=== PATIENT | female | born 1985 | race Caucasian/White ===

== ENCOUNTER 2023-06-18 20:00 | Outpatient (OUT) | payer OTHER, SELFPAY ==
--- NOTE | 2023-06-18 20:08 | US_ITS ---
The [address] [address] Patient Name: SOLEDAD KING MRN: [id number] date: 1985 Sex: F Assigned Patient Location: US Current Patient Location: Accession/Order Number: [id number] Exam Date: 06/18/2023 20:15 Report Date: 06/19/2023 07:26 At the request of: KELSEA YOUNG Procedure: US pelvis w/ transvaginal EXAMINATION: US pelvis w/ transvaginal HISTORY: CYST OF OVARY, UNSPECIFIED LATERALITY N83.209 COMPARISON: Ultrasound pelvis 01/19/2021 TECHNIQUE: Transabdominal and/or transvaginal sonographic examination was performed as indicated by examination type. FINDINGS: UTERUS: Hysterectomy. Nonspecific 1.2 cm hypoechoic structure midline anterior pelvis; not overtly suspicious. RIGHT OVARY: Contains a heterogeneous 5.0 x 4.1 x 4.8 cm complex cyst versus hypovascular mass. Small amount of free fluid adjacent the ovary. Duplex Doppler demonstrates normal waveform and flow; resistive index 0.5. Ovary size: 6.2 x 4.6 x 5.9 cm LEFT OVARY: Not seen. No suspicious adnexal findings. CUL-DE-SAC: Unremarkable. No significant free fluid. BLADDER: Unremarkable. OTHER: None. US/US pelvis w/ transvaginal IMPRESSION: 1. Stable to slight increase in size of a right ovarian lesion of uncertain etiology; suspect complex hemorrhagic cyst or possible endometrioma. Given its persistence since 2020 this most likely represents an endometrioma. Electronically authenticated by: IRMA ALLISON Date: 06/19/2023 07:26
== END 2023-06-18 20:01 | disposition home or self-care (01) ==
PROVIDERS: PCP Internal Medicine; Visit Provider Obstetrics & Gynecology
DX: N83.209 Unspecified ovarian cyst, unspecified side (principal)
CPT/HCPCS: 76830; 76856

== ENCOUNTER 2023-06-19 13:13 | Outpatient (OUT) | payer OTHER, SELFPAY ==
[2023-06-19 14:18] LABS: Lactate Dehydrogenase 160 U/L (81-234)
[2023-06-20 04:08] LABS: AFP, Serum, Tumor Marker 5.2 ng/mL (0.0-6.4); CEA <0.6 ng/mL (0.0-4.7); Cancer Antigen (CA) 125 10.5 U/mL (0.0-38.1)
[2023-06-20 06:09] LABS: HCG Tumor Marker <1 mIU/mL (.)
== END 2023-06-19 13:14 | disposition home or self-care (01) ==
LOC: LAB 13:17
PROVIDERS: PCP Internal Medicine; Visit Provider Obstetrics & Gynecology
DX: N83.299 Other ovarian cyst, unspecified side (principal)
CPT/HCPCS: 36415; 82105; 82378; 83615; 84702; 86304

== ENCOUNTER 2023-06-27 12:34 | Outpatient (OUT) | payer OTHER, SELFPAY ==
[2023-06-27 13:38] LABS: Anion Gap 12.8; BUN Creatinine Ratio 9.5; Calcium 9.8 mg/dL (8.5-10.1); Carbon Dioxide 28.6 mmol/L (21.0-32.0); Chloride 103 mmol/L (98-107); Estimated GFR (African America >60 (>=60); Estimated GFR (Non-African Ame >60 (>=60); Glucose 77 mg/dL (74-106); Potassium 3.4 mmol/L (3.5-5.1); Sodium 141 mmol/L (136-145)
== END 2023-06-27 12:35 | disposition home or self-care (01) ==
LOC: PST 12:35
PROVIDERS: PCP Internal Medicine; Visit Provider Obstetrics & Gynecology
DX: Z01.812 Encounter for preprocedural laboratory examination (principal); N83.201 Unspecified ovarian cyst, right side
CPT/HCPCS: 80048; 85610; 85730

== ENCOUNTER 2023-07-01 10:43 | Day surgery (SDC) | payer OTHER, SELFPAY ==
[2023-06-27 13:16] VITALS: BP 162/104; PULSE 64; TEMP 36.2; O2SAT 100; BMI 42.5
[2023-07-01] VITALS (19 sets, daily range): BP systolic 118–181; BP diastolic 64–110; PULSE 48–84; TEMP 36.1; O2SAT 98–100; BMI 42.1
[2023-07-01 11:07] LABS: Basophils Percent Auto 0.7 % (0.2-2.0); Eosinophils Absolute Auto 0.2 10^3/uL (0.0-0.7); Eosinophils Percent Auto 2.8 % (0.9-7.0); Hematocrit 43.5 % (36.0-48.0); Hemoglobin 14.6 g/dL (12.0-16.0); Immature Granulocytes Abs Auto 0.01 10^3/uL (0.00-0.03); Immature Granulocytes Pct Auto 0.2 % (0.0-0.5); Lymphocytes Absolute Auto 2.1 10^3/uL (1.2-3.8); Lymphocytes Percent Auto 35.7 % (20.5-60.0); Mean Corpuscular HGB Conc 33.6 g/dL (29.9-35.2); Mean Corpuscular Hemoglobin 30.9 pg (26.7-34.0); Mean Platelet Volume 9.7 fL (9.5-13.5); Monocytes Absolute Auto 0.4 10^3/uL (0.3-0.8); Monocytes Percent Auto 7.5 % (1.7-12.0); Neutrophils Absolute Auto 3.1 10^3/uL (1.4-6.5); Neutrophils Percent Auto 53.1 % (43.0-75.0); Platelet Count 203 10^3/uL (150-450); Red Blood Count 4.73 10^6/uL (4.20-5.40); Red Cell Distribution Width 12.2 % (11.0-15.0); White Blood Count 5.8 10^3/uL (4.0-11.0)
[2023-07-01 11:19] LABS: Glucometer 85 mg/dL (74-106)
[2023-07-01 11:21] LABS: INR 1.02; Partial Thromboplastin Time 32.8 sec (22.3-36.2); Prothrombin Time 10.8 sec (9.0-11.6)
[2023-07-01] MEDS: LACTATED RINGER'S SOLUTION 1,000 ML 50 ML IV (11:28)
--- NOTE | 2023-07-01 14:13 | PM.ONB ---
Brief Operative Note Date of procedure: 07/01/23 Pre-op diagnosis general: ovarian cyst, pelvic pain Post-op diagnosis: same as pre-op Procedure: NAME OF PROCEDURE: [diagnostic laparoscopy ] PROCEDURE: The patient was taken back to the Operating Room where she was placed in dorsal lithotomy position after given general anesthesia. The patient was prepped and draped in normal sterile fashion. A sponge stick was placed into the patient's vagina. Attention was turned to the patient's abdomen, where a small umbilical incision was made. The fascia was tented using Franklin clamps and the fascia was entered sharply. Confirmation of intraabdominal placement of the 10 mm port was confirmed under direct visualization using a laparoscope. The patient's abdomen was then insufflated using CO2 gas with approximately 4 liters. A second port was placed left laterally, this was done under direct visualization with a 5 mm port. Survey of the patient's abdomen significant bowel adhesions, uanble to visualize ovaries. All instruments were removed from the patient's abdomen. The patient's abdomen was deinsufflated of CO2 gas. The patient tolerated the procedure well. Sponge stick was removed from the patient's vagina. The patient's infraumbilical fascia was closed using #0 Vicryl on a GI needle. The patient's skin was closed laterally and infraumbilically using 4-0 Vicryl. The patient tolerated the procedure well. Sponge, lap and needle counts were correct x 2. The patient was taken to Recovery Room in stable condition. Anesthesia: JADA Surgeon: Manuelito Adam Ada Accommodation Consultant: Cierra Bell Estimated blood loss (mL): 5 Pathology: none sent Condition: stable Disposition: PACU Urinary Catheter Management Urinary Catheter Management Urethral: Cath placed during this visit: no
[2023-07-01] MEDS: HYDROMORPHONE HCL 0.5 MG/0.5 ML SYRINGE IV ×2 (14:52→15:09)
[2023-07-01] MEDS: OXYCODONE HCL/ACETAMINOPHEN 5MG/325MG 2 TAB PO (15:25)
== END 2023-07-01 16:50 | disposition home or self-care (01) ==
PROVIDERS: PCP Internal Medicine; Visit Provider Obstetrics & Gynecology
PROC: (CPT 840; principal; 2023-07-01 12:00)
DX: N83.201 Unspecified ovarian cyst, right side (principal); R10.2 Pelvic and perineal pain; E11.9 Type 2 diabetes mellitus without complications; I48.91 Unspecified atrial fibrillation; M19.90 Unspecified osteoarthritis, unspecified site; J45.909 Unspecified asthma, uncomplicated; I10 Essential (primary) hypertension; K21.9 Gastro-esophageal reflux disease without esophagitis; G47.33 Obstructive sleep apnea (adult) (pediatric); Z90.710 Acquired absence of both cervix and uterus; Z98.84 Bariatric surgery status; Z90.49 Acquired absence of other specified parts of digestive tract; E66.01 Morbid (severe) obesity due to excess calories; Z68.41 Body mass index [BMI] 40.0-44.9, adult; Z86.16 Personal history of COVID-19; E03.9 Hypothyroidism, unspecified
CPT/HCPCS: 49320; 36415; 82948; 85025; 85610; 85730; J1094; J1170; J2704

== ENCOUNTER 2023-08-26 18:49 | Outpatient (REF) | payer OTHER, SELFPAY ==
[2023-08-29 15:09] LABS: Age Gdln ACOG Testing Note (.); HPV Aptima Negative (Negative); IGP, Aptima HPV, rfx 16/18,45 Note (.)
== END 2023-08-26 18:50 | disposition home or self-care (01) ==
LOC: LAB 18:49
PROVIDERS: PCP Internal Medicine; Visit Provider Obstetrics & Gynecology
DX: Z01.419 Encounter for gynecological examination (general) (routine) without abnormal findings (principal)
CPT/HCPCS: 87624; 88175

== ENCOUNTER 2024-06-23 09:01 | Outpatient (OUT) | payer OTHER, SELFPAY ==
--- NOTE | 2024-06-23 09:46 | P.CN_ITS ---
Consult Note: HPI Data of Consult Patient: new to practice Requesting Physician: Snow Osorio MD Primary Care Provider: Charity Venegas NP Consult Narrative Reason for consult: establish low back pain Narrative: Aneta Kramer a 38 year old female presents for evaluation of low back pain. pt reports around 18 years ago she had a work related injury resulting in a compression fx at unknown level, combined with chronic back pain post scoliosis. She notes a family hx of severe DDD and personal hx of DDD based on prior imaging. no recent imaging available, no recent PT. hx of gastric bypass cannot take NSAIDs. finds benefit to opioid pain medications, previously percocet, hydrocodone, and most recently tramadol. Her PCP took over tramadol 50mg QID PRN moderate to severe pain and started her on gabapentin 100mg TID within the last month, however she was dismissed due to over taking her medications. Pt reports low back pain 8/10 today with sharp shooting pain into RLE. no hx of back surgery or interventional therapy per pt. cc:: CC: Snow Osorio MD Review of Systems ROS Status of ROS 10 or more systems reviewed and unremark able except as noted in h istory and below Musculoskeletal Reports: back pain, extremity pain and joint pain [facility] Medical History (Updated 06/23/24 @ 09:50 by Yady Palomares NP) DDD (degenerative disc disease) Back pain ?M54.9 - Dorsalgia, unspecified (ICD-10) Arthritis ?M19.90 - Unspecified osteoarthritis, unspecified site (ICD-10) Anemia ?D64.9 - Anemia, unspecified (ICD-10) Hypertensive urgency ?I16.0 - Hypertensive urgency (ICD-10) Depression ?F32.A - Depression, unspecified (ICD-10) Anxiety ?F41.9 - Anxiety disorder, unspecified (ICD-10) PTSD (post-traumatic stress disorder) ?F43.10 - Post-traumatic stress disorder, unspecified (ICD-10) Chronic pain ?G89.29 - Other chronic pain (ICD-10) Vitamin D deficiency ?E55.9 - Vitamin D deficiency, unspecified (ICD-10) Folic acid deficiency ?E53.8 - Deficiency of other specified B group vitamins (ICD-10) B12 deficiency ?E53.8 - Deficiency of other specified B group vitamins (ICD-10) Sleep apnea ?G47.30 - Sleep apnea, unspecified (ICD-10) Asthma ?J45.909 - Unspecified asthma, uncomplicated (ICD-10) Vertigo ?R42 - Dizziness and giddiness (ICD-10) Migraine ?G43.909 - Migraine, unspecified, not intractable, without status migrainosus (ICD-10) GERD (gastroesophageal reflux disease) ?K21.9 - Gastro-esophageal reflux disease without esophagitis (ICD-10) Bruises easily ?R23.3 - Spontaneous ecchymoses (ICD-10) Pilonidal cyst ?L05.91 - Pilonidal cyst without abscess (ICD-10) Ankle pain ?M25.579 - Pain in unspecified ankle and joints of unspecified foot (ICD-10) Uterine fibroid ?D25.9 - Leiomyoma of uterus, unspecified (ICD-10) Fatty liver ?K76.0 - Fatty (change of) liver, not elsewhere classified (ICD-10) Endometriosis ?N80.9 - Endometriosis, unspecified (ICD-10) Seasonal allergies ?J30.2 - Other seasonal allergic rhinitis (ICD-10) Hypertension ?I10 - Essential (primary) hypertension (ICD-10) COVID-19 ?U07.1 - COVID-19 (ICD-10) Atrial fibrillation ?I48.91 - Unspecified atrial fibrillation (ICD-10) Tachycardia ?R00.0 - Tachycardia, unspecified (ICD-10) Ovarian cyst ?N83.209 - Unspecified ovarian cyst, unspecified side (ICD-10) Diabetes ?E11.9 - Type 2 diabetes mellitus without complications (ICD-10) Hypothyroidism ?E03.9 - Hypothyroidism, unspecified (ICD-10) Postoperative nausea and vomiting ?R11.2 - Nausea with vomiting, unspecified (ICD-10) ?Z98.890 - Other specified postprocedural states (ICD-10) Delayed recovery from anesthesia MRSA (methicillin resistant Staphylococcus aureus) ?A49.02 - Methicillin resistant Staphylococcus aureus infection, unspecified site (ICD-10) Implantable loop recorder present ?Z95.818 - Presence of other cardiac implants and grafts (ICD-10) Surgical History H/O gastric sleeve ?Z90.3 - Acquired absence of stomach [part of] (ICD-10) History of hernia repair ?Z98.890 - Other specified postprocedural states (ICD-10) ?Z87.19 - Personal history of other diseases of the digestive system (ICD-10) History of dilation and curettage ?Z98.890 - Other specified postprocedural states (ICD-10) History of cholecystectomy ?Z90.49 - Acquired absence of other specified parts of digestive tract (ICD- 10) History of appendectomy ?Z90.49 - Acquired absence of other specified parts of digestive tract (ICD- 10) History of ankle surgery ?Z98.890 - Other specified postprocedural states (ICD-10) History of hysterectomy ?Z90.710 - Acquired absence of both cervix and uterus (ICD-10) Family History Other Family history of DVT Family history of breast cancer Family history of colon cancer Family history of diabetes mellitus Family history of gastric cancer Family history of heart disease Family history of hypertension Family history of lung cancer Family history of myocardial infarction Family history of seizures Family history of stroke Social History Within the past year, how often did you have a drink containing alcohol: never Score interpretation: A score less than 3 is consistent with normal alcohol consumption. Smoking status: Never smoker Non-prescribed substance use: denies use Highest level of school completed/degree received: Associate degree: occupational, technical, vocational program Meds Home Medications and Allergies Home Medications ?Medication ?Instructions ?Recorded ?Confirmed ?Type cyanocobalamin (vitamin B-12) 500 500 mcg PO DAILY 06/27/23 07/01/23 History mcg tablet dicyclomine 20 mg tablet 20 mg PO QID 06/27/23 07/01/23 History ergocalciferol (vitamin D2) 1,250 1,250 mcg PO QWEEK 06/27/23 07/01/23 History mcg (50,000 unit) capsule folic acid 1 mg tablet 1 mg PO DAILY 06/27/23 07/01/23 History losartan 50 mg tablet 50 mg PO DAILY 06/27/23 07/01/23 History oxycodone-acetaminophen 5 mg-325 1 tab PO Q6H PRN pain 06/27/23 07/01/23 History mg tablet pantoprazole 40 mg tablet,delayed 40 mg PO DAILY 06/27/23 07/01/23 History release pediatric multivitamin no.76 1 tab PO DAILY 06/27/23 07/01/23 History (Flintstones Complete chewable tablet) tramadol 50 mg tablet 50 mg PO Q6H PRN pain 06/27/23 07/01/23 History ibuprofen 800 mg tablet 800 mg PO Q8H PRN pain 14 days #40 07/01/23 Rx tabs oxycodone-acetaminophen 5 mg-325 1 tab PO Q6H PRN pain 7 days #28 07/01/23 Rx mg tablet (Percocet) tabs Allergies Allergy/AdvReac Type Severity Reaction Status Date / Time adhesive Allergy skin damage Verified 06/27/23 12:49 ciprofloxacin (From Cipro) Allergy Anaphylaxis Verified 06/27/23 12:49 latex Allergy Rash Verified 06/27/23 12:49 levofloxacin Allergy Anaphylaxis Verified 06/27/23 12:49 lisinopril Allergy Hypertensio Verified 06/27/23 12:49 n spironolactone Allergy Hypertensio Verified 06/27/23 12:49 n Exam Constitutional Documenting provider has reviewed patient's vital signs: yes Common normals: no apparent distress, oriented x3, healthy appearing, alert and well nourished General appearance: cooperative HENMT Common normals: normocephalic, hearing grossly normal bilaterally and moist oral mucous membranes Head and scalp: normocephalic Eye Common normals: PERRL Pupil: PERRL Neck & C-Spine Common normals: full ROM General: normal visual inspection Chest Common normals: inspection of chest normal Respiratory Common normals: normal respiratory effort, no retractions and no use of accessory muscles Back & Pelvis Thoracic spine/upper back: ROM limited, pain with ROM and kyphosis present Lumbar spine/lower back: ROM limited, pain with ROM, lumbar scoliosis present and straight leg raise positive right Other: decreased sensation right L4,5,S1 strength 4/5 in RLE and 5/5 in LLE Neuro Common normals: oriented x3 Sensorium/orientation: alert Psych Common normals: mental status grossly normal, thought process normal, cooperative, affect normal, speech normal and activity/motor behavior normal Speech: normal speech Thought process: normal thought process Results Additional Findings Additional findings: If on a controlled substance or opioids, I have checked an [place] report on this patient and there are no aberrancies noted in the prescribing history.??If on a controlled substance or opioid a drug screen was completed and reviewed within the last year, and if there has not been a drug screen completed we ordered one today to monitor higher risk, state monitored pain medication use. As part of providing excellent, safe, comprehensive care, the following was completed at our patient's visit: 1. A medication reconciliation and review to ensure accurate knowledge of current/active medications, including asking our patients to inform us about any tode-aib-fzlbjtt medications or herbal remedies/nutritional supplements/alternative remedies. 2. A review to specifically ensure our patients have had annual screening for screening for depression, screening for tobacco use, and screening for unhealthy alcohol use. For concerning screenings had a discussion with the patient, provided patient education, and recommended follow-up with primary care provider when appropriate. If patient noted with a risk of falling, they received education on strength, gait, and balance training to prevent future risk of falling. Portions of this note may have been carried over from the previous visit and updated as appropriate. Please note this office utilizes paper charting in addition to the electronic medical record. A list of current medications, vitals, and PMH is available there as the clinical staff outside of myself do not have access to Actual Experience charting during the clinic day operations. As part of providing quality comprehensive care the current medications, vitals, and PMH were reviewed in the paper chart. Assessment and Plan Assessment and Plan (1) Degenerative disc disease, lumbar: (2) Lumbar radiculopathy: (3) Scoliosis: (4) Lumbar spondylosis: (5) Chronic prescription opiate use: (6) Encounter for medication monitoring: Plan update lumbar xray with flexion to assess chronic pain, update thoracic/lumbar scoliosis series to assess severity PT for low back pain, lumbar radiculopathy, lumbar DDD continue tylenol PRN update UDS for medication monitoring, [employer] reviewed and signed. will consider taking over tramadol 50mg QID PRN moderate to severe pain and gabapentin 100mg TID based on results of UDS. consider increasing gabapentin. will monitor closely for misuse/abuse f/u 1 month to evaluate plan of care and review imaging
== END 2024-06-23 09:02 | disposition home or self-care (01) ==
PROVIDERS: PCP Nurse Practitioner; Visit Provider Anesthesiology
DX: M51.369 Other intervertebral disc degeneration, lumbar region without mention of lumbar back pain or lower extremity pain (principal); M54.16 Radiculopathy, lumbar region; M41.9 Scoliosis, unspecified; M47.816 Spondylosis without myelopathy or radiculopathy, lumbar region; Z79.891 Long term (current) use of opiate analgesic; Z51.81 Encounter for therapeutic drug level monitoring
CPT/HCPCS: G0463

== ENCOUNTER 2024-09-02 13:56 | Outpatient (OUT) | payer OTHER, SELFPAY | END 2024-09-02 13:57 | disposition home or self-care (01) | PROVIDERS: PCP Nurse Practitioner; Visit Provider Nurse Practitioner | DX: Z51.81 Encounter for therapeutic drug level monitoring (principal) | CPT/HCPCS: G0463 ==

== ENCOUNTER 2025-02-21 16:26 | Outpatient (OUT) | payer OTHER, SELFPAY ==
--- OUTSIDE RECORDS SUMMARY | 2025-02-21 16:36 | XMS_ITS | CCD ---
Author Organization [facility] Care Team Providers Care Bag Hanger Name Role Phone TATY NOONAN Unavailable Unavailable TATY NOONAN Unavailable Unavailable Unavailable Primary Care Provider Unavaillisa e Elmer Castellano Primary Care Provider [phone] Elmer Castellano Primary Care Provider Elmer Castellano Primary Care Provider Shaik Nievesh Primary Care Provider Shaik Nieves MDh Primary Care Provider Elmer Riley APRN, CNP Primary Care Provider JAIR ., DR ENAMORADO Admitting Unavailable JAIR ., DR ENAMORADO [facility]ending [facility] Primary Care Unavailable MERRY . KAVITHA Admitting Unavailable MERRY ., KAVITHA Attending [facility] Primary Care Unavailable MERRY . KAVITHA Consulting Unavailable JAIR ., DR ENAMORADO Admitting Unavailable JAIR ., DR ENAMORADO Attending [facility] Primary Care Unavailable JAIR ., DR ENAMORADO Consulting Unavailable Jonathan Nieves MDikh Primary Care Provider Shaik Nieves MDh Primary Care Provider Jonathan Nieves MDikh Primary Care Provider TATY CONTRERAS Attending Unavailable Manuelito ADAM R Referring Unavailable Tyree Lamar MD Primary Care Provider Jefferson COOPERER, Alyson Unavailable Jefferson RN PARALEGAL - COOPERER, Alyson Primary Care Pro vider SHAIKH NIEVES Primary Care Physician Lizbeth REYEZ, [facility] Primary Care Provider [phone] Jefferson [facility] - [facility] Primary Care Pro vider BENTLEY CARROLL Attending Unavailable JEFFERSON [facility] Primary Care Unavailabl e Jefferson COOPERER, Alyson Unavailable Rubi RICHMOND - COOPERER, Aneudy Coles Primary Care Provide r Arthur Liang Attending Unavaila ble Arthur Liang Unavailable [phone] [facility], Other Primary Ca re Provider ODETTE THEODORE Attending Unavailable ODETTE THEODORE Referring Unavailable [facility], OTHER Primary Ca re Unavailable [facility], OTHER Primary Ca re Unavailable TANIKA, CHRISTOPHER N Attending Unavailable TANIKA, CHRISTOPHER N Referring Unavailable TANIKA, CHRISTOPHER N Admitting Unavailable TANIKA, CHRISTOPHER N Attending Unavailable TANIKA, CHRISTOPHER N Referring Unavailable Tehrese RICHMOND - BILL, Arthur Martinez Primary Care Pro vider Arthur Liang Unavailable [phone] VAL SHAVER Referring Unavailable JONATHAN NIEVESIKH Primary Care Unavailable ANEUDY VENEGAS Primary Care Unavailable ALEAH SALMON Attending Unavailable [facility] Primary Care Unavailabl e ORLANDO ZACARIAS Attending Unavailable [facility] Primary Care Unavailabl e RELL ORLANDO G Attending Unavailable ARTHUR SALEH Primary Care Unavailabl e CHAPINCITOARETHA BUITRAGO Referring Unavailable ARTHUR SALEH Referring Unavailabl e THERESEARTHUR BUENO Primary Care Unavailabl e CHAPINCITO, ARETHA Referring Unavailable ARTHUR SALEH Primary Care Unavailabl e THERESEARTHUR Referring Unavailabl e THERESE, ARTHUR C Primary Care Unavailabl e THERESE, ARTHUR C Primary Care Unavailabl e ARTHUR SALEH Referring Unavailabl e EL-ATASSI, TRE Attending Unavailable EL-ATASSI, TRE Referring Unavailable ANEUDY VENEGAS. Primary Care Unavailable EL-ATASSI, TRE Attending Unavailable EL-ATASSI, TER Referring Unavailable ANEUDY VENEGAS. Primary Care Unavailable PAULINO, ALYSON Primary Care Unavailabl e LIVIER BRANDON Attending Unavailable PAULINO, ALYSON Primary Care Unavailabl e ALEAH SALMON Attending Unavailable BRANDONLIVIER MARTINEZ Attending Unavailable PAULINO, ALYSON Primary Care Unavailabl e PAULINO, ALYSON Primary Care Unavailabl e ANEUDY VENEGAS. Primary Care Unavailable BRANDONLIVIER MARTINEZ J Attending Unavailable Lizbeth REYEZ, Schwartz Primary Care Provider Tyree Lamar MD Primary Care Provider [phone] Jefferson KHAN, Alyson Unavailable [phone] Arthur Florian Referring U navailable Arthur Florian Primary Care U navailable Guilherme REYEZ, Myah Gilliland Attending Unavail able PAULINO, ALYSON Attending Unavailabl e AICHHOLZANEUDY Attending Unavailable AICHHOLANEUDY Heredia Attending Unavailable MANUELITO ADAM Attending Unavailable PAULINOALYSON SMITH Attending Unavailabl e Allergies Allergy ClassificationReported Allergen(s)Allergy TypeDate of OnsetReaction(s) FacilityAdhesive Tape (1 source)Adhesive TapeSubstance Iliszja32-36-8702Tvsfp HealthAngiotensin Converting Enzyme (ELSA) Inhibitors (1 source)LisinoprilDrug Anvboka39-84-9709Oncgt (See Comments)[facility] Health[facility] (1 source)LatexSubstance Qujehah00-64-0821Fknfq HealthQuinolones (antibiotic) (2 sources)CiprofloxacinDrug Wvmpooh02-22-5721[facility] (1 source)Adhesive Tape; Translations: [ADHESIVE TAPE (ROSINS)]Propensity to adverse reactions (disorder)72-45-1134AJYRlvsuinsrClinton [facility] Rep[facility] (20 sources)ciprofloxacin; Translations: [CIPROFLOXACIN]Drug Btfhjxa64-91-4492 Anaphylaxis, Anaphylaxis (disorder), [facility] Repository (20 sources)Latex; Translations: [LATEX]Propensity to adverse reactions to drug (disorder)94-28-5285Sers, Other, Unknown, Eruption (morphologic abnormality), Skin Rashes / [facility] (20 sources)levoFLOXacin; Translations: [LEVOFLOXACIN]Drug Pfpesxd81-91-8393 Anaphylaxis, Anaphylaxis (disorder), [facility] Rep[facility] (20 sources)lisinopril; Translations: [LISINOPRIL]Drug Vxujuzb89-85-1457Gxixk (See Comments), GI intolerance, NauseaKettering Health [facility] Campus Repository (18 sources)OtherPropensity to adverse huawtbdpm03-85-4233Zbzpn Health- [place], [place] (20 sources)Adhesive Tape; Translations: [Adhesive tape]Propensity to adverse reactions to lbhq07-79-7513[facility] Work Phone: (3 sources)Ciprofloxacin; Translations: [Cipro]Drug Vbnoodn85-91-6631[facility]Park[facility] Repository (3 sources)levoFLOXacin; Translations: [Levaquin]Drug Zoetuut53-22-6843Xmm [facility] Repository (20 sources)SpironolactoneDrug Tztqzfl96-47-5329Drlfb (See Comments), [facility] (20 sources)SpironolactoneDrug Azphawa22-74-3240XM intoleranceNODC Healthcare Work Phone: (20 sources)Wound Dressing AdhesiveDrug Snaiftd21-36-7309Zysz, [facility]NO[facility] (12 sources)PollenDrug zuenked14-42-7275Vxrvgk [facility] (12 sources)Adhesive Tape 1/2 x5yd; Translations: [Adhesive Tape 1/2 x5yd]Drug jwagmld26-25-1456Jpgn Rashes / Eruption of skinHealth [facility] (1 source)Non-steroidal anti-inflammatory agentPropensity to adverse reactions to srhn46-49-0221Vijsc Health SystemNEGATED: Highlighted row has been ruled out! (20 sources)OtherPropensity to adverse udmowmwfx52-63-9023AjthghzjlyaEqojg Health Medications Current Medications MedicationDrug Class(es)DatesSig (Normalized)Sig (Original)acetaminophen 325 mg / HYDROcodone bitartrate 5 mg oral tablet (8 sources)Opioid AgonistStart: 09-20-2024 End: 08-58-2012gbdt 1 tablet by mouth every four hours as needed for pain hydroCODone-acetaminophen 5-325 MG tablet Indications: Dental caries Take 1 tablet by mouth every 4hours as needed for Moderate Pain, Severe Pain or Pain (breakthrough) for up to 18 doses. 18 jndngr7609/20/2024 09/25/2024 ActiveStart: 11-09-2019 End: 21-08-6266ECUFEuqcviu-acetaminophen (NORCO) 5-325 MG per tablet 2 tablet Start: 79-93-1803ndkusbpoblx-acetaminophen (NORCO) tablet 5-325 mg (STARTER PACK)Start: 05-21-2019 End: 96-35-6552DFIUZeuqkyt-acetaminophen (NORCO) 5-325 MG per tablet 2 tablet Start: 03-24-2019 End: 28-65-7731PQISCoejdkj-acetaminophen (NORCO) 5-325 MG per tablet Indications: Rib pain Take 1 tablet by mouth every 6 hours as needed for Pain for up to 3 days. Intended supply: 3 days. Take lowest dose possible to manage pain 12 tablet 0 03/24/2019 03/27/2019 ActiveStart: 97-84-5069hrpacqralgd- acetaminophen (NORCO) tablet 5-325 mg (STARTER PACK) End: 49-32-3131witv 1 tablet by mouth every six hours as needed for pain HYDROcodone-acetaminophen (NORCO) 5-325 MG per tablet Take 1 tablet by mouth every 6 hours as needed for Pain.. 0 11/05/2018 Discontinued (LIST CLEANUP) acetaminophen 325 mg / oxyCODONE hydrochloride 5 mg oral tablet (20 sources)Opioid AgonistStart: 05-26-2024 End: 99-45-5902fhhp 1 tablet by mouth every twenty-four hours2 tablet, Oral, ONCE, 1 dose, On Fri05/26/24 at 2000, Maximum dose of acetaminophen is 4000 mg fromall sources in 24 hours.Start: 05-26-2024 End: 78-86-0035exuLKCJLX-acetaminophen (PERCOCET) 5-325 MG per tablet Indications: Arthritis Take 1 tablet by mouth every 6 hours as needed for Pain for up to 5 days. Max Daily Amount: 4 tablets 20 tablet 05/26/2024 05/31/2024 ActiveStart: 01-14-0675ffup 1 tablet by mouth every eight hours as needed oxyCODONE-acetaminophen (PERCOCET) 5-325 MG per tablet Take 1 tablet by mouth every 8 hours as needed. 0 12/18/2022 ActiveStart: 12-04-2022 End: 80-80-5007usuYQDSCU-acetaminophen (PERCOCET) 5-325 MG per tablet Indications: S/P laparoscopic sleeve gastrectomy Take 1 tablet by mouth every 6 hours as needed for Pain for up to 7 days. Intended supply: 7 days. Take lowest dose possible to manage pain Max Daily Amount: 4 tablets 28 tablet 0 12/04/2022 12/11/2022 ActiveStart: 87-81-5386hedz 1 tablet by mouth every four hours as neededoxyCODONE-acetaminophen (PERCOCET) 5-325 MG per tablet Take 1 tablet by mouth every 4 hours as needed. 0 12/11/2020 ActiveStart: 40-47-3139qodPYUEGI- acetaminophen (PERCOCET) 5-325 MG per tabletStart: 04-20-2019 End: 00-60-4952lbwx 1 tablet by mouth every six hours as needed for pain oxyCODONE-acetaminophen (PERCOCET) 5-325 MG per tablet Indications: Sciatica of right side , Sacroiliac joint pain Take 1 tablet by mouth every 6 hours as needed for Pain for up to 3 days. 10 tablet 0 04/20/2019 04/23/2019 ActiveStart: 03-24-2019 End: 47-40-8787wdtSGJKDU-acetaminophen (PERCOCET) 5-325 MG per tablet 2 tablet amLODIPine 10 mg oral tablet (5 sources)Dihydropyridine Calcium Channel BlockerStart: 98-41-9726zhpa 1 tablet by mouth once dailyamLODIPine (NORVASC) 10 MG tablet Indications: Essential hypertension Take 1 tablet by mouth daily 90 tablet 1 05/27/2019 ActiveStart: 98-98-6850chuw 1 tablet by mouth once dailyamLODIPine (NORVASC) 2.5 MG tablet Indications: Essential hypertension Take 1 tablet by mouth daily90 tablet 1 05/13/2019 ActiveBlood Glucose Monitoring Suppl (ONE TOUCH ULTRA 2) w/Device KIT (5 sources)Start: 50-58-4601Hoezc Glucose Monitoring Suppl (ONE TOUCH ULTRA 2) w/Device KITBlood Pressure KIT (15 sources)Start: 27-51-6902Hkrbl Pressure KIT 1 kit by Does not apply route 2 times daily 1 kit 0 12/02/2018 Activecalcium carbonate 500 mg chewable tablet (14 sources)take 2 capsules by mouth once dailyCalcium Carbonate 500 MG CHEW Take 2 capsules by mouth daily Activecalcium chloride 0.0014 meq/ml / potassium chloride 0.004 meq/ml / sodium chloride 0.103 meq/ml / sodium lactate 0.028 meq/ml injectable solution (1 source)Start: 52-98-2014movzdhel ringers IV soln infusioncarvedilol 25 mg oral tablet (7 sources)alpha-Adrenergic Sai, beta-Adrenergic BlockerStart: 08-23-2022 take 1 tablet by mouth twice daily at mealtimecarvedilol (COREG) 25 MG tablet Take 1 tablet by mouth 2 times daily (with meals) 0 08/23/2022 Active End: 91-15-5585eokx 1 tablet by mouth twice daily at mealtimecarvedilol (COREG) 6.25 MG tablet Take 6.25 mg by mouth 2 times daily (with meals) 0 11/30/2018 Discontinued (LIST CLEANUP)cyclobenzaprine hydrochloride 5 mg oral tablet (4 sources)Muscle RelaxantStart: 03-26-2024 End: 04-79-9631ydfm 1 tablet by mouth twice daily as needed for muscle spasms cyclobenzaprine (FLEXERIL) 5 MG tablet Take 1 tablet by mouth 2 times daily as needed for Muscle spasms 10 tablet 03/26/2024 04/05/2024 ActiveStart: 05-20-2019 End: 90-18-9128megb 1 tablet by mouth three times daily as needed for muscle spasmscyclobenzaprine (FLEXERIL) 10 MG tablet Take 1 tablet by mouth 3 times daily as needed for Muscle spasms 12 tablet 0 05/20/2019 05/30/2019 dexamethasone 1 mg/ml / neomycin 3.5 mg/ml / polymyxin b 69123 unt/ml ophthalmic suspension (1 source)Aminoglycoside Antibacterial, Polymyxin-class Antibacterial, CorticosteroidStart: 04-01-2019 End: 36-13-1740rgzy 1 drop(s) into the eye(s) four times daily pmrrfguf-dxbpycetf-jniahsoginefa (MAXITROL) 0.1 % ophthalmic suspension Place 1 drop into the righteye 4 times daily for 10 days 1 Bottle 0 04/01/2019 04/11/2019 Kbssak37 hr dilTIAZem hydrochloride 120 mg extended release oral capsule (16 sources)Calcium Channel BlockerStart: 03-24-2024 End: 14-52-6087ghhs 1 capsule by mouth once dailydilTIAZem (CARDIZEM CD) 120 MG extended release capsule Take 1 capsule by mouth daily 30 capsule 11003/24/2024 ActiveStart: 34-90-0742xvsDUSEor (CARDIZEM CD) 240 MG extended release capsule Start: 71-00-5227coxw 1 capsule by mouth once dailydilTIAZem (CARDIZEM CD) 180 MG extended release capsule TAKE 1 CAPSULE BY MOUTH ONCE DAILY 0 05/02/2021 Activedoxycycline hyclate 100 mg oral capsule (8 sources)Tetracycline-class DrugStart: 05-26-2024 End: 94-17-1462thun 1 dose by mouth fohf639 mg, Oral, ONCE, 1 dose, On 05/26/24 at 2000, Antimicrobial Indications: Surgical Prophylaxis, This medication can interact with tube feedings (TF)- obtain MD order to manage. Recommend holdingTF for 1 h before and 2 h after dose. Take 1 h before or 2 h after dairy, calcium, iron, magnesium,aluminum or zinc.Start: 05-15-2024 End: 40-12-4753rclc 1 tablet by mouth twice dailydoxycycline hyclate (VIBRA- TABS) 100 MG tablet Take 1 tablet by mouth 2 times daily for 10 days 20 tablet 05/26/2024 06/05/2024 ActiveStart: 05-15-2024 End: 68-45-2589zyeq 1 dose by mouth mbxk176 mg, Oral, ONCE, 1 dose, On Fri05/15/24 at 0045, Antimicrobial Indications: Skin and Soft Tissue Infection, This medication can interact with tube feedings (TF)- obtain MD order to manage. Recommend holding TF for 1 h before and 2 h after dose. Take 1 h before or 2 h after dairy, calcium, iron, magnesium, aluminum or zinc.Start: 05-11-2019 End: 05-75-5108qmzfljomzym hyclate (VIBRAMYCIN) capsule 100 mgtake 1 tablet by mouth in the morningdoxycycline (Adoxa) 100 MG tablet Take 100 mg by mouth in the morning and 100 mg before bedtime. Take with a full glass of water and do not lie down for at least 30 minutes after. Active0.5 ml dulaglutide 1.5 mg/ml auto-injector (4 sources)GLP-1 Receptor AgonistStart: 40-10-5270NGSNHUIIH 0.75 MG/0.5ML SOPN 1.5 mg EVERY FRIDAY 0 05/21/2022 Active0.6 ml enoxaparin sodium 100 mg/ml prefilled syringe (1 source)Low Molecular Weight HeparinStart: 12-02-2022 End: 32-83-2824hrkejlipbj (LOVENOX) 60 MG/0.6ML Inject 0.6 mLs into the skin 2 times daily for 14 days 16.8 mL 0 12/02/2022 12/16/2022 Activefluticasone propionate 0.05 mg/actuat metered dose nasal spray (3 sources)CorticosteroidStart: 05-06-2024 End: 86-99-3665rglt 1-2 spray(s) nasal route once dailyfluticasone (Flonase) 50 MCG/ACT nasal spray Indications: Sinus congestion Administer 1-2 sprays into each nostril Daily Shake gently. Before first use, prime pump. After use, clean tip and replace cap. 16 g 2 05/06/2024 05/06/2025 Activefolic acid 1 mg oral tablet (20 sources)Start: 05-28-2023 End: 27-86-7100ydgr 1 tablet by mouth once dailyfolic acid (FOLVITE) 1 MG tablet Indications: Essential hypertension , Gastroesophageal reflux disease without esophagitis , CATIE (obstructive sleep apnea) , Morbid obesity (HCC) , Fatty liver , Arthritis , Hypothyroidism, unspecified type , Paroxysmal atrial fibrillation (HCC) , S/P laparoscopic sleeve gastrectomy , Vitamin D deficiency , Low folate , Vitamin B12 deficiency Take 1 tablet by mouthdaily 30 tablet 05/28/2023 Active gabapentin 100 mg oral capsule (20 sources)Anti-epileptic AgentStart: 05-20-2024 End: 41-82-9903iefrmpwjvb (Neurontin) 100 MG capsule Indications: Chronic pain syndrome Start with 1 pill at bedtime for 5 days, then increase to 2 pills at bedtime for 5 days, then increase 3pills 90 capsule 1 05/20/2024 Activetake 1 capsule by mouth three times dailyGabapentin 100 MG capsule Take 1 capsule by mouth 3 times daily. ActiveHERBAL PRODUCT (1 source)HERBAL PRODUCT Sugar sai ActivehydroCHLOROthiazide 25 mg oral tablet (20 sources)Thiazide DiureticStart: 07-22-2023 End: 96-65-8637nrlg 1 tablet by mouth once dailyhydroCHLOROthiazide (HYDRODiuril) 25 MG tablet Indications: Essential hypertension Take 1 tablet (25 mg) by mouth Daily 90 tablet 02/26/2024 ActivehydroCHLOROthiazide 25 mg / losartan potassium 100 mg oral tablet (3 sources)Thiazide Diuretic, Angiotensin 2 Receptor BlockerStart: 08-23-2022 take 1 tablet by mouth once dailylosartan-hydroCHLOROthiazide (HYZAAR) 100-25 MG per tablet Take 1 tablet by mouth daily 0 08/23/2022 ActivehydroCHLOROthiazide 25 mg / spironolactone 25 mg oral tablet (20 sources)Thiazide Diuretic, Aldosterone AntagonistStart: 36-87-3475ewbi 1 tablet by mouth once dailyspironolactone-hydroCHLOROthiazide (ALDACTAZIDE) 25-25 MG per tablet Indications: Essential hypertension Take 1 tablet by mouth daily 90 tablet 1 12/09/2019 ActiveStart: 91-10-3190jrbi 1 tablet by mouth once daily hydrochlorothiazide-spironolactone 25 mg-25 mg oral tablet 1 tab(s), Oral, Daily, Refill(s) 0 StartDate: 06/02/19 Status: OrderedStart: 86-67-1752hziz 1 tablet by mouth once dailyspironolactone-hydrochlorothiazide (ALDACTAZIDE) 25-25 MG per tablet Indications: Essential hypertension Take 1 tablet by mouth daily 90 tablet 1 05/13/2019 ActiveStart: 59-22-5790osmq 1 tablet by mouth once daily spironolactone-hydrochlorothiazide (ALDACTAZIDE) 25-25 MG per tablet Take 1 tablet by mouth daily 90 tablet 0 12/02/2018 ActiveStart: 79-82-8460ymhg 1 tablet by mouth once dailyspironolactone-hydrochlorothiazide (ALDACTAZIDE) 25-25 MG per tablet Take 1 tablet by mouth daily 90 tablet 3 03/13/2017 Active1 ml HYDROmorphone hydrochloride 1 mg/ml cartridge (3 sources)Opioid AgonistStart: 88-01-9013KIBYWfcyoygnz (DILAUDID) injection 0.5 mgStart: 20-54-3072SLIZXwvebtfah (DILAUDID) injection 0.25 mgStart: 01-19-2021 End: 94-31-9357VFLTBlbmlpjkz (DILAUDID) injection 1 mgibuprofen 800 mg oral tablet (20 sources)Nonsteroidal Anti-inflammatory DrugStart: 22-14-5714fhob 1 tablet by mouth every eight hours as needed for painibuprofen (ADVIL;MOTRIN) 800 MG tablet Take 1 tablet by mouth every 8 hours as needed for Pain 30 tablet 0 01/27/2020 ActiveStart: 39-81-5116jfnj 1 tablet by mouth four times daily as needed for painibuprofen (ADVIL;MOTRIN) 600 MG tablet Take 1 tablet by mouth 4 times daily as needed for Pain 40 tablet 0 09/15/2019 ActiveStart: 36-72-2039levj 1 tablet by mouth every eight hours as needed for painibuprofen (ADVIL;MOTRIN) 800 MG tablet Take 1 tablet by mouth every 8 hours as needed for Pain 30 tablet 0 05/21/2019 ActiveStart: 56-99-3069uegsmwolj (ADVIL;MOTRIN) tablet 800 mgStart: 06-18-2018 End: 04-23-1053xduj 1 tablet by mouth every eight hours as needed for pain ibuprofen (ADVIL;MOTRIN) 800 MG tablet Take 1 tablet by mouth every 8 hours as needed for Pain or Fever 20 tablet 0 06/18/2018 11/05/2018 Discontinued (LIST CLEANUP) End: 36-28-1500Llpihqgdy (MOTRIN PO) Take by mouth 0 11/05/2018 Discontinued (LIST CLEANUP)Ibuprofen (MOTRIN PO) Take by mouth 0 Snzzio34 ml lidocaine hydrochloride 10 mg/ml injection (1 source)Antiarrhythmic, Amide Local AnestheticStart: 08-16-2022 End: 47-23-8853mtjzkggvv 1 % injection 1 mLloratadine 10 mg oral tablet (13 sources)Start: 08-16-2024 End: 94-59-1438bmerqfgyux (CLARITIN) 10 MG tablet 12/20/2024 Activelosartan potassium 100 mg oral tablet (20 sources)Angiotensin 2 Receptor BlockerStart: 11-26-2017 End: 83-44-2115ktfj 1 tablet by mouth once dailylosartan (Cozaar) 100 MG tablet Indications: Essential hypertension Take 1 tablet (100 mg) by mouthDaily 30 tablet 3 02/26/2024 Activemeperidine hydrochloride 50 mg/ml injectable solution (1 source)Opioid AgonistStart: 23-89-2398qrjhvlvdsi (DEMEROL) injection 12.5 mg 24 hr metFORMIN hydrochloride 500 mg extended release oral tablet (5 sources)BiguanideStart: 01-24-2025 End: 65-20-0232nvls 1 tablet by mouth every twenty-four hours at mealtime metFORMIN XR (Glucophage-XR) 500 MG 24 hr tablet Indications: PCOS (polycystic ovarian syndrome) Take 1 tablet (500 mg) by mouth in the evening. Take with meals Do not crush, chew, or split. 30 tablet 11 01/24/2025 02/23/2025 Active Start: 05-21-2022 End: 38-99-9227qrzZRJCHX (GLUCOPHAGE) 500 MG tabletmethylPREDNISolone 4 mg oral tablet (2 sources)CorticosteroidStart: 01-27-2020 End: 78-21-2313rzlxfkJTRCEABtwogr (MEDROL, DEJON,) 4 MG tablet Take by mouth. 1 kit 0 01/27/2020 02/02/2020 Omqpiflwbuxfxfgejm-ltjr-fvjnarsy-folic acid (Centrum) chewable tablet (14 sources)Start: 02-11-2023 End: 51-19-1146adoatttwmfpa-hqdg-jaiyrmnz-onjiv acid (Centrum) chewable tablet Indications: S/P bariatric surgery Chew 1 tablet in the morning. 90 tablet 3 02/11/2023 02/11/2024 Activemupirocin 0.02 mg/mg topical ointment (6 sources)RNA Synthetase Inhibitor AntibacterialStart: 12-28-2020 End: 86-49-5306rjdpwqlbb (BACTROBAN) 2 % ointment Apply topically 3 times daily. 22 g 0 12/28/2020 01/04/2021 ActiveStart: 05-13-2019 End: 83-68-1666xscoslmgv (BACTROBAN) 2 % ointment Indications: Cellulitis of left lower extremity Apply 3 times daily. 1 Tube 0 05/13/2019 05/20/2019 Active Start: 10-31-2018 End: 08-16-6733uceqoegry (BACTROBAN) 2 % ointmentStart: 10-31-2018 End: 01-21-6745akvlipswp (BACTROBAN) 2 % cream Apply topically 3 times daily. 15 g 0 10/31/2018 11/30/2018 Activenaproxen 500 mg oral tablet (3 sources)Nonsteroidal Anti-inflammatory DrugStart: 61-66-2529adrj 1 tablet by mouth twice dailynaproxen (NAPROSYN) 500 MG tablet Take 1 tablet by mouth 2 times daily 14 tablet 0 10/31/2018 Activepantoprazole 40 mg delayed release oral tablet (20 sources)Proton Pump InhibitorStart: 10-06-2023 End: 53-65-6937gokw 1 tablet by mouth before mealtimepantoprazole (ProtoNix) 40 MG EC tablet Indications: Gastroesophageal reflux disease without esophagitis Take 1 tablet (40 mg) by mouth in the morning. Take before meals. 90 tablet 1 02/26/2024 ActiveStart: 97-41-0549zxma 1 tablet by mouth once daily before breakfastpantoprazole (PROTONIX) 40 MG tablet Take 1 tablet by mouth every morning (before breakfast) 30 tablet 5 03/21/2023 ActiveStart: 24-43-3187igiv 1 tablet by mouth once daily before breakfastpantoprazole (PROTONIX) 40 MG tablet Take 1 tablet by mouth every morning (before breakfast) 90 tablet 0 12/02/2022 ActiveStart: 09-05-2022 End: 00-44-3521eict 1 tablet by mouth once dailypantoprazole (PROTONIX) 20 MG tablet Indications: Gastroesophageal reflux disease without esophagitis Take 1 tablet by mouth daily 30 tablet 3 09/05/2022 11/20/2022 Discontinued (Therapy completed)Pediatric Multivit-Minerals (FLINTSTONES COMPLETE PO) (14 sources)take 2 tablets by mouth once dailyPediatric Multivit-Minerals (FLINTSTONES COMPLETE PO) Take 2 tablets by mouth daily Gummies Activetake 2 tablets by mouth once dailyPediatric Multivit-Minerals (FLINTSTONES COMPLETE PO) Take 2 tablets by mouth daily Gummies 0 TcigbcYxgqwfqyc-Bbrnfdfykf-AF-APAP (NYQUIL PO) (2 sources)Uctmxuidp-Ztllhtdyvh-JK-APAP (NYQUIL PO) Take by mouth 0 Active tiZANidine 4 mg oral tablet (4 sources)Central alpha-2 Adrenergic AgonistStart: 92-89-7119htzq 1 tablet by mouth every eight hours as needed for paintiZANidine (ZANAFLEX) 4 MG tablet Take 1 tablet by mouth every 8 hours as needed (Back pain) 10 tablet 0 05/21/2019 ActiveVitamin B-12 500 mcg oral tablet (3 sources)Start: 26-65-1269Zdekyjr B-12 500 mcg oral tablet 500 mcg = 1 tab(s) Start Date: 12/02/23 Status: OrderedVitamin B-12 500 MCG Oral Tablet (12 sources)Start: 93-09-5588Etrrujp B-12 500 MCG Oral Tablet 12/04/2023 Provider:vitamin b12 0.5 mg oral tablet (20 sources)Vitamin P05Teokd: 05-28-2023 End: 12-04-0541xmny 1 tablet by mouth once dailyvitamin B-12 (CYANOCOBALAMIN) 500 MCG tablet Indications: Essential hypertension , Gastroesophagealreflux disease without esophagitis , CATIE (obstructive sleep apnea) , Morbid obesity (HCC) , Fatty liver , Arthritis , Hypothyroidism, unspecified type , Paroxysmal atrial fibrillation (HCC) , S/P laparoscopic sleeve gastrectomy , Vitamin D deficiency , Low folate , Vitamin B12 deficiency Take 1 tablet by mouth daily 30 tablet 3 05/28/2023 Active Completed/Discontinued Medications MedicationDrug Class(es)DatesSig (Normalized)Sig (Original)acetaminophen 325 mg oral tablet (16 sources)Start: 09-20-2024 End: ,000 mg, Intravenous, at 400 mL/hr, Administer over 15 Minutes, ONCE, 1 dose, On Fri09/20/24 at 1515, RecoveryStart: 05-24-2024 End: 69-37-5423ebca 4000 mg by mouth every twenty-four swewk356 mg, Oral, ONCE, 1 dose, On Fri05/24/24 at 1900, Maximum dose of acetaminophen is 4000 mg from al l sources in 24 hours.Start: 03-02-2024 End: 42-90-2163pzmx 4000 mg by mouth every twenty-four mg, Oral, ONCE, 1 dose, On Fri03/02/24 at 0200, Maximum dose of acetaminophen is 4000 mg from a ll sources in 24 hours.take 1 tablet by mouth every four hoursAcetaminophen 325 MG tablet Take 1 tablet by mouth every 4 hours. Activetake 2 tablets by mouth every six hours as needed for painacetaminophen (TYLENOL) 325 MG tablet Take 650 mg by mouth every 6 hours as needed for Pain 0 Activeacetaminophen 325 mg / butalbital 50 mg / caffeine 40 mg oral tablet (1 source)Barbiturate, Central Nervous System Stimulant, MethylxanthineStart: 11-30-2018 End: 07-65-9515fyfkveboga-acetaminophen-caffeine (FIORICET, ESGIC) per tablet 1 [id number] 200 actuat albuterol 0.09 mg/actuat metered dose inhaler (1 source)beta2-Adrenergic AgonistStart: 05-14-2022 End: 81-42-0642rpkqvmuoi sulfate HFA (PROVENTIL;VENTOLIN;PROAIR) 108 (90 Base) MCG/ACT inhaler 4 puffamoxicillin 875 mg / clavulanate 125 mg oral tablet (20 sources)Penicillin-class AntibacterialStart: 07-22-2024 End: 05-76-3578Fnkbvjzkldj-Pot Clavulanate 875-125 MG Oral Tablet 07/22/2024 - 08/03/2024 Provider: Arthur Saleh FNPStart: 05-24-2024 End: tablet, Oral, ONCE, 1 dose, On Fri05/24/24 at 1945, Antimicrobial Indications: Skin and Soft Tissue InfectionStart: 05-20-2024 End: 71-83-5443zdlq 1 tablet by mouth in the morningamoxicillin-clavulanate (Augmentin) 875-125 MG tablet Indications: Cat bite, initial encounter Take1 tablet (875 mg) by mouth in the morning and 1 tablet (875 mg) before bedtime. Do all this for 10 days. Take with food. 20 tablet 05/20/2024 05/30/2024 Active Start: 05-06-2024 End: 58-90-4882unrg 1 tablet by mouth in the morningamoxicillin-clavulanate (Augmentin) 875-125 MG tablet Indications: Non-recurrent acute suppurative o titis media of right ear without spontaneous rupture of tympanic membrane Take 1 tablet (875 mg) bymouth in the morning and 1 tablet (875 mg) before bedtime. Do all this for 10 days. 20 tablet 05/06/2024 05/16/2024 ActiveStart: 12-03-2023 End: 22-81-9577cqno 1 tablet by mouth in the morningamoxicillin-clavulanate (Augmentin) 875-125 MG tablet Indications: Cracked tooth Take 1 tablet (875mg) by mouth in the morning and 1 tablet (875 mg) before bedtime. Do all this for 10 days. 20 tablet 12/03/2023 12/13/2023 ActiveStart: 08-26-2022 End: 86-89-0581ekbl 1 tablet by mouth once in the morningamoxicillin-clavulanate (AUGMENTIN) 875-125 MG per tablet Take 1 tablet by mouth in the morning and1 tablet in the evening. 0 08/26/2022 11/20/2022 Discontinued (Therapy completed) Start: 11-24-2021 End: 25-84-6614jfedxnbkfqu-clavulanate (AUGMENTIN) 875-125 MG per tablet 1 tabletStart: 11-24-2021 End: 13-27-7041dpvy 1 tablet by mouth twice dailyamoxicillin-clavulanate (AUGMENTIN) 875-125 MG per tablet Take 1 tablet by mouth 2 times daily for 10 days 20 tablet 0 11/24/2021 12/04/2021 ActiveStart: 05-19-2021 End: 26-88-8745wlfp 1 tablet by mouth every twelve hoursamoxicillin-clavulanate (AUGMENTIN) 875-125 MG per tablet TAKE 1 TABLET BY MOUTH EVERY 12 HOURS FOR10 DAYS 0 05/19/2021 11/24/2021 DiscontinuedStart: 04-01-2019 End: 18-73-0231gjjl 1 tablet by mouth twice dailyamoxicillin-clavulanate (AUGMENTIN) 875-125 MG per tablet Take 1 tablet by mouth 2 times daily for 10 days 20 tablet 0 04/01/2019 04/11/2019 Activebenzocaine 15 mg / menthol 2.6 mg oral lozenge (6 sources)Standardized Chemical AllergenStart: 01-27-2020 End: 83-84-6271Trnsumjmop-Menthol (CEPACOL SORE THROAT) 15-2.6 MG LOZG lozenge Take 1 lozenge by mouth every 2 hours as needed for Sore Throat 36 lozenge 0 01/27/2020 12/28/2020 Discontinued (LIST CLEANUP)Start: 01-26-2020 End: 41-68-6627dfisrfwxua-menthol (CEPACOL SORE THROAT) lozenge 1 lozenge cephalexin 500 mg oral capsule (13 sources)Cephalosporin AntibacterialStart: 08-05-2024 End: 95-29-0056Ftppyuftsq 500 MG Oral Capsule 08/05/2024 - 08/16/2024 Provider: Start: 12-11-2023 End: 19-89-2528rfsi 1 capsule by mouth once dailyKeflex 500 mg Cap 500 mg = 1 cap(s), Oral, BID, Take 1 cap day prior to procedure and 1 cap day of procedure - afterwards, # 2 cap(s), Refills(s) 0, Pharmacy: [id number], 176, cm, 12/01/2410:06:00 EDT, Height/Length Dosing, 113, kg, 12/02/23 11:06:00 EDT, Weight Dosing Start Date: 12/11/23 Status: Ordereddexamethasone phosphate 10 mg/ml injectable solution (2 sources)CorticosteroidStart: 08-06-2023 End: 65-79-8468wfsPCALOeynxg (DECADRON) injection 6 mgStart: 11-30-2018 End: 79-20-0068neosyfiewumyy (DECADRON) injection 4 mgdicyclomine hydrochloride 20 mg oral tablet (20 sources)AnticholinergicStart: 06-15-2023 End: 70-64-2614yrkqgqkmipj (Bentyl) 20 MG tablet Take 20 mg by mouth 06/15/2023 05/06/2024 Discontinued (Discontinued by another clinician)Start: 09-03-6272xnuo 1 capsule by mouth four times daily before mealtimedicyclomine (BENTYL) 10 MG capsule Take 1 capsule by mouth 4 times daily (before meals and nightly)20 capsule 3 12/28/2020 Active1 ml diphenhydrAMINE hydrochloride 50 mg/ml cartridge (3 sources)Histamine-1 Receptor AntagonistStart: 08-06-2023 End: 80-19-7175foyzgfaouwUNIRD (BENADRYL) injection 25 mgStart: 08-16-2022 End: 85-85-6108egovmmwxnoTZWED (BENADRYL) injection 12.5 mgStart: 11-30-2018 End: 92-82-2486avubuvnmybUSPIP (BENADRYL) injection 50 mg2 ml droperidol 2.5 mg/ml injection (2 sources)Dopamine-2 Receptor AntagonistStart: 08-16-2022 End: 23-36-9756bcuusqooxu (INAPSINE) 2.5 MG/ML injectionStart: 08-16-2022 End: 90-43-0621iwarsznrko (INAPSINE) injection 0.625 mgergocalciferol 1.25 mg oral capsule (17 sources)Provitamin D2 CompoundStart: 24-92-3167zljsmjabxhmiod 50,000 intl units Cap 50,000 International_Unit = 1 cap(s) Start Date: 12/02/23 Status: OrderedStart: 11-26-2023 End: 11-66-8170ixyb 1 capsule by mouth every weekergocalciferol (Vitamin D2) 1.25 MG (75370 UT) capsule Take 1 capsule by mouth 1 (one) time per week 11/26/2023 01/15/2024 ActiveStart: 72-87-5087gust 1 capsule by mouth every week vitamin D (ERGOCALCIFEROL) 1.25 MG (75247 UT) CAPS capsule Indications: Essential hypertension , Gastroesophageal reflux disease without esophagitis , CATIE (obstructive sleep apnea) , Morbid obesity (HCC) , Fatty liver , Arthritis , Hypothyroidism, unspecified type , Paroxysmal atrial fibrillation (HCC) , S/P laparoscopic sleeve gastrectomy , Vitamin D deficiency , Low folate , Vitamin B12 deficiency Take 1 capsule by mouth once a week for 8 doses 8 capsule 0 05/28/2023 ActiveStart: 09-09-2022 End: 28-69-4293ihmn 1 capsule by mouth every weekvitamin D (ERGOCALCIFEROL) 1.25 MG (71180 UT) CAPS capsule Indications: Vitamin D deficiency Take 1capsule by mouth once a week for 8 doses 8 capsule 0 09/09/2022 ActiveStart: 05-07-2021 End: 21-80-1004msms 1 capsule by mouth every weekvitamin D (ERGOCALCIFEROL) 1.25 MG (02365 UT) CAPS capsule Indications: Vitamin D deficiency Take 1capsule by mouth once a week for 8 doses 8 capsule 0 05/07/2021 Activeetodolac 400 mg oral tablet (2 sources)Nonsteroidal Anti-inflammatory DrugStart: 07-01-2018 End: 00-69-1855gbdn 1 tablet by mouth twice daily as needed for painetodolac (LODINE) 400 MG tablet Take 1 tablet by mouth 2 times daily As needed for pain; take with food 20 tablet 0 07/01/2018 11/05/2018 Discontinued (LIST CLEANUP) fluconazole 150 mg oral tablet (20 sources)Azole AntifungalStart: 06-05-2024 End: 93-90-1223Cujiffft 150 MG Oral Tablet 08/03/2024 - 08/16/2024 Provider: Arthur GOELP1 ml hydrALAZINE hydrochloride 20 mg/ml injection (2 sources)Arteriolar VasodilatorStart: 08-16-2022 End: 28-81-2476femnBVDTTKD (APRESOLINE) 20 MG/ML injectionStart: 08-16-2022 End: 46-26-2663ubnmGMLZKPY (APRESOLINE) injection 10 mgHYDROmorphone (DILAUDID) injection 0.2 mg (1 source)Start: 09-20-2024 End: 95-42-3349UUTWZglfbcriy (DILAUDID) injection 0.2 mghydrOXYzine hydrochloride 25 mg oral tablet (14 sources)AntihistamineStart: 10-28-2024 End: 27-83-3431zpwlHGOgjes HCl 25 MG Oral Tablet 11/25/2024 - 11/25/2024 Provider: Arthur GOELPiopamidol (ISOVUE-370) 76 % injection 75 mL (2 sources)Start: 01-18-2021 End: 76-77-4474kgqtjqgoq (ISOVUE-370) 76 % injection 75 mLStart: 02-01-2020 End: 46-50-8516cgcarkrmq (ISOVUE-370) 76 % injection 75 mL1 ml ketorolac tromethamine 30 mg/ml cartridge (7 sources)Nonsteroidal Anti-inflammatory Drug, Cyclooxygenase InhibitorStart: 08-06-2023 End: 15-11-8802nqdrjlmza (TORADOL) injection 30 mgStart: 11-24-2021 End: 02-39-4171xpdbvfhts (TORADOL) injection 30 mgStart: 12-28-2020 End: 83-68-7397jeugkjhod (TORADOL) injection 30 mgStart: 01-26-2020 End: 03-30-5143jadqrvhkx (TORADOL) injection 15 mgStart: 04-20-2019 End: 35-46-9062trjrnrnpj (TORADOL) injection 15 mgStart: 11-30-2018 End: 12-16-4795yzqazcpgk (TORADOL) injection 15 mgStart: 11-05-2018 End: 19-18-5530gieoaoywv (TORADOL) injection 15 mglevothyroxine sodium 0.1 mg oral tablet (12 sources)l-ThyroxineStart: 05-21-2022 End: 14-84-0404gehqvrjhoqscn (SYNTHROID) 100 MCG tabletStart: 58-54-0471dboh 1 tablet by mouth once dailylevothyroxine (SYNTHROID) 137 MCG tablet TAKE 1 TABLET BY MOUTH ONCE DAILY 0 10/19/2020 Activemeloxicam 15 mg oral tablet (2 sources)Nonsteroidal Anti-inflammatory DrugStart: 06-01-2018 End: 51-59-7816pqxr 1 tablet by mouth once dailymeloxicam (MOBIC) 15 MG tablet Indications: Post-traumatic osteoarthritis of left ankle , Chronic pain of left ankle Take 1 tablet by mouth daily 30 tablet 0 06/01/2018 11/05/2018 Discontinued (LIST CLEANUP)2 ml metoclopramide 5 mg/ml prefilled syringe (3 sources)Dopamine-2 Receptor AntagonistStart: 08-06-2023 End: 16-33-9719rghqklorqvioat (REGLAN) injection 10 mgStart: 08-16-2022 End: 02-94-4729nswmikofuisjej (REGLAN) injection 10 mgStart: 01-26-2020 End: 94-54-0622jashzqlenxrjyc (REGLAN) injection 10 mg24 hr metoprolol succinate 25 mg extended release oral tablet (6 sources)beta-Adrenergic BlockerStart: 01-22-2022 End: 79-34-0872jgqypkbhuu succinate (TOPROL XL) 25 MG extended release tablet Take 1 tablet by mouth 0 01/22/2022 11/20/2022 Discontinued (Therapy completed)1 ml morphine sulfate 10 mg/ml injection (4 sources)Opioid AgonistStart: 01-18-2021 End: 48-41-9459ijbtjmzb injection 8 mgStart: 01-18-2021 End: 64-67-7936lhtqmweh injection 4 mgStart: 04-20-2019 End: 89-08-7487jdfooaeb (PF) injection 2 mgStart: 04-20-2019 End: 93-14-7202wzeqjsmb injection 4 mgnitrofurantoin, macrocrystals 25 mg / nitrofurantoin, monohydrate 75 mg oral capsule (7 sources)Nitrofuran AntibacterialStart: 08-16-2024 End: 94-73-9747Tkqnajvv 100 MG Oral Capsule 08/16/2024 - 10/28/2024 Provider: Arthur Saleh FNP2 ml ondansetron 2 mg/ml injection (20 sources)Serotonin-3 Receptor AntagonistStart: 09-20-2024 End: mg, Intravenous, ONCE NEEDED, 1 dose, Starting on Fri09/20/24 at 1506, Until Fri09/20/24 at 1515, Nausea / Vomiting, RecoveryStart: 03-02-2024 End: mg, IntraVENous, ONCE, 1 dose, On 03/02/24 at 0100Start: 02-28-2024 End: mg, IntraVENous, ONCE, 1 dose, On 02/28/24 at 2200Start: 40-90-9784osja 1 tablet by mouth three times daily as needed for nausea ondansetron (ZOFRAN-ODT) 4 MG disintegrating tablet Take 1 tablet by mouth 3 times daily as needed for Nausea or Vomiting 21 tablet 02/28/2024 ActiveStart: 64-62-8500jupe 1 tablet by mouth every eight hours as needed for nausea ondansetron (ZOFRAN ODT) 4 MG disintegrating tablet Take 1 tablet by mouth every 8 hours as needed for Nausea or Vomiting 12 tablet 0 03/18/2021 ActiveStart: 01-18-2021 End: 29-39-9265fssxxffyvqi (ZOFRAN) injection 4 mgStart: 12-28-2020 End: 86-58-1491gxghualinyv (ZOFRAN) injection 4 mgStart: 38-35-5441karc 1 tablet by mouth every eight hours as needed for nauseaondansetron (ZOFRAN ODT) 4 MG disintegrating tablet Take 1 tablet by mouth every 8 hours as needed for Nausea or Vomiting 20 tablet 0 12/28/2020 ActiveStart: 55-29-2558ystl 1 tablet by mouth three times daily as needed for nauseaondansetron (ZOFRAN-ODT) 4 MG disintegrating tablet Take 1 tablet by mouth 3 times daily as needed for Nausea or Vomiting 21 tablet 0 02/01/2020 ActiveStart: 04-20-2019 End: 08-61-2785xeuh 1 tablet by mouth every four hours as needed for nausea ondansetron (ZOFRAN) 4 MG tablet Take 1 tablet by mouth every 4 hours as needed for Nausea or Vomiting 15 tablet 0 04/20/2019 05/11/2019 Discontinued (LIST CLEANUP)Start: 04-20-2019 End: 51-69-8714pkswixrbvwk (ZOFRAN) injection 8 mg2 ml orphenadrine citrate 30 mg/ml injection (2 sources)Muscle RelaxantStart: 05-21-2019 End: 14-43-6318muurlycnsqsb (NORFLEX) injection 60 mgStart: 11-05-2018 End: 21-54-1367hlpyxlnffhai (NORFLEX) injection 60 mgmicroencapsulated potassium chloride 10 meq extended release oral tablet (20 sources)Start: mEq, Oral, ONCE, 1 dose, On Fri03/02/24 at 0145, Do not crush or break. Do not crush, chew, or suck on tablet. Tablet may also be broken in half and each half swallowed separately.Start: 12-02-2023 Potassium Chloride (Baz-Rmaj-Ckc M10) 10 mEq oral tablet, extended release 10 mEq = 1 tab(s) Start Date: 12/02/23 Status: OrderedStart: 11-25-2023 End: 98-17-5528iadc 1 tablet by mouth once dailypotassium chloride CR (Klor-Con M10) 10 MEQ ER tablet Indications: Hypokalemia Take 1 tablet (10 mEq) by mouth Daily 30 tablet 2 02/26/2024 ActivepredniSONE 20 mg oral tablet (2 sources)Start: 01-26-2020 End: 64-44-3926zskjimSSXI (DELTASONE) tablet 40 mgStart: 04-20-2019 End: 26-88-5837fjkj 1 tablet by mouth twice dailypredniSONE (DELTASONE) 20 MG tablet Take 1 tablet by mouth 2 times daily for 7 days 14 tablet 0 04/20/2019 04/27/2019 Activepromethazine hydrochloride 25 mg oral tablet (1 source)PhenothiazineStart: 12-02-2022 End: 28-92-9993smlf 1 tablet by mouth every six hours as needed for nausea promethazine (PHENERGAN) 25 MG tablet Take 1 tablet by mouth every 6 hours as needed for Nausea 28 tablet 0 12/02/2022 12/09/2022 ExpiredPromethazine (PHENERGAN) 6.25 mg in Sodium chloride 0.9%, with overfill 60.25 mL (total volume) IVPB (1 source)Start: 09-20-2024 End: 65-84-2707igml 6.25 mg intravenously every hour as needed6.25 mg, Intravenous, at 180.8 mL/hr, Administer over 20 Minutes, EVERY 1 HOUR NEEDED, 2 doses, Starting on Fri09/20/24 at 1506, Until Fri09/20/24 at 1843, Other, Nausea and vomiting, Extravasation Risk, RecoveryraNITIdine 150 mg oral tablet (4 sources)Histamine-2 Receptor AntagonistStart: 12-02-2018 End: 88-53-6577qrgd 1 tablet by mouth twice daily as needed for gastroesophageal reflux diseaseranitidine (ZANTAC) 150 MG tablet Take 1 tablet by mouth 2 times daily as needed for Heartburn 60 tablet 0 12/02/2018 05/11/2019 Discontinued (LIST CLEANUP)250 ml sodium chloride 9 mg/ml injection (14 sources)Start: 09-20-2024 End: 69-15-6950Wwevfvdfwbi, at 110 mL/hr, CONTINUOUS, Starting on Fri09/20/24 at 1145, Until Fri09/20/24 at 1843, Pre-op/Pre-ProcStart: 03-02-2024 End: 30-48-1190904 mL (4.9 mL/kg), IntraVENous, at 967.7 mL/hr, Administer over 31 Minutes, ONCE, On Fri03/02/24 at 0100, For 1 dose, For adult patients weighing > 55 kg (120 lbs.) and less thanStart: 02-28-2024 End: ,000 mL (9.79 mL/kg), IntraVENous, at 495.9 mL/hr, Administer over 121 Minutes, ONCE, On Fri02/28/24 at 2200, For 1 doseStart: 08-06-2023 End: 26-21-8132fpiqkk chloride 0.9 % bolus 1,000 mLStart: 28-56-9808nftuii chloride flush 0.9 % injection 40 mLStart: 07-93-9674bdflyr chloride flush 0.9 % injection -40 mLStart: .9 % sodium chloride infusionStart: 21-11-5401emuoda chloride flush 0.9 % injection 5-40 mLStart: 01-18-2021 End: .9 % sodium chloride bolusStart: 12-28-2020 End: .9 % sodium chloride bolusStart: 02-01-2020 End: .9 % sodium chloride bolusStart: 04-20-2019 End: .9 % NaCl bolussulfamethoxazole 800 mg / trimethoprim 160 mg oral tablet (5 sources)Dihydrofolate Reductase Inhibitor Antibacterial, Sulfonamide AntimicrobialStart: 12-29-2020 End: 03-59-0285zhuobxxsxpskqwtn-trimethoprim (BACTRIM DS;SEPTRA DS) 800-160 MG per tablet 1 tabletStart: 12-28-2020 End: 44-84-0656mkia 1 tablet by mouth twice dailysulfamethoxazole-trimethoprim (BACTRIM DS) 800-160 MG per tablet Take 1 tablet by mouth 2 times daily for 10 days 20 tablet 0 12/28/2020 01/07/2021 ActiveStart: 10-31-2018 End: 66-03-3786zqbphseomdjmihbr-trimethoprim (BACTRIM DS;SEPTRA DS) 800-160 MG per tablet 1 tabletStart: 10-31-2018 End: 90-98-0045kzyf 1 tablet by mouth twice dailysulfamethoxazole-trimethoprim (BACTRIM DS) 800-160 MG per tablet Take 1 tablet by mouth 2 times daily for 10 days 20 tablet 0 10/31/2018 11/10/2018 ActivetraMADol hydrochloride 50 mg oral tablet (20 sources)Opioid AgonistStart: 06-02-2024 End: 96-34-1982eygOQHtn HCl 50 MG Oral Tablet 11/30/2024 - 12/17/2024 Provider: Arthur Saleh FNPStart: 03-05-2024 End: 71-39-2180caol 2 tablets by mouth every twelve hours as neededtraMADol (ULTRAM) 50 MG tablet Take 2 tablets by mouth every 12 hours as needed. 03/05/2024 04/04/2024 ActiveStart: 02-05-2024 End: 97-41-3573vicORSmx (Ultram) 50 MG tablet Indications: Chronic pain syndrome , Chronic low back pain, unspecified back pain laterality, unspecified whether sciatica present Take 2 tablets (100 mg) by mouth every 12 (twelve) hours if needed for severe pain 120 tablet 05/24/2024 06/23/2024 ActiveStart: 01-06-2024 End: 92-41-6403cloBHNjo (Ultram) 50 MG tablet Indications: Chronic low back pain, unspecified back pain laterality, unspecified whether sciatica present Take 2 tablets (100 mg) by mouth every 12 (twelve) hours if needed for severe pain 120 tablet 01/06/2024 02/02/2024 DiscontinuedStart: 12-30-2023 End: 73-55-5420ocna 1 tablet by mouth every eight hours for paintraMADol (Ultram) 100 MG tablet Indications: Chronic low back pain, unspecified back pain laterality, unspecified whether sciatica present Take 1 tablet (100 mg) by mouth every 8 (eight) hours if needed for severe pain 90 tablet 12/30/2023 01/29/2024 ActiveStart: 12-03-2023 End: 33-46-2912xssd 2 tablets by mouth three times daily as needed for pain traMADol (Ultram) 50 MG tablet Indications: Chronic bilateral low back pain without sciatica Take 2tablets (100 mg) by mouth 3 (three) times a day as needed for severe pain 90 tablet 3 12/03/2023 12/30/2023 Discontinued (Dose adjustment) Start: 09-24-2023 End: 68-65-1466vaec 1 tablet by mouth three times daily as needed for pain traMADol (Ultram) 50 MG tablet Indications: Chronic bilateral low back pain without sciatica Take 1tablet (50 mg) by mouth 3 (three) times a day as needed for severe pain 90 tablet 3 09/24/2023 12/03/2023 Discontinued (Reorder)Start: 06-27-2023 End: 82-72-8500rbcd 1 tablet by mouth every eight hours as needed for pain traMADol (ULTRAM) 50 MG tablet Take 1 tablet by mouth every 8 hours as needed for Pain. 06/27/2023 01/22/2024 ActiveStart: 33-43-7593zhrHSGoo (ULTRAM) 50 MG tablettraMADol (ULTRAM) 50 MG tablet TAKE 1 TABLET BY MOUTH EVERY 6 HOURS NEEDED [place] TO pain management appointment 12/23 Active Problems Active Problems Problem ClassificationProblemDateDocumented DateEpisodic/ChronicAbdominal pain (3 sources)Generalized abdominal pain; Translations: [Generalized abdominal pain]EpisodicAdjustment disorders (20 sources)Adjustment disorder with depressed mood; Translations: [Adjustment disorder with depressed mood]Onset: 262800-45-8321Eeqaere Administrative/social admission (2 sources)Patient encounter status; Translations: [Counseling, unspecified] 09-01-1361DvbcgdiqVxfxoae disorders (20 sources)Social phobia; Translations: [Social phobia, unspecified]Onset: 452233-99-4938VsupfixUewnap (20 sources)Uncomplicated asthma; Translations: [Unspecified asthma, uncomplicated]Onset: 463280-31-5194YhsqqbtDjozoubfh and vision defects (3 sources)Visual kfslhuzjux43-25-3341EmiarzzTxasvbb dysrhythmias (20 sources)Atrial fibrillation; Translations: [Unspecified atrial fibrillation] Onset: 540602-37-4720WzqtvbuWathxhtq mellitus without complication (1 source)Hyperglycemia; Translations: [Elevated fasting blood sugar]Episodic Disorders of teeth and jaw (5 sources)Cracked tooth; Translations: [Cracked tooth]Onset: 09-20-2024 85-55-8784VsciehvaX Codes: Fall (2 sources)Accidental fall ; Translations: [Accidental fall, initial encounter] Endometriosis (20 sources)Endometriosis (clinical); Translations: [Endometriosis, unspecified] Onset: 317619-56-1626KgqexvaLhswlyilxp disorders (20 sources)Gastroesophageal reflux disease without esophagitis; Translations: [Gastro-esophageal reflux disease without esophagitis]Onset: 03-06-2017 74-10-9396IspkewkGhinlzlnk hypertension (20 sources)Essential hypertension; Translations: [Hypertensive disorder]Onset: 254937-95-2108QhpoyzjCxtwtdab; including migraine (1 source)Migraine; Translations: [Migraine, unspecified, not intractable, without status migrainosus]46-61-1913AndvtsrMdpyqyifq (17 sources)Steatohepatitis; Translations: [Nonalcoholic steatohepatitis ([facility])] Onset: 705615-08-8858EpeldbxRaqpwkmhymen with complications and secondary hypertension (3 sources)Hypertensive xiujqpr21-88-4663PfiddulYuepdoxfuvnzx (1 source)Occipital lymphadenopathy; Translations: [Localized enlarged lymph nodes]EpisodicMalaise and fatigue (3 sources)Lack of yazvmz49-69-5346SrsmqeyaWtjkzbvopenuk mental health disorders (12 sources)Primary insomnia; Translations: [Primary insomnia]Onset: 10-28-2024 19-61-1176FfgrfpjQnhgzgolbvhu breast conditions (1 source)Cellulitis of breast; Translations: [Mastitis without abscess]Episodic Nutritional deficiencies (20 sources)Vitamin D deficiency; Translations: [Vitamin D deficiency, unspecified]Onset: 722663-97-3482PcfgsqmNudulvjqpjruhz (20 sources)Arthritis; Translations: [Unspecified osteoarthritis, unspecified site]Onset: 03-06-2017 Resolved: 775354-59-7280OkghusuPlykx connective tissue disease (3 sources)Foot msqz49-15-9509GphzbokmOlcvx diseases of kidney and ureters (1 source)Cyst of kidney; Translations: [Renal cyst]Other disorders of stomach and duodenum (3 sources)Pqegroksrcq04-42-8767JzxgaetrYoyej endocrine disorders (20 sources)Hypoglycemia; Translations: [Hypoglycemia, unspecified]Onset: 782559-12-4308AndzfqcYhrxm endocrine disorders (20 sources)Polycystic ovary syndrome; Translations: [Polycystic ovarian syndrome]Onset: 016877-94-0121VaebcxxBrbrp female genital disorders (3 sources)Rectovaginal -38-6939OtaltstOqzzl female genital disorders (4 sources)Other specified noninflammatory disorders of vagina; Translations: [OTH SPEC NONINFLAMMATORY D/O VAGINA]Onset: 65-56-3773NfeavmpeNfxyg female genital disorders (2 sources)Pain in female pelvis; Translations: [Pelvic pain in female] 95-12-9474CevfjphtRdzjn gastrointestinal disorders (3 sources)H/O: abdominal illdvm26-65-3851NvobafmdPrkfp liver diseases (20 sources)Steatosis of liver; Translations: [Fatty (change of) liver, not elsewhere classified]Onset: 398332-61-0186XolkagfUpcjb nervous system disorders (20 sources)Chronic pain syndrome; Translations: [Chronic pain syndrome]Onset: 750173-01-2712BrjgcfhCaggu nervous system disorders (3 sources)Chronic pain; Translations: [Other chronic pain]Onset: 11-30-2024 ChronicOther non-traumatic joint disorders (1 source)Effusion of right knee joint; Translations: [Effusion of right knee] Other nutritional; endocrine; and metabolic disorders (20 sources)Metabolic syndrome X; Translations: [Metabolic syndrome]Onset: 970569-75-6390GcunacwPrfkz nutritional; endocrine; and metabolic disorders (20 sources)Obesity caused by energy imbalance; Translations: [Morbid (severe) obesity due to excess calories]Onset: 936805-80-4793MjctqfxGcujo nutritional; endocrine; and metabolic disorders (20 sources)Body mass index 30+ - obesity; Translations: [Obesity, unspecified] Onset: 406588-18-0411FecgkaiUuvac nutritional; endocrine; and metabolic disorders (15 sources)Excess panniculus of abdomen; Translations: [Localized adiposity] Onset: 437093-40-2390IdxpwdhMtrez nutritional; endocrine; and metabolic disorders (20 sources)Finding of body mass index; Translations: [Body mass index (observable entity)]Onset: 97-53-1211BuhcdfcHwwgr upper respiratory disease (7 sources)Allergic rhinitis; Translations: [Allergic rhinitis, cause unspecified]Onset: 33-84-2884VgrxoofOpagv upper respiratory disease (4 sources)Rhinitis; Translations: [Chronic rhinitis]Onset: 39-36-7553Hhuiedr Ovarian cyst (4 sources)Cyst of right ovary; Translations: [Unspecified ovarian cyst, right side]EpisodicResidual codes; unclassified (20 sources)Obstructive sleep apnea syndrome; Translations: [Obstructive sleep apnea (adult) (pediatric)]Onset: 74-72-9542PwnbkayVngjnxgc codes; unclassified (3 sources)Sleep wqrmu85-93-0515QmbwmalHvajpiet codes; unclassified (3 sources)Jbdncivo19-64-5961FzjcifbiWyjj and subcutaneous tissue infections (1 source)Cellulitis of left lower limb; Translations: [Cellulitis of left lower extremity]Spondylosis; intervertebral disc disorders; other back problems (20 sources)Degeneration of lumbar intervertebral disc; Translations: [Other intervertebral disc degeneration, lumbar region]Onset: ChronicThyroid disorders (20 sources)Hypothyroidism; Translations: [Hypothyroidism, unspecified]Onset: 943986-66-1473FswzdhbVbelyjijekrs (1 source)Unknown / UNK(Unknown)Onset: 63-66-6374Ozjilvxhypuc (2 sources)Finding of sensation of -20-3636Kwrlqsmvhgru (3 sources)History of sleeve wetxhxfrvgr31-32-4375Bqhvknittcwk (3 sources)Patient encounter -92-6183Etosuombwkdc (2 sources)Chronic atrial fibrillation, unspecified; Translations: [Chronic atrial fibrillation, unspecified (HCC)]Onset: 49-16-6253Olarafiaxnhe (2 sources)Illness; Translations: [Illness]Onset: 03-16-2024 Past or Other Problems Problem ClassificationProblemDateDocumented DateEpisodic/ChronicAbdominal hernia (17 sources)Gastroesophageal reflux disease with hiatal hernia; Translations: [Diaphragmatic hernia without obstruction or gangrene]Onset: 12-08-2022 Resolved: 442766-82-5585GrkhqehzKseudfuq reactions (20 sources)Allergic reaction; Translations: [Allergic condition]Onset: 793031-85-2290PcpxtpryHgludy neoplasm of uterus (20 sources)Uterine leiomyoma; Translations: [Leiomyoma of uterus, unspecified] Onset: 702715-03-4178OebrfyduAhitllu dysrhythmias (17 sources)Bradycardia; Translations: [Bradycardia, unspecified]Onset: 782340-03-5599NrmlvenoDdefolyompo and hemorrhagic disorders (20 sources)Easy bruising; Translations: [Spontaneous ecchymoses]Onset: 954326-79-1065EhgafsieOqfinkarqs associated with dizziness or vertigo (2 sources)Dizziness; Translations: [Dizziness and giddiness]Onset: 03-02-2024 73-49-5515JmkyofmoEztcwrbg mellitus without complication (20 sources)Type 2 diabetes mellitus; Translations: [Type 2 diabetes mellitus without complications]Onset: 05-07-2021 Resolved: 615526-23-9995NqduiowK Codes: Natural/environment (10 sources)Cat bite - wound; Translations: [Bitten by cat, initial encounter] Onset: 105179-11-3228GwbbaeufAlzrs and electrolyte disorders (20 sources)Dehydration; Translations: [Dehydration]Onset: 636778-51-0447 EpisodicGenitourinary symptoms and ill-defined conditions (20 sources)Dysuria; Translations: [Dysuria]Onset: 231561-50-4496Sjeicjwg Headache; including migraine (1 source)Headache; Translations: [Nonintractable headache, unspecified chronicity pattern, unspecified headache type]EpisodicImmunizations and screening for infectious disease (20 sources)Encounter for screening for infections with a predominantly sexual mode of transmission; Translations: [Encounter for screening for human papillomavirus (HPV)]Onset: 53-19-9116FbdynznuTtwemczhmwlq; infection of eye (except that caused by tuberculosis or sexually transmitteddisease) (20 sources)Bacterial conjunctivitis; Translations: [Cellulitis of left orbit] Onset: 04-01-2019 Resolved: 258113-73-1909WpiulwgcTsanelardqio; infection of eye (except that caused by tuberculosis or sexually transmitteddisease) (15 sources)Cellulitis of left orbit; Translations: [Acute infectious conjunctivitis]Onset: 04-01-2019 Resolved: 152350-91-1223Dgmisks (11 sources)Candidiasis of vagina; Translations: [Candidiasis of vulva and vagina]Onset: 281863-88-9252IioblluvSksoad and vomiting (20 sources)Nausea and vomiting; Translations: [Nausea with vomiting, unspecified]Onset: 05-19-2017 Resolved: 047475-01-6524YplogaofPqflxvagkke deficiencies (20 sources)Cobalamin deficiency; Translations: [Deficiency of other specified B group vitamins]Onset: 813236-80-0131PxgcgpusAdzh wounds of extremities (20 sources)Laceration of lower limb; Translations: [Laceration without foreign body, left lower leg, initial encounter]Onset: 361540-83-1324PcuxsyttIygpt aftercare (16 sources)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; 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]Onset: 610848-94-5988LisyghinRriky connective tissue disease (20 sources)Diastasis recti; Translations: [Separation of muscle (nontraumatic), other site]Onset: 552332-50-9297NjwzabdsNhfks connective tissue disease (18 sources)Pain of bilateral hands; Translations: [Pain in right hand]Onset: 789776-10-2462ArgeivvdJvxgi connective tissue disease (9 sources)Pain in finger of left hand; Translations: [Pain in left finger(s)] Onset: 772363-54-3344UjdseewfFersv gastrointestinal disorders (20 sources)History of sleeve gastrectomy; Translations: [Bariatric surgery status]Onset: 762179-48-4500IhwqrbkzVpode gastrointestinal disorders (20 sources)History of bariatric surgical procedure; Translations: [Bariatric surgery status]Onset: 304102-11-4636DyimayjyNzbie gastrointestinal disorders (14 sources)Splenomegaly; Translations: [Splenomegaly, not elsewhere classified] Onset: 733282-97-5637SdgtslimEzxpl infections; including parasitic (1 source)Post-traumatic wound infection; Translations: [Infected pierced face] EpisodicOther liver diseases (20 sources)Elevated liver enzymes level; Translations: [Abnormal levels of other serum enzymes]Onset: 757988-06-4740DjpvgzeoVbquq lower respiratory disease (20 sources)Snoring; Translations: [Snoring]Onset: 642237-80-4453Lvlltjfv Other lower respiratory disease (1 source)Rib painEpisodicOther nervous system disorders (20 sources)Postoperative pain ; Translations: [Other acute postprocedural pain] Onset: 618801-76-8599ZrhvjbezApfpt non-traumatic joint disorders (20 sources)Chronic ankle pain; Translations: [Pain in unspecified ankle and joints of unspecified foot]Onset: 163366-03-2394GdtwsiclAykxz non- traumatic joint disorders (16 sources)Pain in right knee; Translations: [Pain in joint, lower leg]Onset: 358360-45-1595ZnafnvuiCkbca nutritional; endocrine; and metabolic disorders (20 sources)Morbid obesity; Translations: [Morbid (severe) obesity due to excess calories]Onset: 08-11-2015 Resolved: 592058-85-2329QhifnlrRnban nutritional; endocrine; and metabolic disorders (20 sources)Body mass index 40+ - severely obese; Translations: [Morbid (severe) obesity due to excess calories]Onset: 08-11-2015 Resolved: 600240-67-7251UtrvrzkTwuji screening for suspected conditions (not mental disorders or infectious disease) (20 sources)Electrocardiogram abnormal; Translations: [Abnormal electrocardiogram [ECG] [EKG]]Onset: 920586-47-4366NhdhpxzwBelzk skin disorders (15 sources)Excess skin of abdominal wall; Translations: [Excessive and redundant skin and subcutaneous tissue]Onset: 718196-19-5472BvysqquzUlgdy skin disorders (15 sources)Excess skin of arm; Translations: [Excessive and redundant skin and subcutaneous tissue]Onset: 762138-92-2276WbpjqflcPsmwb skin disorders (18 sources)Finding of color of hand; Translations: [Disorder of pigmentation, unspecified]Onset: 332749-08-5076MwviecfaIjjwb upper respiratory disease (13 sources)Congestion of nasal sinus; Translations: [Nasal congestion]Onset: 566129-31-4708JsbzcwkhWnwpf upper respiratory infections (20 sources)Acute pharyngitis; Translations: [Acute pharyngitis, unspecified] Onset: 05-19-2017 Resolved: 892655-13-2366CtqfbgtnFuooae media and related conditions (16 sources)Acute bilateral otitis media ; Translations: [Acute suppurative otitis media without spontaneous rupture of ear drum]Onset: 05-06-2024 Resolved: 704036-10-3338YnavwbooMepsqwgl codes; unclassified (20 sources)Chronic back pain ; Translations: [Dorsalgia, unspecified]Onset: 760578-60-7236TbknacmmLinmztmp codes; unclassified (15 sources)H/O: hysterectomy; Translations: [H/O: hysterectomy]Onset: 111340-31-7271TfwwjlyfAmqbjwek codes; unclassified (20 sources)Intolerant of cold; Translations: [Other general symptoms and signs] Onset: 902204-11-7184VuktmjknIbmqodkq codes; unclassified (18 sources)Family history of Raynaud phenomenon; Translations: [Family history of ischemic heart disease and other diseases of the circulatory system]Onset: 782112-68-1683VyxafdfeHqrnrrbc codes; unclassified (14 sources)Acquired absence of cervix and uterus; Translations: [Acquired absence of both cervix and uterus]Onset: 903508-87-8833MglebbmxMazu and subcutaneous tissue infections (20 sources)Cellulitis; Translations: [Cellulitis, unspecified]Onset: 05-13-2023 EpisodicSpondylosis; intervertebral disc disorders; other back problems (20 sources)Sacroiliac joint pain; Translations: [Sciatica]Onset: 07-15-2014 Resolved: 887898-61-5329NlamvjroDpgzyks and strains (6 sources)Low back strain; Translations: [Forearm sprain]Onset: 01-20-2024 20-07-9516BrplqtaoGlxdhswtviz injury; contusion (13 sources)Contusion of face; Translations: [Contusion, shoulder and upper arm, multiple sites]Onset: 03-26-2024 Resolved: 594738-18-8566LtcbamxlSgiexzj (16 sources)Vasovagal syncope; Translations: [Syncope and collapse]Onset: 694189-98-9415McvmnnshFdmuzat disorders (12 sources)Disorder of thyroid gland; Translations: [Unspecified disorder of thyroid]Onset: 66-67-1812DzucpenhSyezjzf tract infections (8 sources)Acute cystitis; Translations: [Acute cystitis]Onset: 08-05-2024 EpisodicViral infection (20 sources)Viral disease; Translations: [Disease caused by 2019-nCoV]Onset: 05-40-2054Fheieqrj Results Test NameValueInterpretationReference RangeFacilityXR LUMBAR SPINE (MIN 6 VIEWS) on 78-97-4427WW LUMBAR SPINE (MIN 6 VIEWS)EXAM: 6 VIEW(S) XRAY OF THE LUMBAR SPINE 09/27/2024 03:06:04 PM COMPARISON: None available. CLINICAL HISTORY: Lumbar spondylosis; Scoliosis concern. FINDINGS: LUMBAR SPINE: No translational instability with flexion or extension. BONES: There is a limbus vertebrae at the superior endplate of L4, which is congenital in nature. No acutefracture. No aggressive appearing osseous lesion. Alignment is normal. DISCS AND DEGENERATIVE CHANGES: No severe degenerative changes. SOFT TISSUES: No acute abnormality. IMPRESSION: 1. No acute abnormality of the lumbar spine. 2. 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 Interpreted by: Adin Mcdonald MD Signed by: Adin Mcdonald MD 10/03/24 Final resultNoMercy Health Kings Mills HospitalXR SPINE ENTIRE 1 VWon [id number] SPINE ENTIRE 1 VWEXAM: SCOLIOSIS SERIES, 1 VIEW XRAY 09/27/2024 03:05:10 PM COMPARISON: None available. CLINICAL HISTORY: Lumbar spondylosis. ORDERING SYSTEM PROVIDED HISTORY: Lumbar spondylosis; TECHNOLOGIST PROVIDED HISTORY: [place] [employer]. FINDINGS: BONES: No acute fracture or focal osseous lesion. Normal alignment. DISCS AND DEGENERATIVE CHANGES: No significant degenerative changes. SOFT TISSUES: The visualized lungs and abdomen demonstrate no acute abnormality. IMPRESSION: 1. No significant scoliosis. Interpreted by: Adin Mcdonald MD Signed by: Adin Mcdonald MD 10/03/24 Final resultNoMercy Health Kings Mills HospitalGENERAL PROCEDUREon [id number] Rogers RN - 09/20/2024 12:23 PM EDT Ultrasound IV insertion Procedure note: PICC team contacted for IV access with ultrasound guidance. Procedure explained to patient. Known limb restrictions: no known restriction Patient is alert, cooperative, no distress, appears stated age. Indication for device placement: Difficult IV access PROCEDURE DETAILS: IV Insertion Procedure Veins evaluated with ultrasound and appropriate vein selected. Using standard Aseptic Non Touch Technique (ANTT) IV access was obtained with a 20 gauge, 1.88 in IV catheter placed in the left forearm. Blood return noted, catheter flushed easily with 10mls 0.9 NS. Flushes easily and freely. Site free from swelling, redness, or signs of infiltration. Statlock securement applied with tegaderm dressing. Patient tolerated procedure well without any complications All sharps placed in the sharps container. [facility] SystemRadiology Study observation (narrative) [facility] FoundationLaboratory - Microbiology and Antimicrobial susceptibilityon [id number] Ab LA Ql (S)Negative(Negative )Health Atrium HealthComment on above:Note: The sensitivity of Heterophile antibody testing is 80-90%.Abdulkadir Cabral IgM testing offers higher sensitivity.No Panel Informationon [id number] PhysiciansSee NoteHealth Atrium HealthComment on above:Note: Reported Physicians:Ordering: Stephen SALEHUrineon [id number],UrineSpecimen Description .CLEAN CATCH URINE Special Requests Site: Urine Culture ESCHERICHIA COLI >100,000 CFU/ML Report Status FINAL 08/07/2024 SUSCEPTIBILITY Organism ESCHERICHIA COLI Method MARIAELENA Ampicillin >=32 RESISTANT Cefazolin <=4 SUSCEPTIBLE Cefazolin sensitivity results can be used to predict the effectiveness of oral cephalosporins (eg. Cephalexin) in uncomplicated Urinary Tract Infections due to E. coli, K. pneumoniae, and P. mirabilis Ceftriaxone <=0.25 SUSCEPTIBLE ESBL NEGATIVE Gentamicin >=16 RESISTANT Levofloxacin <=0.12 SUSCEPTIBLE Nitrofurantoin <=16 SUSCEPTIBLE Piperacillin/Tazobactam <=4 SUSCEPTIBLE Tobramycin 8 INTERMEDIATE Trimethoprim/Sulfa >=320 RESISTANTResistanSycamore Medical CenterComment on above:Performed By: #### URC ####[address] [place], [place] [id number] Lab Director: Victor Hugo Merino [address] [place] [id number] Lab Director: Ashley Baum Metabolic Profon 69-67-6516Basfl gap [Moles/Vol]11 mmol/LNormal9-16[facility] CenterComment on above:Performed By: #### BMP ####[address] [place] [address] Lab Director: Cullen Loo MDBUN/CRE Jpotw39Dxdwhu2-56Msfxo [facility] HospitalComment on above: Performed By: #### BMP ####[address] [place] [address] Lab Director: CARROLL Baumalcium [Mass/Vol] 8.9 mg/dLNormal8.6-10.4[facility] CenterComment on above:Performed By: #### BMP ####[address] , [place] [address] Lab Director: CARROLL Baumhloride [Moles/Vol]105 mmol/L Kfjidt34-977BryvwSouthwest General Health CenterComment on above:Performed By: #### BMP ####[address] [place] [phone] Director: Cullen Loo MDCO2 [Moles/Vol]25 mmol/LHieakm28-56VzdfdSouthwest General Health CenterComment on above:Performed By: #### BMP ####[address] , [place] [address] Lab Director: CARROLL Baumreatinine [Mass/Vol]0.6 mg/dLNormal0.50-0.90[facility] Comment on above:Performed By: #### BMP ####[address] , [place] [address] Lab Director: Cullen Loo MD GFR/1.73 sq M.predicted among non-blacks MDRD (S/P/Bld) [Vol rate/Area] mL/min/{1.73_m2}Normal>60[facility] CenterComment on above:Result Comment: These results are not intended for use in patients <18 years of age. eGFR results are calculated without a race factor using the 2020 CKD-EPI equation. Careful clinical correlation is recommended, particularly when comparing to results calculated using previous equations. The CKD-EPI equation is less accurate in patients with extremes of muscle mass, extra-renal metabolism of creatine, excessive creatine ingestion, or following therapy that affects renal tubular secretion.Performed By: #### BMP ####[address] , [place] [id number] Lab Director: Cullen Loo MDGlucose [Mass/Vol]68 mg/wXXuy36-69WnpbnMcCullough-Hyde Memorial HospitalComment on above:Performed By: #### BMP ####[address] [place] [address] Lab Director: NITA Baumotassium [Moles/Vol]3.3 mmol/LLow3.7-5.3MLake County Memorial Hospital - West HospitalComment on above:Performed By: #### BMP ####[address] , [place] [phone] Director: HENRY Baumodium [Moles/Vol]141 mmol/DEfogdd555-467Xlcxc [facility] HospitalComment on above: Performed By: #### BMP ####[address] [place], [place] [phone] Director: Cullen Loo MDUrea nitrogen [Mass/Vol]7 mg/dLNormal6-20[facility] CenterComment on above:Performed By: #### BMP ####[address] [place] [id number])[phone] Director: CARROLL Baum with Diffon [id number]. Basophil0.03 k/uLNormal0.00-0.20[facility] CenterComment on above:Performed By: #### CDP, REJEC ####[address] [place] [phone] Director: Cullen Loo MD Abs.Imm.Granulocyte<0.14Sgxziv4.00-0.30MerNatchaug HospitalComment on above: Performed By: #### CDP, REJEC ####[address] [place] [phone] Director: Cullen Loo MD Abs.Neutrophil (Seg)5.70 k/uLNormal1.50-8.10[facility] CenterComment on above:Performed By: #### CDP, REJEC ####[address] [place] [address] Lab Director: Cullen Loo MD Basophils/100 WBC (Bld)0 %Normal0-2[facility] HospitalComment on above: Performed By: #### CDP, REJEC ####[address] [place] [address] Lab Director: Cullen Loo MD Eosinophils (Bld) [#/Vol]0.07 10*3/uLNormal0.00-0.44[facility] HospitalComment on above:Performed By: #### CDP, REJEC ####[address] [place] [address] Lab Director: Cullen Loo MD Eosinophils/100 WBC (Bld)1 %Normal1-4[facility] CenterComment on above: Performed By: #### CDP, REJEC ####[address] [place] [address] Lab Director: Cullen Loo MD Erythrocyte distribution width (RBC) [Ratio]12.6 %Erqfvv41.8-14.4[facility] CenterComment on above:Performed By: #### CDP, REJEC ####[address] [place] [address] Lab Director: Cullen Loo MDHematocrit (Bld) [Volume fraction]39.7 %Veplbb97.3-47.1Mwvumedicine barnesville hospitaly [facility] HospitalComment on above:Performed By: #### CDP, REJEC ####[address] [place] [address] Lab Director: Cullen Loo MDHemoglobin (Bld) [Mass/Vol]13.7 g/wPCtfnyl61.9-15.1Mwvumedicine barnesville hospitaly [facility] HospitalComment on above:Performed By: #### CDP, REJEC ####[address] [place] [address] Lab Director: Cullen Loo MDImmature granulocytes/100 WBC (Bld)0 %Sveapc8LuxrmSouthwest General Health Center Comment on above:Performed By: #### CDP, REJEC ####[address] [place] [address] Lab Director: Mariano Baummphocytes (Bld) [#/Vol]1.48 10*3/uLNormal1.10-3.70[facility] Comment on above:Performed By: #### CDP, REJEC ####[address] , [place] [address])[phone] Director: Hallie Baumhocytes/100 WBC (Bld)19 %Btv60-28ThqkiSouthwest General Health CenterComment on above: Performed By: #### DENNY, REJEC ####[address] , [facility]83[facility])[phone] Director: BRIAN BaumCH (RBC) [Entitic mass]32.6 ueMwrsxv35.2-33.5[facility] CenterComment on above: Performed By: #### DENNY, REJEC ####[address] , [place] [address])[phone] Director: BRIAN BaumCHC (RBC) [Mass/Vol]34.5 g/nUEwufoe59.4-34.8[facility] CenterComment on above: Performed By: #### DENNY, REJEC ####[address] , [place] [phone])[phone] Director: BRIAN BaumCV (RBC) [Entitic vol]94.5 wPQzixlc71.6-102.9[facility] CenterComment on above: Performed By: #### DENNY, REJEC ####[address] [place] [address] Lab Director: BRIAN Baumonocytes (Bld) [#/Vol]0.33 10*3/uLNormal0.10-1.20[facility] HospitalComment on above: Performed By: #### CDP, REJEC ####[address] [place] [address] Lab Director: Cullen Loo MD Monocytes/100 WBC (Bld)4 %Normal3-12[facility] CenterComment on above: Performed By: #### CDP, REJEC ####[address] , [place] [phone] Director: Cullen Loo MD Neutrophil (Seg)76 %Pyss32-41TicueSouthwest General Health CenterComment on above:Performed By: #### DENNY, REJEC ####[address] [place] [address] Lab Director: Cullen Loo MDNRBC Automated0.0 per 100 WBC Normal0.0[facility] HospitalComment on above:Performed By: #### DENNY, REJEC ####[address] [place] [phone] Director: Rosemary Baum mean volume (Bld) [Entitic vol]9.8 fL Normal8.1-13.5[facility] CenterComment on above:Performed By: #### DENNY, REJEC ####[address] , [place] [address] Lab Director: Tony Baumteclaude (Bld) [#/Vol]169 10*3/uL Hppidh616-239Fzauc [facility] HospitalComment on above:Performed By: #### DENNY, REJEC ####[address] , [place] [address] Lab Director: Cullen Loo MDRBC (Bld) [#/Vol]4.20 10*6/uLNormal 3.95-5.11[facility] HospitalComment on above:Performed By: #### DENNY, REJEC ####[facility] [place] [phone] Director: PATRICIA Baum (hair) [#/Vol]7.6 10*3/uLNormal3.5-11.3 [facility] CenterComment on above:Performed By: #### DENNY, REJEC ####[facility] [place] [address] lab Director: Cullen Loo, MDCT ABDOMEN PELVIS W IV CONTRASTon [id number] ABDOMEN PELVIS W IV CONTRASTEXAM: CT ABDOMEN AND PELVIS WITH CONTRAST 08/05/2024 11:10:11 AM TECHNIQUE: CT of the abdomen and pelvis was performed with the administration of intravenous contrast. Multiplanar reformatted images are provided for review. Automated exposure control, iterative reconstruction, and/or weight based adjustment of the mA/kV was utilized to reduce the radiation dose to as low as reasonably achievable. COMPARISON: 06/15/2023 CLINICAL HISTORY: Hematuria. FINDINGS: LOWER CHEST: No acute abnormality. LIVER: The liver is unremarkable. GALLBLADDER AND BILE DUCTS: Status post cholecystectomy. SPLEEN: Splenomegaly measuring 13.7 cm in sagittal dimension, new since prior examination where it measuredapproximately 12.2 cm in sagittal dimension. PANCREAS: No acute abnormality. ADRENAL GLANDS: No acute abnormality. KIDNEYS, URETERS AND BLADDER: No stones in the kidneys or ureters. No evidence of hydronephrosis. No evidence of perinephric or periureteral stranding. The bladder is distended with mild wall thickening and surrounding inflammatory changes suggesting cystitis. GI AND BOWEL: Stomach demonstrates no acute abnormality. There is no evidence of bowel obstruction. No evidence of appendicitis. PERITONEUM AND RETROPERITONEUM: No evidence of ascites. No free air. VASCULATURE: Aorta is normal in caliber. LYMPH NODES: No evidence of lymphadenopathy. REPRODUCTIVE ORGANS: No acute abnormality. BONES AND SOFT TISSUES: No acute osseous abnormality. Post-surgical changes noted in the anterior midline abdominal wall with areas of subcutaneous fat infarction. No significant change since prior examination. IMPRESSION: 1. Distended bladder with mild wall thickening and surrounding inflammatory changes, suggestive of cystitis. 2. Splenomegaly measuring 13.7 cm in sagittal dimension, new since prior examination where it measured approximately 12.2 cm in sagittal dimension. This is of indeterminate etiology and follow up is recommended. Interpreted by: Samuel Georges MD Signed by: Samuel Georges MD 08/05/24 Final resultNormalJ.W. Ruby Memorial Hospitalpecimen Rejectionon [id number] for rejectionUnable to perform testing: Specimen hemolyzed.NormalSouthwest General Health CenterComment on above:Performed By: #### CDP, REJEC ####[address] [place] [address] Lab Director: Marcus Baum of sample.BLOODNormTriHealth Bethesda Butler HospitalComment on above: Performed By: #### CDP, REJEC ####[address] [place] [address] Lab Director: Shanel Baum orderedBMPNormalSouthwest General Health CenterComment on above:Performed By: #### CDP, REJEC ####[address] , [place] [address] Lab Director: JESUS Baum w/Reflex Cultureon 08-05-2024 Bilirubin, SemiQt,UrNegativeNormalNEGSouthwest General Health CenterComment on above: Performed By: #### UAX, UMICAO #### [address] [place] [address] Tortilla Maker: Sunitha Baumood, Urine3+AbnormalNEGSouthwest General Health Center Comment on above:Performed By: #### UAX, UMICAO #### [facility] [address] [place] [address] [place] [place], [place] [id number] Tortilla Maker: CARROLL Baumlarity (U)TurbidAbnormalCLEARMercBristol HospitalComment on above:Performed By: #### UAX, UMICAO #### [address] [place], [place] [id number] Tortilla Maker: CARROLL Baumolor (U)RedAbnormalYFulton County Health Center Comment on above:Performed By: #### UAX, UMICAO #### [facility] [address] [place] [address] [place] [place], [place] 4509683 Tortilla Maker: Cullen Loo MDGlucose Ql (U)NegativeNormalNEGMerKettering Health Springfield HospitalComment on above:Performed By: #### UAX, UMICAO #### [facility] [address] [place] [address] [place] [place], [place] 8[address]4983 Tortilla Maker: Cullen Loo MDKetones Ql (U)NegativeNormalNEGSouthwest General Health CenterComment on above:Performed By: #### UAX, UMICAO #### [address] [place], [place] 3399683 Tortilla Maker: Cullen Loo MDLeukocyte esterase Test strip Ql (U)NegativeNormal NEGSouthwest General Health CenterComment on above:Performed By: #### MIMI UMICAO #### [facility] [address] [place] [address] [place] [place], [place] 8137383 Tortilla Maker: Cullen Loo MDNitrite,UrNegativeNormalACMC Healthcare System Comment on above:Performed By: #### UARandell, UMICAO #### [facility] [address] [place] [address] [place] [place], [place] 8087283 Tortilla Maker: NITA Baum,Ur6.6Klotlg0.0-9.0South[facility] General Health CenterComment on above:Performed By: #### UAX, UMICAO #### [address] [place], [place] 1094683 Tortilla Maker: NITA Baumrotein Ql (U)4+ mg/dLAbnormalNEGGalion Hospital HospitalComment on above:Performed By: #### UAX, UMICAO #### [facility] [address] [place] [address] Tortilla Maker: HENRY Baumpec. [place],Ur1.041Hwln3.010-1.020Southwest General Health CenterComment on above:Performed By: #### UAX, UMICAO #### [address] [place], [place] 1879383 Tortilla Maker: Cullen Loo MDUrobilinogen,UrNormalNormal0.0-1.0[facility] General Health CenterComment on above:Performed By: #### UAX, UMICAO #### [address] [place] [address] Tortilla Maker: Cullen Loo MDUrinalysis,Microon 56-03-4192Xuuzpcqh5+Abnormal NONESouthwest General Health CenterComment on above:Performed By: #### UAX, UMICAO #### [address] [place] [address] Tortilla Maker: Cullen Loo MDEpithelial cells LM Ql (Urine sed)0 TO 2Ppbgfe2-41 [facility] Health CenterComment on above:Performed By: #### MIMI, UMICAO #### [address] [place] [address] Tortilla Maker: Cullen Loo MDOther ObservationsBLOODY URINE CHEMISTRY RESULTED FROM SUPERNATANTAbnormalNREQSouthwest General Health CenterComment on above:Result Comment: MICROSCOPIC PERFORMED ON UNSPUN URINEPerformed By: #### UAX, UMICAO #### [address] [place], [place] 0616783 Tortilla Maker: Cullen Loo MDUrine RBC'sGREATER THAN 893Sqqrwp8-3Sjhro Milford HospitalComment on above:Performed By: #### UAX, UMICAO #### [address] [place] [address] Tortilla Maker: Cullen Loo MDUrine WBC's0 TO 9Bpsgoa3-7GblmwSouthwest General Health Center Comment on above:Performed By: #### UAX, UMICAO #### [facility] [address] [place], [place] 845[address]83 Tortilla Maker: CARROLL Baumardiac echo study ProcedureOrdered By: Mulugeta Mcneil on 61-00-0665Tw Root Index0.91 cm/m2Bon [employer] Work Phone: Aortic Root2 cmBon [employer] Work Phone: Aortic Sinus Valsalva2.9 cmBon [employer] Work Phone: Aortic Sinus Valsalva Index1.32 cm/m2Bon [employer] Work Phone: AV Cusp Mmode1.7 cmBon [employer] Work Phone: AV Mean Zsjfydwo3kqMtOop [employer] Work Phone: AV Mean Velocity1.2 m/sBon [employer] Work Phone: AV Peak Anoqntli11etMqPqi [employer] Work Phone: AV Peak Velocity1.7 m/sBon [employer] Work Phone: AV Velocity Ratio0.88Bon [employer] Work Phone: AV VTI43.3 cmBon [employer] Work Phone: Body surface area Derived from formula2.25 m2Bon [employer] Work Phone: E/E' Lateral7.77Bon [employer] Work Phone: [phone] BP65 %55 - 100 %Bon [employer] Work Phone: EF Wgluwptfl01 %Bon [employer] Work Phone: Est. RA Ggzruikv6scEcDxg [employer] Work Phone: Fractional Shortening 2D33 %28 - 44 %Bon [facility] CenterApply[facility] Work Phone: Interpretation and review of laboratory results AbnormalBon [employer] Phone: IVSd1.1 cmAbnormal0.6 - 0.9 cmBon [employer] Work Phone: LA Area 2C19.1 cm2Bon [employer] Work Phone: LA Area 4C22.7 cm2Bon [employer] Work Phone: LA Major Axis5.8 cmCobre [facility] [employer] Work Phone: LA Minor Axis5.8 cmBon [employer] Work Phone: LA Volume BP61 qDIquircfk97 - 52 mLCobre Valley Regional Medical Center [employer] Work Phone: LA Volume Index BP28 ml/m216 - 34 ml/m2Bon [employer] Work Phone: LA Volume Index MOD A2C23 ml/m216 - 34 ml/m2Bon [employer] Work Phone: [phone] Volume Index MOD A4C33 ml/m216 - 34 ml/m2Bon [employer] Work Phone: [phone] Volume MOD A2C51 mL22 - 52 mLCobre Valley Regional [facility] Center [employer] Work Phone: LA Volume MOD A4C72 pZBeqqehal08 - 52 mLCobre [facility] [employer] Work Phone: LV E' Lateral Ghddubjv74.8 cm/sBon [facility] CenterApply[facility] Work Phone: LV EDV [phone] mLCobre Valley [facility] [employer] Work Phone: LV EDV [phone] mLCobre [facility] [employer] Work Phone: LV EDV Index A2C57 mL/m2Bon [employer] Work Phone: LV EDV Index A4C52 mL/m2[facility] Work Phone: LV Ejection Fraction A2C66 %Bon [employer] Work Phone: [phone] Ejection Fraction A4C64 %Bon [employer] Work Phone: LV ESV A2C43 mLBon [employer] Work Phone: LV ESV A4C40 mLBon [employer] Work Phone: LV ESV Index A2C20 mL/m2Bon [employer] [facility] Work Phone: LV ESV Index A4C18 mL/m2Bon [employer] Work Phone: LV Mass 2D147 g67 - 162 gBon [employer] Work Phone: LV Mass 2D Index67.1 g/m243 - 95 g/m2Bon [employer] Work Phone: LV RWT Ratio0.48Bon [employer] Work Phone: [phone] cm3.9 - 5.3 cmBon [employer] Work Phone: LVIDd Index1.92 cm/m2Bon [employer] Work Phone: [phone] cmBon [employer] Work Phone: LVIDs Index1.28 cm/m2Bon [employer] Work Phone: LVOT Mean Cxwcbafv7tiMhShp [employer] Work Phone: LVOT Peak Jyjfwuto3hxErEyf [employer] Work Phone: LVOT Peak Velocity1.5 m/sBon [employer] Work Phone: LVOT VTI36.4 cmBon [employer] Work Phone: LVOT:AV VTI Index0.84Bon [employer] Work Phone: [phone] cmAbnormal0.6 - 0.9 cmBon [employer] Work Phone: MV A Velocity0.83 m/sBon [employer] Phone: MV E Velocity1.15 m/sBon [employer] Work Phone: MV E Wave Deceleration Syqr352 msBon [employer] Phone: MV E/A1.39Bon [employer] Phone: PV Max Velocity1.1 m/sBon [employer] Phone: PV Peak Zisxeavw6mdKtJsh Tittat Phone: [phone] T[employer] Phone: Sinotubular Junction2.1 cmBon [employer] Phone: TAPSE2.4 cm1.7 cmBon [employer] Phone: TR Max Velocity2.26 m/sBon [employer] Phone: TR Peak Zzlztfzp24ltKdTmw [employer] Phone: Bon [employer] Phone: Cardiac echo study Procedureon [id number] Ventricle: Normal left ventricular systolic function with a visually estimated EF of 60 - 65%. Left ventricle size is normal. Mildly increased wall thickness. Normal wall motion. Normal diastolic function. Right Ventricle: Right ventricle size is normal. Normal systolic function. Tricuspid Valve: Mild regurgitation. The estimated RVSP is 23 mmHg. Aorta: Normal sized aortic root. Ao root diameter is 2.0 cm. Ao sinus diameter is 2.9 cm. Pericardium: The pericardium is normal. No pericardial effusion. Image quality is adequate. Left Ventricle Normal left ventricular systolic function with a visually estimated EF of 60 - 65%. Left ventricle size is normal. Mildly increased wall thickness. Normal wall motion. Normal diastolic function. Right Ventricle Right ventricle size is normal. Normal systolic function. Left Atrium Left atrium size is normal. Right Atrium Right atrium size is normal. IVC/SVC IVC diameter is less than or equal to 21 mm and decreases greater than 50% during inspiration; therefore the estimated right atrial pressure is normal (~3 mmHg). IVC size is normal. Mitral Valve Valve structure is normal. Trace regurgitation. No stenosis noted. Tricuspid Valve Valve structure is normal. Mild regurgitation. The estimated RVSP is 23 mmHg. No stenosis noted. Aortic Valve Valve structure is normal. No regurgitation. No stenosis. Pulmonic Valve The pulmonic valve visualization is suboptimal but appears to be functioning normally. Physiologically normal regurgitation. No stenosis noted. Ascending Aorta Normal sized aortic root. Ao root diameter is 2.0 cm. Ao sinus diameter is 2.9 cm. Pericardium The pericardium is normal. No pericardial effusion. Study Details Image quality: adequate. No contrast was given.[facility] CV CPACSRadiology Study observation (narrative)Roney AlmonteMcCullough-Hyde Memorial HospitalLaboratory - Chemistry and Chemistry - challengeon [id number] [Mass/Vol]4.2 g/dL(3.9-4.9 )[facility] HospitalALP [Catalytic activity/Vol]43 U/LLow(44-121 )[facility] HospitalALT [Catalytic activity/Vol]11 U/L(0-32 )[facility] HospitalAST [Catalytic activity/Vol]16 U/L(0-40 )[facility] HospitalBilirubin [Mass/Vol]0.4 mg/dL(0.0-1.2 )[facility] HospitalCalcium [Mass/Vol]9.4 mg/dL(8.7-10.2 )[facility] Chloride [Moles/Vol]100 mmol/L(96-106 )[facility] Cholesterol [Mass/Vol]149 mg/dL(100-199 )[facility] Cholesterol in HDL [Mass/Vol]48 mg/dL(>39 )[facility] Cholesterol in LDL [Mass/Vol]83 mg/dL(0-99 )[facility] Cholesterol in VLDL [Mass/Vol]18 mg/dL(5-40 )[facility] HospitalCO2 [Moles/Vol]28 mmol/L(20-29 )[facility] HospitalCreatinine [Mass/Vol] 0.65 mg/dL(0.57-1.00 )[facility] HospitalGFR/1.73 sq M.predicted among non-blacks MDRD (S/P/Bld) [Vol rate/Area]115 mL/min/{1.73_m2}(>59 )[facility] HospitalGlobulin (S) [Mass/Vol]2.6 g/dL(1.5-4.5 )[facility] HospitalGlucose [Mass/Vol]75 mg/dL(70-99 )[facility] HospitalPotassium [Moles/Vol]3.9 mmol/L(3.5-5.2 )[facility] Protein [Mass/Vol]6.8 g/dL(6.0-8.5 )[facility] HospitalSodium [Moles/Vol]138 mmol/L(134-144 )[facility] HospitalTriglyceride [Mass/Vol]94 mg/dL(0-149 )[facility] HospitalTSH Qn1.970 uIU/mL (0.450-4.500 )[facility] HospitalUrea nitrogen [Mass/Vol]8 mg/dL(6- 20 )[facility] HospitalUrea nitrogen/Creatinine [Mass ratio]12 mg/mg (9-23 )[facility] HospitalLaboratory - Hematology and Cell countson [id number] (Bld) [#/Vol]0.1 10*3/uL(0.0-0.2 )[facility] HospitalBasophils/100 WBC (Bld)1 %(Not Estab. )[facility] Eosinophils (Bld) [#/Vol]0.2 10*3/uL(0.0-0.4 )[facility] Eosinophils/100 WBC (Bld)3 %(Not Estab. )[facility] Erythrocyte distribution width (RBC) [Ratio]11.6 %Low(11.7-15.4 )[facility] HospitalHematocrit (Bld) [Volume fraction]41.4 %(34.0-46.6 )[facility] HospitalHemoglobin (Bld) [Mass/Vol]13.6 g/dL(11.1-15.9 )[facility] HospitalImmatrinity health system granulocytes (Bld) [#/Vol]0.0 10*3/uL(0.0-0.1 ) [facility] HospitalImmature granulocytes/100 WBC (Bld)0 %(Not Estab. )[facility] UnitImsaint joseph health center lymphocytes Ql (Bld)NPHealth [facility] HospitalLymphocytes (Bld) [#/Vol]1.8 10*3/uL(0.7-3.1 )[facility] HospitalLymphocytes/100 WBC (Bld)33 %(Not Estab. )[facility]Zamb[facility] UnitMCH (RBC) [Entitic mass]31.3 pg(26.6-33.0 )[facility] MCHC (RBC) [Mass/Vol]32.9 g/dL(31.5-35.7 )[facility] UnitMCV (RBC) [Entitic vol]95 fL(79-97 )[facility] UnitMonocytes (Bld) [#/Vol]0.3 10*3/uL(0.1-0.9 )[facility] HospitalMonocytes/100 WBC (Bld)5 %(Not Estab. )[facility] HospitalMorphology Arik (Bld) [Interp]NPHealth [facility] HospitalNeutrophils (Bld) [#/Vol]3.1 10*3/uL (1.4-7.0 )[facility] HospitalNeutrophils/100 WBC (Bld)58 %(Not Estab. )[facility] HospitalNucleated RBC/100 WBC (Bld) [Ratio]COOPERER [facility] HospitalPlatelets (Bld) [#/Vol]242 10*3/uL(150-450 ) [facility] HospitalRBC (Bld) [#/Vol]4.35 10*6/uL(3.77-5.28 )[facility] UnitWBC (Bld) [#/Vol]5.3 10*3/uL(3.4-10.8 )[facility] HospitalLaboratory - Miscellaneous testson [id number] comment (Unsp spec) [Interp]NPHealOhioHealth O'Bleness HospitalNo Panel Informationon [id number] CellsNPHealth [facility] HospitalLDL Calc Comment:COOPERER [facility] HospitalReported PhysiciansSee NoteHealth Partners Rhode Island HospitalComment on above:Note: Reported Physicians:Ordering: ARTHUR SALEHXR HAND LEFT (MIN 3 VIEWS)on [id number] HAND LEFT (MIN 3 VIEWS) EXAMINATION: THREE XRAY VIEWS OF THE LEFT HAND 05/24/2024 3:52 pm COMPARISON: None. HISTORY: ORDERING SYSTEM PROVIDED HISTORY: cat scratch TECHNOLOGIST PROVIDED HISTORY: cat scratch FINDINGS: There is no evidence of acute fracture. There is normal alignment. No acute joint abnormality. No focal osseous lesion. No focal soft tissue abnormality. IMPRESSION: No acute osseous abnormality. Interpreted by: James Quintero MD Signed by: James Quintero MD 05/24/24 Final resultNormChillicothe VA Medical Center Panel Informationon [id number] acute fracture or dislocation. This report has been created using voice recognition software. It may contain minor errors which are inherent in voice recognition technology. Electronically signed by Dr Zachary [facility] Zachary Oh MD - 03/26/2024 PROCEDURE: XR SHOULDER RIGHT (MIN 2 VIEWS), XR HUMERUS RIGHT (MIN 2 VIEWS) CLINICAL INFORMATION: 38-year-old female who fell. Right-sided shoulder pain. COMPARISON: No prior study. TECHNIQUE: 3 views of the right shoulder and 4 views of the right humerus were obtained. FINDINGS: There is no acute fracture or dislocation. The joint spaces are preserved. There is anatomical alignment at the glenohumeral joint and the elbow. Visualized portions of the right hemithorax demonstrate clear lung with no pneumothorax. There is no soft tissue abnormality. IMPRESSION: No acute fracture or dislocation. This report has been created using voice recognition software. It may contain minor errors which are inherent in voice recognition technology. Electronically signed by Dr Zachary Clinton [facility] [employer] [facility] Panel InformationOrdered By: Zachary Clinton on [id number] Work Phone: XR Humerus - right 2 Viewson [id number] Study observation (narrative)[facility] [employer]XR Shoulder - right 2 Viewson [id number] Study observation (narrative)[facility] HospitalCBC with Auto Differentialon [id number] (Bld) [#/Vol][facility] HealthBasophils/100 WBC (Bld)1 %0 - 2 %[facility] HealthEosinophils (Bld) [#/Vol]0.04 10*3/uLBon [facility] HealthEosinophils/100 WBC (Bld)1 %1 - 4 % [facility] HospitalErythrocyte distribution width (RBC) [Ratio]12.2 %11.8 - 14.4 %[facility] Board[facility] HospitalHematocrit (Bld) [Volume fraction]39.0 %36.3 - 47.1 %[facility] SecMcCullough-Hyde Memorial HospitalHemoglobin (Bld) [Mass/Vol]13.5 g/dL11.9 - 15.1 g/dLBon SecMcCullough-Hyde Memorial HospitalImmature granulocytes (Bld) [#/Vol][facility] HospitalImmature granulocytes/100 WBC (Bld)0 %0[facility] Interpretation and review of laboratory resultsAbnormalBon [facility] Health Lymphocytes/100 WBC (Bld)31 %24 - 43 %[facility] SecMcCullough-Hyde Memorial HospitalLymphocytes/100 WBC (Bld)0.90 %LowBon [facility] HospitalH (RBC) [Entitic mass]31.8 pg25.2 - 33.5 pgC[facility] SecParkview HealthHC (RBC) [Mass/Vol]34.6 g/dL28.4 - 34.8 g/dLBon SecParkview HealthV (RBC) [Entitic vol]92.0 fL82.6 - 102.9 fLCobre Valley [facility] Center SecMcCullough-Hyde Memorial HospitalMonocytes/100 WBC (Bld)6 %3 - 12 %[facility] SecR[facility] Health Monocytes/100 WBC (Bld)0.18 %[facility] SecMcCullough-Hyde Memorial HospitalNeutrophils/100 WBC (Bld)61 %36 - 65 %[facility] SecMcCullough-Hyde Memorial HospitalNucleated RBC/100 WBC (Bld) [Ratio]0.0 %0.0 per 100 WBCCobre Valley Regional [facility] Center Secours Trihealthy HealthPlatelet, Xcbhghvpavng866ZixEfs [facility] HealthPlatelets (Bld) [#/Vol]See Reflexed IPF ResultBon SecRapides Regional Medical Center Health Platelets reticulated/100 platelets Auto (Bld)2.9 %1.1 - 10.3 %[facility] HospitalRBC (Bld) [#/Vol]4.24 10*6/uL3.95 - 5.11 m/uLCarilion Franklin Memorial Hospital Segmented neutrophils/100 WBC (Bld)1.81 %[facility] HospitalWBC other (Bld) [#/Vol]3.0LowBon [facility] HospitalBon [facility]erm[facility] HospitalCBC with Diffon [id number]. Basophil<0.54Brcppi3.00-0.20[facility] HospitalComment on above:Performed By: #### MG, CDP, CP, TROPI #### [address] [place] [address] Tortilla Maker: Juli Baum.Imm.Granulocyte<0.97Jbfssp2.00-0.30[facility] Health CenterComment on above:Performed By: #### MG, CDP, CP, TROPI #### [address] [place] [address] Tortilla Maker: Juli Baum.Neutrophil (Seg)1.81 k/uLNormal1.50-8.10[facility] Health CenterComment on above:Performed By: #### MG, CDP, CP, TROPI #### [address] [place] [address] Tortilla Maker: Cullen Loo MDBasophils/100 WBC (Bld)1 %Normal0-2MLake County Memorial Hospital - West HospitalComment on above:Performed By: #### MG, CDP, CP, TROPI #### [address] [place] [address] Tortilla Maker: Cullen Loo MDEosinophils (Bld) [#/Vol]0.04 10*3/uLNormal 0.00-0.44[facility] HospitalComment on above:Performed By: #### MG, CDP, CP, TROPI #### [address] [place], [place] [address] Tortilla Maker: Cullen Loo MDEosinophils/100 WBC (Bld)1 %Normal1-4[facility] Health CenterComment on above:Performed By: #### MG, CDP, CP, TROPI #### [address] [place], [place] [address] Tortilla Maker: Cullen Loo MDErythrocyte distribution width (RBC) [Ratio]12.2 % Qaznno62.8-14.4[facility] Health CenterComment on above:Performed By: #### MG, CDP, CP, TROPI #### [address] [place], [facility] Tortilla Maker: Cullen Loo MDHematocrit (Bld) [Volume fraction]39.0 %Normal 36.3-47.1MercBristol HospitalComment on above:Performed By: #### MG, CDP, CP, TROPI #### [address] [place] [address] Tortilla Maker: Cullen Loo MDHemoglobin (Bld) [Mass/Vol]13.5 g/dLNormal 11.9-15.1[facility] Milford HospitalComment on above:Performed By: #### MG, CDP, CP, TROPI #### [address] [place], [place] [address] Tortilla Maker: Cullen Loo MDImmature granulocytes/100 WBC (Bld)0 %Ivaecd7OhzfhSouthwest General Health CenterComment on above:Performed By: #### MG, CDP, CP, TROPI #### [address] [place], [facility]83 Tortilla Maker: Cullen Loo MDLymphocytes (Bld) [#/Vol]0.90 10*3/uLLow1.10-3.70 [facility] CenterComment on above:Performed By: #### MG, CDP, CP, TROPI #### [address] [place] [address] Tortilla Maker: Mariano Baummphocytes/100 WBC (Bld)31 %Lvjxdw67-48RzwjqSouthwest General Health CenterComment on above:Performed By: #### MG, CDP, CP, TROPI #### [address] [place], [facility]83 Tortilla Maker: BRIAN BaumCH (RBC) [Entitic mass]31.8 muFhzydx25.2-33.5 [facility] CenterComment on above:Performed By: #### MG, CDP, CP, TROPI #### [address] [place], [place] [address] Tortilla Maker: PROSPER BaumC (RBC) [Mass/Vol]34.6 g/yDDhpuam63.4-34.8[facility] Health CenterComment on above:Performed By: #### MG, CDP, CP, TROPI #### [address] [place], [place] [address] Tortilla Maker: BRIAN BaumCV (RBC) [Entitic vol]92.0 iUOtlbbp54.6-102.9 [facility] CenterComment on above:Performed By: #### MG, CDP, CP, TROPI #### [address] [place] [address] Tortilla Maker: BRIAN Baumonocytes (Bld) [#/Vol]0.18 10*3/uLNormal0.10-1.20 [facility] CenterComment on above:Performed By: #### MG, CDP, CP, TROPI #### [address] [place] [address] Tortilla Maker: BRIAN Baumonocytes/100 WBC (Bld)6 %Normal3-12[facility] Health CenterComment on above:Performed By: #### MG, CDP, CP, TROPI #### [address] [place], [place] [address] Tortilla Maker: Cullen Loo MDNeutrophil (Seg)61 %Upytic35-91Pkrum Tiffin HospitalComment on above:Performed By: #### MG, CDP, CP, TROPI #### [address] [place] [address] Tortilla Maker: KARYNA Baum Automated0.0 per 100 WBCNormal0.0[facility] Health CenterComment on above:Performed By: #### MG, CDP, CP, TROPI #### [address] [place] [address] Tortilla Maker: Rosemary Baum CountSee Reflexed IPF PoihuhTthfvd307-287 [facility] CenterComment on above:Performed By: #### MG, CDP, CP, TROPI #### [address] [place], [place] [address]383 Tortilla Maker: Rosemary Baum, Fluoresc.131 k/tORce613-515VileaSouthwest General Health CenterComment on above:Performed By: #### MG, CDP, CP, TROPI #### [address] [place], [place] [address]83 Tortilla Maker: NITA BaumLT, Immature Fract.2.9 %Normal1.1-10.3MMcCullough-Hyde Memorial HospitalComment on above:Performed By: #### MG, CDP, CP, TROPI #### [address] [place] [address] Tortilla Maker: NINA BaumBC (Bld) [#/Vol]4.24 10*6/uLNormal3.95-5.11MerNatchaug HospitalComment on above:Performed By: #### MG, CDP, CP, TROPI #### [facility] [address] [place] [address] Tortilla Maker: Cullen Loo MDHUDSON RIVER PSYCHIATRIC C[facility] (Bld) [#/Vol]3.0 10*3/uLLow3.5-11.3Mer[facility] Milford HospitalComment on above:Performed By: #### MG, CDP, CP, TROPI #### [facility] [address] [place], [place] [address] Tortilla Maker: Cullen Loo [facility] [id number] [Mass/Vol]3.8 g/dL3.5 - 5.2 g/dLBon [facility] HospitalAlbumin/Globulin [Mass ratio]1.5 {ratio}1.0 - 2.5[facility] HealthALP [Catalytic activity/Vol]47 U/L35 - 104 U/LBon [facility] HealthALT [Catalytic activity/Vol]14 U/L10 - 35 U/LBon [facility] HealthAnion gap [Moles/Vol]9 mmol/L9 - 16 mmol/LBon [facility] Health AST [Catalytic activity/Vol]32 U/L10 - 35 U/LBon Secours [facility] Boardman HospitalBilirubin [Mass/Vol]0.3 mg/dL0.00 - 1.20 mg/dLBon Secours Trihealthy HealthCalcium [Mass/Vol] 8.6 mg/dL8.6 - 10.4 mg/dLBon Secours Trihealthy HealthChloride [Moles/Vol]103 mmol/L 98 - 107 mmol/LBon Secours Trihealthy HealthCO2 [Moles/Vol]28 mmol/L20 - 31 mmol/LBon Secours Trihealthy HealthCreatinine [Mass/Vol]0.5 mg/dL0.50 - 0.90 mg/dLBon Secours Trihealthy HealthEst, Glom Filt Rate- PINFBon [facility] Clermont HospitalComment on above: These results are not intended for use in patients <18 years of age. eGFR results are calculated without a race factor using the 2020 CKD-EPI equation. Careful clinical correlation is recommended, particularly when comparing to results calculated using previous equations. The CKD-EPI equation is less accurate in patients with extremes of muscle mass, extra-renal metabolism of creatine, excessive creatine ingestion, or following therapy that affects renal tubular secretion. Glucose [Mass/Vol]87 mg/dL74 - 99 mg/dLBon [facility] HospitalInterpretation and review of laboratory resultsAbnormalBon [facility] HospitalPotassium [Moles/Vol]2.8 mmol/LCritically low3.7 - 5.3 mmol/LBon [facility] Protein [Mass/Vol]6.4 g/dLLow6.6 - 8.7 g/dLBon [facility] HospitalSodium [Moles/Vol]140 mmol/L136 - 145 mmol/LBon [facility] HospitalUrea nitrogen [Mass/Vol]5 mg/dLLow6 - 20 mg/dLBon [facility] HospitalUrea nitrogen/Creatinine [Mass ratio]10 mg/mg9 - 20Bon [facility] Metabolic Profon [id number] [Mass/Vol]3.8 g/dLNormal3.5-5.2[facility] HospitalComment on above:Performed By: #### MG, CDP, CP, TROPI ####[address] , [place] [address] Lab Director: Cullen Loo MDAlbumin/Glob Ratio1.3Yxvoak0.0-2.5South[facility] Health CenterComment on above: Performed By: #### MG, CDP, CP, TROPI ####[address] , [place] [address] Lab Director: Ramonita Baum Phos47 U/CAduqoy59-958CrcpxSouthwest General Health CenterComment on above:Performed By: #### MG, CDP, CP, TROPI ####[address] [place] [address] Lab Director: Cullen Loo MDALT [Catalytic activity/Vol]14 U/ZKqzrul87-17Vqwhk [facility]iffin HospitalComment on above:Performed By: #### MG, CDP, CP, TROPI ####[address] [place] [address] Lab Director: Cullen Loo MDAnion gap [Moles/Vol]9 mmol/LNormal9-16[facility] HospitalComment on above:Performed By: #### MG, CDP, CP, TROPI ####[address] [place] [address] Lab Director: Cullen Loo MDAST [Catalytic activity/Vol]32 U/GOuynmp14-94Kslnx [facility] HospitalComment on above:Performed By: #### MG, CDP, CP, TROPI ####[address] [place] [address] Lab Director: Cullen Loo MDBilirubin [Mass/Vol]0.3 mg/dLNormal0.00-1.20MerKettering Health Springfield HospitalComment on above: Performed By: #### MG, CDP, CP, TROPI ####[address] [place] [address] Lab Director: Cullen Loo MDBUN/CRE Kungl15Cgkeje3-32Flhyz [facility]in HospitalComment on above:Performed By: #### MG, CDP, CP, TROPI ####[address] [place] [address] Lab Director: Cullen Loo MDCalcium [Mass/Vol]8.6 mg/dL Normal8.6-10.4[facility] HospitalComment on above:Performed By: #### MG, CDP, CP, TROPI ####[address] [place] [address] Lab Director: CARROLL Baumhloride [Moles/Vol]103 mmol/L Aqvnqa93-021Hygdg [facility]uffton HospitalComment on above:Performed By: #### MG, CDP, CP, TROPI ####[address] [place] [address] Lab Director: Cullen Loo MDCO2 [Moles/Vol]28 mmol/LNormal 20-31[facility] CenterComment on above:Performed By: #### MG, CDP, CP, TROPI ####[address] , [facility]83 Lab Director: CARROLL Baumreatinine [Mass/Vol]0.5 mg/dL Normal0.50-0.90[facility] Health CenterComment on above:Performed By: #### MG, CDP, CP, TROPI ####[address] , [place] [address] Lab Director: Cullen Loo MDGFR/1.73 sq M.predicted among non-blacks MDRD (S/P/Bld) [Vol rate/Area]mL/min/{1.73_m2}Normal>60[facility] Health CenterComment on above:Result Comment: These results are not intended for use in patients <18 years of age. eGFR results are calculated without a race factor using the 2020 CKD-EPI equation. Careful clinical correlation is recommended, particularly when comparing to results calculated using previous equations. The CKD-EPI equation is less accurate in patients with extremes of muscle mass, extra-renal metabolism of creatine, excessive creatine ingestion, or following therapy that affects renal tubular secretion.Performed By: #### MG, CDP, CP, TROPI ####[address] [place] [address] Lab Director: Cullen Loo MDGlucose [Mass/Vol]87 mg/dLNormal 74-99MMcCullough-Hyde Memorial HospitalComment on above:Performed By: #### MG, CDP, CP, TROPI ####[address] , [place] [address] Lab Director: Cullen Loo MDPotassium [Moles/Vol]2.8 mmol/L Critically low3.7-5.3MMcCullough-Hyde Memorial HospitalComment on above:Performed By: #### MG, CDP, CP, TROPI ####[address] , [place] 8[address] Lab Director: NITA Baumrotein [Mass/Vol] 6.4 g/dLLow6.6-8.7[facility] Health CenterComment on above:Performed By: #### MG, CDP, CP, TROPI ####[address] [place] [address] Lab Director: Cullen Loo MDSodium [Moles/Vol]140 mmol/L Daxcip611-810MixqtSouthwest General Health CenterComment on above:Performed By: #### MG, CDP, CP, TROPI ####[address] [place] [address] Lab Director: Jeanna Baum nitrogen [Mass/Vol]5 mg/dL Low6-20[facility] Health CenterComment on above:Performed By: #### MG, CDP, CP, TROPI ####[address] [place] [address] Lab Director: Kb Baumgnesiumon [id number] [Mass/Vol]1.9 mg/dL1.6 - 2.6 mg/dLBon [facility] HospitalMagnesium [Mass/Vol] 1.9 mg/dLNormal1.6-2.6Mwvumedicine barnesville hospitaly Milford HospitalComment on above:Performed By: #### MG, CDP, CP, TROPI ####[address] , [place] [address] Lab Director: Cullen Loo MDNo Panel Informationon [id number] [facility] HospitalTroponinon [id number] I.cardiac High sensitivity method [Mass/Vol]ng/L0 - 14 ng/LBon [facility] HospitalComment on above:High Sensitivity Troponin values cannot be compared with other Troponin methodologies.Troponin, High Sens<3Kzvxbi3-74MscwjMer[address] [facility] on above:Result Comment: High Sensitivity Troponin values cannot be compared with other Troponin methodologies.Performed By: #### MG, CDP, CP, TROPI ####[facility] [place] [address] lab Director: Cullen Loo, [facility] with Auto Differentialon [id number] (Bld) [#/Vol]0.00 10*3/uLBon [facility] HospitalBasophils/100 WBC (Bld)0 %0 - 2 %[facility] HospitalEosinophils (Bld) [#/Vol]0.03 10*3/uLBon [facility] Eosinophils/100 WBC (Bld)1 %1 - 4 %[facility] HospitalErythrocyte distribution width (RBC) [Ratio]12.3 %11.8 - 14.4 %[facility] Hematocrit (Bld) [Volume fraction]40.9 %36.3 - 47.1 %[facility] Hemoglobin (Bld) [Mass/Vol]14.2 g/dL11.9 - 15.1 g/dLBon [facility] Immature granulocytes (Bld) [#/Vol]0.00 10*3/uLBon [facility] HospitalImmature granulocytes/100 WBC (Bld)0 %0Bon [facility] HospitalInterpretation and review of laboratory resultsAbnormalBon [facility] HospitalLymphocytes/100 WBC (Bld)9 %Low24 - 43 %Bon [facility] HospitalLymphocytes/100 WBC (Bld)0.25 %LowBon [facility] HospitalH (RBC) [Entitic mass]32.2 pg25.2 - 33.5 pgBon [facility] HospitalHC (RBC) [Mass/Vol]34.7 g/dL28.4 - 34.8 g/dLBon [facility] HospitalV (RBC) [Entitic vol]92.7 fL82.6 - 102.9 fLNorton Community Hospital Health Monocytes/100 WBC (Bld)5 %3 - 12 %[facility] HospitalMonocytes/100 WBC (Bld)0.14 %[facility] HospitalMorphology Arik (Bld) [Interp]NormalBon [facility] HospitalNeutrophils/100 WBC (Bld)85 %High36 - 65 %[facility] HospitalNucleated RBC/100 WBC (Bld) [Ratio]0.0 %0.0 per 100 WBCBon [facility] HospitalPlatelet, Wpckamggyuar697EjuOnp [facility] HealthPlatelets (Bld) [#/Vol]See Reflexed IPF ResultBon [facility] HospitalPlatelets reticulated/100 platelets Auto (Bld)1.6 %1.1 - 10.3 %[facility] HospitalRBC (Bld) [#/Vol] 4.41 10*6/uL3.95 - 5.11 m/uLBon [facility] HospitalSegmented neutrophils/100 WBC (Bld)2.38 %[facility] HospitalWBC other (Bld) [#/Vol]2.8LowBon SecRapides Regional Medical Center HealthBon [facility] HospitalCBC with Diffon [id number]. Basophil0.00 k/uLNormal0.0-0.2MercMercy Memorial Hospital HospitalComment on above:Performed By: #### DENNY ROLAND, MG #### [address] [place] [address] Tortilla Maker: Juli Baum.Imm.Granulocyte0.00 k/uLNormal0.00-0.30[facility] CenterComment on above:Performed By: #### DENNY ROLAND, MG #### [address] [address] Tortilla Maker: Juli Baum.Neutrophil (Seg)2.38 k/uLNormal1.50-8.10[facility] Health CenterComment on above:Performed By: #### DENNY ROLAND, MG #### [address] [place], [place] [address] Tortilla Maker: Cullen Loo MDBasophils/100 WBC (Bld)0 %Normal0-2[facility] HospitalComment on above:Performed By: #### CP, CDP, MG #### [address] [place], [place] [address] Tortilla Maker: Cullen Loo MDEosinophils (Bld) [#/Vol]0.03 10*3/uLNormal 0.00-0.44[facility] HospitalComment on above:Performed By: #### CP, CDP, MG #### [address] [place], [facility]83 Tortilla Maker: MAURICIO Baumosinophils/100 WBC (Bld)1 %Normal1-4[facility] HospitalComment on above:Performed By: #### CP, CDP, MG #### [address] [place], [facility]83 Tortilla Maker: Marcy Baummature granulocytes/100 WBC (Bld)0 %Dxglxo1Zbiiw [facility] HospitalComment on above:Performed By: #### CP, CDP, MG #### [address] [place] [address] Tortilla Maker: Mariano Baummphocytes (Bld) [#/Vol]0.25 10*3/uLLow1.10-3.70 [facility] HospitalComment on above:Performed By: #### CP, CDP, MG #### [address] [place] [address] Tortilla Maker: Mariano Baummphocytes/100 WBC (Bld)9 %Wuy02-64Avpmr [facility] HospitalComment on above:Performed By: #### CP, CDP, MG #### [address] [place] [address] Tortilla Maker: BRIAN Baumonocytes (Bld) [#/Vol]0.14 10*3/uLNormal0.10-1.20 [facility] CenterComment on above:Performed By: #### CP, CDP, MG #### [address] [place] [address] Tortilla Maker: BRIAN Baumonocytes/100 WBC (Bld)5 %Normal3-12[facility] Health CenterComment on above:Performed By: #### CP, CDP, MG #### [address] [place], [place] [address] Tortilla Maker: BRIAN Baumorphology Arik (Bld) [Interp]NormalNormalSouthwest General Health CenterComment on above:Performed By: #### CP, CDP, MG #### [address] [place], [place] [address] Tortilla Maker: Cullen Loo MDNeutrophil (Seg)85 %Myaw41-97EaailSouthwest General Health Center Comment on above:Performed By: #### CP, CDP, MG #### [address] [place], [facility]83 Tortilla Maker: Rosemary Baum Fluoresc.133 k/gGLvo584-839KsvzzSouthwest General Health CenterComment on above:Performed By: #### CP, CDP, MG #### [address] [place] [address] Tortilla Maker: NITA BaumLT, Immature Fract.1.6 %Normal1.1-10.3MMcCullough-Hyde Memorial HospitalComment on above:Performed By: #### CP, CDP, MG #### [address] [place] [address] Tortilla Maker: Cullen Loo MDErythrocyte distribution width (RBC) [Ratio]12.3 % Miwnsi46.8-14.4[facility] HospitalComment on above:Performed By: #### CP, CDP, MG #### [address] [place] [address] Tortilla Maker: Cullen Loo MDHematocrit (Bld) [Volume fraction]40.9 %Normal 36.3-47.1MLake County Memorial Hospital - West HospitalComment on above:Performed By: #### CP, CDP, MG #### [address] [place], [facility]83 Tortilla Maker: Cullen Loo MDHemoglobin (Bld) [Mass/Vol]14.2 g/dLNormal 11.9-15.1MLake County Memorial Hospital - West HospitalComment on above:Performed By: #### CP, CDP, MG #### [address] [place], [facility]83 Tortilla Maker: BRIAN BaumCH (RBC) [Entitic mass]32.2 mbRtfsve27.2-33.5 [facility] HospitalComment on above:Performed By: #### CP, CDP, MG #### [address] [place], [facility]83 Tortilla Maker: PROSPER BaumC (RBC) [Mass/Vol]34.7 g/sCDqanyi53.4-34.8[facility] HospitalComment on above:Performed By: #### CP, CDP, MG #### [address] [place], [facility]83 Tortilla Maker: BRIAN BaumCV (RBC) [Entitic vol]92.7 pIBhiarf58.6-102.9 [facility] HospitalComment on above:Performed By: #### CP, CDP, MG #### [address] [place] [address] Tortilla Maker: KARYNA Baum Automated0.0 per 100 WBCNormal0.0[facility] Health CenterComment on above:Performed By: #### CP, CDP, MG #### [facility] [address] [place] [address] [place] [place], [place] [id number] Tortilla Maker: Rosemary Baum CountSee Reflexed IPF MbrfvcDgyiaf577-206 [facility] CenterComment on above:Performed By: #### CP, CDP, MG #### [address] [place] [address] Tortilla Maker: MAHNAZ Baum (d) [#/Vol]4.41 10*6/uLNormal3.95-5.11[facility] Health CenterComment on above:Performed By: #### ASUNCION, CDP, MG #### [address] [place] [address] Tortilla Maker: PATRICIA Baum (d) [#/Vol]2.8 10*3/uLLow3.5-11.3MMcCullough-Hyde Memorial HospitalComment on above:Performed By: #### ASUNCION, CDP, MG #### [address] [place] [address] Tortilla Maker: CARROLL Baumella 27-22-9370Ozanevv [Mass/Vol]3.7 g/dL3.5 - 5.2 g/dLBon [facility] HospitalAlbumin/Globulin [Mass ratio]1.2 {ratio}1.0 - 2.5Bon [facility] HospitalALP [Catalytic activity/Vol]50 U/L35 - 104 U/LBon [facility] HospitalALT [Catalytic activity/Vol]14 U/L10 - 35 U/LBon [facility] HospitalAnion gap [Moles/Vol]8 mmol/LLow9 - 16 mmol/LBon [facility] HospitalAST [Catalytic activity/Vol]27 U/L10 - 35 U/LBon [facility] Bilirubin [Mass/Vol]0.5 mg/dL0.00 - 1.20 mg/dLBon [facility] HospitalCalcium [Mass/Vol]8.6 mg/dL8.6 - 10.4 mg/dLBon [facility] HospitalChloride [Moles/Vol] 103 mmol/L98 - 107 mmol/LBon [facility] HospitalCO2 [Moles/Vol]27 mmol/L20 - 31 mmol/LBon [facility] HospitalCreatinine [Mass/Vol]0.5 mg/dL0.50 - 0.90 mg/dL Bon [facility] HospitalEst, Glom Filt Rate- PINFBon [facility] on above: These results are not intended for use in patients <18 years of age. eGFR results are calculated without a race factor using the 2020 CKD-EPI equation. Careful clinical correlation is recommended, particularly when comparing to results calculated using previous equations. The CKD-EPI equation is less accurate in patients with extremes of muscle mass, extra-renal metabolism of creatine, excessive creatine ingestion, or following therapy that affects renal tubular secretion. Glucose [Mass/Vol]108 mg/lDZdar06 - 99 mg/dLBon [facility] Interpretation and review of laboratory resultsAbnormalCarilion Franklin Memorial Hospital Potassium [Moles/Vol]3.0 mmol/LLow3.7 - 5.3 mmol/LBon [facility] Protein [Mass/Vol]6.6 g/dL6.6 - 8.7 g/dLBon [facility] HospitalSodium [Moles/Vol]138 mmol/L136 - 145 mmol/LBon [facility] HospitalUrea nitrogen [Mass/Vol]7 mg/dL6 - 20 mg/dLBon [facility] HospitalUrea nitrogen/Creatinine [Mass ratio]14 mg/mg9 - 20[facility] HospitalCOVID-19, Rapidon 02-28-2024 SARS-CoV-2 (COVID-19) RdRp gene BERNIE+probe Ql (Resp)Not detectedNot [facility] on above: Rapid NAAT: The specimen is NEGATIVE for SARS-CoV-2, the novel coronavirus associated with COVID-19. The ID NOW COVID-19 assay is designed to detect the virus that causes COVID-19 in patients with signs and symptoms of infection who are suspected of COVID-19. An individual without symptoms of COVID-19 and who is not shedding SARS-CoV-2 virus would expect to have a negative (not detected) result in this assay. Negative results should be treated as presumptive and, if inconsistent with clinical signs and symptoms or necessary for patient management, should be tested with an alternative molecular assay. Negative results do not preclude SARS-CoV-2 infection and should not be used as the sole basis for patient management decisions. Methodology: Isothermal Nucleic Acid Amplification Specimen Description.NASOPHARYNGEAL SWABBon [facility] Metabolic Profon [id number] [Mass/Vol]3.7 g/dLNormal 3.5-5.2[facility] HospitalComment on above:Performed By: #### ASUNCION CDP, MG #### [address] [place], [place] [address] Tortilla Maker: Cullen Loo MDAlbumin/Glob Ratio1.6Xohtkd5.0-2.5[facility] Health CenterComment on above:Performed By: #### ASUNCION CDP, MG #### [address] [place], [facility]83 Tortilla Maker: Ramonita Baum Phos50 U/EQfzmmf82-417JdpjbSouthwest General Health CenterComment on above:Performed By: #### ASUNCION CDP, MG #### [address] [place], [facility]83 Tortilla Maker: Cullen Loo MDALT [Catalytic activity/Vol]14 U/YExtsen32-29MzaijSouthwest General Health CenterComment on above:Performed By: #### ASUNCION CDP, MG #### [address] [place], [place] [address]83 Tortilla Maker: Cullen Loo MDAnion gap [Moles/Vol]8 mmol/LLow9-16[facility] CenterComment on above:Performed By: #### ASUNCION, CDP, MG #### [address] [place] [address] Tortilla Maker: Cullen Loo MDAST [Catalytic activity/Vol]27 U/CJmkybz48-20UvnpqSouthwest General Health CenterComment on above:Performed By: #### CP, CDP, MG #### [address] [place] [address] Tortilla Maker: Cullen Loo MDBilirubin [Mass/Vol]0.5 mg/dLNormal0.00-1.20[facility] CenterComment on above:Performed By: #### CP, CDP, MG #### [address] [place] [address] Tortilla Maker: Cullen Loo MDBUN/CRE Fzapr87Gtpmkj4-63Aazjr [facility] Comment on above:Performed By: #### CP, CDP, MG #### [address] [place] [address] Tortilla Maker: CARROLL Baumalcium [Mass/Vol]8.6 mg/dLNormal8.6-10.4[facility] Health CenterComment on above:Performed By: #### CP, CDP, MG #### [address] [place] [address] Tortilla Maker: CARROLL Baumhloride [Moles/Vol]103 mmol/JZjkczp00-438Cstzu [facility] HospitalComment on above:Performed By: #### CP, CDP, MG #### [facility] [address] [place] [address] [place] [address] Tortilla Maker: Cullen Loo MDCO2 [Moles/Vol]27 mmol/DHkrwhe08-52Sorgy [facility] HospitalComment on above:Performed By: #### CP, CDP, MG #### [facility] [address] [place] [address] [place] [place], [place] 6397[address] Tortilla Maker: CARROLL Baumreatinine [Mass/Vol]0.5 mg/dLNormal0.50-0.90[facility] CenterComment on above:Performed By: #### CP CDP, MG #### [address] [place] [address] Tortilla Maker: Cullen Loo MDGFR/1.73 sq M.predicted among non-blacks MDRD (S/P/Bld) [Vol rate/Area]mL/min/{1.73_m2}Normal>60[facility] CenterComment on above:Result Comment: These results are not intended for use in patients <18 years of age. eGFR results are calculated without a race factor using the 2020 CKD-EPI equation. Careful clinical correlation is recommended, particularly when comparing to results calculated using previous equations. The CKD-EPI equation is less accurate in patients with extremes of muscle mass, extra-renal metabolism of creatine, excessive creatine ingestion, or following therapy that affects renal tubular secretion.Performed By: #### ASUNCION CDP, MG #### [address] [place], [facility]83 Tortilla Maker: Cullen Loo MDGlucose [Mass/Vol]108 mg/iKYhhz01-96RqnrrMcCullough-Hyde Memorial HospitalComment on above:Performed By: #### ASUNCION CDP, MG #### [address] [place], [facility]83 Tortilla Maker: NITA Baumotassium [Moles/Vol]3.0 mmol/LLow3.7-5.3MLake County Memorial Hospital - West HospitalComment on above:Performed By: #### ASUNCION CDP, MG #### [address] [place] [address] Tortilla Maker: Cullen Loo MDProtein [Mass/Vol]6.6 g/dLNormal6.6-8.7[facility] Health CenterComment on above:Performed By: #### CP, CDP, MG #### [address] [place], [facility]83 Tortilla Maker: HENRY Baumodium [Moles/Vol]138 mmol/KFrngmv350-805KwfjnSouthwest General Health CenterComment on above:Performed By: #### ASUNCION CDP, MG #### [address] [place], [place] [address]83 Tortilla Maker: Cullen Loo MDUrea nitrogen [Mass/Vol]7 mg/dLNormal6-20MerNatchaug HospitalComment on above:Performed By: #### ASUNCION CDP, MG #### [address] [place], [place] [address] Tortilla Maker: Cullen Loo MDFlu A/B Ag Detectionon [id number] A Ag DetectionNegativeNormalNEGSouthwest General Health CenterComup health system on above:Result Comment: for Influenza A AntigenPerformed By: #### FLUABA ####[address] , [place] [address]83 Lab Director: Cullen Loo MDFlu B Ag DetectionNegativeNormalNEGSouthwest General Health CenterComup health system on above:Result Comment: for Influenza B Antigen.Performed By: #### FLUABA ####[address] , [place] [phone] Director: Kb Baumgnesiumon 60-38-0602Irtspssih [Mass/Vol]1.7 mg/dL1.6 - 2.6 mg/dLBon [facility] HospitalMagnesium [Mass/Vol]1.7 mg/dLNormal 1.6-2.6[facility] HospitalComment on above:Performed By: #### ASUNCION CDP, MG #### [address] [place] [address] Tortilla Maker: Cullen Loo MDNo Panel Informationon [id number] [facility] HospitalRapid influenza A/B antigenson 40-51-2650IECXC Ag Ql (Unsp spec)Negative NEGATIVEBon [facility] on above:for Influenza A AntigenFLUBV Ag Ql (Unsp spec)NegativeNEGATIVEBon [facility] on above:for Influenza B Antigen.Bon [facility] HospitalSARS-CoV-2on [id number]-CoV-2 (COVID-19) RNA BERNIE+probe Ql (Unsp spec)Not detectedNormalNOTDETMercThe Hospital of [facility] on above:Result Comment: Rapid NAAT: The specimen is NEGATIVE for SARS-CoV-2, the novel coronavirus associated with COVID-19. The ID NOW COVID-19 assay is designed to detect the virus that causes COVID-19 in patients with signs and symptoms of infection who are suspected of COVID-19. An individual without symptoms of COVID-19 and who is not shedding SARS-CoV-2 virus would expect to have a negative (not detected) result in this assay. Negative results should be treated as presumptive and, if inconsistent with clinical signs and symptoms or necessary for patient management, should be tested with an alternative molecular assay. Negative results do not preclude SARS-CoV-2 infection and should not be used as the sole basis for patient management decisions. Methodology: Isothermal Nucleic Acid AmplificationPerformed By: #### COVRB ####[facility] [place] [phone] Director: KATIA Baum WRIST LEFT (MIN 3 VIEWS)on 22-03-3469ID WRIST LEFT (MIN 3 VIEWS)EXAMINATION: 3 XRAY VIEWS OF THE LEFT WRIST 01/20/2024 10:00 pm COMPARISON: None. HISTORY: ORDERING SYSTEM PROVIDED HISTORY: left wrist pain TECHNOLOGIST PROVIDED HISTORY: left wrist pain FINDINGS: No acute fracture dislocation is seen. IMPRESSION: No acute fracture or dislocation. No acute abnormality Interpreted by: James Branch MD Signed by: James Branch MD 01/20/24 Final resultNormalMercy Milford HospitalXR Wrist - left 3 Viewson [id number] acute fracture or dislocation. No acute abnormality [facility] RIS CONSOLIDATEDEXAMINATION: 3 XRAY VIEWS OF THE LEFT WRIST 01/20/2024 10:00 pm COMPARISON: None. HISTORY: ORDERING SYSTEM PROVIDED HISTORY: left wrist pain TECHNOLOGIST PROVIDED HISTORY: left wrist pain FINDINGS: No acute fracture dislocation is seen. [facility] James Anne MD - 01/20/2024 EXAMINATION: 3 XRAY VIEWS OF THE LEFT WRIST 01/20/2024 10:00 pm COMPARISON: None. HISTORY: ORDERING SYSTEM PROVIDED HISTORY: left wrist pain TECHNOLOGIST PROVIDED HISTORY: left wrist pain FINDINGS: No acute fracture dislocation is seen. IMPRESSION: No acute fracture or dislocation. No acute abnormality [facility] [employer]Radiology Study observation (narrative)[facility] [employer]XR Wrist - left 3 ViewsOrdered By: James Branch on [id number] [employer] Work Phone: MHPT NICOTINE, URINEon [id number] 3 [place] COTININE, UR<50ng/mLNOMS HealthcareMHPT ANABASINE, URINE<5ng/mLNOMS HealthcareMHPT COTININE, URINE<15ng/mLNOMS HealthcareMHPT NICOTINE, URINE<15ng/mLNOMS HealthcareComment on above:(NOTE) INTERPRETIVE INFORMATION: Nicotine and Metabolites, Urine, Quantitative Methodology: Quantitative Liquid Chromatography-Tandem Mass Spectrometry Positive cutoff: Nicotine 15 ng/mL Cotinine 15 ng/mL 1-CU-Mzkxfnts 50 ng/mL Anabasine 5 ng/mL For medical purposes only; not valid for forensic use. This test is designed to evaluate recent use of nicotine-containing products. Passive and active exposure cannot be discriminated definitively, although a cutoff of 100 ng/mL cotinine is frequently used for surgery qualification purposes. For smoking cessation programs or compliance testing, the absence of expected drug(s) and/or drug metabolite(s) may indicate non-compliance, inappropriate timing of specimen collection relative to drug administration, poor drug absorption, diluted/adulterated urine, or limitations of testing. The concentration value must be greater than or equal to the cutoff to be reported as positive. Anabasine is included as a biomarker of tobacco use, versus nicotine replacement. Interpretive questions should be directed to the laboratory. This test was developed and its performance characteristics determined by [facility]. It has not been cleared or approved by the US Food and Drug Administration. This test was performed in a CLIA certified laboratory and is intended for clinical purposes. Performed By: [facility] [address] [place] [id number] Chief Console Operator: Arthur Vásquez MD, PhD CLIA Number: [id number] Original Ordering Provider: VAL ZamanNicotine, Urine on [place] Cotinine, Ur<50NormalMercy Loma Linda Veterans Affairs Medical CenterComment on above:Performed By: #### ANICTU #### [facility] [address] [place] [address] Tortilla Maker: Robin Nunesbasine, Urine<5NormalMercy Loma Linda Veterans Affairs Medical CenterComment on above:Performed By: #### ANICTU #### [facility] [address] [place] [address] Tortilla Maker: CARROLL Nunesotinine, Urine<15NormalMercy Loma Linda Veterans Affairs Medical CenterComment on above:Performed By: #### ANICTU #### [facility] [address] [place] [address] Tortilla Maker: Joaquin Lira MDNicotine, Urine<15NormalMercy Loma Linda Veterans Affairs Medical CenterComment on above:Result Comment: (NOTE) INTERPRETIVE INFORMATION: Nicotine and Metabolites, Urine, Quantitative Methodology: Quantitative Liquid Chromatography-Tandem Mass Spectrometry Positive cutoff: Nicotine 15 ng/mL Cotinine 15 ng/mL 1-OO-Ynkvlzbc 50 ng/mL Anabasine 5 ng/mL For medical purposes only; not valid for forensic use. This test is designed to evaluate recent use of nicotine-containing products. Passive and active exposure cannot be discriminated definitively, although a cutoff of 100 ng/mL cotinine is frequently used for surgery qualification purposes. For smoking cessation programs or compliance testing, the absence of expected drug(s) and/or drug metabolite(s) may indicate non-compliance, inappropriate timing of specimen collection relative to drug administration, poor drug absorption, diluted/adulterated urine, or limitations of testing. The concentration value must be greater than or equal to the cutoff to be reported as positive. Anabasine is included as a biomarker of tobacco use, versus nicotine replacement. Interpretive questions should be directed to the laboratory. This test was developed and its performance characteristics determined by [employer]. It has not been cleared or approved by the US Food and Drug Administration. This test was performed in a CLIA certified laboratory and is intended for clinical purposes. Performed By: [facility] [address] [place] [address] Chief Console Operator: Arthur Vásquez MD, PhD [facility] Number: [id number] By: #### ANICTU #### [facility] [employer] [place] [address] [place] [address] Tortilla Maker: Joaquin Lira MDAmbulatory Visit Summaryon [id number] Visit SummaryAmbulatory Visit Summary SOLEDAD KING :1985 Visit Date:10/24/2023 Ambulatory Visit Instructions Your Care Team Primary Care Physician - LIZBETH REYEZ, This Is Your Medications List cephalexin (Keflex 500 mg Cap) cyanocobalamin (Vitamin B-12 500 mcg oral tablet) ergocalciferol (ergocalciferol 50,000 intl units Cap) folic acid (folic acid 1 mg Tab) hydrochlorothiazide-spironolactone (hydrochlorothiazide-spironolactone 25 mg-25 mg oral tablet) losartan (losartan 100 mg Tab) pantoprazole (Pantoprazole [address] Tab) potassium chloride (Potassium Chloride (Lql-Bfre-Ekj M10) 10 mEq oral tablet, extended release) Procedures Performed Gastric bypass (12/02/2022), Appendectomy; (03/17/2011), Arthroplasty, ankle;, Cholecystectomy;, Dilation and curettage of cervical stump, Hysterectomy, Surgery, Total abdominal hysterectomy (corpus and cervix), with or without removal of tube(s), with or without removal of ovary(s);. What to do next Scheduled Follow-Up Appointments Friday 11:30 AM EDT Where: [facility] Friday 1:00 PM EDT Where: [facility] Friday 2:30 PM EST Where: [facility] Medications What How Much When Instructions New cephalexin (Keflex 500 mg Cap) 1 Capsules By Mouth 2 times a day Take 1 cap day prior to procedure and 1 cap day of procedure - afterwards Pickup at [facility] Unchanged cyanocobalamin (Vitamin B-12 500 mcg oral tablet) 1 Tablets Unchanged ergocalciferol (ergocalciferol 50,000 intl units Cap) 1 Capsules Unchanged folic acid (folic acid 1 mg Tab) 1 Tablets Unchanged hydrochlorothiazide-spironolactone (hydrochlorothiazide-spironolactone 25 mg-25 mg oral tablet) 1 Tablets By Mouth Every day Unchanged losartan (losartan 100 mg Tab) 1 Tablets Unchanged pantoprazole (Pantoprazole [address] Tab) 1 Tablets Unchanged potassium chloride (Potassium Chloride (Fxy-Jinf-Pus M10) 10 mEq oral tablet, extended release) 1 Tablets Pharmacy Information [facility]: [address] [place], [place] [id number] [phone] Allergies Cipro (Anaphylaxis) Latex (Rash) Levaquin (Anaphylaxis) Problems Ongoing - Any problem that you are currently receiving treatment for. Acute otitis media, bilateral Afib Allergies Anxiety and depression Arthritis Asthma Asymptomatic hypertensive urgency Atrial fibrillation B12 deficiency Back pain Chronic ankle pain Chronic bilateral low back pain without sciatica Chronic foot pain Chronic pain syndrome Difficulty urinating Dyspepsia Easy bruisability Endometriosis Essential hypertension Fatty liver Feeling of incomplete bladder emptying Fibroid uterus Folic acid deficiency GERD without esophagitis History of abdominal hernia HTN (hypertension) Hypertension Hypoglycemia Hypothyroidism Insomnia LLQ abdominal pain Low blood sugar Low energy Lower back pain Morbid (severe) obesity due to excess calories CATIE (obstructive sleep apnea) Ovarian cyst PCOS (polycystic ovarian syndrome) Pilonidal cyst with abscess Post-operative pain Rectal vaginal fistula S/P bariatric surgery S/P laparoscopic sleeve gastrectomy S/P total abdominal hysterectomy Screening for hyperlipidemia Sleep apnea Type 2 diabetes mellitus Type 2 diabetes mellitus without complication, without long-term current use of insulin URTI (acute upper respiratory infection) Visual impairment Vitamin D deficiency Yeast infection of the vagina Patient Survey You may receive a survey via text or e-mail asking about your office visit. Please share your experience with us by completing your survey. We appreciate your feedback and thank you for choosing us for your care. [facility] HospitalAmbulatory Visit Summaryon [id number] Visit SummaryAmbulatory Visit Summary SOLEDAD KING :1985 Visit Date:12/02/2023 Ambulatory Visit Instructions Your Diagnosis Pain with urination Your Care Team Attending Physician - TATY CONTRERAS PA-C Primary Care Physician - LIZBETH REYEZ, Referring Physician - Manuelito ADAM DO This Is Your Medications List cyanocobalamin (Vitamin B-12 500 mcg oral tablet) ergocalciferol (ergocalciferol 50,000 intl units Cap) folic acid (folic acid 1 mg Tab) hydrochlorothiazide-spironolactone (hydrochlorothiazide-spironolactone 25 mg-25 mg oral tablet) losartan (losartan 100 mg Tab) pantoprazole (Pantoprazole [address] Tab) potassium chloride (Potassium Chloride (Qkt-Xwjf-Vkt M10) 10 mEq oral tablet, extended release) Procedures Performed Gastric bypass (12/02/2022), Appendectomy; (03/17/2011), Arthroplasty, ankle;, Cholecystectomy;, Dilation and curettage of cervical stump, Hysterectomy, Surgery, Total abdominal hysterectomy (corpus and cervix), with or without removal of tube(s), with or without removal of ovary(s);. Discharge Vitals Height 176 cm Height 69 in Weight 113 kg Weight 248.6 lb BMI 36.48 Medications What How Much When Instructions Unchanged cyanocobalamin (Vitamin B-12 500 mcg oral tablet) 1 Tablets Unchanged ergocalciferol (ergocalciferol 50,000 intl units Cap) 1 Capsules Unchanged folic acid (folic acid 1 mg Tab) 1 Tablets Unchanged hydrochlorothiazide-spironolactone (hydrochlorothiazide-spironolactone 25 mg-25 mg oral tablet) 1 Tablets By Mouth Every day Unchanged losartan (losartan 100 mg Tab) 1 Tablets Unchanged pantoprazole (Pantoprazole [address] Tab) 1 Tablets Unchanged potassium chloride (Potassium Chloride (Thz-Srua-Lhb M10) 10 mEq oral tablet, extended release) 1 Tablets Allergies Cipro (Anaphylaxis) Latex (Rash) Levaquin (Anaphylaxis) Problems Ongoing - Any problem that you are currently receiving treatment for. Acute otitis media, bilateral Afib Allergies Anxiety and depression Arthritis Asthma Asymptomatic hypertensive urgency Atrial fibrillation B12 deficiency Back pain Chronic ankle pain Chronic bilateral low back pain without sciatica Chronic foot pain Chronic pain syndrome Dyspepsia Easy bruisability Endometriosis Essential hypertension Fatty liver Fibroid uterus Folic acid deficiency GERD without esophagitis History of abdominal hernia HTN (hypertension) Hypertension Hypoglycemia Hypothyroidism Insomnia Low blood sugar Low energy Lower back pain Morbid (severe) obesity due to excess calories CATIE (obstructive sleep apnea) Ovarian cyst PCOS (polycystic ovarian syndrome) Pilonidal cyst with abscess Post-operative pain Rectal vaginal fistula S/P bariatric surgery S/P laparoscopic sleeve gastrectomy S/P total abdominal hysterectomy Screening for hyperlipidemia Sleep apnea Type 2 diabetes mellitus Type 2 diabetes mellitus without complication, without long-term current use of insulin URTI (acute upper respiratory infection) Visual impairment Vitamin D deficiency Yeast infection of the vagina Patient Survey You may receive a survey via text or e-mail asking about your office visit. Please share your experience with us by completing your survey. We appreciate your feedback and thank you for choosing us for your care. [facility]PT [facility] WITH DIFFon 11-25-2023 Basophils/100 WBC (Bld)1 %0 - 2 %NOMS HealthcareEosinophils/100 WBC (Bld)3 %1 - 4 %[facility] HealthcareErythrocyte distribution width (RBC) [Ratio]12.5 %11.8 - 14.4 %[facility] HealthcareHematocrit (Bld) [Volume fraction]38.7 %36.3 - 47.1 %[facility] HospitalHemoglobin (Bld) [Mass/Vol]13.3 g/dL11.9 - 15.1 g/dLTexas County Memorial Hospital Immature granulocytes/100 WBC (Bld)0 %0NOAudrain Medical CenterLymphocytes/100 WBC (Bld) 36 %24 - 43 %[facility] Medical CenterH (RBC) [Entitic mass]31.6 pg25.2 - 33.5 pgNOMercy Hospital JoplinHC (RBC) [Mass/Vol]34.4 g/dL28.4 - 34.8 g/dLJohn J. Pershing VA Medical CenterV (RBC) [Entitic vol]91.9 fL82.6 - 102.9 fLHedrick Medical CenterPT ABS. BASOPHIL0.03NOMercy Hospital WashingtonPT ABS. EOSINOPHIL0.17NODC HealthcarePT ABS. LYMPH1.81NOMercy Hospital WashingtonPT ABS. MONOCYTE0.30NOMercy Hospital WashingtonPT ABS.IMM.GRANULOCYTE<0.03NOMercy Hospital WashingtonPT ABS.NEUTROPHIL (SEG)2.70NOMS [facility] HospitalPT NRBC AUTOMATED0.00.0 per 100 WBCNOMercy Hospital WashingtonPT PLATELET [id number] Hospital WashingtonPT WBC COUNT5.0 [facility] HealthcareMonocytes/100 WBC (Bld)6 %3 - 12 %[facility] HealthcarePlatelet mean volume (Bld) [Entitic vol]10.0 fL8.1 - 13.5 fLDAVIS HOSPITAL AND MEDICAL CENTER HealthcareRBC (Bld) [#/Vol] 4.21 10*6/uL3.95 - 5.11 m/uLNOAudrain Medical CenterSegmented neutrophils/100 WBC (Bld)54 %36 - 65 %[facility] HospitalOriginal Ordering Provider: WILLIE MANLEY CLINISYNCMetropolitan Saint Louis Psychiatric Centersic Metabolic Panelon [id number] gap [Moles/Vol]9 mmol/L9 - 17 mmol/LBON SECOURS [employer]Y HEALTHCalcium [Mass/Vol]9.3 mg/dL8.6 - 10.4 mg/dLBON SECOURS MERCY HEALTHChloride [Moles/Vol]102 mmol/L98 - 107 mmol/L [facility] [employer] HEALTHCO2 [Moles/Vol]26 mmol/L20 - 31 mmol/LBON SECOU[facility] [employer] HEALTHCreatinine [Mass/Vol]0.6 mg/dL0.5 - 0.9 mg/dLBON SECOURS [employer] HEALTHEst, Glom Filt Rate- PINFBON SECMovingHealthComment on above: These results are not intended for use in patients <18 years of age. eGFR results are calculated without a race factor using the 2020 CKD-EPI equation. Careful clinical correlation is recommended, particularly when comparing to results calculated using previous equations. The CKD-EPI equation is less accurate in patients with extremes of muscle mass, extra-renal metabolism of creatine, excessive creatine ingestion, or following therapy that affects renal tubular secretion. Glucose [Mass/Vol]138 mg/xUAnkk10 - 99 mg/dLBON [employer] Interpretation and review of laboratory resultsAbnormalBON SECOURS [employer] Potassium [Moles/Vol]3.6 mmol/LLow3.7 - 5.3 mmol/LBON SECOURS BuedaSodium [Moles/Vol]137 mmol/L135 - 144 mmol/LBON SECOU[facility] [employer] HEALTHUrea nitrogen [Mass/Vol]6 mg/dL6 - 20 mg/dLBON SECNeolane HEALTHUrea nitrogen/Creatinine [Mass ratio]10 mg/mg9 - 20BON [facility] HEALTHBON SECOURS CHILLICOTHE VA MEDICAL CENTERCBC with Auto Differentialon [id number] (Bld) [#/Vol]0.03 10*3/uLBON SECOURS [facility] HEALTHBasophils/100 WBC (Bld)1 %0 - 2 %[facility] HEALTH Eosinophils (Bld) [#/Vol]0.05 10*3/uLBON SECOURS [facility] HEALTHEosinophils/100 WBC (Bld)1 %1 - 4 %[facility] HEALTHErythrocyte distribution width (RBC) [Ratio]12.1 %11.8 - 14.4 %[facility] HEALTHHematocrit (Bld) [Volume fraction]41.7 %36.3 - 47.1 %BON SECSELECT MEDICAL CLEVELAND CLINIC REHABILITATION HOSPITAL, BEACHWOODHemoglobin (Bld) [Mass/Vol] 14.3 g/dL11.9 - 15.1 g/dLBON SECSELECT MEDICAL CLEVELAND CLINIC REHABILITATION HOSPITAL, BEACHWOODImmature granulocytes (Bld) [#/Vol]B[facility]ILLICOT[facility] VA MEDICAL CENTERImmature granulocytes/100 WBC (Bld)0 %0BON SECOURS [facility] HEALTHLymphocytes/100 WBC (Bld)28 %24 - 43 %BON [facility]CLALLIE [facility] HEALTHLymphocytes/100 WBC (Bld)1.78 %BON [facility] HOSPITALH (RBC) [Entitic mass]30.6 pg25.2 - 33.5 pgBON SECBRECKSVILLE VA / CRILLE HOSPITALHC (RBC) [Mass/Vol]34.3 g/dL 28.4 - 34.8 g/dLBON SECBRECKSVILLE VA / CRILLE HOSPITALV (RBC) [Entitic vol]89.1 fL82.6 - 102.9 fLBON SECOURS [facility] HEALTHMonocytes/100 WBC (Bld)5 %3 - 12 %[facility] HEALTHMonocytes/100 WBC (Bld)0.34 %[facility] HEALTHNeutrophils/100 WBC (Bld)65 %36 - 65 %[facility] HEALTHNucleated RBC/100 WBC (Bld) [Ratio]0.0 %0.0 per 100 WBCBON SECSELECT MEDICAL CLEVELAND CLINIC REHABILITATION HOSPITAL, BEACHWOODPlatelet mean volume (Bld) [Entitic vol]10.0 fL8.1 - 13.5 fLBON [facility] HEALTHPlatelets (Bld) [#/Vol] 192 10*3/uLBON BRIG[facility] LIVERPO[facility] CITY HOSPITALRikki HEALTHRBC (Bld) [#/Vol]4.68 10*6/uL3.95 - 5.11 m/uL RONEY LUTHERAN HOSPITALSegmented neutrophils/100 WBC (Bld)4.17 %[facility] HOSPITALWBC other (Bld) [#/Vol]6.4BON [facility] MEDICAL CENTERCT Head WO contraston [id number] acute intracranial hemorrhage, mass effect, midline shift, or hydrocephalus. Brain volume appears normal and symmetric. [facility] CONSOLIDATEDEXAMINATION: CT OF THE HEAD WITHOUT CONTRAST 08/06/2023 5:36 am TECHNIQUE: CT of the head was performed without the administration of intravenous contrast. Automated exposure control, iterative reconstruction, and/or weight based adjustment of the mA/kV was utilized to reduce the radiation dose to as low as reasonably achievable. COMPARISON: 11/30/2018 HISTORY: ORDERING SYSTEM PROVIDED HISTORY: [facility] headache TECHNOLOGIST PROVIDED HISTORY: [facility] headache Decision Support Exception - unselect if not a suspected or confirmed emergency medical condition->Emergency Medical Condition (MA) Is the patient ?->No FINDINGS: BRAIN/VENTRICLES: No acute intraparenchymal hemorrhage or extra-axial fluid collection. The sulci, sylvian fissures, and basal cisterns are clear. The brain volume is maintained. Ventricles are not dilated. No sign of an acute territorial infarct. ORBITS: The visualized portion of the orbits demonstrate no acute abnormality. SINUSES: The visualized paranasal sinuses and mastoid air cells demonstrate no acute abnormality. Mucous retention cyst in the left maxillary sinus. SOFT TISSUES/SKULL: No acute abnormality of the visualized skull or soft tissues. [facility] Davy Herrera MD - 08/06/2023 EXAMINATION: CT OF THE HEAD WITHOUT CONTRAST 08/06/2023 5:36 am TECHNIQUE: CT of the head was performed without the administration of intravenous contrast. Automated exposure control, iterative reconstruction, and/or weight based adjustment of the mA/kV was utilized to reduce the radiation dose to as low as reasonably achievable. COMPARISON: 11/30/2018 HISTORY: ORDERING SYSTEM PROVIDED HISTORY: [facility] headache TECHNOLOGIST PROVIDED HISTORY: [facility] headache Decision Support Exception - unselect if not a suspected or confirmed emergency medical condition->Emergency Medical Condition (MA) Is the patient ?->No FINDINGS: BRAIN/VENTRICLES: No acute intraparenchymal hemorrhage or extra-axial fluid collection. The sulci, sylvian fissures, and basal cisterns are clear. The brain volume is maintained. Ventricles are not dilated. No sign of an acute territorial infarct. ORBITS: The visualized portion of the orbits demonstrate no acute abnormality. SINUSES: The visualized paranasal sinuses and mastoid air cells demonstrate no acute abnormality. Mucous retention cyst in the left maxillary sinus. SOFT TISSUES/SKULL: No acute abnormality of the visualized skull or soft tissues. IMPRESSION: No acute intracranial hemorrhage, mass effect, midline shift, or hydrocephalus. Brain volume appears normal and symmetric. [facility] HOSPITALRadiology Study observation (narrative)[facility] [employer] [facility] HOSPITALCT Head WO contrastOrdered By: Davy Fischer on [id number] Work Phone: Portable XR Chest AP single viewon [id number] pneumonia, pulmonary edema, pleural effusion, or pneumothorax. The appearance of the vasculature is thought to be artifactual. [facility] CONSOLIDATEDEXAMINATION: ONE XRAY VIEW OF THE CHEST 08/06/2023 5:46 am COMPARISON: 11/20/2022 HISTORY: ORDERING SYSTEM PROVIDED HISTORY: fatigue TECHNOLOGIST PROVIDED HISTORY: fatigue FINDINGS: Loop recorder over the medial left lower chest. External leads but no endotracheal tube or nasogastric tube. Cardiac silhouette is not enlarged. Mild prominence of the central vasculature and interstitium but without an overt cephalization. No consolidation, pleural effusion, or pneumothorax. Underpenetration of the spine but good penetration of the retrocardiac regions. Upper ribs appear acceptable. [facility] Davy Hardin MD - 08/06/2023 EXAMINATION: ONE XRAY VIEW OF THE CHEST 08/06/2023 5:46 am COMPARISON: 11/20/2022 HISTORY: ORDERING SYSTEM PROVIDED HISTORY: fatigue TECHNOLOGIST PROVIDED HISTORY: fatigue FINDINGS: Loop recorder over the medial left lower chest. External leads but no endotracheal tube or nasogastric tube. Cardiac silhouette is not enlarged. Mild prominence of the central vasculature and interstitium but without an overt cephalization. No consolidation, pleural effusion, or pneumothorax. Underpenetration of the spine but good penetration of the retrocardiac regions. Upper ribs appear acceptable. IMPRESSION: No pneumonia, pulmonary edema, pleural effusion, or pneumothorax. The appearance of the vasculature is thought to be artifactual. [facility]OSPITALRadiology Study observation (narrative)[facility] with Reflexon [id number] Qn0.75 m[IU]/LBON [facility] MEDICAL CENTERTroponinon 08-06-2023 Troponin I.cardiac High sensitivity method [Mass/Vol]6 ng/L0 - 14 ng/LBON [facility] on above:High Sensitivity Troponin values cannot be compared with other Troponin methodologies.[facility] Centeroponin I.cardiac High sensitivity method [Mass/Vol]6 ng/L0 - 14 ng/LBON [facility] on above:High Sensitivity Troponin values cannot be compared with other Troponin methodologies.[facility] CA 125on 06-20-2023 CANCER ANTIGEN (CA) 08994.5 U/mL0.0 - 38.1 U/mLNOMS HealthcareComment on above: [employer] Electrochemiluminescence Immunoassay (ECLIA) Values obtained with different assay methods or kits cannot be used interchangeably. Results cannot be interpreted as absolute evidence of the presence or absence of malignant disease. Performed at: [place] [id number] Tortilla Maker: Ok Dodson PhD, Phone: [phone] ALL CEAon [id number]<0.60.0 - 4.7 ng/mLNOMS HealthcareComment on above: Nonsmokers <3.9 Smokers <5.6 [employer] Electrochemiluminescence Immunoassay (ECLIA) Values obtained with different assay methods or kits cannot be used interchangeably. Results cannot be interpreted as absolute evidence of the presence or absence of malignant disease. Performed at: [facility] [address] [id number] Tortilla Maker: Ok Dodson PhD, Phone: [phone] [facility] AFP TUMOR MARKERon [id number], SERUM, TUMOR MARKER5.2 ng/mL0.0 - 6.4 ng/mLNOMS HealthcareComment on above:[employer] Electrochemiluminescence Immunoassay (ECLIA) Values obtained with different assay methods or kits cannot be used interchangeably. Results cannot be interpreted as absolute evidence of the presence or absence of malignant disease. This test is not interpretable in females. No Panel Informationon [id number] Medical Center HCG,BETA-QUANT,TUMOR MARKERon [id number] TUMOR MARKER<1. mIU/mLNOMS HealthcareComment on above: Female (Non-) 0 - 5 (Postmenopausal) 0 - 8 [employer] Electrochemiluminescence Immunoassay (ECLIA) The [employer] HCG + beta assay recognizes the holo-hormone, human chorionic gonadotropin (hCG), nicked forms of hCG, the beta-core fragment and the free beta-subunit in human serum and plasma. Results obtained with different test methods or kits cannot used interchangeably. This assay is intended for the early detection of . The result should not be used for treatment or for diagnostic purposes without confirmation of the diagnosis by another medically established diagnostic product or procedure. This test was developed and its performance characteristics determined by [facility]. It has not been cleared or approved by the Food and Drug Administration for use as a tumor marker. This test is not interpretable as a tumor marker in females. Performed at: [address] [id number] Tortilla Maker: Ok Dodson PhD, Phone: [phone] ALL LDHon 78-69-0422TMH [Catalytic activity/Vol]160 U/L81 - 234 U/LNOMS HealthcareCLINISYNCNOMS HealthcareUS PELVIS W/ TRANSVAGINALon 48-46-8849Xqa[place]ague, [place] [address] Ultrasound Report Signed Patient: Soledad King MR#: [id number] : 1985 Acct:[id number] Age/Sex: 37 / F ADM Date: 06/18/23 Loc: US Attending Dr: Manuelito Adam D.O. Ordering Physician: Manuelito Adam D.O. Date of Service: 06/18/23 Procedure(s): US pelvis w/ transvaginal Accession Number(s): [id number] cc: Shaikh Manuel Nieves; Manuelito Adam D.O. [facility] [place] [id number] Patient Name: SOLEDAD KING MRN: [facility]:[id number] date: 1985 Sex: F Assigned Patient Location: US Current Patient Location: Accession/Order Number: [id number] Exam Date: 06/18/2023 20:15 Report Date: 06/19/2023 07:26 At the request of: MANUELITO ADAM Procedure: US pelvis w/ transvaginal EXAMINATION: US pelvis w/ transvaginal HISTORY: CYST OF OVARY, UNSPECIFIED LATERALITY N83.209 COMPARISON: Ultrasound pelvis 01/19/2021 TECHNIQUE: Transabdominal and/or transvaginal sonographic examination was performed as indicated by examination type. FINDINGS: UTERUS: Hysterectomy. Nonspecific 1.2 cm hypoechoic structure midline anterior pelvis; not overtly suspicious. RIGHT OVARY: Contains a heterogeneous 5.0 x 4.1 x 4.8 cm complex cyst versus hypovascular mass. Small amount of free fluid adjacent the ovary. Duplex Doppler demonstrates normal waveform and flow; resistive index 0.5. Ovary size: 6.2 x 4.6 x 5.9 cm LEFT OVARY: Not seen. No suspicious adnexal findings. CUL-DE-SAC: Unremarkable. No significant free fluid. BLADDER: Unremarkable. OTHER: None. US/US pelvis w/ transvaginal IMPRESSION: 1. Stable to slight increase in size of a right ovarian lesion of uncertain etiology; suspect complex hemorrhagic cyst or possible endometrioma. Given its persistence since 2020 this most likely represents an endometrioma. Electronically authenticated by: IRMA ALLISON Date: 06/19/2023 07:26 Dictated By: Irma Allison M.D. Signed By: 06/19/2329 DD/ 5 TD/TT: Bankruptcy Manager:TBHRadiology, Radiologist, MD - 06/19/2023 [place] [address] Ultrasound Report Signed Patient: Soledad King MR#: [id number] : 1985 Acct:[id number] Age/Sex: 37 / F ADM Date: 06/18/23 Loc: US Attending Dr: Manuelito Adam D.O. Ordering Physician: Manuelito Adam D.O. Date of Service: 06/18/23 Procedure(s): US pelvis w/ transvaginal Accession Number(s): [id number] cc: Shaikh Manuel Nieves; Manuelito Adam D.O. [facility] [place] [id number] Patient Name: SOLEDAD KING MRN: [facility]:[id number] date: 1985 Sex: F Assigned Patient Location: US Current Patient Location: Accession/Order Number: [id number] Exam Date: 06/18/2023 20:15 Report Date: 06/19/2023 07:26 At the request of: MANUELITO ADAM Procedure: US pelvis w/ transvaginal EXAMINATION: US pelvis w/ transvaginal HISTORY: CYST OF OVARY, UNSPECIFIED LATERALITY N83.209 COMPARISON: Ultrasound pelvis 01/19/2021 TECHNIQUE: Transabdominal and/or transvaginal sonographic examination was performed as indicated by examination type. FINDINGS: UTERUS: Hysterectomy. Nonspecific 1.2 cm hypoechoic structure midline anterior pelvis; not overtly suspicious. RIGHT OVARY: Contains a heterogeneous 5.0 x 4.1 x 4.8 cm complex cyst versus hypovascular mass. Small amount of free fluid adjacent the ovary. Duplex Doppler demonstrates normal waveform and flow; resistive index 0.5. Ovary size: 6.2 x 4.6 x 5.9 cm LEFT OVARY: Not seen. No suspicious adnexal findings. CUL-DE-SAC: Unremarkable. No significant free fluid. BLADDER: Unremarkable. OTHER: None. US/US pelvis w/ transvaginal IMPRESSION: 1. Stable to slight increase in size of a right ovarian lesion of uncertain etiology; suspect complex hemorrhagic cyst or possible endometrioma. Given its persistence since 2020 this most likely represents an endometrioma. Electronically authenticated by: IRMA ALLISON Date: 06/19/2023 07:26 Dictated By: Irma Allison M.D. Signed By: 06/19/23728 DD/ 5 TD/TT: Bankruptcy Manager: JUANJO HealthcareRadiology Study observation (narrative)NOM HealthcareUS PELVIS W/ TRANSVAGINALOrdered By: Radiologist Radiology on 33-36-9864[facility] Work Phone: XR CHEST (2 VW)on 25-07-5755Od acute process. [facility] CONSOLIDATEDEXAMINATION: TWO XRAY VIEWS OF THE CHEST 11/20/2022 3:49 pm COMPARISON: 08/09/2022 HISTORY: ORDERING SYSTEM PROVIDED HISTORY: preop TECHNOLOGIST PROVIDED HISTORY: preop Reason for Exam: gastric bypass FINDINGS: Small device projects over the mediastinum. The lungs are without acute focal process. There is no effusion or pneumothorax. The cardiomediastinal silhouette is without acute process. The osseous structures are without acute process. [facility] Samuel Miranda MD - 11/22/2022 EXAMINATION: TWO XRAY VIEWS OF THE CHEST 11/20/2022 3:49 pm COMPARISON: 08/09/2022 HISTORY: ORDERING SYSTEM PROVIDED HISTORY: preop TECHNOLOGIST PROVIDED HISTORY: preop Reason for Exam: gastric bypass FINDINGS: Small device projects over the mediastinum. The lungs are without acute focal process. There is no effusion or pneumothorax. The cardiomediastinal silhouette is without acute process. The osseous structures are without acute process. IMPRESSION: No acute process. BON DreamLinesXR CHEST (2 VW)Ordered By: Samuel Georges on 90-20-8725BXZ [employer] Work Phone: ekg 12 LeadOrdered By: Oleg Dalal on 26-20-2888Srqusd Viya31GYBQKK [employer] Work Phone: p Mxij41kodrmzmONN [employer] Work Phone: p-R Gkzdcjfw152 msBON [employer] Work Phone: Q-T Ywcyaumv359 [employer] Work Phone: QRS Wqubyipc29 [employer] Work Phone: QTc Calculation (Bazett)455 msOASIS BEHAVIORAL [facility] [employer] Work Phone: R [place]-5degreesBON [employer] Phone: T Iikd61tidwlkdCDZ [employer] Work Phone: Ventricular Jxla36HPZNES [employer] Work Phone: BON [employer] Work Phone: EKG 12 Leadon 19-62-8019Xxjmcr sinus rhythm Minimal voltage criteria for LVH, may be normal variant Borderline ECG No previous ECGs availableREHABILITATION [facility] Oleg Lane MD - 11/21/2022 Normal sinus rhythm Minimal voltage criteria for LVH, may be normal variant Borderline ECG No previous ECGs available BON DreamLinesAPTTon 81-51-1701vREC Coag (Bld) [Time]28.8 sBON DreamLinesComment on above: IV Heparin Therapy Range: 66.0-92.0 sec Basic Metabolic Panelon 78-18-4062Ktvyp gap [Moles/Vol]15 mmol/L9 - 17 mmol/LBON [employer] HEALTHCalcium [Mass/Vol]9.4 mg/dL8.6 - 10.4 mg/dLBON [employer] HEALTHChloride [Moles/Vol]101 mmol/L98 - 107 mmol/LBON [employer] HEALTHCO2 [Moles/Vol]20 mmol/L20 - 31 mmol/LBON DreamLinesCreatinine [Mass/Vol]0.4 mg/dLLow0.5 - 0.9 mg/dLBON [employer] HEALTHGFR/1.73 sq M.predicted MDRD (S/P/Bld) [Vol rate/Area]- PINFBON DreamLinesComment on above: These results are not intended for use in patients <18 years of age. eGFR results are calculated without a race factor using the 2020 CKD-EPI equation. Careful clinical correlation is recommended, particularly when comparing to results calculated using previous equations. The CKD-EPI equation is less accurate in patients with extremes of muscle mass, extra-renal metabolism of creatine, excessive creatine ingestion, or following therapy that affects renal tubular secretion. Glucose [Mass/Vol]127 mg/yNBdzo58 - 99 mg/dLBON [facility] Interpretation and review of laboratory resultsAbnormalMARTINSVILLE MEMORIAL [facility]PITAL Potassium [Moles/Vol]4.1 mmol/L3.7 - 5.3 mmol/LBON LUT[facility]AN HOSPITALSodium [Moles/Vol]136 mmol/L135 - 144 mmol/LBON [facility]AN HOSPITALUrea nitrogen [Mass/Vol]9 mg/dL6 - 20 mg/dLBON [facility]ULK[facility] MEDICAL CENTERCBC on 42-53-6827Xyzymbczqqw distribution width (RBC) [Ratio]12.2 %11.8 - 14.4 %[facility]ORIAL HOSPITALHematocrit (Bld) [Volume fraction]45.6 %36.3 - 47.1 %[facility] HOSPITALHemoglobin (Bld) [Mass/Vol]14.9 g/dL11.9 - 15.1 g/dLBON [facility]ITALH (RBC) [Entitic mass]30.7 pg25.2 - 33.5 pgCARILION CLINICHC (RBC) [Mass/Vol]32.7 g/dL28.4 - 34.8 g/dLBON [facility] BL[facility] HOSPITALV (RBC) [Entitic vol]94.0 fL82.6 - 102.9 fLMARTINSVILLE MEMORIAL HOSPITAL Nucleated RBC/100 WBC (Bld) [Ratio]0.0 %0.0 per 100 WBCMARTINSVILLE MEMORIAL HOSPITAL Platelet mean volume (Bld) [Entitic vol]9.5 fL8.1 - 13.5 fLMARTINSVILLE MEMORIAL HOSPITALPlatelets (Bld) [#/Vol]223 10*3/uLBON LUTHERAN HOSPITALRBC (Bld) [#/Vol]4.85 10*6/uL3.95 - 5.11 m/uLMARTINSVILLE MEMORIAL HOSPITALWBC other (Bld) [#/Vol]8.7BON [facility] HEALTHBON [facility]CY HEALTHNo Panel Informationon 74-42-7233QBP SECOURS MERCY HEALTHProtime-INRon 07-07-3416QGN Coag (PPP) [Relative time]1.1 {INR}B[facility] HEALTHComment on above: Therapeutic Range: Moderate Anticoagulant Intensity: INR = 2.0-3.0 High Anticoagulant Intensity: INR = 2.5-3.5 PT Coag (PPP) [Time]14.0 sBON SECOURS MERCY HEALTHSPECIMEN REJECTIONon 58-44-5556Szsixkm TestANICOTBON [facility] HEALTHReason for RejectionUnable to perform testing: Specimen quantity not sufficient.BON [facility] Comment on above:LAV ALSO QNS FOR ANICOTSpecimen source Nom (Unsp spec).BLOODBON SECOURS MERCY HEALTHBON [facility] MER[facility] HEALTHXR CHEST (2 VW)on 11-20-2022 Radiology Study observation (narrative)[facility] HEALTHUrine Drug Screen on 40-09-4932Gzerpcdbqhzh Ql (U)NegativeNEGATIVEBON [facility] MERCY HEALTHComment on above: (Positive cutoff 1000 ng/mL) Barbiturates Screen Ql (U)NegativeNEGATIVEBON [facility]OU[facility] MERCY HEALTHComment on above: (Positive cutoff 200 ng/mL) Benzodiazepines Ql (U)NegativeNEGATIVEBON [facility] MERCY HEALTHComment on above: (Positive cutoff 200 ng/mL) Buprenorphine Ql (U)NegativeNEGATIVEBON [facility] MERCY HEALTHComment on above: (Positive cutoff 5 ng/ml) Cannabinoids Screen Ql (U)NegativeNEGATIVEBON [facility] MERCY HEALTHComment on above: (Positive cutoff 50 ng/mL) Cocaine Ql (U)NegativeNEGATIVEBON [facility] MERCY HEALTHComment on above: (Positive cutoff 300 ng/mL) fentaNYL Ql (U)NegativeNEGATIVEBON [facility] HEALTHComment on above: (Positive cutoff 5 ng/ml) Interpretation and review of laboratory resultsAbnormalBON [facility] Methadone Ql (U)NegativeNEGATIVEBON [facility] HEALTHComment on above: (Positive cutoff 300 ng/mL) Opiates Screen Ql (U)NegativeNEGATIVEBON [facility] HEALTHComment on above: (Positive cutoff 300 ng/mL) oxyCODONE Ql (U)PositiveAbnormalNEGATIVEBON [facility] on above: (Positive cutoff 100 ng/mL) Phencyclidine Ql (U)NegativeNEGATIVEBON [facility] on above: (Positive cutoff 25 ng/mL) Test InformationAssay provides medical screening only. The absence of expected drug(s) and/or metabolite(s) may indicate diluted or adulterated urine, limitations of testing or timing of collection.[facility] on above:Testing for legal purposes should be confirmed by another method. To request confirmation of test result, please call the lab within 7 days of sample submission. [facility] Glucose Fingerstickon 55-02-8435Czzwvrp [Mass/Vol] 103 mg/dL65 - 105 mg/dLBON [facility] on above: TESTING PERFORMED AT [address]XR CHEST (2 VW)on 84-45-0112Tfus cardiomegaly without evidence of acute cardiopulmonary process. [facility] RIS CONSOLIDATEDEXAMINATION: TWO XRAY VIEWS OF THE CHEST 05/14/2022 9:12 am COMPARISON: 01/31/2022 HISTORY: ORDERING SYSTEM PROVIDED HISTORY: Obstructive sleep apnea Initial evaluation. FINDINGS: The cardiomediastinal silhouette is mildly enlarged. The lungs are clear. No pleural effusion or pneumothorax. No subdiaphragmatic free air. The tracheal air column appears unremarkable. [facility] Cullen Venegas MD - 05/16/2022 EXAMINATION: TWO XRAY VIEWS OF THE CHEST 05/14/2022 9:12 am COMPARISON: 01/31/2022 HISTORY: ORDERING SYSTEM PROVIDED HISTORY: Obstructive sleep apnea Initial evaluation. FINDINGS: The cardiomediastinal silhouette is mildly enlarged. The lungs are clear. No pleural effusion or pneumothorax. No subdiaphragmatic free air. The tracheal air column appears unremarkable. IMPRESSION: Mild cardiomegaly without evidence of acute cardiopulmonary process. [facility] Work Phone: XR CHEST (2 VW)Ordered By: Cullen Sen on 91-58-8298K[facility] [employer] Work Phone: XR CHEST (2 VW)on 68-65-3427Qxlbehmxu Study observation (narrative)BON [employer] [facility]reesM[facility] PubMatic Phone: cHLAMYDIA/GONOCOCCUS BERNIE (SWAB/URINE/PAPon 05-10-2022 Chlamydia trachomatis, NAANegativeNormalNegativeParkwood HospitalComment on above:Performed By: #### CT/NGNA #### [facility] [address] [place] [address] Dr. Carlton Mcginnisisseria gonorrhoeae, NAANegativeNormalNegativeParkwood HospitalComment on above:Performed By: #### CT/NGNA #### [facility] [address] [place] [address] Dr. Carlton AlfaroVAGINITIS/VAGINOSIS DNA PROBEon 30-71-1591Blaqpnx speciesNegative NormalNegativeParkwood HospitalComment on above:Performed By: #### VAGINT #### [facility] [address] [place] [address] Dr. Carlton Skinnerllcory vaginalisNegativePeoples Hospital Comment on above:Performed By: #### VAGINT #### [facility] [address] [place] [address] Dr. Carlton Waynehomonas vaginalisNegativeLogansportNegLake County Memorial Hospital [facility] Comment on above:Performed By: #### VAGINT #### [facility] [address] [place] [address] Dr. Carlton Garza ACOG PANEL 2: 30 to 65on 09-08-2021..NormalParkwood HospitalComment on above:Result Comment: Performed at: WBPerformed By: #### [id number] #### [facility] [address] [place] [address] Dr. Carlton Reyes Gdln ACOG Ypnntio41-56TenefwQkyAdena Regional Medical CenterComment on above:Performed By: #### [id number] #### [facility] [address] [place] [address] Dr. Carlton AlfaroDIAGNOSIS:CommentOhioHealth Arthur [facility] on above: Result Comment: NEGATIVE FOR INTRAEPITHELIAL LESION OR MALIGNANCY. THIS SPECIMEN WAS RESCREENED PART OF OUR DIRECTOR PHARMACOLOGY PROGRAM. Performed at: WBPerformed By: #### [id number] #### [facility] [address] [place] [address] Dr. Carlton AlfaroHPV AptimaNegativeNormalNegativeThe [facility] on above:Result Comment: This nucleic acid amplification test detects fourteen high-risk HPV types (16,18,31,33,35,39,45,51,52,56,58,59,66,68) without differentiation. Performed at: =GPerformed By: #### [id number] #### [place] [address] [address] Carlton AlfaroMethodology:CommentOhioHealth Arthur G[facility], Cancer Center on above: Result Comment: This liquid based ThinPrep(R) pap test was screened with the use of an image guided system. Performed at: WBPerformed By: #### [id number] #### [facility] [address] [place] [address] Dr. Carlton AlfaroNote:CommentOhioHealth Arthur [facility] on above:Result Comment: The Pap smear is a screening test designed to aid in the detection of premalignant and malignant conditions of the uterine cervix. It is not a diagnostic procedure and should not be used as the sole means of detecting cervical cancer. Both false-positive and false-negative reports do occur. . Performed at: WBPerformed By: #### [id number] #### [facility] [address] [place] [address] Dr. Carlton AlfaroPerformed by:CommentOhioHealth Arthur [facility] on above: Result Comment: Ailin Squires, Forest Fire Lookout (ASCP) Performed at: WBPerformed By: #### [id number] #### [facility] [address] [place] [address] Dr. Carlton AlfaroQC reviewed by:[facility] on above:Result Comment: Beata Abreu, Supervisory [employer] Lookout (ASCP) Performed at: WBPerformed By: #### [id number] #### [facility] [address] [place], [place] [address] Dr. Carlton Coronado adequacy:CommentAdena Regional Medical CenterComment on above:Result Comment: Satisfactory for evaluation. No endocervical component is identified. Performed at: WBPerformed By: #### [id number] #### [facility] [address] [place], [place] [address] Dr. Carlton AlfaroCOMILADIS-19, Rapidon 15-86-6846Hgxpptlnmajvle and review of laboratory resultsAbnormalMercy Health St. Elizabeth Boardman HospitalBkacxoVEDO-ZrL-0 (COVID-19) RNA BERNIE+probe Ql (Unsp spec)DetectedAbnormalNot [facility] Medical CenterComment on above: Rapid NAAT: The specimen is POSITIVE for SARS-Cov-2, the novel coronavirus associated with COVID-19. This test has been authorized by the FDA under an Emergency Use Authorization (EUA) for use by authorized laboratories. The ID NOW COVID-19 assay is designed to detect the virus that causes COVID-19 in patients with signs and symptoms of infection who are suspected of COVID-19. An individual without symptoms of COVID-19 and who is not shedding SARS-CoV-2 virus would expect to have a negative (not detected) result in this assay. Fact sheet for Healthcare Providers: https://www.fda.gov/media/470518/download Fact sheet for Patients: https://www.fda.gov/media/192836/download Methodology: Isothermal Nucleic Acid Amplification Results reported to the appropriate Health Department Specimen Description.NASOPHARYNGEAL SWABHoward Young Medical CenterRapid influenza A/B antigenson 36-47-8830Karuxg ExamNEGATIVE for Influenza A + B antigens. PCR testing to confirm this result is available upon request. Specimen will be saved in the laboratory for 7 days. Please call [phone] if PCR testing is ind icated.[facility] RequestsNOT Middletown HospitalSpecimen Description .NASOPHARYNGEAL SWABHoward Young Medical CenterStrep Screen Group A Throaton 03-12-2021. pyogenes Ag IA Ql (Unsp spec)Rapid Strep A negative. A negative Rapid Group A Strep Screen result does not rule out the possibility of Group A Streptococci in the specimen. A Group A Strep DNA test is available upon request.Nakina SystemsSpecial RequestsNOT REPORTEDNakina SystemsSpecimen Description .THROATOhiohealth Shelby HospitalFriendferOhiohealth Shelby HospitalFriendferEPHRAIM MCDOWELL REGIONAL [facility]ICAL [facility]ENTER Auto DifferentialOrdered By: Sharon Frazier on 82-77-3095Enfaoqrx Eos #0.18Ohiohealth Shelby HospitalPerk Phone: absolute Immature Granulocyte<0.03Ohio[facility] Shelby HospitalPerk Phone: absolute Lymph #2.53[facility] Shelby HospitalPerk Phone: absolute White #0.58[facility] Shelby HospitalPerk Phone: basophils (Bld) [#/Vol]0.04 10*3/uLOhiohealth Shelby HospitalPerk Phone: basophils/100 WBC (Bld)1 %0 - 2 %[employer] Phone: differential TypeNOT REPORTEDOhiohealth Shelby HospitalPerk Phone: eosinophils/100 WBC (Bld)2 %1 - 4 %[employer] Phone: Hematocrit (Bld) [Volume fraction]43.3 %36.3 - 47.1 % [employer] Phone: Hemoglobin.gastrointestinal spec 1 Ql (Stl)14.2 g/dL 11.9 - 15.1 g/dLOhiohealth Shelby HospitalPerk Phone: Immature granulocytes/100 WBC (Bld)0 %0Ohiohealth Shelby HospitalPerk Phone: lymphocytes/100 WBC (Bld)33 %24 - 43 %[employer] Phone: MCH (RBC) [Entitic mass]29.8 pg25.2 - 33.5 pgOhiohealth Shelby HospitalPerk Phone: MCHC (RBC) [Mass/Vol]32.8 g/dL28.4 - 34.8 g/dLOhiohealth Shelby HospitalPerk Phone: [phone] (RBC) [Entitic vol]90.8 fL82.6 - 102.9 fLBiocontrol Phone: [phone]/100 WBC (Bld)8 %3 - 12 %[employer] Phone: NRBC Automated0.00.0 per 100 WBCOhiohealth Shelby HospitalPerk Phone: Klatelet distribution width (Bld) [Ratio]12.2 %11.8 - 14.4 %[employer] Phone: [phone] EstimateNOT REPORTEDOhiohealth Shelby HospitalPerk Phone: Platelet mean volume (Bld) [Entitic vol]10.0 fL8.1 - 13.5 fLOhiohealth Shelby HospitalPerk Phone: [phone] (Bld) [#/Vol]218 10*3/[employer] Phone: [phone] (Bld) [#/Vol]4.77 10*6/uL3.95 - 5.11 m/[employer] Phone: [phone] (Bld) [#/Vol]NOT REPORTEDOhiohealth Shelby HospitalPerk Phone: [phone] neutrophils/100 WBC (Bld)56 %36 - 65 %[employer] Phone: Segs Absolute4.28[facility] Shelby HospitalPerk Phone: [phone] (Bld) [#/Vol]7.6 10*3/[employer] Phone: [phone] (Bld) [#/Vol]NOT REPORTEDOhiohealth Shelby HospitalPerk Phone: [facility] HospitalPerk Phone: Comprehensive Metabolic Panel w/ Reflex to MGOrdered By: Sharon Frazier on 21-40-1662Qbhtdwf [Mass/Vol]4 g/dL3.5 - 5.2 g/dLOhiohealth Shelby HospitalPerk Phone: Plbumin/Globulin [Mass ratio]1.2 {ratio}[facility] Phone: XLP (Bld) [Catalytic activity/Vol]74 U/L35 - 104 U/L [facility] Phone: WLT [Catalytic activity/Vol]81 U/LHigh5 - 33 U/LMohiohealth dublin methodist hospital [employer] Phone: Dnion gap [Moles/Vol]12 mmol/L9 - 17 mmol/LMOptimitive [employer] Phone: NST [Catalytic activity/Vol]85 U/LHigh<32Ohiohealth Shelby HospitalPerk Phone: bilirubin [Mass/Vol]0.44 mg/dL0.3 - 1.2 mg/dLOhiohealth Shelby HospitalPerk Phone: calcium [Mass/Vol]8.9 mg/dL8.6 - 10.4 mg/dLOhiohealth Shelby HospitalPerk Phone: Lhloride [Moles/Vol]103 mmol/L98 - 107 mmol/LMohiohealth dublin methodist hospital [employer] Phone: cO2 [Moles/Vol]22 mmol/L20 - 31 mmol/LMohiohealth dublin methodist hospital [employer] Phone: creatinine [Mass/Vol]0.45 mg/dLLow0.50 - 0.90 mg/dL [facility] Phone: Free PSA/Total PSA [Mass fraction]7.4 g/dL6.4 - 8.3 g/dLOhiohealth Shelby HospitalPerk Phone: GFR >60>60 mL/minOhiohealth Shelby HospitalPerk Phone: GFR Non->60>60 mL/minOhiohealth Shelby HospitalPerk Phone: Glucose [Mass/Vol]176 mg/wNWwbs35 - 99 mg/dLOhiohealth Shelby HospitalPerk Phone: Interpretation and review of laboratory results AbnormalOhiohealth Shelby HospitalPerk Phone: potassium [Moles/Vol]4.3 mmol/L3.7 - 5.3 mmol/LMohiohealth dublin methodist hospital [employer] Phone: sodium [Moles/Vol]137 mmol/L135 - 144 mmol/LMohiohealth dublin methodist hospital [employer] Phone: Urea nitrogen (BldV) [Mass/Vol]10 mg/dL6 - 20 mg/dL [facility] Phone: Urea nitrogen/Creatinine (Bld) [Mass ratio]22HighOhiohealth Shelby HospitalPerk Phone: [facility] HospitalPerk Phone: laboratory - Chemistry and Chemistry - challenge Ordered By: Sharon Frazier on 88-42-7108VBT/1.73 sq M.predicted MDRD (S/P/Bld) [Vol rate/Area][facility] Phone: comment on above:Average GFR for 30-39 years old: 107 mL/min/1.73sq m Chronic Kidney Disease: <60 mL/min/1.73sq m Kidney failure: <15 mL/min/1.73sq m eGFR calculated using average adult body mass. Additional eGFR calculator available at: http://www.PressConnect/multiple_crcl_2012.htm Stage 1: Some kidney damage normal GFR Stage 2: Mild kidney damage GFR 60-89 Stage 3: Moderate kidney damage GFR 30-59 Stage 4: Severe kidney damage GFR 15-29 Stage 5: Severe kidney damage GFR <15 ESRD - chronic treatment by dialysis or transplant LipaseOrdered By: Sharon Frazier on 29-61-8527Oeijfe [Catalytic activity/Vol]13 U/L13 - 60 U/LMSossee Phone: [facility] HospitalPerk Phone: Microscopic UrinalysisOrdered By: Sharno Frazier on 01-19-2021-[employer] Phone: amorphous, UANOT REPORTEDNoneMercy Health Work Phone: bacteria, UANOT REPORTEDNoneMercy Health Work Phone: casts UANOT REPORTED/LPFMercy Health Work Phone: crystals, UANOT REPORTEDNone /HPFMercy Health Work Phone: epithelial Cells UANoneMercy Health Work Phone: Mucus, UANOT REPORTEDNoneMercy Health Work Phone: Other Observations UANOT REPORTEDNOT REQ.[facility] Work Phone: rBC, [facility]ere[facility] Work Phone: renal Epithelial, UANOT REPORTED0 /HPFMercy Health Work Phone: Trichomonas, UANOT REPORTEDNoneMercy Health Work Phone: WBC, UANoneMercy Health Work Phone: Yeast, UANOT REPORTEDNoneMercy Health Work Phone: [facility] Work Phone: US NON OB TRANSVAGINALOrdered By: Sharon Frazier on [id number] right adnexal masslike cystic lesion measuring up to 4.1 cm in diameter with question of minimal internal flow on color Doppler evaluation. Internal echogenic pattern somewhat suggestive of hemorrhagic cyst. Recommend dedicated postcontrast MRI pelvis examination for further evaluation. Hysterectomy.[employer] Phone: eXAMINATION: PELVIC ULTRASOUND 01/18/2021 TECHNIQUE: Transabdominal and transvaginal pelvic duplex ultrasound using B-mode/avalos scaled imaging, Doppler spectral analysis and color flow Doppler was obtained. COMPARISON: CT abdomen and pelvis with contrast January 18, 2021. HISTORY: ORDERING SYSTEM PROVIDED HISTORY: rule out right torsion TECHNOLOGIST PROVIDED HISTORY: rule out right torsion FINDINGS: Measurements: Uterus: Surgically absent Endometrial stripe: Surgically absent Right Ovary:5.3 x 4.3 x 4.5 cm Left Ovary: 1.6 x 1.4 x 2.4 cm Ultrasound Findings: Uterus: Uterus demonstrates normal myometrial echotexture. Endometrial stripe: Endometrial stripe is within normal limits. Right Ovary: Right adnexal heterogeneous echogenic masslike cystic lesion is present measuring 4.1 x 3.6 x 3.8 cmin dimension question of minimal internal flow noted. Otherwise, there is unremarkable arterial andvenous doppler flow. Left Ovary: Left ovary is within normal limits. There is normal arterial and venous doppler flow. Free Fluid: No evidence of free fluid.[employer] Phone: erene, [facility] Incoming Radiant Results From [email or web address] - 01/19/2021 1:31 AM EDT EXAMINATION: PELVIC ULTRASOUND 01/18/2021 TECHNIQUE: Transabdominal and transvaginal pelvic duplex ultrasound using B-mode/avalos scaled imaging, Doppler spectral analysis and color flow Doppler was obtained. COMPARISON: CT abdomen and pelvis with contrast January 18, 2021. HISTORY: ORDERING SYSTEM PROVIDED HISTORY: rule out right torsion TECHNOLOGIST PROVIDED HISTORY: rule out right torsion FINDINGS: Measurements: Uterus: Surgically absent Endometrial stripe: Surgically absent Right Ovary:5.3 x 4.3 x 4.5 cm Left Ovary: 1.6 x 1.4 x 2.4 cm Ultrasound Findings: Uterus: Uterus demonstrates normal myometrial echotexture. Endometrial stripe: Endometrial stripe is within normal limits. Right Ovary: Right adnexal heterogeneous echogenic masslike cystic lesion is present measuring 4.1 x 3.6 x 3.8 cm in dimension question of minimal internal flow noted. Otherwise, there is unremarkable arterial and venous doppler flow. Left Ovary: Left ovary is within normal limits. There is normal arterial and venous doppler flow. Free Fluid: No evidence of free fluid. IMPRESSION: Complicated right adnexal masslike cystic lesion measuring up to 4.1 cm in diameter with question of minimal internal flow on color Doppler evaluation. Internal echogenic pattern somewhat suggestive of hemorrhagic cyst. Recommend dedicated postcontrast MRI pelvis examination for further evaluation. Hysterectomy. [employer] Phone: [facility] Phone: Urinalysis, reflex to microscopicOrdered By: Sharon Frazier on [id number] UrineNegativeNEGATIVEMerPandoodle Health Work Phone: color, UAYellowYellowMer Health Work Phone: Glucose, Ur3+AbnormalNEGATIVEMerPandoodle Health Work Phone: Interpretation and review of laboratory results AbnormalMerFriendfer Work Phone: Ketones Ql (U)NegativeNEGATIVEMerPandoodle Health Work Phone: leukocyte esterase Test strip Ql (U)NegativeNEGATIVE [facility] [employer] Work Phone: Nitrite, UrineNegativeNEGATIVEMercy Health Work Phone: pH, UA6.0[facility] Work Phone: protein, UANegativeNEGATIVEMer Health Work Phone: specific [place], UA>1.030HighMercy Health Work Phone: Turbidity UAClearClearMer Health Work Phone: Urinalysis CommentsNOT REPORTEDMercy Health Work Phone: Urine HgbNegativeNEGATIVEMerPandoodle Health Work Phone: Urobilinogen, UrineNormalNormalMercy Health Work Phone: [facility] Work Phone: cT ABDOMEN PELVIS W IV CONTRAST Additional Contrast? NoneOrdered By: Sharon Frazier on . 5.6 cm complex right adnexal lesion. Ultrasound is recommended for further characterization. 2. N onvisualization of the appendix without secondary signs of appendicitis. 3. Hepatic steatosis.[employer] Phone: eXAMINATION: CT OF THE ABDOMEN AND PELVIS WITH CONTRAST 01/18/2021 11:08 pm TECHNIQUE: CT of the abdomen and pelvis was performed with the administration of intravenous contrast. Multiplanar reformatted images are provided for review. Dose modulation, iterative reconstruction, and/or weight based adjustment of the mA/kV was utilized to reduce the radiation dose to as low as reasonably achievable. COMPARISON: 12/28/2020 HISTORY: ORDERING SYSTEM PROVIDED HISTORY: rlq pain TECHNOLOGIST PROVIDED HISTORY: rlq pain Decision Support Exception - unselect if not a suspected or confirmed emergency medical condition->Emergency Medical Condition (MA) FINDINGS: Lower Chest: No acute abnormality withinthe visualized lung bases. Organs: The liver is diffusely hypoattenuating. Prior cholecystectomy. No acute abnormality within the spleen, pancreas, or adrenal glands. No nephrolithiasis or hydronephrosis. 2.7 cm left renal cyst is similar in size to prior examination. GI/Bowel: Stomach is nondistended. The small bowel is nondilated. The colon is nondilated. The appendix is not confidently identified, but there are no secondary signs of appendicitis. Pelvis: Bladder is nondistended. No vesicularstone. Prior hysterectomy. There is a 5.2 x 5 cm complex right adnexal lesion. Peritoneum/Retroperitoneum: No ascites or pneumoperitoneum. Abdominal aorta is normal in caliber. Bones/Soft Tissues: No acute osseous abnormality.[employer] Work Phone: e, [facility] Incoming Radiant Results From Jigsaw/YChartss - 01/18/2021 11:34 PM EDT EXAMINATION: CT OF THE ABDOMEN AND PELVIS WITH CONTRAST 01/18/2021 11:08 pm TECHNIQUE: CT of the abdomen and pelvis was performed with the administration of intravenous contrast. Multiplanar reformatted images are provided for review. Dose modulation, iterative reconstruction, and/or weight based adjustment of the mA/kV was utilized to reduce the radiation dose to as low as reasonably achievable. COMPARISON: 12/28/2020 HISTORY: ORDERING SYSTEM PROVIDED HISTORY: rlq pain TECHNOLOGIST PROVIDED HISTORY: rlq pain Decision Support Exception - unselect if not a suspected or confirmed emergency medical condition->Emergency Medical Condition (MA) FINDINGS: Lower Chest: No acute abnormality within the visualized lung bases. Organs: The liver is diffusely hypoattenuating. Prior cholecystectomy. No acute abnormality within the spleen, pancreas, or adrenal glands. No nephrolithiasis or hydronephrosis. 2.7 cm left renal cyst is similar in size to prior examination. GI/Bowel: Stomach is nondistended. The small bowel is nondilated. The colon is nondilated. The appendix is not confidently identified, but there are no secondary signs of appendicitis. Pelvis: Bladder is nondistended. No vesicular stone. Prior hysterectomy. There is a 5.2 x 5 cm complex right adnexal lesion. Peritoneum/Retroperitoneum: No ascites or pneumoperitoneum. Abdominal aorta is normal in caliber. Bones/Soft Tissues: No acute osseous abnormality. IMPRESSION: 1. 5.6 cm complex right adnexal lesion. Ultrasound is recommended for further characterization. 2. Nonvisualization of the appendix without secondary signs of appendicitis. 3. Hepatic steatosis. [employer] Phone: [employer] Phone: cBC auto differentialOrdered By: Sandra Oneal on 25-05-0300Feufaahk Eos #0.17[employer] Phone: absolute Immature Granulocyte<0.03[employer] Phone: absolute Lymph #2.27[employer] Phone: absolute White #0.41[employer] Phone: basophils (Bld) [#/Vol]0.04 10*3/uLBiocontrol Phone: basophils/100 WBC (Bld)1 %0 - 2 %[employer] Phone: differential TypeNOT REPORTEDBiocontrol Phone: eosinophils/100 WBC (Bld)3 %1 - 4 %[employer] Phone: Hematocrit (Bld) [Volume fraction]44.6 %36.3 - 47.1 % [employer] Phone: Hemoglobin.gastrointestinal spec 1 Ql (Stl)14.7 g/dL 11.9 - 15.1 g/dLBiocontrol Phone: Immature granulocytes/100 WBC (Bld)0 %0[facility] Hospital[facility] Phone: [phone]/100 WBC (Bld)35 %24 - 43 %[employer] Phone: MCH (RBC) [Entitic mass]30.3 pg25.2 - 33.5 pgOhiohealth Shelby HospitalPerk Phone: MCHC (RBC) [Mass/Vol]33.0 g/dL28.4 - 34.8 g/dLOhiohealth Shelby HospitalPerk Phone: MCV (RBC) [Entitic vol]92.0 fL82.6 - 102.9 fLOhiohealth Shelby HospitalPerk Phone: Monocytes/100 WBC (Bld)6 %3 - 12 %[employer] Phone: NRBC Automated0.00.0 per 100 WBCOhiohealth Shelby HospitalPerk Phone: Platelet distribution width (Bld) [Ratio]11.8 %11.8 - 14.4 %[employer] Phone: [phone] EstimateNOT REPORTEDOhiohealth Shelby HospitalPerk Phone: Platelet mean volume (Bld) [Entitic vol]8.9 fL8.1 - 13.5 fLOhiohealth Shelby HospitalPerk Phone: [phone] (Bld) [#/Vol]247 10*3/uLOhiohealth Shelby HospitalFriendfer Work Phone: RBC (Bld) [#/Vol]4.85 10*6/uL3.95 - 5.11 m/uLOhiohealth Shelby HospitalPerk Phone: [phone] (Bld) [#/Vol]NOT REPORTEDOhiohealth Shelby HospitalPerk Phone: Segmented neutrophils/100 WBC (Bld)55 %36 - 65 %[employer] Phone: Segs Absolute3.57[facility] HospitalPer[facility] Phone: [phone] (Bld) [#/Vol]6.5 10*3/uLOhiohealth Shelby HospitalPerk Phone: WBC (Bld) [#/Vol]NOT REPORTEDOhiohealth Shelby HospitalPerk Phone: [facility] HospitalPer[facility] Phone: cT ABDOMEN PELVIS WO CONTRAST Additional Contrast? NoneOrdered By: Sandra Oneal on [id number] acute inflammatory process or bowel obstruction.[employer] Phone: eXAMINATION: CT OF THE ABDOMEN AND PELVIS WITHOUT CONTRAST 12/28/2020 10:15 pm TECHNIQUE: CT of theabdomen and pelvis was performed without the administration of intravenous contrast. Multiplanar ref ormatted images are provided for review. Dose modulation, iterative reconstruction, and/or weight based adjustment of the mA/kV was utilized to reduce the radiation dose to as low as reasonably achievable. COMPARISON: 02/01/2020 HISTORY: ORDERING SYSTEM PROVIDED HISTORY: abdominal pain TECHNOLOGISTPROVIDED HISTORY: abdominal pain Decision Support Exception - unselect if not a suspected or confirmed emergency medical condition->Emergency Medical Condition (MA) Is the patient ?->NoFINDINGS: Lower Chest: Lungs are clear Organs: Left renal lesion identified measuring 27 HU, a prior postcontrast images this measures centrally and is likely a cyst require no further follow-up or workup. Otherwise kidneys symmetric in size without hydronephrosis nephrolithiasis. Gallbladder is absent. Hypoattenuation liver suggesting fatty infiltration. GI/Bowel: Mild retained stool. No bowel ob struction. Mild colonic diverticulosis. Appendix unremarkable without surrounding inflammatory changes. Pelvis: Bladder is collapsed. No suspicious adnexal mass. Uterus appears absent. Peritoneum/Retroperitoneum: No free air or free fluid. Aorta is unremarkable caliber. Bones/Soft Tissues: Degenerate change. No suspicious osseous lesion.[employer] Phone: erene, [facility] Incoming Radiant Results From [email or web address] - 12/28/2020 10:45 PM EDT EXAMINATION: CT OF THE ABDOMEN AND PELVIS WITHOUT CONTRAST 12/28/2020 10:15 pm TECHNIQUE: CT of the abdomen and pelvis was performed without the administration of intravenous contrast. Multiplanar reformatted images are provided for review. Dose modulation, iterative reconstruction, and/or weight based adjustment of the mA/kV was utilized to reduce the radiation dose to as low as reasonably achievable. COMPARISON: 02/01/2020 HISTORY: ORDERING SYSTEM PROVIDED HISTORY: abdominal pain TECHNOLOGIST PROVIDED HISTORY: abdominal pain Decision Support Exception - unselect if not a suspected or confirmed emergency medical condition->Emergency Medical Condition (MA) Is the patient ?->No FINDINGS: Lower Chest: Lungs are clear Organs: Left renal lesion identified measuring 27 HU, a prior postcontrast images this measures centrally and is likely a cyst require no further follow-up or workup. Otherwise kidneys symmetric in size without hydronephrosis nephrolithiasis. Gallbladder is absent. Hypoattenuation liver suggesting fatty infiltration. GI/Bowel: Mild retained stool. No bowel obstruction. Mild colonic diverticulosis. Appendix unremarkable without surrounding inflammatory changes. Pelvis: Bladder is collapsed. No suspicious adnexal mass. Uterus appears absent. Peritoneum/Retroperitoneum: No free air or free fluid. Aorta is unremarkable caliber. Bones/Soft Tissues: Degenerate change. No suspicious osseous lesion. IMPRESSION: No acute inflammatory process or bowel obstruction. [employer] Phone: [employer] Phone: comprehensive Metabolic PanelOrdered By: Sandra Oneal on [id number] [Mass/Vol]4.2 g/dL3.5 - 5.2 g/dLBiocontrol Phone: albumin/Globulin [Mass ratio]1.1 {ratio}[employer] Phone: aLP (Bld) [Catalytic activity/Vol]72 U/L35 - 104 U/L [employer] Phone: aLT [Catalytic activity/Vol]140 U/LHigh5 - 33 U/LMSossee Phone: anion gap [Moles/Vol]11 mmol/L9 - 17 mmol/LMSossee Phone: aST [Catalytic activity/Vol]184 U/LHigh<32[employer] Phone: bilirubin [Mass/Vol]0.58 mg/dL0.3 - 1.2 mg/dLSub[facility] [employer] Phone: calcium [Mass/Vol]9.3 mg/dL8.6 - 10.4 mg/dLSub[facility] [employer] Phone: chloride [Moles/Vol]100 mmol/L98 - 107 mmol/LMohiohealth dublin [facility]ist hospital [employer] Work Phone: cO2 [Moles/Vol]25 mmol/L20 - 31 mmol/LMohiohealth dublin [facility]ist [facility] [employer] Work Phone: creatinine [Mass/Vol]0.58 mg/dL0.50 - 0.90 mg/dLSuburban [facility] [employer] Phone: Free PSA/Total PSA [Mass fraction]7.9 g/dL6.4 - 8.3 g/dLSuburban Community Hospital [facility] [employer] Phone: GFR >60>60 mL/minSuburban Community Hospital [facility] [employer] Phone: GFR Non->60>60 mL/minMercy Health [address] [employer] Phone: Glucose [Mass/Vol]202 mg/wVAgzv13 - 99 mg/dLSuburban Community Hospital [facility] [employer] Phone: Interpretation and review of laboratory results AbnormalSuburban Community Hospital & [facility] [employer] Phone: potassium [Moles/Vol]4.0 mmol/L3.7 - 5.3 mmol/LMMercy Health [facility] Work Phone: sodium [Moles/Vol]136 mmol/L135 - 144 mmol/LMwvumedicine barnesville hospitaly [facility] Work Phone: Urea nitrogen (BldV) [Mass/Vol]8 mg/dL6 - 20 mg/dL [facility] Work Phone: Urea nitrogen/Creatinine (Bld) [Mass ratio]14[facility] [employer] Phone: [facility] [employer] Phone: laboratory - Chemistry and Chemistry - challenge Ordered By: Sandra Jm on [id number]/1.73 sq M.predicted MDRD (S/P/Bld) [Vol rate/Area][employer] Phone: comment on above:Average GFR for 30-39 years old: 107 mL/min/1.73sq m Chronic Kidney Disease: <60 mL/min/1.73sq m Kidney failure: <15 mL/min/1.73sq m eGFR calculated using average adult body mass. Additional eGFR calculator available at: http://www.PressConnect/multiple_crcl_2012.htm Stage 1: Some kidney damage normal GFR Stage 2: Mild kidney damage GFR 60-89 Stage 3: Moderate kidney damage GFR 30-59 Stage 4: Severe kidney damage GFR 15-29 Stage 5: Severe kidney damage GFR <15 ESRD - chronic treatment by dialysis or transplant Microscopic UrinalysisOrdered By: Sandra Oneal on 12-28-2020-[employer] Work Phone: amorphous, UANOT REPORTEDNoneMercy Health Work Phone: bacteria, UATRACEAbnormalNoneMey Health Work Phone: casts UANOT REPORTED/LPFMercy Health Work Phone: crystals, UANOT REPORTEDNone /HPFMercy Health Work Phone: epithelial Cells UA5 TO 10[facility] Work Phone: Interpretation and review of laboratory results AbnormalOhiohealth Shelby Hospitalcy Health Work Phone: Mucus, UANOT REPORTEDNoneMercy Health Work Phone: Other Observations UANOT REPORTEDNOT REQ.[facility] Work Phone: rBC, UA0 TO 2[facility] Work Phone: renal Epithelial, UANOT REPORTED0 /HPFMercy Health Work Phone: Trichomonas, UANOT REPORTEDNoneMercy Health Work Phone: WBC, UA2 TO 5[facility] Work Phone: Yeast, UANOT REPORTEDNoneMercy Health Work Phone: [facility] Work Phone: UrinalysisOrdered By: Sandra Oneal on 12-28-2020 Bilirubin UrineNegativeNEGATIVEMercy Health Work Phone: color, UAYellowYellowMercy Health Work Phone: Glucose, UrTRACEAbnormalNEGATIVEMercy Health Work Phone: Interpretation and review of laboratory results AbnormalMercy Health Work Phone: Ketones Ql (U)NegativeNEGATIVEMercy Health Work Phone: leukocyte esterase Test strip Ql (U)NegativeNEGATIVE [facility] Work Phone: Nitrite, UrineNegativeNEGATIVEMercy Health Work Phone: fH, UA6.0[facility] Work Phone: protein, UATRACEAbnormalNEGATIVEMercy Health Work Phone: specific [place], UA>1.030HighMercy Health Work Phone: Turbidity UAClearClearMercy Health Work Phone: Urinalysis CommentsNOT REPORTEDMercy Health Work Phone: Urine HgbNegativeNEGATIVEMercy Health Work Phone: Urobilinogen, UrineNormalNormalMercy Health Work Phone: [facility] Work Phone: amylaseon [phone] [Catalytic activity/Vol]23 U/LLow28 - 100 U/LMercy [facility], [facility] Auto Differentialon 02-01-2020 Basophils (Bld) [#/Vol]0.04 10*3/[facility], KYBasophils/100 WBC (Bld)0 %0 - 2 %[facility], SCDifferential TypeNOT REPORTEDSheltering Arms Hospital, [place] Eosinophils (Bld) [#/Vol]0.28 10*3/[facility], KYEosinophils/100 WBC (Bld)3 %1 - 4 %[facility], SCErythrocyte distribution width (RBC) [Ratio] 12.4 %11.8 - 14.4 %[facility], SCHematocrit (Bld) [Volume fraction]46.9 % 36.3 - 47.1 %[facility], SCHemoglobin (Bld) [Mass/Vol]15.8 g/kXMrjr39.9 - 15.1 g/dLSheltering Arms Hospital, SCImmature granulocytes (Bld) [#/Vol]0 %0[facility], SCImmature granulocytes (Bld) [#/Vol]0.04 10*3/[facility], IRISHInterpretation and review of laboratory resultsAbnormalSheltering Arms Hospital, [place] Lymphocytes (Bld) [#/Vol]2.82 10*3/[facility], KYLymphocytes/100 WBC (Bld)30 %24 - 43 %[facility], SCMCH (RBC) [Entitic mass]30.9 pg25.2 - 33.5 pgSheltering Arms Hospital, SCMCHC (RBC) [Mass/Vol]33.7 g/dL28.4 - 34.8 g/dLSheltering Arms Hospital, SCMCV (RBC) [Entitic vol]91.8 fL82.6 - 102.9 fLSheltering Arms Hospital, [place] Monocytes (Bld) [#/Vol]0.67 10*3/[facility], KYMonocytes/100 WBC (Bld)7 %3 - 12 %[facility], SCPlatelet mean volume (Bld) [Entitic vol]8.8 fL8.1 - 13.5 fLSheltering Arms Hospital, IRISHPlatelets (Bld) [#/Vol]284 10*3/[place], KYPlatelets (Bld) [#/Vol]NOT REPORTEDBr[place], KYRBC (Bld) [#/Vol]5.11 10*6/uL3.95 - 5.11 m/uLThe [facility] morphology finding Nom (Bld)NOT REPORTEDAultman Orrville Hospitalgmented neutrophils/100 WBC (Bld)60 %36 - 65 % [place], KYSegs Absolute5.64[place], KYWBC (Bld) [#/Vol]0.0 10*3/uL0.0 per 100 WBCBrundidge, KYWBC (Bld) [#/Vol]9.5 10*3/uLSheltering Arms Hospital, SCWBC MorphologyNOT REPORTEDBr[place]idge, KYCOVID-19on [id number]-CoV-2, RapidNot DetectedNot DetectedBrundidge, KYComment on above: Rapid NAAT: The specimen is NEGATIVE for SARS-CoV-2, the novel coronavirus associated with COVID-19. The ID NOW COVID-19 assay is designed to detect the virus that causes COVID-19 in patients with signs and symptoms of infection who are suspected of COVID-19. An individual without symptoms of COVID-19 and who is not shedding SARS-CoV-2 virus would expect to have a negative (not detected) result in this assay. Negative results should be treated as presumptive and, if inconsistent with clinical signs and symptoms or necessary for patient management, should be tested with an alternative molecular assay. Negative results do not preclude SARS-CoV-2 infection and should not be used as the sole basis for patient management decisions. Fact sheet for Healthcare Providers: https://www.fda.gov/media/367968/download Fact sheet for Patients: https://www.fda.gov/media/174757/download Methodology: Isothermal Nucleic Acid Amplification Source.NASOPHARYNGEAL SWABBrundidge, KYCT ABDOMEN PELVIS W IV CONTRAST Additional Contrast? Noneon [id number], Mhpn Incoming Radiant Results From Jigsaw/[employer] - 02/01/2020 9:13 PM EST EXAMINATION: CT OF THE ABDOMEN AND PELVIS WITH CONTRAST 02/01/2020 8:49 pm TECHNIQUE: CT of the abdomen and pelvis was performed with the administration of intravenous contrast. Multiplanar reformatted images are provided for review. Dose modulation, iterative reconstruction, and/or weight based adjustment of the mA/kV was utilized to reduce the radiation dose to as low as reasonably achievable. COMPARISON: 07/15/2017 HISTORY: ORDERING SYSTEM PROVIDED HISTORY: abdominal pain TECHNOLOGIST PROVIDED HISTORY: abdominal pain FINDINGS: Lower Chest: Lung bases are clear without pulmonary nodules, masses, effusions, or foci of airspace disease. The base of the heart is normal in size without pericardial fluid collection. Organs: The liver, gallbladder, pancreas, and spleen are grossly within normal limits. No focal hepatic mass lesions. No intrahepatic or extrahepatic biliary ductal dilatation GI/Bowel: Bowel is without evidence for obstruction or inflammation. No free intraperitoneal air or fluid noted. Small bowel loops are normal in caliber. No definite hiatal hernia. Pelvis: No evidence for free fluid. Status posthysterectomy. Peritoneum/Retroperitoneum: The adrenal glands are normal in size and configuration bilaterally. Kidneys perfuse and excrete in a symmetric fashion and ureters are not obstructed. Small left renal hypodensity is most compatible with an exophytic cyst and grossly unchanged as compared to previous study of 07/15/2017. Urinary bladder is unremarkable. Bones/Soft Tissues: Osseous structures are intact without evidence for acute fracture or dislocation. No definite lytic or blastic lesions. Overlying soft tissues are unremarkable. Vasculature: The abdominal aorta is normal in caliber. No discrete and aneurysm or dissection. No lymphadenopathy within the abdomen or pelvis. IMPRESSION: No evidence for acute intra-abdominal or intrapelvic pathology. No bowel obstruction or inflammation. No free intraperitoneal air or fluid. No evidence for urinary obstruction. Status post hysterectomy. [facility] HospitalGerardo evidence for acute intra-abdominal or intrapelvic pathology. No bowel obstruction or inflammation. No free intraperitoneal air or fluid. No evidence for urinary obstruction. Status post hysterectomy.[facility] KYEXAMINATION: CT OF THE ABDOMEN AND PELVIS WITH CONTRAST 02/01/2020 8:49 pm TECHNIQUE: CT of the abdomen and pelvis was performed with the administration of intravenous contrast. Multiplanar reformatted images are provided for review. Dose modulation, iterative reconstruction, and/or weight based adjustment of the mA/kV was utilized to reduce the radiation dose to as low as reasonably achievable. COMPARISON: 07/15/2017 HISTORY: ORDERING SYSTEM PROVIDED HISTORY: abdominal pain TECHNOLOGIST PROVIDED HISTORY: abdominal pain FINDINGS: Lower Chest: Lung bases are clear without pulmonary nodules, masses, effusions, or foci of airspace disease. The base of the heart is normal in size without pericardial fluid collection. Organs: The liver, gallbladder, pancreas, and spleen are grossly within normal limits. No focal hepatic mass lesions. No intrahepatic or extrahepatic biliary ductal dilatation GI/Bowel: Bowel is without evidence for obstruction or inflammation. No free intraperitoneal air or fluid noted. Small bowel loops are normal in caliber. No definite hiatal hernia. Pelvis: No evidencefor free fluid. Status posthysterectomy. Peritoneum/Retroperitoneum: The adrenal glands are normal in size and configuration bilaterally. Kidneys perfuse and excrete in a symmetric fashion and ureters are not obstructed. Small left renal hypodensity is most compatible with an exophytic cyst and grossly unchanged as compared to previous study of 07/15/2017. Urinary bladder is unremarkable. Bones/Soft Tissues: Osseous structures are intact without evidence for acute fracture or dislocation. No def inite lytic or blastic lesions. Overlying soft tissues are unremarkable. Vasculature: The abdominalaorta is normal in caliber. No discrete and aneurysm or dissection. No lymphadenopathy within the abdomen or pelvis.[facility], KYComprehensive Metabolic Panel w/ Reflex to MGon [id number] [Mass/Vol] 4.2 g/dL3.5 - 5.2 g/dLSheltering Arms Hospital, KYAlbumin/Globulin [Mass ratio]1.0 {ratio}[facility], KYALP [Catalytic activity/Vol]54 U/L35 - 104 U/[facility]MCincinnati [facility], KYALT [Catalytic activity/Vol]89 U/LHigh5 - 33 U/[facility], KYAnion gap [Moles/Vol]11 mmol/L9 - 17 mmol/LMCincinnati VA Medical Center, KYAST [Catalytic activity/Vol]87 U/LHigh<32[facility], KYBilirubin Ql (U)0.88 mg/dL0.3 - 1.2 mg/dLSheltering Arms Hospital, KYBun/Cre Nplws88Bvbpd Health- [place], KYCalcium [Mass/Vol]10.1 mg/dL8.6 - 10.4 mg/dLSheltering Arms Hospital, KYChloride [Moles/Vol]99 mmol/L98 - 107 mmol/[facility], KYCO2 [Moles/Vol]26 mmol/L20 - 31 mmol/L [facility], KYCreatinine [Mass/Vol]0.59 mg/dL0.5 - 0.9 mg/dLSheltering Arms Hospital, KYGFR >60>60 mL/minSheltering Arms Hospital, KYGFR Non->60>60 mL/minSheltering Arms Hospital, KYGlucose [Mass/Vol]116 mg/fHTbhb10 - 99 mg/dLSheltering Arms Hospital, KYPotassium [Moles/Vol]3.9 mmol/L3.7 - 5.3 mmol/LMCincinnati VA Medical Center, KYProtein [Mass/Vol]8.3 g/dL6.4 - 8.3 g/dLSheltering Arms Hospital, KYSodium [Moles/Vol]136 mmol/L135 - 144 mmol/LMCincinnati VA Medical Center, KYUrea nitrogen [Mass/Vol]9 mg/dL6 - 20 mg/dLSheltering Arms Hospital, KYLactic Acidon [id number] [Moles/Vol]1.6 mmol/L0.5 - 2.2 mmol/LMCincinnati VA Medical Center, KYLipaseon 02-01-2020 Lipase [Catalytic activity/Vol]11 U/LLow13 - 60 U/[facility], KYMetabolic Panelon [id number]/1.73 sq M predicted among non-blacks MDRD (S/P/Bld) [Vol rate/Area][facility], KYComment on above:Stage 1: Some kidney damage normal GFR Stage 2: Mild kidney damage GFR 60-89 Stage 3: Moderate kidney damage GFR 30-59 Stage 4: Severe kidney damage GFR 15-29 Stage 5: Severe kidney damage GFR <15 ESRD - chronic treatment by dialysis or transplant Average GFR for 30-39 years old: 107 mL/min/1.73sq m Chronic Kidney Disease: <60 mL/min/1.73sq m Kidney failure: <15 mL/min/1.73sq m eGFR calculated using average adult body mass. Additional eGFR calculator available at: http://www.Infusion Resource.[employer]/multiple_crcl_2012.htm Microscopic Urinalysison [id number], UANOT REPORTEDNoneMercy Health- [place], KYBacteria, UANOT REPORTEDNoneMercy Health- [place], KYCasts UANOT REPORTED/LPF [facility] [place], KYCrystals, UANOT REPORTEDNone /HPFMercy Health- [place], [place] Epithelial Cells UA0 TO 2[facility]- [place], KYMucus, UANOT REPORTEDNoneMercy Health- [place], KYOther Observations UANOT REPORTEDNOT REQ.[facility]- [place], KYRBC (U) [#/Vol]0 TO 2[facility]- [place], KYRenal Epithelial, UANOT REPORTED0 /HPFMercy Health- [place], KYTrichomonas, UANOT REPORTEDNoneMercy Health- [place], KYWBC, UA0 TO 2 [facility] [place], KYYeast, UANOT REPORTEDNoneMercy Health- [place], KY-[facility]- [place], KYOtheron [id number]-CoV-2[facility]- [place], KYInterpretation and review of laboratory resultsAbnormalMercy Health- [place], KYPregnancy, Urineon 02-01-2020 Beta HCG ( test) Ql (U)NegativeNEGATIVEMercy Health- [place], KYComment on above:Specimens with hCG levels near the threshold of the test (25 mIU/mL) may give a negative or indeterminate result. In such cases, another test should be performed with a new specimen in 48-72 hours. If early is suspected clinically in this setting, correlation with quantitative serum b-hCG level is suggested. [employer] has confirmed the use of plasma for this test. This has not been cleared or approved by the U.S. Food and Drug Administration. The FDA has determined that such clearance is not necessary. Urinalysis, reflex to microscopicon [id number] UrineSMALLAbnormal NEGATIVEMercy Health- [place], KYColor, UAYELLOWYELLOWMercy Health- [place], KYGlucose, Ur NegativeNEGATIVEMercy Health- [place], KYInterpretation and review of laboratory resultsAbnormalMercy Health- [place], KYKetones Ql (U)NegativeNEGATIVESheltering Arms Hospital, SCLeukocyte esterase Test strip Ql (U)NegativeNEGATIVESheltering Arms Hospital, [place] Nitrite, UrineNegativeNEGATIVEMercy Health St[facility]- [place], KYpH, UA5.5[facility], [place] Protein (U) [Mass/Vol]NegativeNEGATIVESheltering Arms Hospital, SCSpecific [place], UA >1.030HighSheltering [facility], KYTurbidity UACLEARCLEARSheltering Arms Hospital, [place] Urinalysis CommentsNOT REPORTEDMerRegency Hospital [facility] [place], KYUrine HgbNegativeNEGATIVE [facility], SCUrobilinogen, UrineNormalNormAvita Health System [facility], IRISHXR CHEST PORTABLEon [id number] acute cardiopulmonary processSheltering Arms Hospital, [place] EXAMINATION: ONE XRAY VIEW OF THE CHEST 01/26/2020 11:15 pm COMPARISON: Rib series 03/24/2019 HISTORY: ORDERING SYSTEM PROVIDED HISTORY: Cough, covid exposure TECHNOLOGIST PROVIDED HISTORY: Cough, covid exposure FINDINGS: The cardiomediastinal silhouette is normal in size and contour. The lungs areclear. No pleural effusion or pneumothorax is present.[facility] HospitalSathish Mhpn Incoming Radiant Results From Jigsaw/Hi-G-Tek - 01/26/2020 11:25 PM EST EXAMINATION: ONE XRAY VIEW OF THE CHEST 01/26/2020 11:15 pm COMPARISON: Rib series 03/24/2019 HISTORY: ORDERING SYSTEM PROVIDED HISTORY: Cough, covid exposure TECHNOLOGIST PROVIDED HISTORY: Cough, covid exposure FINDINGS: The cardiomediastinal silhouette is normal in size and contour. The lungs are clear. No pleural effusion or pneumothorax is present. IMPRESSION: No acute cardiopulmonary process [facility], IRISHCT MAXILLOFACIAL WO CONTRASTon [id number] acute traumatic injury of the facial bones. Bilateral inferior maxillary sinus retention cysts. [facility] HospitalIRISHEXAMINATION: CT OF THE FACE WITHOUT CONTRAST 11/09/2019 2:00 am TECHNIQUE: CT of the face was performed without the administration of intravenous contrast. Multiplanar reformatted images are provided for review. Dose modulation, iterative reconstruction, and/or weight based adjustment of the mA/kV was utilized to reduce the radiation dose to as low as reasonably achievable. COMPARISON: None HISTORY: ORDERING SYSTEM PROVIDED HISTORY: facial injury TECHNOLOGIST PROVIDED HISTORY: facial injury Is the patient ?->No FINDINGS: FACIAL BONES: The maxilla, pterygoid plates and zygomatic arches are intact. The mandible is intact. The mandibular condyles are normally situated. The nasal bones and maxillary nasal processes are intact. ORBITS: The globes appear intact. The extraocular muscles, optic nerve sheath complexes and lacrimal glands appear unremarkable. No retrobulbar hematoma or mass is seen. The orbital paul and rims are intact. SINUSES/MASTOIDS: Bilateral inferior maxillary sinus retention cysts are present. The paranasal sinuses and mastoid air cells are otherwise well aerated. No acute fracture is seen. SOFT TISSUES: No appreciable facial soft tissue swelling is seen.[facility] [employer] [facility] WillistonSathish Mhpn Incoming Radiant Results From [email or web address] - 11/09/2019 2:42 AM EDT EXAMINATION: CT OF THE FACE WITHOUT CONTRAST 11/09/2019 2:00 am TECHNIQUE: CT of the face was performed without the administration of intravenous contrast. Multiplanar reformatted images are provided for review. Dose modulation, iterative reconstruction, and/or weight based adjustment of the mA/kV was utilized to reduce the radiation dose to as low as reasonably achievable. COMPARISON: None HISTORY: ORDERING SYSTEM PROVIDED HISTORY: facial injury TECHNOLOGIST PROVIDED HISTORY: facial injury Is the patient ?->No FINDINGS: FACIAL BONES: The maxilla, pterygoid plates and zygomatic arches are intact. The mandible is intact. The mandibular condyles are normally situated. The nasal bones and maxillary nasal processes are intact. ORBITS: The globes appear intact. The extraocular muscles, optic nerve sheath complexes and lacrimal glands appear unremarkable. No retrobulbar hematoma or mass is seen. The orbital paul and rims are intact. SINUSES/MASTOIDS: Bilateral inferior maxillary sinus retention cysts are present. The paranasal sinuses and mastoid air cells are otherwise well aerated. No acute fracture is seen. SOFT TISSUES: No appreciable facial soft tissue swelling is seen. IMPRESSION: No acute traumatic injury of the facial bones. Bilateral inferior maxillary sinus retention cysts. FOLUP [facility] - WillistonZay [id number] forearm: No acute osseous abnormality. Right knee: 1. Small joint effusion. 2. Mild narrowingof the medial compartment. 3. No acute fracture or dislocation.[employer] EXAMINATION: TWO XRAY VIEWS OF THE RIGHT FOREARM; THREE XRAY VIEWS OF THE RIGHT KNEE 09/15/2019 9:22 pm COMPARISON: None. HISTORY: ORDERING SYSTEM PROVIDED HISTORY: pain TECHNOLOGIST PROVIDED HISTORY: pain 34-year-old female with right knee and right arm pain FINDINGS: Right forearm: Radius and ulna appear intact. Osseous alignment is normal. Joint spaces are well maintained. No acute fracture or dislocation. Right knee: Small joint effusion. Mild narrowing of the medial compartment. Joint spacesare otherwise well maintained. No suspicious osteolytic or osteoblastic lesions. No acute fracture or dislocation.[facility]healthHealthUnityRESEARCH MED[facility]-BROOKSIDE CAMPUSSocialSign.in [place] Galo, Mhpn Incoming Radiant Results From [email or web address] - 09/15/2019 9:32 PM EDT EXAMINATION: TWO XRAY VIEWS OF THE RIGHT FOREARM; THREE XRAY VIEWS OF THE RIGHT KNEE 09/15/2019 9:22 pm COMPARISON: None. HISTORY: ORDERING SYSTEM PROVIDED HISTORY: pain TECHNOLOGIST PROVIDED HISTORY: pain 34-year-old female with right knee and right arm pain FINDINGS: Right forearm: Radius and ulna appear intact. Osseous alignment is normal. Joint spaces are well maintained. No acute fracture or dislocation. Right knee: Small joint effusion. Mild narrowing of the medial compartment. Joint spaces are otherwise well maintained. No suspicious osteolytic or osteoblastic lesions. No acute fracture or dislocation. IMPRESSION: Right forearm: No acute osseous abnormality. Right knee: 1. Small joint effusion. 2. Mild narrowing of the medial compartment. 3. No acute fracture or dislocation. [employer], Zoomdatapatitis Panel, Acuteon [id number] IgM IA Qn (S) NONREACTIVENONREACTIVEOhiohealth Shelby HospitalPerformance Horizon Group, KYHep B Core Ab, IgMNONREACTIVE NONREACTIVEOhiohealth Shelby HospitalFriendferRESEARCH MEDICAL CENTER-BROOKSIDE CAMPUS, ZoomdataHepatitis B Surface AgNONREACTIVENONREACTIVEOhiohealth Shelby HospitalBioGreen Teck [place], ZoomdataHepatitis C AbNONREACTIVENONREACTIVEOhiohealth Shelby HospitalBioGreen Teck [place], KYComment on above: The hepatitis C procedure used in our laboratory is a Chemiluminescent test specific for three recombinant HCV antigens. A negative anti-HCV result indicates that the antibodies to hepatitis C virus are not present at this time. Individuals with reactive anti-HCV should be considered infected and infectious until proven otherwise. Confirmation of all equivocal or reactive results is recommended by ordering HCV RNA by PCR. Hu [id number] [Catalytic activity/Vol]82 U/LHigh5 - 33 U/LMercHCA Florida Oak [facility] Hospital, KYASTon [id number] [Catalytic activity/Vol]80 U/LHigh<32[place], KYHemoglobin A1Con [id number] [Mass/Vol]108 mg/dLBrund[place], [place] Comment on above:The ADA and AACC recommend providing the estimated average glucose result to permit better patient understanding of their HBA1c result. HbA1c (Bld) [Mass fraction]5.4 %4.8 - 5.9 %[place], KYLipid Panelon [id number] [Mass/Vol]169 mg/dL<200[place], KYComment on above: Cholesterol Guidelines: <200 Desirable 200-240 Borderline >240 Undesirable Cholesterol in HDL [Mass/Vol]50 mg/dL>40[place], KYComment on above: HDL Guidelines: <40 Undesirable 40-59 Borderline >59 Desirable Cholesterol in LDL [Mass/Vol]87 mg/dL0 - 130 mg/dLBr[place], KYComment on above: LDL Guidelines: <100 Desirable 100-129 Near to/above Desirable 130-159 Borderline >159 Undesirable Direct (measured) LDL and calculated LDL are not interchangeable tests. Cholesterol in VLDL [Mass/Vol]NOT REPORTEDHigh1 - 30 mg/dLBr[place], [place] Cholesterol.total/Cholesterol in HDL [Mass ratio]3.4 {ratio}<5[place], KYTriglyceride [Mass/Vol]161 mg/dLHigh<150[place], KYComment on above: Triglyceride Guidelines: <150 Desirable 150-199 Borderline 200-499 High >499 Very high Based on AHA Guidelines for fasting triglyceride, December 2011. Otheron [id number] and review of laboratory resultsAbnormNeola, KYMRI LUMBAR SPINE WO CONTRASTon [id number] disc degeneration throughout the lumbar spine as above greatest at L4-L5. Decreased signal inte nsity within the lumbar vertebral bodies felt to be due to artifact versus obesity but correlation with CBC is advised as a lymphoproliferative disorder may have a similar appearance.[place], KYEXAMINATION: MRI OF THE LUMBAR SPINE WITHOUT CONTRAST, 05/28/2019 11:06 am TECHNIQUE: Multiplanar multisequence MRI of the lumbar spine was performed without the administration of intravenous contrast. COMPARISON: CT from 05/21/2019 HISTORY: ORDERING SYSTEM PROVIDED HISTORY: Low back pain, unspecified back pain laterality, unspecified chronicity, unspecified whether sciatica present TECHNOLOGIST PROVIDED HISTORY: Is the patient ?->No FINDINGS: BONES/ALIGNMENT: Loss of marrow hyperintensity on T1 weighted images may be due to artifact obesity, or less likely lymphoproliferative disease. Correlation with CBC is suggested. SPINAL CORD: The conus terminates normally. SOFT TISSUES: No paraspinal mass identified. Possible lipoma in the left para midline soft tissues (series 4, image 10). Dependent edema. L1-L2: Minimal left subarticular disc bulge. No significant spinal canal or neural foraminal narrowing. L2-L3: There is no significant disc herniation, spinal canal stenosis or neural foraminal narrowing. L3-L4: Circumferential disc bulge with facet and ligamentum flavum hypertrophy. No significant spinal canal or neural foraminal narrowing. L4-L5: Circumferential disc bulge with facet and ligamentum flavum hypertrophy. Effacement of bilateral descending L5 nerve roots in lateral recesses. Mild canal narrowing. Mild bilateral neural foraminal narrowing. L5-S1: Central disc bulge superimposed on circumferential disc bulge. No spinal canal or neural foraminal narrowing.[facility]- [place], KYEdi, pn Incoming Radiant Results From Jigsaw/Pacs - 05/28/2019 12:19 PM EDT EXAMINATION: MRI OF THE LUMBAR SPINE WITHOUT CONTRAST, 05/28/2019 11:06 am TECHNIQUE: Multiplanar multisequence MRI of the lumbar spine was performed without the administration of intravenous contrast. COMPARISON: CT from 05/21/2019 HISTORY: ORDERING SYSTEM PROVIDED HISTORY: Low back pain, unspecified back pain laterality, unspecified chronicity, unspecified whether sciatica present TECHNOLOGIST PROVIDED HISTORY: Is the patient ?->No FINDINGS: BONES/ALIGNMENT: Loss of marrow hyperintensity on T1 weighted images may be due to artifact obesity, or less likely lymphoproliferative disease. Correlation with CBC is suggested. SPINAL CORD: The conus terminates normally. SOFT TISSUES: No paraspinal mass identified. Possible lipoma in the left para midline soft tissues (series 4, image 10). Dependent edema. L1-L2: Minimal left subarticular disc bulge. No significant spinal canal or neural foraminal narrowing. L2-L3: There is no significant disc herniation, spinal canal stenosis or neural foraminal narrowing. L3-L4: Circumferential disc bulge with facet and ligamentum flavum hypertrophy. No significant spinal canal or neural foraminal narrowing. L4-L5: Circumferential disc bulge with facet and ligamentum flavum hypertrophy. Effacement of bilateral descending L5 nerve roots in lateral recesses. Mild canal narrowing. Mild bilateral neural foraminal narrowing. L5-S1: Central disc bulge superimposed on circumferential disc bulge. No spinal canal or neural foraminal narrowing. IMPRESSION: Mild disc degeneration throughout the lumbar spine as above greatest at L4-L5. Decreased signal intensity within the lumbar vertebral bodies felt to be due to artifact versus obesity but correlation with CBC is advised as a lymphoproliferative disorder may have a similar appearance. Nakina SystemsRESEARCH MEDICAL CENTER-BROOKSIDE CAMPUS, KYGUTIERREZ LUMBAR SPINE WO CONTRASTon [id number] degenerative changes mid to lower lumbar spine. No evidence acute fracture traumatic malalignment.Nakina SystemsRESEARCH MEDICAL CENTER-BROOKSIDE CAMPUS, Aldair Bower Incoming Radiant Results From Jigsaw/Hi-G-Tek - 05/21/2019 9:14 PM EST EXAMINATION: CT OF THE LUMBAR SPINE WITHOUT CONTRAST 05/21/2019 TECHNIQUE: CT of the lumbar spine was performed without the administration of intravenous contrast. Multiplanar reformatted images are provided for review. Dose modulation, iterative reconstruction, and/or weight based adjustment of the mA/kV was utilized to reduce the radiation dose to as low as reasonably achievable. COMPARISON: 11/05/2018 HISTORY: ORDERING SYSTEM PROVIDED HISTORY: lower back pain TECHNOLOGIST PROVIDED HISTORY: lower back pain Is the patient ?->No FINDINGS: Central canal and disc pathology not well evaluated due to patient body habitus and quantum mottle. BONES/ALIGNMENT: There is normal alignment of the spine. The vertebral body heights are maintained. No osseous destructive lesion is seen. DEGENERATIVE CHANGES: L3-4: Mild degenerate disc spaces identified with mild circumferential disc bulge. Suspect mild canal stenosis and mild neural foramina. Mild facet arthropathy. L4-5: Mild disc space disease identified circumferential disc bulge. Mild bilateral foramina. Mild facet arthropathy. L5-S1: There is plej-ql-dxaugevw disc space disease L5-S1 suspect a small central disc bulge at L5-S1. Mild neural foraminal narrowing. Mild facet arthropathy. SOFT TISSUES/RETROPERITONEUM: No paraspinal mass is seen. Left renal cyst IMPRESSION: Mild degenerative changes mid to lower lumbar spine. No evidence acute fracture traumatic malalignment. [facility], KYEXAMINATION: CT OF THE LUMBAR SPINE WITHOUT CONTRAST 05/21/2019 TECHNIQUE: CT of the lumbar spine wasperformed without the administration of intravenous contrast. Multiplanar reformatted images are pro vided for review. Dose modulation, iterative reconstruction, and/or weight based adjustment of the mA/kV was utilized to reduce the radiation dose to as low as reasonably achievable. COMPARISON: 11/05/2018 HISTORY: ORDERING SYSTEM PROVIDED HISTORY: lower back pain TECHNOLOGIST PROVIDED HISTORY: lower back pain Is the patient ?->No FINDINGS: Central canal and disc pathology not well eval uated due to patient body habitus and quantum mottle. BONES/ALIGNMENT: There is normal alignment ofthe spine. The vertebral body heights are maintained. No osseous destructive lesion is seen. DEGENERATIVE CHANGES: L3-4: Mild degenerate disc spaces identified with mild circumferential disc bulge. Suspect mild canal stenosis and mild neural foramina. Mild facet arthropathy. L4-5: Mild disc space disease identified circumferential disc bulge. Mild bilateral foramina. Mild facet arthropathy. L5-S1: There is pwdr-mk-uwnjoecm disc space disease L5- S1 suspect a small central disc bulge at L5-S1. Mild neural foraminal narrowing. Mild facet arthropathy. SOFT TISSUES/RETROPERITONEUM: No paraspinal mass is seen. Left renal cystSub[facility]- [place], KYMicroscopic Urinalysison 05-21-2019 Amorphous, UANOT REPORTEDNoneMey Health- [place], KYBacteria, UANOT REPORTEDNone [facility]- [place], KYCasts UANOT REPORTED/LPFMercy Health- [place], KYCrystals, UANOT REPORTEDNone /HPFMercy Health- [place], KYEpithelial Cells UA10 TO 20[facility]- [place], KYMucus, UANOT REPORTEDNoneMey Health- [place], KYOther Observations UANOT REPORTEDNOT REQ.[facility]- [place], KYRBC (U) [#/Vol]0 TO 2[facility]- [place], [place] Renal Epithelial, UANOT REPORTED0 /HPFMercy Health- [place], KYTrichomonas, UANOT REPORTEDNoneMercy Health- [place], KYWBC, UA2 TO 5[facility]- [place], KYYeast, UANOT REPORTEDNoneMercy Health- [place], KY-[facility]- [place], KYUrinalysis Reflex to Cultureon [id number] UrineNegativeNEGATIVEMercy Health- [place], KYColor, UA YELLOWYELLOWMercy Health- [place], KYGlucose, UrNegativeNEGATIVEMercy Health- [place], [place] Interpretation and review of laboratory resultsAbnormalMercy Health- [place], [place] Ketones Ql (U)NegativeNEGATIVEMercy Health- [place], KYLeukocyte esterase Test strip Ql (U)NegativeNEGATIVEMercy Health- [place], KYNitrite, UrineNegativeNEGATIVEMercy Health- [place], KYpH, UA7.0[facility]- [place], KYProtein (U) [Mass/Vol]TRACEAbnormal NEGATIVEMercy Health- [place], KYSpecific [place], UA1.020[facility]- [place], [place] Turbidity UACLEARCLEARMercy Health- [place], KYUrinalysis CommentsNOT REPORTEDMercy Health- [place], KYUrine HgbNegativeNEGATIVEMercy Health- [place], KYUrobilinogen, Urine NormalNormalMercy Health- [place], KYBasic Metabolic Panelon [id number] gap [Moles/Vol]11 mmol/L9 - 17 mmol/LMercy Health Work Phone: bun/Cre Vmuoo49Mszaj Health Work Phone: calcium [Mass/Vol]10.0 mg/dL8.6 - 10.4 mg/dLOhiohealth Shelby HospitalFriendfer Work Phone: chloride [Moles/Vol]97 mmol/LLow98 - 107 mmol/LMercy Health Work Phone: cO2 [Moles/Vol]26 mmol/L20 - 31 mmol/LMercy [employer] Work Phone: creatinine [Mass/Vol]0.61 mg/dL0.5 - 0.9 mg/dLOhiohealth Shelby HospitalFriendfer Work Phone: GFR >60>60 mL/minOhiohealth Shelby HospitalFriendfer Work Phone: GFR Non->60>60 mL/minOhiohealth Shelby HospitalPerk Phone: Glucose [Mass/Vol]161 mg/gGJsda30 - 99 mg/dLOhiohealth Shelby HospitalPerk Phone: Interpretation and review of laboratory results AbnormalOhiohealth Shelby HospitalPerk Phone: potassium [Moles/Vol]4.7 mmol/L3.7 - 5.3 mmol/LMohiohealth [facility] [employer] Phone: sodium [Moles/Vol]134 mmol/QGdx276 - 144 mmol/LMercy [employer] Phone: Urea nitrogen [Mass/Vol]9 mg/dL6 - 20 mg/dLOhiohealth Shelby HospitalPerk Phone: cBC Auto Differentialon [id number] (Bld) [#/Vol]0.03 10*3/[employer]illing[employer]Per[employer] Phone: basophils/100 WBC (Bld)1 %0 - 2 %[employer] Phone: differential TypeNOT REPORTEDOhiohealth Shelby HospitalPerk Phone: eosinophils (Bld) [#/Vol]0.15 10*3/[employer] Phone: eosinophils/100 WBC (Bld)3 %1 - 4 %[employer] Phone: erythrocyte distribution width (RBC) [Ratio]13.3 %11.8 - 14.4 %[employer] Phone: Hematocrit (Bld) [Volume fraction]47.0 %36.3 - 47.1 % [employer] Phone: Hemoglobin (Bld) [Mass/Vol]15.1 g/dL11.9 - 15.1 g/dL [employer] Phone: Immature granulocytes (Bld) [#/Vol]10*3/[employer] Work Phone: Immature granulocytes (Bld) [#/Vol]0 %0Ohiohealth Shelby HospitalPerk Phone: Interpretation and review of laboratory results AbnormalOhiohealth Shelby HospitalPerk Phone: Lymphocytes (Bld) [#/Vol]1.62 10*3/[employer]tonPer[employer] Phone: [phone]/100 WBC (Bld)30 %24 - 43 %[employer] Phone: MCH (RBC) [Entitic mass]28.7 pg25.2 - 33.5 pgOhiohealth Shelby HospitalPerk Phone: MCHC (RBC) [Mass/Vol]32.1 g/dL28.4 - 34.8 g/dLOhiohealth Shelby HospitalPerk Phone: MCV (RBC) [Entitic vol]89.4 fL82.6 - 102.9 fLOhiohealth Shelby HospitalPerk Phone: Monocytes (Bld) [#/Vol]0.36 10*3/[employer]tonPer[employer] Phone: [phone]/100 WBC (Bld)7 %3 - 12 %[employer] Phone: Platelet mean volume (Bld) [Entitic vol]9.1 fL8.1 - 13.5 fLOhiohealth Shelby HospitalPerk Phone: [phone] (Bld) [#/Vol]NOT REPORTEDOhiohealth Shelby HospitalPerk Phone: [phone] (Bld) [#/Vol]235 10*3/[place] Phone: [phone] (Bld) [#/Vol]5.26 10*6/uLHigh3.95 - 5.11 m/[place] Phone: RBC morphology finding Nom (Bld)NOT REPORTEDOhiohealth Shelby HospitalPerk Phone: Segmented neutrophils/100 WBC (Bld)59 %36 - 65 %[employer] Phone: segs Absolute3.17[employer] Phone: WBC (Bld) [#/Vol]5.3 10*3/uLOhiohealth Shelby HospitalPerk Phone: WBC (Bld) [#/Vol]0.0 10*3/uL0.0 per 100 WBCBiocontrol Phone: WBC MorphologyNOT REPORTEDOhiohealth Shelby HospitalPerk Phone: Metabolic Panelon 19-32-5057ZEK/1.73 sq M predicted among non-blacks MDRD (S/P/Bld) [Vol rate/Area][employer] Phone: comment on above:Average GFR for 30-39 years old: 107 mL/min/1.73sq m Chronic Kidney Disease: <60 mL/min/1.73sq m Kidney failure: <15 mL/min/1.73sq m eGFR calculated using average adult body mass. Additional eGFR calculator available at: http://www.PressConnect/multiple_crcl_2012.htm Stage 1: Some kidney damage normal GFR Stage 2: Mild kidney damage GFR 60-89 Stage 3: Moderate kidney damage GFR 30-59 Stage 4: Severe kidney damage GFR 15-29 Stage 5: Severe kidney damage GFR <15 ESRD - chronic treatment by dialysis or transplant XR CHEST STANDARD (2 VW)Ordered By: Byron Munguia on 20-33-6232Xb acute cardiopulmonary disease.[employer] Phone: eXAMINATION: TWO XRAY VIEWS OF THE CHEST 03/24/2019 8:09 am COMPARISON: AP chest from 03/24/2019 HISTORY: ORDERING SYSTEM PROVIDED HISTORY: fell on back TECHNOLOGIST PROVIDED HISTORY: fell on back History of hypertension, morbid obesity and metabolic syndrome FINDINGS: Cardiac silhouette within normal limits; mediastinal structures midline and also normal. Lungs and costophrenic angles clear. No fracture identified. Some narrowing intervertebral disc space T11-T12 and T12-L1 (better demonstrated on recent rib series).[employer] Phone: edi, [facility] Incoming Radiant Results From [email or web address] - 03/24/2019 8:32 AM EST EXAMINATION: TWO XRAY VIEWS OF THE CHEST 03/24/2019 8:09 am COMPARISON: AP chest from 03/24/2019 HISTORY: ORDERING SYSTEM PROVIDED HISTORY: fell on back TECHNOLOGIST PROVIDED HISTORY: fell on back History of hypertension, morbid obesity and metabolic syndrome FINDINGS: Cardiac silhouette within normal limits; mediastinal structures midline and also normal. Lungs and costophrenic angles clear. No fracture identified. Some narrowing intervertebral disc space T11-T12 and T12-L1 (better demonstrated on recent rib series). IMPRESSION: No acute cardiopulmonary disease. [employer] Phone: XR HAND LEFT (MIN 3 VIEWS)Ordered By: Byron Munguia on 25-24-1235Hj acute osseous abnormality identified.[employer] Phone: eXAMINATION: THREE XRAY VIEWS OF THE LEFT HAND 03/24/2019 8:07 am COMPARISON: January 16, 2009 HISTORY: ORDERING SYSTEM PROVIDED HISTORY: fell on it TECHNOLOGIST PROVIDED HISTORY: fell on it FINDINGS: No fracture or malalignment identified. The joint spaces are maintained. No discrete soft tissue abnormality identified.[employer] Phone: edi, [facility] Incoming Radiant Results From [email or web address] - 03/24/2019 8:28 AM EST EXAMINATION: THREE XRAY VIEWS OF THE LEFT HAND 03/24/2019 8:07 am COMPARISON: January 16, 2009 HISTORY: ORDERING SYSTEM PROVIDED HISTORY: fell on it TECHNOLOGIST PROVIDED HISTORY: fell on it FINDINGS: No fracture or malalignment identified. The joint spaces are maintained. No discrete soft tissue abnormality identified. IMPRESSION: No acute osseous abnormality identified. [employer] Phone: XR RIBS BILATERAL (MIN 4 VIEWS)Ordered By: Byron Munguia on [id number] radiographic evidence for rib fracture. No acute cardiopulmonary pathology.[employer] Phone: eXAMINATION: 2 XRAY VIEWS OF THE BILATERAL RIBS WITH FRONTAL XRAY VIEW OF THE CHEST 03/24/2019 8:08 am COMPARISON: None. HISTORY: ORDERING SYSTEM PROVIDED HISTORY: fell on them TECHNOLOGIST PROVIDED HISTORY: fell on them FINDINGS: Frontal view of the chest and dedicated frontal and oblique views of the chest wall bilaterally are submitted for review. Cardiac silhouette is normal in size. Lung parenchyma is clear without focal airspace consolidation, sizeable pleural effusion, or pneumothorax. Trachea is midline. Dedicated images of the ribs are without evidence for displaced rib fracture. [facility] Phone: [facility] Results From [email or web address] - 03/24/2019 8:30 AM EST EXAMINATION: 2 XRAY VIEWS OF THE BILATERAL RIBS WITH FRONTAL XRAY VIEW OF THE CHEST 03/24/2019 8:08 am COMPARISON: None. HISTORY: ORDERING SYSTEM PROVIDED HISTORY: fell on [email or web address] TECHNOLOGIST PROVIDED HISTORY: fell on [email or web address] FINDINGS: Frontal view of the chest and dedicated frontal and oblique views of the chest wall bilaterally are submitted for review. Cardiac silhouette is normal in size. Lung parenchyma is clear without focal airspace consolidation, sizeable pleural effusion, or pneumothorax. Trachea is midline. Dedicated images of the ribs are without evidence for displaced rib fracture. IMPRESSION: No radiographic evidence for rib fracture. No acute cardiopulmonary pathology. [employer] Phone: XR SACRUM COCCYX (MIN 2 VIEWS)Ordered By: Byron Munguai on [id number] acute osseous abnormality identified.[employer] Phone: eXAMINATION: THREE XRAY VIEWS OF THE SACRUM/COCCYX 03/24/2019 8:08 am COMPARISON: Lumbar radiographs today and August 07, 2015. HISTORY: ORDERING SYSTEM PROVIDED HISTORY: fell on it TECHNOLOGIST PROVIDED HISTORY: fell on it FINDINGS: Pelvic alignment is maintained. There is no sacral or coccyx fracture demonstrated. No acute osseous abnormality appreciated in the visualized pelvis. No discrete soft tissue abnormality identified.[employer] Phone: edi, [facility] Incoming Radiant Results From [email or web address] - 03/24/2019 8:30 AM EST EXAMINATION: THREE XRAY VIEWS OF THE SACRUM/COCCYX 03/24/2019 8:08 am COMPARISON: Lumbar radiographs today and August 07, 2015. HISTORY: ORDERING SYSTEM PROVIDED HISTORY: fell on it TECHNOLOGIST PROVIDED HISTORY: fell on it FINDINGS: Pelvic alignment is maintained. There is no sacral or coccyx fracture demonstrated. No acute osseous abnormality appreciated in the visualized pelvis. No discrete soft tissue abnormality identified. IMPRESSION: No acute osseous abnormality identified. [facility] [employer] Work Phone: basic Metabolic Panelon [id number] gap [Moles/Vol]15 mmol/L9 - 17 mmol/LMohiohealth dublin methodist [facility] Health- [place], KYBun/Cre Vqfso55Hbdfk Health- [place], KYCalcium [Mass/Vol]9.7 mg/dL8.6 - 10.4 mg/dLMercy Health St. [facility]- [place], [place] Chloride [Moles/Vol]101 mmol/L98 - 107 mmol/LMohiohealth dublin methodist hospital Health- [place], KYCO2 [Moles/Vol] 25 mmol/L20 - 31 mmol/LMohiohealth dublin [facility]ist [facility]- [place], KYCreatinine [Mass/Vol]0.56 mg/dL0.5 - 0.9 mg/dLMercy Health St. [facility]- [place], KYGFR >60>60 mL/minSuburban [facility]- [place], KYGFR Non->60>60 mL/minSuburban Community Hospital [facility]- [place], KYGlucose [Mass/Vol]74 mg/dL70 - 99 mg/dLMer[address] Health [address] [facility]- [place], KYPotassium [Moles/Vol]3.8 mmol/L3.7 - 5.3 mmol/LMohiohealth dublin [facility] Health- [place], KYSodium [Moles/Vol]141 mmol/L135 - 144 mmol/LMohiohealth dublin [facility] hospital Health- [place], KYUrea nitrogen [Mass/Vol]8 mg/dL6 - 20 mg/dLThe [facility] [place], KYCBC on 60-96-1259Xhzzedcqfdr distribution width (RBC) [Ratio]12.8 %11.8 - 14.4 % [facility], KYHematocrit (Bld) [Volume fraction]44.5 %36.3 - 47.1 %[facility], KYHemoglobin (Bld) [Mass/Vol]14.6 g/dL11.9 - 15.1 g/dLMercy Health St. [facility]- [place], KYMCH (RBC) [Entitic mass]28.7 pg25.2 - 33.[address] [facility]- [place], KYMCHC (RBC) [Mass/Vol]32.8 g/dL28.4 - 34.8 g/dLSheltering Arms Hospital, SCMCV (RBC) [Entitic vol]87.4 fL82.6 - 102.9 fLSheltering Arms Hospital, SCPlatelet mean volume (Bld) [Entitic vol]8.8 fL8.1 - 13.5 fLSheltering Arms Hospital, SCPlatelets (Bld) [#/Vol]296 10*3/[facility], SCRBC (Bld) [#/Vol]5.09 10*6/uL3.95 - 5.11 m/[facility], SCWBC (Bld) [#/Vol]7.4 10*3/[facility], [facility]ACHBC (Bld) [#/Vol] 0.0 10*3/uL0.0 per 100 WBCSheltering Arms Hospital, SCMetabolic Panelon 11-30-2018 GFR/1.73 sq M predicted among non-blacks MDRD (S/P/Bld) [Vol rate/Area][facility], SCComment on above:Average GFR for 30-39 years old: 107 mL/min/1.73sq m Chronic Kidney Disease: <60 mL/min/1.73sq m Kidney failure: <15 mL/min/1.73sq m eGFR calculated using average adult body mass. Additional eGFR calculator available at: http://www.PressConnect/multiple_crcl_2012.htm Stage 1: Some kidney damage normal GFR Stage 2: Mild kidney damage GFR 60-89 Stage 3: Moderate kidney damage GFR 30-59 Stage 4: Severe kidney damage GFR 15-29 Stage 5: Severe kidney damage GFR <15 ESRD - chronic treatment by dialysis or transplant Microscopic Urinalysison 85-44-0204Liswsmfsb, UANOT REPORTEDSelect [facility], [place], KYBacteria, UATRACEAbnormalSelect Medical [facility], [place], KYCasts UANOT REPORTED/LPF [facility], KYCrystals UANOT REPORTEDNone /HPFSheltering Arms Hospital, [place] Epithelial Cells UA2 TO 5[facility], SCInterpretation and review of laboratory resultsAbnormalMercy Health- [place], KYMucus, UANOT REPORTEDNoneMercy Health- [place], KYOther Observations UANOT REPORTEDNOT REQ.[facility]- [place], KYRBC (U) [#/Vol]NoneMercy Health- [place], KYRenal Epithelial, UrineNOT REPORTED0 /HPF [facility]- [place], KYTrichomonas, UANOT REPORTEDNoneMercy Health- [place], KYWBC, UA2 TO 5[facility]- [place], KYYeast, UANOT REPORTEDNoneMercy Health- [place], [place]-[facility]- [place], KYUrinalysis Reflex to Cultureon [id number] UrineNegative NEGATIVEMercy Health- [place], KYColor, UAYELLOWYELLOWMercy Health- [place], KYGlucose, Ur NegativeNEGATIVEMercy Health- [place], KYInterpretation and review of laboratory resultsAbnormalMercy Health- [place], KYKetones Ql (U)NegativeNEGATIVEMercy Health- [place], KYLeukocyte esterase Test strip Ql (U)NegativeNEGATIVEMercy Health- [place], [place] Nitrite, UrineNegativeNEGATIVEMercy Health- [place], KYpH, UA5.5Mer[facility]- [place], [place] Protein (U) [Mass/Vol]NegativeNEGATIVEMercy Health- [place], KYSpecific [place], UA >1.030HighMercy Health- [place], KYTurbidity UACLEARCLEARMercy Health- [place], [place] Urinalysis CommentsNOT REPORTEDMercy Health- [place], KYUrine HgbNegativeNEGATIVE [facility] Health- [place], KYUrobilinogen, UrineNormalNormalMercy Health- [place], KYCT LUMBAR SPINE WO CONTRASTon 52-37-4717Ffnhvgacspjr disc disease at the thoracolumbar junction and mildly at L5-S1. no acute osseous abnormality identified. Probable left renal cyst, although larger since imaging 1 year ago. Consider nonemergent renal ultrasound when clinically appropriate.[facility]- [place], KYEXAMINATION: CT OF THE LUMBAR SPINE WITHOUT CONTRAST 11/05/2018 TECHNIQUE: CT of the lumbar spine was performed without the administration of intravenous contrast. Multiplanar reformatted images are provided for review. Dose modulation, iterative reconstruction, and/or weight based adjustment of themA/kV was utilized to reduce the radiation dose to as low as reasonably achievable. COMPARISON: CT lumbar spine March 24, 2016. CT abdomen and pelvis July 15, 2017. HISTORY: ORDERING SYSTEM PROVIDED HISTORY: lower back pain TECHNOLOGIST PROVIDED HISTORY: lower back pain FINDINGS: BONES/ALIGNMENT: There is normal alignment of the spine. The vertebral body heights are maintained. No osseous destructive lesion is seen. DEGENERATIVE CHANGES: Degenerative disc disease is notable at T11-12 and T12-L1.The T11-12 level was off the field of view on the prior exam, however the disc disease at T12-L1 appears more prominent. Mild disc disease at L5-S1 appears similar. The facets appear maintained. SOFT TISSUES/RETROPERITONEUM: No perispinal hematoma. The visualized retroperitoneal soft tissues reveala probable exophytic cyst arising from the posterior left kidney measuring up to 2 cm, previously 1.3 cm in 2017 and 2018.[facility] [place], [place] Incoming Radiant Results From [employer] - 11/05/2018 2:30 PM EDT EXAMINATION: CT OF THE LUMBAR SPINE WITHOUT CONTRAST 11/05/2018 TECHNIQUE: CT of the lumbar spine was performed without the administration of intravenous contrast. Multiplanar reformatted images are provided for review. Dose modulation, iterative reconstruction, and/or weight based adjustment of the mA/kV was utilized to reduce the radiation dose to as low as reasonably achievable. COMPARISON: CT lumbar spine March 24, 2016. CT abdomen and pelvis July 15, 2017. HISTORY: ORDERING SYSTEM PROVIDED HISTORY: lower back pain TECHNOLOGIST PROVIDED HISTORY: lower back pain FINDINGS: BONES/ALIGNMENT: There is normal alignment of the spine. The vertebral body heights are maintained. No osseous destructive lesion is seen. DEGENERATIVE CHANGES: Degenerative disc disease is notable at T11-12 and T12-L1. The T11-12 level was off the field of view on the prior exam, however the disc disease at T12-L1 appears more prominent. Mild disc disease at L5-S1 appears similar. The facets appear maintained. SOFT TISSUES/RETROPERITONEUM: No perispinal hematoma. The visualized retroperitoneal soft tissues reveal a probable exophytic cyst arising from the posterior left kidney measuring up to 2 cm, previously 1.3 cm in 2017 and 2018. IMPRESSION: Degenerative disc disease at the thoracolumbar junction and mildly at L5-S1. no acute osseous abnormality identified. Probable left renal cyst, although larger since imaging 1 year ago. Consider nonemergent renal ultrasound when clinically appropriate. [facility], KYXR VAGINOGRAM/PERINEOGRAMon [id number] VAGINOGRAM/PERINEOGRAM* * *Final Report* * *DATE OF EXAM: Sep 03 2017 9:49AM HCX [id number] - XR VAGINOGRAM/PERINEOGRAM / REASON: rectovaginal fistula * * * * Physician Interpretation * * * *RESULT: XR VAGINOGRAMINDICATION: Rectovaginal fistulaTECHNIQUE: A 16 Swedish Higginbotham catheter was inserted inserted inadvertently into the urethra. It was subsequently repositioned into the vagina. Water-soluble contrast was administered and spot images obtained with and without the balloon.Contrast:Vagina:500ML ml of OMNIPAQUE 300Fluoroscopic Radiation Summary:Plane A, Air Kerma: 574.9 mGyDose Area Product (DAP): 079949.0 mGy*mcZ5Fdcqla time: 1:19 min:secCOMPARISON: CT 08/24/2017, outside studyRESULT:Contrast opacifies an unremarkable urinary bladder before repositioning.Following positioning the catheter within the vagina, contrast fills the vagina and demonstrates the rectovaginal fistula at the level of the mid rectum extending from the vaginal cuff. The tract measures approximately 2 cm in length.The study was performed by HILARIO Linn under the supervision of Dr. Bala Pires. Imagesassociated with this study were submitted for interpretation and reviewed by Dr. Bala Pires.IMPRESS ION:RECTOVAGINAL FISTULATranscribed Using Voice RecognitionTranscribe Date/Time: Sep 03 2017 10:52ADictated by: Paul LINN examination was interpreted and the report reviewed and electronically signed by: BALA PIRES MD on Sep 03 2017 11:55AM [id number] Hospital Vital Signs Date TimeVital SignValuePerforming SbspgmmgjNshrowct86-10-1889 11:31-0500Body exssan110.3 cmCorey Jair DO Work Phone: [facility] Zmdqygifsp63-73-8767 11:31-0500Body mass index (BMI) [Ratio]34.28 kg/h7Tjuqm Jair DO Work Phone: [facility] HospitalVprzpjbrrt54-39-1040 11:31-0500Body rguqbu803.29 kgCorey Jair DO Work Phone: [facility] HospitalWgvuayadyi86-89-6281 11:31-0500Diastolic blood hjazichc97 mm[Hg]Manuelito Jair DO Work Phone: NOAudrain Medical CenterZvbdtbfffz34-06-1094 11:31-0500Systolic blood yucpxdei119 mm[Hg]Manuelito Jair DO Work Phone: [facility] HospitalBvrkicupmy76-47-5074 09:23-0400Diastolic blood ovocjunr78 mm[Hg]Arthur Saleh LEAD INSTRUCTOR/FLIGHT ATTENDANT Work Phone: [facility] Work Phone: 1(557) 507-358110-16-2025 09:23-0400Systolic blood dgbjqvfy872 mm[Hg] Arthur Saleh LEAD INSTRUCTOR/FLIGHT ATTENDANT Work Phone: [facility] Work Phone: [phone] 09:08-0400Body tiknhj541.26 cmJopage Saleh LEAD INSTRUCTOR/FLIGHT ATTENDANT Work Phone: [facility] Work Phone: 1(353) 726-438910-16-2025 09:08-0400Body mass index (BMI) [Ratio]34.2 kg/u1Rgvxporfpage Saleh LEAD INSTRUCTOR/FLIGHT ATTENDANT Work Phone: [facility] Work Phone: 1(663) 866-292110-16-2025 09:08-0400Body surface area Derived from formula2.2 g2ZfmjpjglArthur Ambrizick LEAD INSTRUCTOR/FLIGHT ATTENDANT Work Phone: [facility] Work Phone: 1([phone]) 155-217810-16-2025 09:08-0400Body vfkxhbjpwoz64.2 [degF] Arthur Saleh LEAD INSTRUCTOR/FLIGHT ATTENDANT Work Phone: [facility] Work Phone: 1(722) 166-616310-16-2025 09:08-0400Body yxkhue240.05 kgJonathan Therese LEAD INSTRUCTOR/FLIGHT ATTENDANT Work Phone: [facility] Work Phone: [phone] 09:08-0400Diastolic blood zuaqijdm40 mm[Hg] Arthurangela Ambrizick LEAD INSTRUCTOR/FLIGHT ATTENDANT Work Phone: [facility] Work Phone: [phone] 820-131310-16-2025 09:08-0400Heart rate69 /minMarileenatangela TaylorTherese LEAD INSTRUCTOR/FLIGHT ATTENDANT Work Phone: [facility] Work Phone: [phone] 476-344910-16-2025 09:08-0400Inhaled oxygen hylmxnwkxcqkf21 % Arthur Saleh LEAD INSTRUCTOR/FLIGHT ATTENDANT Work Phone: [facility] Work Phone: 1([phone]) [phone] 09:08-0400Inhaled oxygen flow rate0 L/min Arthurangela Ambrizick LEAD INSTRUCTOR/FLIGHT ATTENDANT Work Phone: [facility] Work Phone: [phone]) 115-416710-16-2025 09:08-0400Respiratory rate18 /minMarileenatangela TaylorTherese LEAD INSTRUCTOR/FLIGHT ATTENDANT Work Phone: [facility] Work Phone: 1(254) 371-315810-16-2025 09:08-3001WeJ3% (BldA) [Mass fraction]98 % Arthur Saleh LEAD INSTRUCTOR/FLIGHT ATTENDANT Work Phone: [facility] Work Phone: 1(781) 639-650310-16-2025 09:08-0400Systolic blood rlasmgch343 mm[Hg] Arthur Therese LEAD INSTRUCTOR/FLIGHT ATTENDANT Work Phone: [facility] Work Phone: 1(467) 478-110409-11-2025 15:06-0400Diastolic blood kadxzysn87 mm[Hg] Arthur Therese LEAD INSTRUCTOR/FLIGHT ATTENDANT Work Phone: [facility] Work Phone: 1(334) 524-993209-11-2025 15:06-0400Systolic blood awduzldc265 mm[Hg] Arthur Saleh LEAD INSTRUCTOR/FLIGHT ATTENDANT Work Phone: [facility] Work Phone: 1(363) 685-553409-11-2025 14:51-0400Body .26 cmArthur Saleh LEAD INSTRUCTOR/FLIGHT ATTENDANT Work Phone: [facility] Work Phone: [phone] 240-411309-11-2025 14:51-0400Body mass index (BMI) [Ratio]34.1 kg/k4YvdibojhArthur Saleh LEAD INSTRUCTOR/FLIGHT ATTENDANT Work Phone: [facility] Work Phone: 1(866) 653-458509-11-2025 14:51-0400Body surface area Derived from formula2.2 d3KfkblhclArthur Saleh LEAD INSTRUCTOR/FLIGHT ATTENDANT Work Phone: [facility] Work Phone: 1(103) 586-370009-11-2025 14:51-0400Body .9 [degF] Arthur Saleh LEAD INSTRUCTOR/FLIGHT ATTENDANT Work Phone: [facility] Work Phone: 1(911) 229-738809-11-2025 14:51-0400Body fpkerz276.69 kgArthur Saleh LEAD INSTRUCTOR/FLIGHT ATTENDANT Work Phone: [facility] Work Phone: 1([phone]) 385-362009-11-2025 14:51-0400Diastolic blood krnukpst18 mm[Hg] Arthur Saleh LEAD INSTRUCTOR/FLIGHT ATTENDANT Work Phone: [facility] Work Phone: 1([phone]) 119-570209-11-2025 14:51-0400Heart rate60 /minArthur Saleh LEAD INSTRUCTOR/FLIGHT ATTENDANT Work Phone: [facility] Work Phone: 1(137) 707-334209-11-2025 14:51-0400Inhaled oxygen toypdhfvbgfzr33 % Arthur Saleh LEAD INSTRUCTOR/FLIGHT ATTENDANT Work Phone: [facility] Work Phone: 1(112) 182-190809-11-2025 14:51-0400Inhaled oxygen flow rate0 L/min Arthur Saleh LEAD INSTRUCTOR/FLIGHT ATTENDANT Work Phone: [facility] Work Phone: 1(589) 123-235609-11-2025 14:51-0400Respiratory rate23 /minArthur Saleh LEAD INSTRUCTOR/FLIGHT ATTENDANT Work Phone: [facility] Work Phone: 1(235) 368-223909-11-2025 14:51-7914YcC2% (BldA) [Mass fraction]99 % Arthur Saleh LEAD INSTRUCTOR/FLIGHT ATTENDANT Work Phone: [facility] Work Phone: 1([phone]) 411-863109-11-2025 14:51-0400Systolic blood rgcbkqir620 mm[Hg] Arthur Saleh LEAD INSTRUCTOR/FLIGHT ATTENDANT Work Phone: [facility] Work Phone: 1(219) 364-276008-14-2025 10:14-0400Diastolic blood mm[Hg] Arthur Saleh LEAD INSTRUCTOR/FLIGHT ATTENDANT Work Phone: [facility] Work Phone: 1(193) 585-907108-14-2025 10:14-0400Systolic blood wlmkpwot409 mm[Hg] Arthur Saleh LEAD INSTRUCTOR/FLIGHT ATTENDANT Work Phone: [facility] Work Phone: 1(111) 282-417108-14-2025 10:07-0400Body xzsvxy213.8 cmJopage Saleh LEAD INSTRUCTOR/FLIGHT ATTENDANT Work Phone: [facility] Work Phone: 1([phone] 391-971508-14-2025 10:07-0400Body mass index (BMI) [Ratio]32.2 kg/p3LdemgfrzArthur Saleh LEAD INSTRUCTOR/FLIGHT ATTENDANT Work Phone: [facility] Work Phone: 1(646) 360-676608-14-2025 10:07-0400Body surface area Derived from formula2.2 w7OfozjdyuArthur Saleh LEAD INSTRUCTOR/FLIGHT ATTENDANT Work Phone: [facility] Work Phone: 1(373) 553-150408-14-2025 10:07-0400Body lklujzpjeyc67.1 [degF] Arthur Saleh LEAD INSTRUCTOR/FLIGHT ATTENDANT Work Phone: [facility] Work Phone: 1(118) 877-825908-14-2025 10:07-0400Body hjoplv363.79 kgArthur Saleh LEAD INSTRUCTOR/FLIGHT ATTENDANT Work Phone: [facility] Work Phone: 1([phone]) 425-900708-14-2025 10:07-0400Diastolic blood bmbcimtj76 mm[Hg] Arthur Saleh LEAD INSTRUCTOR/FLIGHT ATTENDANT Work Phone: [facility] Work Phone: 1(655) 645-680908-14-2025 10:07-0400Heart rate58 /minArthur Saleh LEAD INSTRUCTOR/FLIGHT ATTENDANT Work Phone: [facility] Work Phone: 1(137) 327-992008-14-2025 10:07-0400Inhaled oxygen jsmuqotykfvzs34 % Arthur Saleh LEAD INSTRUCTOR/FLIGHT ATTENDANT Work Phone: [facility] Work Phone: 1(363) 851-511108-14-2025 10:07-0400Inhaled oxygen flow rate0 L/min Arthur Saleh LEAD INSTRUCTOR/FLIGHT ATTENDANT Work Phone: [facility] Work Phone: 1(553) 738-442808-14-2025 10:07-0400Respiratory rate17 /minArthur Saleh LEAD INSTRUCTOR/FLIGHT ATTENDANT Work Phone: [facility] Work Phone: 1(521) [phone] 10:07-5685ElZ8% (BldA) [Mass fraction]98 % Arthur Saleh LEAD INSTRUCTOR/FLIGHT ATTENDANT Work Phone: [facility] Work Phone: 1(482) 856-590408-14-2025 10:07-0400Systolic blood zpkayopx681 mm[Hg] Arthur Saleh LEAD INSTRUCTOR/FLIGHT ATTENDANT Work Phone: [facility] Work Phone: 1([phone]) 145-658507-07-2025 16:15-0400Diastolic blood ngqjqqyz42 mm[Hg] Kevin Sagastume DDS Work Phone: [phone] [place] [address] [employer] Nojvwq50-32-7074 16:15-0400Heart rate70 /minChristopher Tanika DDS Work Phone: [phone] [place], [place] 3770807-07-2025 16:15-0400Respiratory rate17 /minChristopher Tanika DDS Work Phone: [phone] [place], [place] 3770807-07-2025 16:15-5523BnZ8% (BldA) [Mass fraction]99 %Kevin Marcelinoale DDS Work Phone: [phone] [place], [place] 3770807-07-2025 16:15-0400Systolic blood udgrqcmy697 mm[Hg]Kevin Marcelinoale DDS Work Phone: [phone] [place], [place] 3770807-07-2025 16:00-0400Body tfsifbnbjpm61 [degF]Kevin Marcelinoale DDS Work Phone: [phone] [place], [place] 3770807-07-2025 11:49-0400Body height 175.3 cmChristrowan Marcelinoale DDS Work Phone: [phone] [place], [place] 3770807-07-2025 11:49-0400Body mass index (BMI) [Ratio]33.97 kg/r6Mxafztbybns Tanika DDS Work Phone: [phone] [place], [place] 3770807-07-2025 11:49-0400Body weight 104.33 kgChristopher Tanika DDS Work Phone: [phone] [place], Tn [id number] 08:45-0400Body height 175.26 cmArthur Saleh LEAD INSTRUCTOR/FLIGHT ATTENDANT Work Phone: [facility] Work Phone: 1(572) 635-799806-02-2025 08:45-0400Body mass index (BMI) [Ratio]33.6 kg/i7StdwjygnArthur Saleh LEAD INSTRUCTOR/FLIGHT ATTENDANT Work Phone: [facility] Work Phone: 1(563) 937-734106-02-2025 08:45-0400Body surface area Derived from formula2.2 e2OvfjgnvqArthur Saleh LEAD INSTRUCTOR/FLIGHT ATTENDANT Work Phone: [facility] Work Phone: 1(899) 731-696706-02-2025 08:45-0400Body fmkbahicpyf79.9 [degF] Arthur Saleh LEAD INSTRUCTOR/FLIGHT ATTENDANT Work Phone: [facility] Work Phone: 1(840) 834-874006-02-2025 08:45-0400Body upbxuz157.24 kgArthur Saleh LEAD INSTRUCTOR/FLIGHT ATTENDANT Work Phone: [facility] Work Phone: 1(741) 854-131106-02-2025 08:45-0400Diastolic blood sptkoroe39 mm[Hg] Arthur Saleh LEAD INSTRUCTOR/FLIGHT ATTENDANT Work Phone: [facility] Work Phone: 1(639) 598-292706-02-2025 08:45-0400Heart rate53 /minArthur Saleh LEAD INSTRUCTOR/FLIGHT ATTENDANT Work Phone: [facility] Work Phone: 1(848) 427-203406-02-2025 08:45-0400Inhaled oxygen hnqsrsjhivyqz12 % Arthur Saleh LEAD INSTRUCTOR/FLIGHT ATTENDANT Work Phone: [facility] Work Phone: 1(544) 570-960706-02-2025 08:45-0400Inhaled oxygen flow rate0 L/min Arthur Saleh LEAD INSTRUCTOR/FLIGHT ATTENDANT Work Phone: [facility] Work Phone: 1(450) 140-993606-02-2025 08:45-0400Respiratory rate20 /minArthur Saelh LEAD INSTRUCTOR/FLIGHT ATTENDANT Work Phone: [facility] Work Phone: 1(472) 397-842406-02-2025 08:45-3822MmH0% (BldA) [Mass fraction]99 % Arthur Saleh LEAD INSTRUCTOR/FLIGHT ATTENDANT Work Phone: [facility] Work Phone: 1(680) 677-109606-02-2025 08:45-0400Systolic blood jujquifr761 mm[Hg] Arthur Saleh LEAD INSTRUCTOR/FLIGHT ATTENDANT Work Phone: [facility] Work Phone: 1(361) 172-360705-08-2025 10:52-0400Diastolic blood sheqhsov56 mm[Hg] Arthur Saleh LEAD INSTRUCTOR/FLIGHT ATTENDANT Work Phone: [facility] Work Phone: 1(209) 189-767605-08-2025 10:52-0400Systolic blood mazixvuo411 mm[Hg] Arthur Saleh LEAD INSTRUCTOR/FLIGHT ATTENDANT Work Phone: [facility] Work Phone: 1(399) 738-543305-08-2025 10:45-0400Body ivheop855.26 cmArthur Saleh LEAD INSTRUCTOR/FLIGHT ATTENDANT Work Phone: [facility] Work Phone: 1(823) 310-104605-08-2025 10:45-0400Body mass index (BMI) [Ratio]33.7 kg/e4RgdmwzrjArthur Saleh LEAD INSTRUCTOR/FLIGHT ATTENDANT Work Phone: [facility] Work Phone: 1(959) 323-620205-08-2025 10:45-0400Body surface area Derived from formula2.2 x6NfstmaspArthur Saleh LEAD INSTRUCTOR/FLIGHT ATTENDANT Work Phone: [facility] Work Phone: 1(469) [phone] 10:45-0400Body bgaiigkrwbg67.4 [degF] Arthur Saleh LEAD INSTRUCTOR/FLIGHT ATTENDANT Work Phone: [facility] Work Phone: 1(315) 728-904805-08-2025 10:45-0400Body emysxb139.42 kgArthur Saleh LEAD INSTRUCTOR/FLIGHT ATTENDANT Work Phone: [facility] Work Phone: 1(348) 713-426305-08-2025 10:45-0400Diastolic blood hswuskjf16 mm[Hg] Arthur Saleh LEAD INSTRUCTOR/FLIGHT ATTENDANT Work Phone: [facility] Work Phone: 1(323) [phone] 10:45-0400Heart rate64 /minArthur Saleh LEAD INSTRUCTOR/FLIGHT ATTENDANT Work Phone: [facility] Work Phone: 1(705) 379-768605-08-2025 10:45-6548PkH3% (BldA) [Mass fraction]98 % Arthur Saleh LEAD INSTRUCTOR/FLIGHT ATTENDANT Work Phone: [facility] Work Phone: 1(387) 350-923905-08-2025 10:45-0400Systolic blood wanvezmh868 mm[Hg] Arthur Saleh LEAD INSTRUCTOR/FLIGHT ATTENDANT Work Phone: [facility] Work Phone: 1(650) [phone] 09:39-0400Body dsrkek159.3 Sintia Brunson MD Work Phone: [facility] [employer] [facility] HospitalVffffe79-49-2222 09:39-0400Body mass index (BMI) [Ratio]33.94 kg/x6XncxgTre Brice MD Work Phone: [facility] [facility] Lgcuvb52-48-4628 09:39-0400Body .3 kgTre Brice MD Work Phone: [facility] [employer] [facility] Vuulfn00-86-2537 09:39-0400Diastolic blood muihjymm85 mm[Hg]Tre Brice MD Work Phone: [facility]04-02-2025 09:39-0400Systolic blood mm[Hg]Tre Brice MD Work Phone: [facility]03-28-2025 10:33-0400Diastolic blood sfgtxmoi98 mm[Hg]Arthur Therese LEAD INSTRUCTOR/FLIGHT ATTENDANT Work Phone: [facility] Work Phone: 1(779) [phone] 10:33-0400Systolic blood bafxqjkf176 mm[Hg] Arthur Therese LEAD INSTRUCTOR/FLIGHT ATTENDANT Work Phone: [facility] Work Phone: 1(643) [phone] 10:13-0400Body ilsjnd342.26 cmMarileekaitlinangela Saleh LEAD INSTRUCTOR/FLIGHT ATTENDANT Work Phone: [facility] Work Phone: 1(232) [phone] 10:13-0400Body mass index (BMI) [Ratio]34.1 kg/k0VqjfupdtArthur Saleh LEAD INSTRUCTOR/FLIGHT ATTENDANT Work Phone: [facility] Work Phone: 1(741) [phone] 10:13-0400Body surface area Derived from formula2.2 o7Powxsrjeangela Saleh LEAD INSTRUCTOR/FLIGHT ATTENDANT Work Phone: [facility] Work Phone: 1(527) 190-591903-28-2025 10:13-0400Body gtdosnfbnli68.9 [degF] Arthur Saleh LEAD INSTRUCTOR/FLIGHT ATTENDANT Work Phone: [facility] Work Phone: 1(639) 454-231403-28-2025 10:13-0400Body ioincr682.78 kgPujaangela Saleh LEAD INSTRUCTOR/FLIGHT ATTENDANT Work Phone: [facility] Work Phone: 1(854) [phone] 10:13-0400Diastolic blood yvvfvoaz91 mm[Hg] Arthur Saleh LEAD INSTRUCTOR/FLIGHT ATTENDANT Work Phone: [facility] Work Phone: 1(374) 157-254903-28-2025 10:13-0400Heart rate54 /minArthur Ambrizick LEAD INSTRUCTOR/FLIGHT ATTENDANT Work Phone: [facility] Work Phone: 1(414) 850-211303-28-2025 10:13-0400Respiratory rate18 /minArthur Ambrizick LEAD INSTRUCTOR/FLIGHT ATTENDANT Work Phone: [facility] Work Phone: 1(220) [phone] 10:133749AkY7% (BldA) [Mass fraction]100 % Arthur Saleh LEAD INSTRUCTOR/FLIGHT ATTENDANT Work Phone: [facility] Work Phone: 1(675) 374-378403-28-2025 10:130Systolic blood onbwctyp716 mm[Hg] Arthur Saleh LEAD INSTRUCTOR/FLIGHT ATTENDANT Work Phone: [facility] Work Phone: 1(245) 440-956603-12-2025 18:03-0400Body dypcmmjbomo53.4 [degF]Aleah Salmon MD Work Phone: [facility] [employer] [facility] HospitalArmagt64-18-1274 18:03-0400Diastolic blood cercbwnw99 mm[Hg]Aleah Salmon MD Work Phone: [facility] [employer] [facility] HospitalKwvofc42-29-0229 18:03-0400Heart rate65 /minAleah Salmon MD Work Phone: [facility] [employer] [facility] HospitalPmdnzc96-14-5021 18:03-0400 Respiratory rate15 /minAleah Salmon MD Work Phone: [facility] [employer] [facility] HospitalEqrbfx79-70-1554 18:03-5056RgN2% (BldA) [Mass fraction]100 %Aleah Salmon MD Work Phone: [facility]03-12-2025 18:03-0400Systolic blood mm[Hg]Aleah Salmon MD Work Phone: [facility]03-12-2025 11:30-0400Body brmoff469.3 Mary Lou Rubi COOPERER Work Phone: [facility] HospitalLgrvfnevak38-32-5326 11:30-0400Body mass index (BMI) [Ratio]34.26 kg/m2Lisa Eliseohholz COOPERER Work Phone: [facility] HospitalPtwizgskfr42-22-4451 11:30-0400Body temperature 97.81 [degF]Aneudy Rubi COOPERER Work Phone: [facility] HospitalVromtmgfho80-24-4797 11:30-0400Body zsmsat835.23 kgLisa Eliseohednaz COOPERER Work Phone: [facility] HospitalXbmusbxabj62-26-7963 11:30-0400Diastolic blood mm[Hg]Aneudy Jeffz COOPERER Work Phone: [facility] HospitalWrmyjogskx62-72-7371 11:30-0400Heart rate64 /min Aneudy Namitaholz COOPERER Work Phone: [place] [address]Hmaukaizoh58-44-0078 11:30-0400Respiratory rate22 /minLisa Jeffz COOPERER Work Phone: [place] [address]Hyzxrytvag02-68-4750 11:30-5123RxB7% (BldA) [Mass fraction]99 %Aneudy Jeffz COOPERER Work Phone: [place] [address]Ipaduirkjk60-71-6279 11:30-0400Systolic blood dyrpcmvd329 mm[Hg]Aneudy Eliseohholz COOPERER Work Phone: [place] [address]Teiiqmxwnt01-60-8977 17:39-0400Body mass index (BMI) [Ratio]33.97 kg/o4MzgejOrlando Zacarias MD Work Phone: [facility]03-10-2025 17:39-0400Body uecexv349.33 kgThmarjorie Zacarias MD Work Phone: [facility] [employer]03-10-2025 17:38-0400Body wvjmbdfmaof09.11 [degF]Orlando Zacarias MD Work Phone: [facility] [employer] [facility] Yinmpd10-19-3205 17:38-0400Diastolic blood svyiqhep16 mm[Hg]Orlando Zacarias MD Work Phone: [facility] [employer] Rpcczw66-80-6960 17:38-0400Heart rate62 /minOrlando Zacarias MD Work Phone: [facility] [employer]03-10-2025 17:38-0400 Respiratory rate16 /minOrlando Zacarias MD Work Phone: [facility] [employer] [facility]HealthUnityMkgxtt83-84-7276 17:38-3160ObI8% (BldA) [Mass fraction]100 %Orlando Zacarias MD Work Phone: [facility] [employer] Zsatsl86-33-8887 17:38-0400Systolic blood tpdtmarj318 mm[Hg]Orlando Zacarias MD Work Phone: [address] [employer] [employer] Jasdyq72-14-9287 00:19-0500Body celdvm683.3 cmThaijustine Zacarias MD Work Phone: [facility] [employer]03-01-2025 00:19-0500Body mass index (BMI) [Ratio]34.7 kg/v6Mbwjgmarjorie Zacarias MD Work Phone: [facility] [employer]03-01-2025 00:19-0500Body flyipapsedw84.9 [degF]Orlando Zacarias MD Work Phone: [facility] [employer]03-01-2025 00:19-0500Body falizp884.59 kgThmarjorie Zacarias MD Work Phone: [facility] [employer]03-01-2025 00:19-0500Diastolic blood deagfogz09 mm[Hg]Orlando Zacarias MD Work Phone: [facility]03-01-2025 00:19-0500Heart rate64 /minThmarjorie Zacarias MD Work Phone: [facility]03-01-2025 00:19-0500 Respiratory rate18 /minOrlando Zacarias MD Work Phone: [facility]03-01-2025 00:19-4124WmU7% (BldA) [Mass fraction]100 %Orlando Zacarias MD Work Phone: [facility]03-01-2025 00:19-0500Systolic blood ciuhfurz494 mm[Hg]Orlando Zacarias MD Work Phone: [facility]02-20-2025 14:23-0500Body .3 cmBranaany Paulino COOPERER Work Phone: [facility] HospitalIqmcficfjk78-61-7087 14:23-0500Body mass index (BMI) [Ratio]35.29 kg/i8Ctjinyrf Paulino COOPERER Work Phone: [facility] HospitalLsbefebvoe74-69-5771 14:23-0500Body temperature 97.81 [degF]Alyson Paulino COOPERER Work Phone: [facility] HospitalKbbjymlviy51-46-3038 14:23-0500Body olcsqg364.41 kgBranaany Paulino COOPERER Work Phone: [facility] HospitalVqegfripfu69-00-3222 14:23-0500Diastolic blood xayrjlpk29 mm[Hg]Alyson Paulino COOPERER Work Phone: noAud[facility] CenterLeairyhnsa78-30-1223 14:23-0500Heart rate68 /min Alyson Paulino COOPERER Work Phone: [facility] HospitalPjhnglolgl58-69-8343 14:23-0500Respiratory rate16 /minBrittany Paulino COOPERER Work Phone: NOAudrain Medical CenterHrteelnerg45-76-1976 14:23-4942IdL6% (BldA) [Mass fraction]96 %Alyson Paulino COOPERER Work Phone: NOAud[facility] CenterTnqnxuuqvq38-80-7253 14:23-0500Systolic blood eqrmffli817 mm[Hg]Alyson Camarillozpatrick COOPERER Work Phone: [facility] HospitalQptqigihhy47-97-4592 09:00-0500Body temperature 97.7 [degF]Bentley Carroll DO Work Phone: [facility] [employer] [facility]UnityJzwekd15-76-0486 09:00-0500Diastolic blood yqjtbvfj83 mm[Hg]Bentley Carroll DO Work Phone: [facility] [employer] [facility]Qlmltv31-24-0995 09:00-0500Heart rate64 /Mitra Carroll DO Work Phone: [facility] [employer] [facility]HealthUnityLafenv06-50-9581 09:00-0500 Respiratory rate20 /minBentley Carroll DO Work Phone: [facility] [employer] [facility]UnityRrpzvv68-38-1311 09:00-1477WtH9% (BldA) [Mass fraction]100 %Bentley Carroll DO Work Phone: [facility] [employer] [facility] Vzeevp94-79-1631 09:00-0500Systolic blood oemsmjmv433 mm[Hg]Bentley Carroll DO Work Phone: [facility] [employer] [facility]UnityDnkmfs62-67-9860 20:18-0500Body uzmtxcjrxhp75.59 [degF]Alyson Camarillozpatrick RN PARALEGAL - COOPERER Work Phone: [facility] [employer] [facility]UnityBtkcbf09-49-3518 20:18-0500Diastolic blood ybgfjvuk91 mm[Hg]Alyson Paulino RN PARALEGAL - COOPERER Work Phone: [facility] [employer]12-31-2024 20:18-0500Heart rate66 /minBrittany Paulino RN PARALEGAL - COOPERER Work Phone: [facility] [employer]12-31-2024 20:18-0500 Respiratory rate16 /Osvaldo Paulino APRN - COOPERER Work Phone: [facility] [employer]12-31-2024 20:18-1853TmB8% (BldA) [Mass fraction]100 %Alyson Paulino APRN - COOPERER Work Phone: [facility] [employer]12-31-2024 20:18-0500Systolic blood xtqsjpou138 mm[Hg]Alyson Paulino APRN - COOPERER Work Phone: [facility] [employer]12-17-2024 02:16-0500Diastolic blood glyvyqfo65 mm[Hg]Livier Brandon DO Work Phone: [facility] [employer]12-17-2024 02:16-0500Heart rate48 /minJaveria Brandon DO Work Phone: [facility] [employer]12-17-2024 02:16-0500 Respiratory rate11 /minJaveria Brandon DO Work Phone: [facility] [employer]12-17-2024 02:16-5899CrV6% (BldA) [Mass fraction]100 %Livier Brandon DO Work Phone: [facility] [employer]12-17-2024 02:16-0500Systolic blood opdsvzfk660 mm[Hg]Livier Brandon DO Work Phone: [facility] [employer]12-17-2024 00:45-0500Body njasym855.7 cmJaveria Brandon DO Work Phone: [facility] [employer]12-17-2024 00:45-0500Body mass index (BMI) [Ratio]34.21 kg/v5Uozlccr Brandon DO Work Phone: [facility] [employer]12-17-2024 00:45-0500Body ownhylcgzzo17.7 [degF]Livier Brandon DO Work Phone: [facility]12-17-2024 00:45-0500Body qubjvr201.06 kgLivier Brandon DO Work Phone: [facility]12-14-2024 21:26-0500Body jykrvxpxwoq64 [degF]Aleah Salmon MD Work Phone: [facility]12-14-2024 21:24-0500Body adwvcf541.7 cmAleah Salmon MD Work Phone: [facility]12-14-2024 21:24-0500Body mass index (BMI) [Ratio]34.21 kg/l9FjoerAleah Salmon MD Work Phone: [facility]12-14-2024 21:24-0500Body .06 kgAleah Salmon MD Work Phone: [facility]12-14-2024 21:24-0500Diastolic blood xwzyohvq32 mm[Hg]Aleah Salmon MD Work Phone: [facility]12-14-2024 21:24-0500Heart rate90 /minAleah Salmon MD Work Phone: [facility]12-14-2024 21:24-0500 Respiratory rate16 /minAleah Salmon MD Work Phone: [facility]12-14-2024 21:24-9729UyK9% (BldA) [Mass fraction]99 %Aleah Salmon MD Work Phone: [facility]12-14-2024 21:24-0500Systolic blood daohqsfo015 mm[Hg]Aleah Salmon MD Work Phone: [facility]12-12-2024 14:23-0500Body igyswh327.3 cmAlyson Paulino NP Work Phone: [facility] HospitalArqedwzdpc18-73-2083 14:23-0500Body mass index (BMI) [Ratio]35.59 kg/v8TycmwfekAlyson Mcgarrypatrick COOPERER Work Phone: [facility] HospitalHunoqvkvuu76-81-6197 14:23-0500Body temperature 97.81 [degF]Alyson Devriestrick COOPERER Work Phone: [facility] HospitalAvywwergfi15-31-8924 14:23-0500Body .32 kgAlyson Devriestrick COOPERER Work Phone: [facility] HospitalKnxrncpwgq52-82-8765 14:23-0500Diastolic blood gvjvbixr75 mm[Hg]Alyson Devriestrick COOPERER Work Phone: [facility] HospitalZrodywnryo74-35-3061 14:23-0500Heart rate71 /min Alysonlyndon Devriestrick COOPERER Work Phone: [facility] HospitalArwdrcyaft94-34-5628 14:23-0500Respiratory rate16 /minAlyson Devriestrick COOPERER Work Phone: [facility] HospitalHpadigdggb45-43-7603 14:23-7520JkM7% (BldA) [Mass fraction]96 %Alyson Devriestrick COOPERER Work Phone: [facility] HospitalBxcdwiessv10-84-7920 14:23-0500Systolic blood mm[Hg]Alyson Devriestrick COOPERER Work Phone: [place] [address]Bexalzlkan35-89-6866 21:33-0500Body .3 cmJaveria Brandon DO Work Phone: [facility]11-05-2024 21:33-0500Body mass index (BMI) [Ratio]35.29 kg/t7Qxocplg Brandon DO Work Phone: [facility] CenterTexas [employer] [facility] HospitalUmdvvf97-94-5513 21:33-0500Body moobcp271.41 kgJaveria Brandon DO Work Phone: [place] [address]-05-2024 21:33-0500Diastolic blood ajhgzorp33 mm[Hg]Livier Brandon DO Work Phone: [facility] [employer] [facility]UnityHnnwrd63-88-6719 21:33-0500Heart rate56 /minSammyveria Brandon DO Work Phone: [facility] [employer] [facility]UnityXwsugm74-02-4854 21:33-0500 Respiratory rate16 /minSammyveria Brandon DO Work Phone: [facility] [employer] [facility] HospitalIvmegt40-25-3935 21:33-5169GpD3% (BldA) [Mass fraction]100 %Livier Brandon DO Work Phone: [facility] [employer] [facility]UnityFbmnit03-00-2146 21:33-0500Systolic blood fgmucbor343 mm[Hg]Livier Brandon DO Work Phone: [facility] [employer] [facility]HealthUnityQijzgu1985 21:30-0500Body mfveftgccdx34.01 [degF]Livier Brandon DO Work Phone: [facility] [employer] [facility] HospitalUnqmhz11-53-2368 14:15-0400Body xkcizn789.3 cmAlyson Paulino COOPERER Work Phone: [facility]CandyAud[facility] CenterJnntecdlvp66-87-7230 14:15-0400Body mass index (BMI) [Ratio]36.03 kg/x3Msvfyfzm Paulino COOPERER Work Phone: noAudrain Medical CenterQgfzjkwcbg31-67-2038 14:15-0400Body temperature 97.2 [degF]Alyson Paulino COOPERER Work Phone: [place] [address]Fgjbemuacp66-09-4165 14:15-0400Body aymgjc581.68 kgBraleena Paulino COOPERER Work Phone: [facility]CandyAud[facility] CenterIqryvleoci25-87-9570 14:15-0400Diastolic blood evcqgcia16 mm[Hg]Alyson Paulino COOPERER Work Phone: noAudrain Medical CenterDwepkdgfbp57-39-5161 14:15-0400Heart rate66 /min Alyson Mcgarrypatrick COOPERER Work Phone: [facility] HospitalVmxymtldtt48-24-9716 14:15-0400Respiratory rate16 /minAlyson Devriestrick COOPERER Work Phone: [facility] HospitalGtixklkukv31-64-5486 14:15-3962BmD6% (BldA) [Mass fraction]98 %Alyson Devriestrick COOPERER Work Phone: [facility] HospitalWzbvkpuder74-13-7244 14:15-0400Systolic blood fhtyifrg521 mm[Hg]Alyson Mcgarrypatrick COOPERER Work Phone: [facility] HospitalBpoowxggod58-49-5891 10:09-0400Body kzjxed581.3 cmAlyson Devriestrick COOPERER Work Phone: [facility] HospitalQclejacnvq30-08-1291 10:09-0400Body mass index (BMI) [Ratio]37.36 kg/p0IjtpedcmAlyson Devriestrick COOPERER Work Phone: [facility] HospitalElqgogmewm57-60-3576 10:09-0400Body temperature 97.5 [degF]Alyson Devriestrick COOPERER Work Phone: [facility] HospitalRomwxvxdhh22-46-9154 10:09-0400Body inkihc039.76 kgAlyson Devriestrick COOPERER Work Phone: [facility] HospitalBvkgjtqsxv47-13-3889 10:09-0400Diastolic blood ynrqsjdj01 mm[Hg]Alyson Paulino COOPERER Work Phone: [facility] HospitalMilrrmzhjq29-15-3061 10:09-0400Heart rate53 /min Alyson Camarillozpatrick COOPERER Work Phone: [facility] HospitalComment on above:99% G418-08-5391 10:09-0400Systolic blood pujtehbb862 mm[Hg]Alyson Camarillozpatrick COOPERER Work Phone: [facility] HospitalSokxnnqsia67-07-7631 05:46-0400Diastolic blood ikzstcin47 mm[Hg]Mitchell Duqueellone DO Work Phone: [facility]ENTERMediaShare [facility]OSPITALClearSaleingAJWBEH46-93-9764 05:46-0400Heart rate83 /minAdastacia Duqueellone DO Work Phone: [facility] YIFMQC91-62-9933 05:46-0400 Respiratory rate17 /minAdam Altonne DO Work Phone: [phone] POZFTI06-32-3271 05:46-7696RtP6% (BldA) [Mass fraction]97 %Mitchell Duqueellone DO Work Phone: [facility] OVRALI12-91-8047 05:46-0400Systolic blood nuiqrzrw415 mm[Hg]Mitchell Duqueellone DO Work Phone: [facility] CENTERMediaShare [facility] SBXEVE34-30-3444 04:26-0400Body thkgudpnruu85.6 [degF]Mitchell Duqueellone DO Work Phone: [facility] XVSNTI80-47-8428 08:52-0400Body anpvrljydbv51.7 [degF][facility] FPGQCT03-71-6668 08:52-0400 Diastolic blood xuxazbqd49 mm[Hg][facility] ECPBHV03-16-1179 08:52-0400Heart rate67 /minMth [address] [place] [address] ITBTFL30-82-7722 08:52-0400 Respiratory rate18 /minMth [address] [place] [address] JZZGMR31-93-1761 08:52-0400 Systolic blood rexjsodd126 mm[Hg][address] VLMYWX32-39-0376 15:40-0400Body oegtjz452.3 cmStvz [facility] HULIOC71-58-4537 15:40-0400 Body mass index (BMI) [Ratio]56.71 kg/m2St[address] LSQZOB08-16-5756 15:40-0400Body lonuhoykmrz68.01 [degF][address] IOXNGX45-25-7922 15:40-0400Body .[address] ZRIRII77-21-5832 15:40-0400Diastolic blood gbsipyex706 mm[Hg]Stvz [facility] 11-20-2022 15:40-0400Heart rate86 /minStvz [facility]-2023 15:40-0400Respiratory rate18 /minStvz [facility]IN[facility]09-06-2023 15:40-3629YyP4% (BldA) [Mass fraction]96 %Stvz [facility] [employer] 11-20-2022 15:40-0400Systolic blood mm[Hg]Stvz [facility]06-02-2023 08:45-0400Body udlrponbvkq80.2 [degF]Dav Wood DO Work Phone: [facility]06-02-2023 08:45-0400Diastolic blood yvykysho857 mm[Hg]Dav Wood [employer] Work Phone: [facility]06-02-2023 08:45-0400Heart rate92 /minDav Wood [employer] Work Phone: [facility]06-02-2023 08:45-0400 Respiratory rate20 /minDav Wood [employer] Work Phone: [facility] UTJLPY10-99-3568 08:45-2872KhA3% (BldA) [Mass fraction]99 %Dav Wood [employer] Work Phone: [facility]06-02-2023 08:45-0400Systolic blood jrjlysxi973 mm[Hg]Dav Wood [employer] Work Phone: [facility] OCIPLP04-71-6744 07:06-0400Body pboluu439.3 cmDav Wood [employer] Work Phone: [facility] KTYRNL71-86-3228 07:06-0400Body mass index (BMI) [Ratio]58.57 kg/m9DdtnmxhDav Wood [employer] Work Phone: [facility] NMSNUF53-44-0730 07:06-0400Body agkukp090.9 kgDav Wood DO Work Phone: [facility]MovingHealth09-10-2022 19:22-0400Diastolic blood ntpschuk969 mm[Hg]Andrei Roman MD Work Phone: [facility] [employer] [facility] HOSPITALComment on above:Did not take blood pressure toqdjafvaj44-56-7518 19:22-0400Systolic blood mm[Hg] Andrei Roman MD Work Phone: [facility] [employer] [facility]ITALComment on above:Did not take blood pressure hsucpgbfrm76-97-9290 19:20-0400Body .49 [degF]Andrei Roman MD Work Phone: [facility] [employer]09-10-2022 19:20-0400Heart rate79 /Arelis Roman MD Work Phone: [facility]09-10-2022 19:20-0400 Respiratory rate18 /Arelis Roman MD Work Phone: [facility] [employer]09-10-2022 19:20-3088XqM3% (BldA) [Mass fraction]95 %Andrei Roman MD Work Phone: [facility] [employer]03-13-2022 21:34-0400Body pnyeby105.3 cmMthz DBVuWwajqo53-14-5503 21:34-0400Body mass index (BMI) [Ratio]61.43 kg/m2Mthz DBVuGlmuxf47-61-1734 21:34-0400Body thaleq843.7 kgMthz DBVuFosqev12-07-5567 23:08-0500Body ipijvtslvlf76.5 [degF]Leigha Michael DO Work Phone: [facility] [id number] 23:08-0500Heart rate97 /min Leigha Michael DO Work Phone: [facility] [id number] 23:08-9467PvG3% (BldA) [Mass fraction]95 %Leigha Michael DO Work Phone: [facility] Sodivz11-57-1766 22:00-0400Body gvnehpoyzrm46.01 [degF]Sharon Frazier DO Work Phone: [facility] [employer] Work Phone: 1(477) 106-776811-04-2021 22:00-0400Diastolic blood mm[Hg]Sharon Frazier DO Work Phone: [facility] [employer] Work Phone: 1(562) 575-770011-04-2021 22:00-0400Heart rate93 /minAmanda Freddie DO Work Phone: [facility] [facility] [employer] Work Phone: 1(160) 864-335011-04-2021 22:00-0400Respiratory rate18 /minAmanda Freddie DO Work Phone: [facility] [employer] Work Phone: 1(124) 635-308011-04-2021 22:00-8338PbO3% (BldA) [Mass fraction]97 % Sharon Frazier DO Work Phone: [facility] [employer] Work Phone: 1(419) 943-789811-04-2021 22:00-0400Systolic blood fovdmlfm897 mm[Hg] Sharon Frazier DO Work Phone: [facility] [employer] Work Phone: 1(589) 118-341310-14-2021 23:30-0400Diastolic blood mm[Hg] Sandra Oneal MD Work Phone: [facility] [employer] Work Phone: 1(155) 555-242510-14-2021 23:30-5920WsS0% (BldA) [Mass fraction]97 % Sandra Oneal MD Work Phone: [facility] [employer] Work Phone: 1(107) 508-508310-14-2021 23:30-0400Systolic blood vyjcrbec515 mm[Hg] Sandra Oneal MD Work Phone: [facility] [employer] Work Phone: 1(856) 104-351210-14-2021 19:55-0400Body htkhib872.3 cmSandra Oneal MD Work Phone: [facility] [employer] Work Phone: 1(753) 441-566110-14-2021 19:55-0400Body mass index (BMI) [Ratio] 60.99 kg/a3XayoukwSandra Oneal MD Work Phone: [facility] [employer] Work Phone: 1(644) 822-749410-14-2021 19:55-0400Body nmruqxkbzxm52.01 [degF] Sandra Oneal MD Work Phone: [facility] [employer] Work Phone: 1(240)[phone] 19:55-0400Body tgjwez435.34 kgSandra Oneal MD Work Phone: [facility] [employer] Work Phone: 1(883)335-549721-63446603-20-9618 19:55-0400Heart rate84 /minSandra Oneal MD Work Phone: [facility] [employer] Work Phone: 1(697)635-321828-22902398-07-1790 19:55-0400Respiratory rate18 /Nora Oneal MD Work Phone: [facility] [employer] Work Phone: 1(655) 828-974711-17-2020 18:16-0500Body Fwfxfpobine19.29 [degF] [facility], JY22-20-3263 18:16-0500BP Lzytcsaqm00 mm[Hg] [facility], YD92-78-5436 18:16-0500BP Ykaiakmz842 mm[Hg] [facility], TT49-08-4642 18:16-0500Pulse (Heart Rate)99 /min [facility], AI71-67-3770 18:16-0500Pulse Ugyvppyt41 %[facility], AH38-72-6954 18:16-0500Respiratory Rate18 /[facility], JT75-27-2364 23:03-0500Body Ifyqpdautmr23.2 [degF][facility], PQ28-42-8035 23:03-0500BP Jufwmhezg814 mm[Hg][facility]- [place], GU67-29-0232 23:03-0500BP Whbvdafz773 mm[Hg][facility]- [place], ID33-91-2970 23:03-0500Pulse (Heart Rate)84 /minSyed [facility]- [place], LM19-66-7745 23:03-0500Pulse Qsobrgle75 %[facility] [place], CN47-48-1622 23:03-0500Respiratory Rate17 /minSyed [facility]- [place], LE69-19-4999 01:19-0400Body Uvcgtrsnjpi76.91 [degF][facility]- [place], QR46-02-3678 01:19-0400BP Pjxaxdtnc47 mm[Hg][facility]- [place], IN58-39-3653 01:19-0400BP Cpglsrqa574 mm[Hg][facility]- [place], KR75-18-2143 01:19-0400Pulse (Heart Rate)98 /[facility] [place], CD17-31-7151 01:19-0400Pulse Vlbkijwn45 %[facility]- [place], CB16-33-0074 01:19-0400Respiratory Rate16 /[facility]- [place], VV51-52-3379 21:03-0400Body Twrxntkkcvv95.49 [degF][facility]- [place], QF77-81-0911 21:03-0400BP Yxlzlixqb881 mm[Hg][facility]- [place], 09-15-2019 21:03-0400BP Oejkrqdm042 mm[Hg][facility]- [place], 09-15-2019 21:01-0400Pulse (Heart Rate)87 /[facility]- [place], 09-15-2019 21:01-0400Pulse Hoherzul24 %[facility]- [place], 09-15-2019 21:01-0400Respiratory Rate20 /minJustin [facility]- [place], [place] 05-21-2019 17:21-0500BMI (Body Mass Index)56.85 kg/m2Syed [facility]- [place], QZ59-66-3635 17:21-0500Body Hrwdzecqgug66.9 [degF][facility]- [place], PC28-32-6901 17:21-0500Body rairen345.63 kgSyed [facility]- [place], [place] 05-21-2019 17:21-0500BP Xsphkctxh49 mm[Hg][facility] [place], [place] 05-21-2019 17:21-0500BP Kyzpefqm865 mm[Hg][facility]- [place], [place] 05-21-2019 17:21-6047Akixck916.3 cmSd [facility]- [place], GS37-19-2672 17:21-0500Pulse (Heart Rate)63 /minSyed [facility]- [place], WN69-18-1484 17:21-0500Pulse Dmuozxdt56 %[facility]- [place], YL71-83-9630 17:21-0500Respiratory Rate18 /minSyed [facility]- [place], AM31-35-4522 14:57-0500Respiratory Rate16 /[facility]- [place], UH90-15-7477 14:03-0500BMI (Body Mass Index)56.85 kg/w9[facility]- [place], [place] 05-20-2019 14:03-0500Body Nrnbznzjlnk29.01 [degF][facility] [place], [place] 05-20-2019 14:03-0500Body bogapp502.63 [facility]- [place], [place] 05-20-2019 14:03-0500BP Ydynjpgvk28 mm[Hg][facility] [place], [place] 05-20-2019 14:03-0500BP Yhapsino431 mm[Hg][facility] [place], [place] 05-20-2019 14:03-9445Dtktzt376.3 [facility]- [place], EU02-07-5313 14:03-0500Pulse (Heart Rate)76 /Fara [facility], HM37-62-5246 14:03-0500Pulse Mlmfskhh292 %Elmer [facility], BL86-36-9077 16:51-0500BMI (Body Mass Index)55.82 kg/u7Lhoet [facility], [place] 05-11-2019 16:51-0500Body Edtvtzacaif58.39 [degF][facility], [place] 05-11-2019 16:51-0500Body foeiwo249.46 kgConner [facility], [place] 05-11-2019 16:51-0500BP Jttlgkugn19 mm[Hg][facility], SCComkyleigh on above:pt states that is good for ut 05-11-2019 16:51-0500BP Rncqmjlp216 mm[Hg][facility], IRISHComkyleigh on above:pt states that is good for ut 05-11-2019 16:51-0500Pulse (Heart Rate)86 /minhilton [facility], UY75-29-1873 16:51-0500Pulse Fxghkule86 %[facility], [place] 05-11-2019 16:51-0500Respiratory Rate16 /[facility], [place] 04-20-2019 11:45-0500BP Nxpbqsutl78 mm[Hg][employer] Work Phone: 1(580) 868-308202-04-2020 11:45-0500BP Vspjinjb611 mm[Hg][employer] Work Phone: 1(462) 530-626702-04-2020 11:45-0500Pulse (Heart Rate)73 /minSt. Michael[facility] Hospitalun[facility] Work Phone: 1(903) 641-522902-04-2020 11:45-0500Pulse Fxafrhts11 %[employer] Work Phone: 1(822) [phone] 11:45-0500Respiratory Rate16 /minMictempe st[address] [facility] [employer] Work Phone: 1(513) 526-597902-04-2020 09:32-0500BMI (Body Mass Index)57.45 kg/m2 [facility] [employer]SA[facility] Work Phone: 1(417) 105-932602-04-2020 09:32-0500Body Aqjielfygdi67.8 [degF] Umesh FlahertyOptimitiverikki [employer] Work Phone: 1(753) 924-593902-04-2020 09:32-0500Body rdgqti980.45 kgUmesh DevriesUbequity Work Phone: 1(129) 759-845801-16-2020 07:26-0500Body mass index (BMI) [Ratio] 56.56 kg/n2Xcvuxyu PaulinoA[facility]Life [facility] Work Phone: 1(845) 606-569801-16-2020 07:26-0500Body sadurampnpk82.29 [degF] Umesh Paulino [employer] Work Phone: 1(876) 280-994901-16-2020 07:26-0500Body .73 kgUmesh DevriesArigo Work Phone: 1(383) 913-274201-16-2020 07:26-0500Diastolic blood dkzbpjfi91 mm[Hg] Umesh Paulino [employer] [facility] Work Phone: comment on above:pt states that is normal for me until I take my bp meds 04-01-2019 07:26-0500Heart rate82 /minUmesh Devriestrick [employer] Work Phone: 1(409) 391-927901-16-2020 07:26-0500Respiratory rate18 /minUmesh Paulino [facility] Work Phone: 1(124) 153-325001-16-2020 07:26-9405SuW1% (BldA) [Mass fraction]99 % Umesh Paulino [facility] Work Phone: 1(667) 638-764801-16-2020 07:26-0500Systolic blood bfopydgr064 mm[Hg] Umesh Paulino [employer] [facility] Work Phone: comment on above:pt states that is normal for me until I take my bp meds 03-24-2019 07:37-0500Body fflcfgwqbyb73.59 [degF]Byron Munguia MD Work Phone: [facility] [employer] Work Phone: 1(160) 162-522901-08-2020 07:37-0500Diastolic blood wappprpe683 mm[Hg]Byron Munguia MD Work Phone: [facility] [employer] Work Phone: 1(859) 929-912301-08-2020 07:37-0500Heart rate97 /Zay Munguia MD Work Phone: [facility] [employer] Work Phone: 1(462)[phone]2-7282 07:37-0500Respiratory rate20 /Zay Munguia MD Work Phone: [facility] [employer] Work Phone: 1(491) [phone] 07:37-9953DzS1% (BldA) [Mass fraction]96 % Byron Munguia MD Work Phone: [facility] [employer] Work Phone: 1(651) [phone] 07:37-0500Systolic blood xbjhovve644 mm[Hg] Byron Munguia MD Work Phone: [facility] [employer] Work Phone: 1(406) 304-541009-16-2019 22:52-0400BP Rsgbiythm07 mm[Hg][facility], GS07-02-2574 22:52-0400BP Zvvqsyei581 mm[Hg][facility], HV21-43-4210 22:52-0400Pulse (Heart Rate)86 /[facility], NH25-48-3880 19:08-0400Body Pnfekvhdiak52.81 [degF][facility], HD66-47-8103 19:08-0400Pulse Mzduglcm481 %[facility], KU53-02-4833 19:08-0400Respiratory Rate18 /Fara [facility], OA94-04-1403 15:04-0400BP Kqhjqgmjz160 mm[Hg][facility] SCComment on above:FRANCOISE Ragsdale is aware. Pt states my supervisor mold yard is trying to get me to take my Coreg 11-05-2018 15:04-0400BP Cztujgvx913 mm[Hg][place], [place] Comment on above:FRANCOISE Ragsdale is aware. Pt states my supervisor mold yard is trying to get me to take my Coreg 11-05-2018 13:38-0400BMI (Body Mass Index)57.89 kg/m2 [facility], NV16-58-0666 13:38-0400Body Iywnqrbhcfw62.9 [degF][facility], ZH78-45-9604 13:38-0400Body .81 [place], [place] 11-05-2018 13:38-0400Pulse (Heart Rate)101 /[facility], LT37-14-8954 13:38-0400Pulse Cqfppqxa98 %[facility], UG74-40-4477 13:38-0400Respiratory Rate16 /[facility], BC59-68-5550 20:26-0400Respiratory Rate16 /min [facility], EQ78-06-8255 20:20-0400BP Vxmeuoopd29 mm[Hg][facility], DF91-62-2680 20:20-0400BP Qqprexku045 mm[Hg][facility], WN88-97-2932 20:01-0400Body Kvhdudorzpz83.8 [degF][facility], NG20-12-8006 20:01-0400Pulse (Heart Rate)76 /[facility], MC51-92-9242 20:01-0400Pulse Riqkbiwa50 %[place], [place] Encounters Encounter DateEncounter TypeCare ProviderFacilityStart: 01-24-2025 End: 63-89-2116Orumcq flowsheetCorey Jair DO Work Phone: NO [facility] OBGYNStart: 01-24-2025 End: 59-50-9084Grnzeg flowsheetCorey Jair DO Work Phone: [facility] OBGYNStart: 01-24-2025 End: 64-58-8435oahqjrxwgiHBJXB FAZIONot AvailableStart: 01-24-2025 End: 43-68-2202Dapvfw outpatient visit 15 minutesCorey Jair DO Work Phone: [facility] OBGYNComment on above:Pelvic pain in female (Primary Dx); Encounter for consultation; PCOS (polycystic ovarian syndrome)Start: 06-24-5022liutspkyodZfapganxContreras VERACNPFacility:[facility] CenterStart: 01-12-2025 End: 94-52-5548Dqdgqlaaxj hospital visit by Darryl KIRKLAND Physical TherapyStart: 01-03-2025 End: 44-79-1527Loxiqhkgoq hospital visit by Darryl KIRKLAND Physical TherapyStart: 67-01-6472hrhfwyriljJHSPUXIYContreras FloresNatchaug Hospital Start: 12-30-2024 End: 67-85-1393Hbwwmll evaluation of patient and reportArthur MUIR Work Phone: [facility] Work Phone: Start: 12-09-2024 End: 01-21-3258vscqqeowleMNEYHXYZContreras [facility] [place] Hospicetart: 12-09-2024 End: 69-19-0574Ticnzcwpks hospital visit by Darryl KIRKLAND Physical TherapyComment on above:ArrivedStart: 12-08-2024 End: 11-33-5946deinytzzwqSPILYICDContreras [facility] [place] Hospicetart: 12-08-2024 End: 62-93-6167Ujtwfxpppq hospital visit by Darryl KIRKLAND Physical TherapyComment on above:ArrivedStart: 11-25-2024 End: 94-55-4353GTKQ visit, edie Saleh LEAD INSTRUCTOR/FLIGHT ATTENDANT Work Phone: [facility] Work Phone: Start: 11-25-2024 End: 79-02-7038XoudnkwOelvojao Frederick LEAD INSTRUCTOR/FLIGHT ATTENDANT Work Phone: [facility] Work Phone: Start: 11-25-2024 End: 76-68-2057AlogpazBmdspbbu Frederick LEAD INSTRUCTOR/FLIGHT ATTENDANT Work Phone: [facility] Work Phone: Start: 10-28-2024 End: 47-20-0516DMRW visit, edie Lorenzo ACOUSTIC INTELLIGENCE SPECIALIST Work Phone: [facility] Work Phone: Start: 10-28-2024 End: 29-52-5253STIT visit, edie Lorenzo ACOUSTIC INTELLIGENCE SPECIALIST Work Phone: [facility] Work Phone: Start: 10-28-2024 End: 75-73-2068VCGF visit, edie Saleh LEAD INSTRUCTOR/FLIGHT ATTENDANT Work Phone: [facility] Work Phone: Start: 09-27-2024 End: 19-35-8233ygaichlawaLSJF [facility] HospitalStart: 09-27-2024 End: 86-99-2650Gozpijsphg hospital [facility] by [facility] Abram Bryant [address] [place] [address] RadiologyComment on above:Lumbar spondylosisLumbar spondylosis; Scoliosis concernStart: 09-20-2024 End: 79-20-2218wyzelglhxbLPVWVFIKFPUJenny Glover HospitalStart: 09-20-2024 End: 38-82-7005Swagvjqyip hospital visit by Bassam Sagastume DDS Work Phone: a [facility] PeriopComment on above:Dental cariesStart: 51-68-7323nepjqvxxwaAEPXYC Radha N[facility]ZM[facility] HospitalStart: 09-13-2024 ambulatoryOTHER [facility] HospitalStart: 64-86-7849Ihetazhgr for other preprocedural examinationCHRISTOPHER N BEALEAnaheim General Hospital HospitalStart: 08-23-2024 End: 62-13-2312Htkeakuen encounterCorey Jair DO Work Phone: NOQD BCP OBStart: 08-16-2024 End: 62-84-2348TjyfyamYlxxwgrl Therese LEAD INSTRUCTOR/FLIGHT ATTENDANT Work Phone: [facility] Work Phone: Start: 08-16-2024 End: 15-33-3341naosxkgixoPbthopjs Therese LEAD INSTRUCTOR/FLIGHT ATTENDANT Work Phone: [facility] Work Phone: Start: 08-05-2024 End: 43-42-1886Tbxumuxht department patient visitANEUDY Holloway [facility]Start: 07-22-2024 End: 97-89-4314KblrjwqBjwfzsrg Therese LEAD INSTRUCTOR/FLIGHT ATTENDANT Work Phone: [facility] Work Phone: Start: 07-22-2024 End: 49-61-3694xgsckrbkybOrbvibpy Therese LEAD INSTRUCTOR/FLIGHT ATTENDANT Work Phone: [facility] Work Phone: Start: 07-22-2024 End: 00-87-9764UkeridcEpzpndwh Therese LEAD INSTRUCTOR/FLIGHT ATTENDANT Work Phone: [facility] Work Phone: Start: 06-16-2024 End: 79-07-7980sqspovwwgeYWRES EL-ATASSIMercy [place] HospitalStart: 06-16-2024 End: 01-33-9302Ydrvvlcbga hospital visit by Pradip Brice MD Work Phone: [facility] Non-Invasive CardiologyComment on above:SSS (sick sinus syndrome) ([facility])Start: 06-11-2024 End: 98-29-5245Fxepnuo encounter procedureJopage Saleh LEAD INSTRUCTOR/FLIGHT ATTENDANT Work Phone: [facility] Work Phone: Start: 06-11-2024 End: 04-49-1249DQBP visit new patientMarileepage Ambrizick [facility] Work Phone: [facility] Work Phone: Start: 06-11-2024 End: 75-86-8511Iqyrhr and infrarenal abdom aorta 4+ prosthesispage Saleh [facility] Work Phone: [facility] Work Phone: Start: 06-03-2024 End: 56-47-8722junvkvxbsvOWXDG EL-ATASSYuma Regional Medical Centerankur [facility] HospitalStart: 05-27-2024 ambulatoryLifecare Hospitals Of North Carolinaangela Saleh [facility] - WOStart: 05-26-2024 End: 20-66-8824Syzmuaqlq department patient visitAleah Salmon MD Work Phone: [facility] Emergency DepartmentComment on above:Cat bite of left hand, initial encounter (Primary Dx); ArthritisStart: 05-26-2024 End: 78-64-2321Vhyeyc outpatient visit 15 minutesKatesa Rubi COOPERER Work Phone: noms CWM FMComment on above:Pain of finger of left hand (Primary Dx); Morbid (severe) obesity due to excess calories (CMS/HCC); Chronic pain syndromeStart: 05-26-2024 End: 12-59-4079azeywuordnPDIZ AICHHOLZNot AvailableStart: 05-24-2024 End: 42-92-4099Lvpncpwlb department patient visitThmarjorie Zacarias MD Work Phone: [facility] Emergency DepartmentComment on above:Cat scratch of left hand, initial encounter (Primary Dx)Start: 05-24-2024 End: 31-38-3076SgateqJufl Aichholz COOPERER Work Phone: [facility] C[facility] FMComment on above:Chronic pain syndrome; Chronic low back pain, unspecified back pain laterality, unspecified whether sciatica presentStart: 05-20-2024 End: 86-02-4181Skdtxb flowsheetLisa Aichholyan COOPERER Work Phone: [facility] C[facility] FMStart: 05-20-2024 End: 81-47-8336Vsybmc flowsheetLisa Eliseohholyan COOPERER Work Phone: [facility] FMStart: 05-20-2024 End: 41-28-3010oxryhsigcgBJMK AICHHOLZNot AvailableStart: 05-15-2024 End: 14-55-4518Yljqtozsf department patient visitThmarjorie Zacarias MD Work Phone: [facility] Emergency DepartmentComment on above: Cellulitis of right upper extremity (Primary Dx)Start: 05-06-2024 End: 78-85-1048Irmzwk outpatient visit 10 minutesBraleena Greyk COOPERER Work Phone: [facility] CWM FMComment on above:Non-recurrent acute suppurative otitis media of right ear without spontaneous rupture of tympanic me mbrane (Primary Dx); Sinus congestionStart: 05-06-2024 End: 11-65-9261bxmkplfqhjRVEFADYW FITZPATRICKNot AvailableStart: 05-06-2024 End: 33-36-7930Yzkcjb flowsheetBrittany Paulino COOPERER Work Phone: [facility] FMStart: 05-06-2024 End: 84-16-1968Phlxmt flowsheetBrittany Paulino COOPERER Work Phone: [facility] FMStart: 04-27-2024 End: 08-02-7027HrpbrmGhkxJoe CALDERON CWM FMComment on above:Chronic low back pain, unspecified back pain laterality, unspecified whether sciatica present Start: 03-26-2024 End: 87-80-8669Shtdjxhcm department patient visitBentley Carroll DO Work Phone: [facility] Emergency DepartmentComment on above: Contusion of multiple sites of right shoulder and upper arm, initial encounter (Primary Dx)Start: 03-24-2024 End: 43-01-9100ZzaxvtJmof Naderer MD Work Phone: noms CWM FMComment on above:Chronic low back pain, unspecified back pain laterality, unspecified whether sciatica presentStart: 03-16-2024 End: 27-95-2571Zjqlkczhn department patient visitALYSON Garcia [facility] DepartmentStart: 03-02-2024 End: 88-60-3053Actdyutuf department patient visitJujucheo Martinez Georgiana DO Work Phone: [facility] Emergency DepartmentComment on above: Dizziness (Primary Dx); Nausea; Transient bradycardiaStart: 02-28-2024 End: 74-81-3019Blpfnbxhn department patient visitAleah Salmon MD Work Phone: [facility] Emergency DepartmentComment on above: Nausea and vomiting, unspecified vomiting type (Primary Dx)Start: 02-26-2024 End: 63-90-6747Jwjkty outpatient visit 15 minutesAlyson Paulino NP Work Phone: noms CWM FMComment on above:Cold intolerance (Primary Dx); Cold intolerance of hand; Pain in both hands; Discoloration of skin of hand; Family history of Raynaud phenomenon; B12 deficiency; S/P bariatric surgery; Essential hypertension; Gastroesophageal reflux disease without esophagitis; Hypokalemia; Chronic low back pain, unspecified back pain laterality, unspecified whether sciatica presentStart: 02-26-2024 End: 92-70-9710xcdzokwcvjUDRIMNYY FITZPATRICKNot AvailableStart: 02-26-2024 End: 35-72-4030Ttyakl flowsheetAlyson Greyk COOPERER Work Phone: [facility] C[facility] FMStart: 02-26-2024 End: 09-87-6056Hqbnip flowsheetAlyson Devriestrick COOPERER Work Phone: [facility] C[facility] FMStart: 02-01-2024 End: 61-01-7974FxcnsgLaozenkt Paulino COOPERER Work Phone: [facility] CWM FMComment on above:Chronic low back pain, unspecified back pain laterality, unspecified whether sciatica presentStart: 01-31-2024 End: 24-17-2123GbqvvrAurbymtk Paulino COOPERER Work Phone: [facility] CWM FMComment on above:Essential hypertension Start: 01-20-2024 End: 07-48-6082Abneudgxk department patient visitJavercheo Brandon DO Work Phone: [facility] EDComment on above:Left wrist sprain, initial encounter (Primary Dx)Start: 01-05-2024 End: 76-72-0247MvudbaNkozsrgp Fitzpatrick COOPERER Work Phone: [facility] CWM FMComment on above:Hypokalemia (Primary Dx) Start: 01-02-2024 End: 70-40-1745Hjdkfgnrc Result EncounterGeneric External Data ProviderNOMS External Department UnsolicitedStart: 01-02-2024 End: 41-45-7693Nsjropiaj Result EncounterGeneric External Data ProviderNOMS External Department UnsolicitedStart: 01-02-2024 End: 77-16-2545GoiudkWxsirdqw Paulino COOPERER Work Phone: noMS CWM FMComment on above:Essential hypertension Start: 01-02-2024 End: 71-28-0067imtrzkoctrNQEYACleveland Clinic Akron Generaltart: 57-92-7497Sbbsqkepq for other preprocedural examinationJALEH ESLAMIMerLoma Linda Veterans Affairs Medical Centertart: 12-30-2023 End: 23-20-5838Icdubp outpatient visit 10 minutesAlyson Paulino COOPERER Work Phone: noms CWM FMComment on above:Laceration of left lower extremity, initial encounter (Primary Dx)Start: 12-30-2023 End: 35-99-6523Ztblvl OnlyAlyson Paulino COOPERER Work Phone: noms CWM FMComment on above:Chronic low back pain, unspecified back pain laterality, unspecified whether sciatica present (Primary Dx)Start: 12-11-2023 End: 25-75-2780Gxq-admission assessmentDav CRAIG [facility] Start: 12-03-2023 End: 38-31-5960Oyzwmu flowsheetAlyson Paulino COOPERER Work Phone: noms CWM FMStart: 12-03-2023 End: 20-89-9229Dpceft flowsheetAlyson Paulino COOPERER Work Phone: n[facility] CWM FMStart: 12-03-2023 End: 30-34-5057Ledajp outpatient visit 15 minutesAlyson Paulino COOPERER Work Phone: noms CWM FMComment on above:Essential hypertension (Primary Dx); Gastroesophageal reflux disease without esophagitis; Hypokalemia; Chronic bilateral low back pain without sciatica; Cracked toothStart: 12-02-2023 End: 48-03-8315jqnnliyrbrEFGLLOCF E PERRYFacility:EU BellevueStart: 12-02-2023 End: 30-88-8285Awplegq encounter procedureJENNIFER E DIANE [facility] start: 11-25-2023 End: 12-94-9639Nmkwwjtru Result EncounterGeneric External Data ProviderNOMS External Department UnsolicitedStart: 11-25-2023 End: 81-27-5005Fkfqodddr Result EncounterGeneric External Data ProviderNOMS External Department UnsolicitedStart: 11-05-2023 End: 52-15-0739JsvribKltnzh Fawwad MD Work Phone: noms BWM GENSComment on above:Essential hypertension Start: 11-05-2023 End: 82-35-7499RcadqlLwybvm Ignacio CALDERON CWM IMComment on above:Essential hypertensionStart: 29-86-9617voaedpsnqnMLBXQXMH PERRYFacility:[facility] BellevueStart: 08-06-2023 End: 16-97-7084Zeojgntav department patient visitAdaSaint John's Saint [facility] DO Work Phone: [facility] EDComment on above:Migraine without status migrainosus, not intractable, unspecified migraine type (Primary Dx)Start: 06-19-2023 End: 77-20-1649Emnarodvy Result EncounterCorey Jair DO Work Phone: noms External Department UnsolicitedStart: 06-19-2023 End: 12-62-2199Xdlpahggr Result EncounterCorey Jair DO Work Phone: noms External Department UnsolicitedStart: 12-09-2022 End: 50-69-7799Vqoctmjouo hospital visit by Lemuel Op Treatment Rm 01[facility] ([facility])Start: 11-22-2022 End: 79-04-5728Pizqfeuikx hospital visit by Amie Nieves MD Work Phone: mthz LaboratoryStart: 11-20-2022 End: 38-98-0996Ncqmrmoqsf hospital visit by Sherrell Dennis [id number] Pre-Admit TestingStart: 09-12-2022 End: [id number] hospital visit by Amie Nieves MD Work Phone: mthz LaboratoryComment on above:Essential hypertension; CATIE (obstructive sleep apnea); Morbid obesity (HCC); New onset type 2 diabetes mellitus (HCC); Gastroesophageal reflux disease without esophagitis; Fatty liver; Arthritis; Uncomplicated asthma, unspecified asthma severity, unspecified whether persistent; Hypothyroidism, unspecified type; Atrial fibrillation, unspecified type (HCC)Start: 08-16-2022 End: 84-96-3221Zihbcjpscn hospital visit by Eliezer Wood DO Work Phone: [facility] ORComment on above:Gastroesophageal reflux disease, unspecified whether esophagitis present; Morbid obesity (HCC)Start: 05-14-2022 End: 81-09-8932Phhkkbtsva hospital [facility] by [facility]Long [facility] Room [address] [place] [address] RadiologyComment on above:Obstructive sleep apneaStart: 05-14-2022 End: 45-56-0000Kukxsxeivc hospital visit by [facility] Pulmonary Function Room [facility] PFTComment on above:Obstructive sleep apneaStart: 05-08-2022 End: 36-31-8030fcusqtqexuQOC RAMEY .Facility:H4Cuuau: 11-24-2021 End: 36-68-9481Iudzxoneh department patient visitAndrei Roman MD Work Phone: [facility] EDComment on above:Cellulitis of breast (Primary Dx)Start: 82-78-2192hasdnosnrdQH MANUELITORikki ADAM .Facility:D1Bjght: 09-04-2021 End: 53-95-0259jurbwrhwdcJQ MANUELITORikki ADAM .Facility:G6Crukv: 05-27-2021 End: 81-64-4884Joszdydfvz [facility] Sleep Rm 1MTHZ Sleep CenterComment on above:CATIE (obstructive sleep apnea)Start: 03-12-2021 End: 66-50-3537Kxslkbvmm department patient visitLeigha Michael DO Work Phone: [facility] EDComment on above:COVID-19 (Primary Dx)Start: 02-12-2021 End: 15-13-8208Hiazdgaktg hospital visit by physicianP[facility] Sleep Rm 1MTHZ Sleep CenterComment on above:Essential hypertension; Morbid obesity (HCC); Gastroesophageal reflux disease without esophagitis; Fatty liver; Chronic back pain, unspecified back location, unspecified back pain laterality; Arthritis; Uncomplicated asthma, unspecified asthma severity, unspecified whether persistentStart: 01-18-2021 End: 98-77-2187Uocflakfe department patient visitLokesharchana Frazier DO Work Phone: [facility] EDComment on above:Cyst of right ovary (Primary Dx)Start: 12-28-2020 End: 15-45-8919Cxnealtbt department patient visitSandra Oneal MD Work Phone: [facility] EDComment on above:Generalized abdominal pain (Primary Dx); Nausea and vomiting, intractability of vomiting not specified, unspecified vomiting type; Cellulitis, unspecified cellulitis site; Occipital lymphadenopathyStart: 06-30-2020 End: 17-65-9729Dpvjuzzuaj hospital [facility] by [facility] Covid Screening ScheduleROCHESTER [facility] Covid ScreeningComment on above:ArrivedStart: 06-15-2020 End: 00-81-3521Rzhtemlebp hospital visit by physicianP[facility] Covid Screening ScheduleROCHESTER GENERAL [facility] Covid ScreeningComment on above:ArrivedStart: 02-01-2020 End: 45-69-4263Epjozmktw department patient visitSathyastacia Stacia Marcano Work Phone: [facility] EDComment on above:Nausea and vomiting, intractability of vomiting not specified, unspecified vomiting type (Primary Dx); Viral syndromeStart: 01-26-2020 End: 60-24-7417Ytzbbjpgc department patient visitSyed Cory Regan Work Phone: [facility] EDComment on above:Viral syndrome (Primary Dx)Start: 11-09-2019 End: 32-02-5862Tkcyucjoq department patient visitJuwendy YoungClear Standards Work Phone: [facility] EDComment on above:Facial contusion, initial encounter (Primary Dx)Start: 09-15-2019 End: 52-72-7813Pjacjputs department patient visitJuwendy SA Ignite Work Phone: [facility] EDComment on above:Accidental fall, initial encounter (Primary Dx); Effusion of right knee; Forearm sprain, right, initial encounterStart: 06-17-2019 End: 49-91-4178Qmahmaojne hospital visit by [facility] Lab [facility] LaboratoryComment on above:Elevated liver enzymesStart: 06-15-2019 End: 44-10-7660Lvkqpkgsmw hospital visit by [facility] Laboratory Comment on above:Elevated fasting blood sugar; Morbid obesity (HCC)Start: 05-28-2019 End: 30-84-7392Pkffpydjys hospital visit by [facility] MRIComment on above:Low back pain, unspecified back pain laterality, unspecified chronicity, unspecified whether sciatica presentStart: 05-21-2019 End: 88-56-8589Ftihvxfdk department patient visitSyed Cory Regan Work Phone: [facility] EDComment on above:Strain of lumbar region, initial encounter (Primary Dx)Start: 05-20-2019 End: 58-39-2503Htmrwgdmb department patient visitSHolzer Health System EDComment on above:Strain of lumbar region, initial encounter (Primary Dx)Start: 05-11-2019 End: 58-72-4846Fjwwrulbe department patient visitConner Blandon Work Phone: [facility] EDComment on above:Cellulitis of left lower extremity (Primary Dx)Start: 04-20-2019 End: 82-58-8789Pcxskkagr department patient visitSelect [facility] EDComment on above:Sciatica of right side (Primary Dx); Sacroiliac joint painStart: 04-01-2019 End: 45-16-5584PhaotcjjuCHI St. [facility] patient visitUniversity [facility] EDComment on above:Orbital cellulitis on left (Primary Dx); Acute bacterial conjunctivitis of left eyeStart: 03-24-2019 End: 28-01-1110Ibmemqjtm department patient visitByron Munguia MD Work Phone: [facility] EDComment on above:Fall (on) (from) other stairs and steps, initial encounter (Primary Dx); Acute midline low back pain without sciatica; Rib painStart: 11-30-2018 End: 69-42-7869Eusgtamjg department patient visitSHolzer Health System EDComment on above:Allergic reaction, initial encounter (Primary Dx); Nonintractable headache, unspecified chronicity pattern, unspecified headache type; Hypertension, unspecified typeStart: 11-05-2018 End: 20-14-1024Gnbrjqxgl department patient visitSouthwest General Health Center EDComment on above:Strain of lumbar region, initial encounter (Primary Dx); Renal cystStart: 10-31-2018 End: 26-42-5030AtteusqmsCHI St. [facility] patient visitSHolzer Health System EDComment on above:Infected pierced face (Primary Dx)Start: 09-03-2017 [facility] Procedures DateProcedureProcedure DetailPerforming ClinicianStart: 51-87-7525Mzyw test prsmv read direct optical obs pr dateJonathan Therese LEAD INSTRUCTOR/FLIGHT ATTENDANT Work Phone: Start: 89-36-5824Kgcajcg tobacco non-user cad cap copd pv dmJonathan Therese LEAD INSTRUCTOR/FLIGHT ATTENDANT Work Phone: Start: 77-26-4866Ptfn recent diastolic blood pressure 80-89 mm hgJonathan Therese LEAD INSTRUCTOR/FLIGHT ATTENDANT Work Phone: Start: 72-11-1297Fhnc recent systolic blood pressure <130 mm hgJonathan Therese LEAD INSTRUCTOR/FLIGHT ATTENDANT Work Phone: Start: 87-21-7185Dvmuffd tobacco non-user cad cap copd pv dmJonathan Therese LEAD INSTRUCTOR/FLIGHT ATTENDANT Work Phone: Start: 98-31-1379Sspa recent diastolic blood pressure 80-89 mm hgJonathan Therese LEAD INSTRUCTOR/FLIGHT ATTENDANT Work Phone: Start: 10-78-9580Tqju recent systolic blood pressure <130 mm hgJonathan Therese LEAD INSTRUCTOR/FLIGHT ATTENDANT Work Phone: Start: 76-87-4065Mjtnnvopgqcuc w/patient 30 minutes Julia Lorenzo ACOUSTIC INTELLIGENCE SPECIALIST Work Phone: Start: 21-61-5282Obiizczlw for disorderVisit For: Screening For DisorderJulia Lorenzo ACOUSTIC INTELLIGENCE SPECIALIST Work Phone: Start: 29-49-4261TYMUEUY PROCEDUREDavon Rogers RN Start: 12-92-7151Hqlakxb tobacco non-user cad cap copd pv dmJonathan Therese LEAD INSTRUCTOR/FLIGHT ATTENDANT Work Phone: Start: 06-00-8420Sdqp recent diastolic blood pressure < 80 mm hgJonathan Therese LEAD INSTRUCTOR/FLIGHT ATTENDANT Work Phone: Start: 29-96-2932Bdym recent systolic blood press 130- 139mm hgJonathan Therese LEAD INSTRUCTOR/FLIGHT ATTENDANT Work Phone: Start: 18-52-0569Bytqd dip stick/tablet rgnt non-auto w/o micrscpJonathan Therese LEAD INSTRUCTOR/FLIGHT ATTENDANT Work Phone: Start: 42-04-5900Ybjwjba tobacco non-user cad cap copd pv dmJonathan Therese LEAD INSTRUCTOR/FLIGHT ATTENDANT Work Phone: Start: 65-54-3185Rolwaiody streptococcus group a Arthur Therese LEAD INSTRUCTOR/FLIGHT ATTENDANT Work Phone: Start: 60-05-0040Nojv recent diastolic blood pressure 80-89 mm hgJonathan Therese LEAD INSTRUCTOR/FLIGHT ATTENDANT Work Phone: Start: 52-49-1385Ubmt recent systolic blood press 130- 139mm hgJonathan Therese LEAD INSTRUCTOR/FLIGHT ATTENDANT Work Phone: Start: 36-48-6762Gmnk tthrc r-t 2d w/wom-mode compl spec&colr Hiwot Brice MD Work Phone: Start: 25-01-6190ExscolnvfcysFnncprdf Therese LEAD INSTRUCTOR/FLIGHT ATTENDANT Work Phone: Start: 34-00-9996EexxfxjpkjnoqrnJuuacvul Therese LEAD INSTRUCTOR/FLIGHT ATTENDANT Work Phone: Start: 38-72-3572Pwikole tobacco non-user cad cap copd pv dmJopage Ambrizick LEAD INSTRUCTOR/FLIGHT ATTENDANT Work Phone: Start: 22-03-3783Ogpuwfet and curettageArthur Saleh LEAD INSTRUCTOR/FLIGHT ATTENDANT Work Phone: Start: 96-34-6962Snofrarbyj glycosylated a8oCczbladrArthur Saleh LEAD INSTRUCTOR/FLIGHT ATTENDANT Work Phone: Start: 07-18-5790Kmmwoyvwu c antibodyJopage Saleh LEAD INSTRUCTOR/FLIGHT ATTENDANT Work Phone: Start: 29-71-1881Qvxwthzthqvdai screeningVisit For: Screening Exam Lipoid DisordersJopage Saleh LEAD INSTRUCTOR/FLIGHT ATTENDANT Work Phone: Start: 14-23-4837YwvpvbhngqbkEzkvaais Frederick LEAD INSTRUCTOR/FLIGHT ATTENDANT Work Phone: Start: 70-42-3943Toarxhhempii cholecystectomyJopage Saleh LEAD INSTRUCTOR/FLIGHT ATTENDANT Work Phone: Start: 18-42-4915Aibn recent diastolic blood pressure < 80 mm hgArthur Taylorderick LEAD INSTRUCTOR/FLIGHT ATTENDANT Work Phone: Start: 70-33-8715Arfz recent hemoglobin a1c level < 7.0%Arthur Saleh LEAD INSTRUCTOR/FLIGHT ATTENDANT Work Phone: Start: 80-86-0845Cksw recent systolic blood pressure <130 mm hgArthur Saleh LEAD INSTRUCTOR/FLIGHT ATTENDANT Work Phone: Start: 16-46-3012Qrpcythqz procedure on footArthur Ambrizick LEAD INSTRUCTOR/FLIGHT ATTENDANT Work Phone: Start: 52-60-4937Qp-focused hlth risk assmt score doc stnd instrmArthur Ambrizick LEAD INSTRUCTOR/FLIGHT ATTENDANT Work Phone: Start: 77-52-5853Qudoswzj procedureJopage Saleh LEAD INSTRUCTOR/FLIGHT ATTENDANT Work Phone: Start: 78-50-3286Pphllyd disorder screeningVisit For: Screening Exam Thyroid DisordersJopage Saleh LEAD INSTRUCTOR/FLIGHT ATTENDANT Work Phone: Start: 03-26-2024 End: 79-36-4990Caapq shoulder complete minimum 2 viewsCoty Castillo Jeison DPM Work Phone: Start: 55-65-5010Fphoroxhvtsev metabolic panelJaveria J Brandon DO Work Phone: Start: 52-10-7365Kbw routine ecg w/least 12 lds w/i&r Livier J Brandon DO Work Phone: Start: 21-21-3843Mxbpuiqpsjptk metabolic panelAleah Salmon MD Work Phone: Start: 25-30-8256AVLMX-19, RAPIDAleah Salmon MD Work Phone: Start: 28-53-7329Iubrtewzr influenzaAleah Salmon MD Work Phone: Start: 46-01-2818Jczwy wrist complete minimum 3 views Livier J Brandon DO Work Phone: Start: 70-19-6337VTXQ NICOTINE, URINEGeneric External Data ProviderStart: 10-11-5020GILI CBC WITH DIFFGeneric External Data Provider Start: 95-21-9323Uztvmpfolso observation [Identifier] in Cervix by Cyto stain Manuelito Adam DO Work Phone: Start: 52-56-3299Fiohryqgtz exam chest single viewAdam Ranellone DO Work Phone: Start: 43-30-1831Cw head/brain w/o contrast material Mitchell Ranellone DO Work Phone: Start: 08-06-2023 End: 13-04-4097Dskte metabolic panel calcium totalAdam Ranellone DO Work Phone: Start: 23-43-7796Qeb routine ecg w/least 12 lds w/i&r Mitchell Ranellone DO Work Phone: Start: 42-42-2923VJO CA 125Corey Jair DO Work Phone: Start: 56-68-9166PMN CEACorey Jair DO Work Phone: Start: 20-33-0183OMT LDHCorey Jair DO Work Phone: Start: 00-64-3417URMV AFP TUMOR MARKERCorey Jair DO Work Phone: Start: 08-56-1725WQ HCG,BETA-QUANT,TUMOR MARKERCorey Jair DO Work Phone: Start: 03-10-2664NK PELVIS W/ TRANSVAGINALCorey Plynked DO Work Phone: Start: 44-24-4481Gehsro of stomachJENNIFER DIANE Start: 83-38-6374Isbnz metabolic panel calcium total Dav Wood [employer] Work Phone: Start: 63-43-3380BWCYWOSV REJECTIONDav Wood DO Work Phone: Start: 49-81-0520Nyqxcekwzp exam chest 2 viewsDav Wood DO Work Phone: Start: 87-29-7425Egs routine ecg w/least 12 lds i&r onlyDav CardenasGroupSwim Work Phone: Start: 73-81-2712Bhnd tst prsmv instrmnt chem analyzers pr dateSheri L Yusuf RN PARALEGAL - SECONDARY HISTORY TEACHER Work Phone: Start: 11-22-8117Zonngkp blood reagent stripDav Wood DO Work Phone: Start: 83-08-2101Zkidfryttg exam chest 2 viewsShleonides L Yusuf RN PARALEGAL - SECONDARY HISTORY TEACHER Work Phone: Start: 28-94-8385Zogdydjow rspse spmtry pre&post- brncdilat admnSheri L Yusuf RN PARALEGAL - SECONDARY HISTORY TEACHER Work Phone: start: 65-99-6218ZLRFK-19, RAPIDChristina R Alec DO Work Phone: Start: 61-27-6558Txpmjpwxo influenzaChristina R Alec DO Work Phone: Start: 83-76-0055Ce transvaginalAmkevon Frazier DO Work Phone: Start: 40-59-4513Tp abdomen & pelvis w/contrast materialAmanda Frazier DO Work Phone: Start: 40-43-4056Dmlqirespq microscopic onlyAmanda Frazier DO Work Phone: Start: 99-71-8855Zpxto dip stick/tablet rgnt auto w/o microscopyAmanda Freddie DO Work Phone: Start: 97-97-2153Zhtsx of lipaseAmanda Freddie DO Work Phone: Start: 89-58-1000Wc abdomen & pelvis w/o contrast Elda Oneal MD Work Phone: start: 91-67-5787Dlcwcvyfty microscopic onlySandra Oneal MD Work Phone: start: 83-60-6128Rzfnb dip stick/tablet rgnt auto w/o microscopySandra Oneal MD Work Phone: start: 31-48-0655Haiainhczaoyk metabolic panelSandra Oneal MD Work Phone: start: 37-52-9939Gh abdomen & pelvis w/contrast materialJoshua Grund Work Phone: Start: 14-82-6283FLKAC-19Joshua Grund Work Phone: Start: 54-36-7785Nmpol of amylaseJoshua Grund Work Phone: Start: 28-50-1666Tdmwv of lipaseJoshua Grund Work Phone: Start: 14-49-6199Dtgwh count complete auto&auto difrntl wbcJoshua Grund Work Phone: Start: 77-53-2103Mjbaphx [Moles/Vol]Joseamara Gutierrez Work Phone: Start: 56-52-7934Ojppbajubz microscopic onlyJoshua Grund Work Phone: Start: 21-83-8367Awoqv test visual color cmprsn methsJoshamara Grund Work Phone: Start: 79-56-0655Zvmtq dip stick/tablet rgnt auto w/o microscopyJoshua Grund Work Phone: Start: 20-73-5906Zklqnxrpks exam chest single viewSyed A Jass Work Phone: Start: 50-12-1910Lb maxillofacial w/o contrast materialJustin AndClear Standards Work Phone: Start: 33-93-2572Funtfzypgs examination knee 3 views James Andes Work Phone: Start: 14-89-6605Dlcjk forearm 2 viewsJustin Andes Work Phone: Start: 17-93-9408Blekr hepatitis Janessa Neri [employer] Work Phone: Start: 86-24-0105Urrdcmlasc glycosylated t4oHvxyc M [employer] Work Phone: Start: 08-05-2077Yirgg Janessa Neri [employer] Work Phone: Start: 73-05-8515Mdwbguluxes alanine amino alt sgpt Elmer Neri Deats Work Phone: Start: 35-63-4290Ppgnaknkehd aspartate amino ast sgot Elmer Neri DeaHivext Technologies Work Phone: Start: 80-24-7337Hdl spinal canal lumbar w/o contrast materialLindsay Ryland Work Phone: Start: 65-97-7559Tpdodojsqv microscopic onlyHolly Jose Work Phone: Start: 75-99-7110Wmtdy dip stick/tablet rgnt auto w/o microscopyHolly Jose Work Phone: Start: 65-75-7122Oe lumbar spine w/o contrast material [employer] Work Phone: Start: 71-58-0713Ikwbt metabolic panel calcium total Umesh Garcia FityanpatrickStart: 87-72-9756Hohxi count complete auto&auto difrntl wbc Umesh McgarrypatrickStart: 48-33-8625Poldykslfl exam chest 2 viewsByron uMnguia MD Work Phone: Start: 03-24-2019 End: 49-54-4112Hentb ribs bi w/posteroant ch minimum 4 viewsByron Munguia MD Work Phone: Start: 30-13-1662Vz head/brain w/o contrast material [employer] Work Phone: Start: 25-42-2349Tve routine ecg w/least 12 lds w/i&r Sell[employer] Work Phone: Start: 84-13-2047Vbqqz metabolic panel calcium total Sell[employer] Work Phone: Start: 47-86-1324Fszrp count complete automatedCarrollton Xplornet Work Phone: Start: 94-98-5534Ggbpjtndxb microscopic onlyCarrollton Xplornet Work Phone: Start: 95-50-6781Tdfbj dip stick/tablet rgnt auto w/o microscopyCarrollton Xplornet Work Phone: Start: 29-20-9249Ao lumbar spine w/o contrast material [employer] Work Phone: Start: 11-26-2017H/O: hysterectomyH/O: hysterectomy Byron Munguia MD Work Phone: Start: 27-53-1830Xjhaxuf of total hysterectomyS/P total abdominal hysterectomyShaikh Lizbeth REYEZ Work Phone: Start: 30-80-9773CidrtmdfbjsxTXDSFNUY DIANE Arthroplasty ankleJENNIFER DIANE CholecystectomyJENNIFER DIANE Dilation & curettage cervical stumpJENNIFER DIANE History of total hysterectomyS/P total abdominal hysterectomyJENNIFER DIANE HysterectomyJENNIFER DIANE Surgery (qualifier value)TATY DIANE Total abdominal hysterect w/wo rmvl tube ovaryJENNIFER DIANE Plan of Treatment DateCare ActivityDetailAuthorStart: 13-25-0725Evbyrjwapjvs 0-64 years Vaccine (2 of 2 - PPSV23)Pneumococcal 0-64 years Vaccine (2 of 2 - PPSV23)[facility] Start: 78-07-5313Tjyyhgbx Vaccine (1 of 2)Shingles Vaccine (1 of 2)[facility] [place]Start: 51-63-6804FGcO/Tdap/Td vaccine (2 - Td or Tdap)DTaP/Tdap/Td vaccine (2 - Td or Tdap)Roney Briggs [facility] HospitalStart: 57-90-8604Jljukki vaccinationTETANUSASelect Medical [facility] SystemStart: 21-73-2929Pcfthswwc for malignant neoplasm of cervixNOMS HealthcareStart: 12-28-2025 End: 02-60-4100Wmymzfn encounter qbvwfubrt43/14/2026 1:00 PM EDT Office Visit [facility] Part [address] [place] [address] Dav Wood, DO [address] [place] [address] 3 year post op [facility] Part of [facility] HospitalComment on above:3 year post op sleeveStart: 82-94-0224Rrgmskle screenDiabetes screenMercy HealthStart: 06-09-2025 End: 39-83-4023Lvjmgqqhb to same day surgery bnvmfc5506/09/2025 8:00 AM EDT - 06/09/2025 11:55 AM EDT Surgery [facility] [address] [place] [address] [place] [address] [address] PANNICULECTOMY AND ABDOMINOPLASTY [facility] ORComment on above:PANNICULECTOMY AND ABDOMINOPLASTYStart: 06-09-2025 End: 80-72-9315Hlnxjwpn excessive skin & subq tissue abdomenPANNICULECTOMY Symptomatic abdominal panniculus Diastasis of rectus abdominis 06/09/2025 8:00 AM EDGenesis Hospitaltart: 82-58-6425Dkrpzanlrn hospital visit by hbafptrqk29/26/2026 8:00 AM EDT Hospital Encounter [facility] [address] [place] [address] [place] [address] [address] [facility] Start: 05-26-2025 End: 73-71-2542Wdywahq encounter /12/2026 1:00 PM EDT Appointment [facility] [address] [place] [address] [facility] Pre-Admit TestingComment on above:[facility] Hospitalart: 04-18-2025 End: 14-12-9549Ftrfent encounter wrkfivqwv88/02/2026 11:40 AM EST Office Visit [facility] [address] [place] [address] Augusta Lorenzo, RN PARALEGAL - SECONDARY HISTORY TEACHER [address] [place] [address] [facility] RehabStart: 03-23-2025 End: 82-65-0678Yznrcye encounter zpdiuhtwp16/07/2026 11:30 AM EST Office Visit [facility] [address] [place] [address] [place] [address] [facility] [address] [place] [address] Office visit- updated photos and weight check DOS 11/23/24[facility] Surgical SpecialistsComment on above:Office visit- updated photos and weight check DOS 11/23/24Start: 49-50-7473KGM test (Diabetes, CKD 3-4, OR last GFR 15-59) GFR test (Diabetes, CKD 3-4, OR last GFR 15-59)Bon [facility] HospitalStart: 69-28-6355ODF test (Diabetes, CKD 3-4, OR last GFR 15-59)GFR test (Diabetes, CKD 3-4, OR last GFR 15-59)Bon [facility] HospitalStart: 43-58-3490FTFS visit, estab ptMedical Established [facility] Work Phone: Start: 02-14-2025 End: 96-87-6971Veagoadxtybv / ancillary services tmmohkvtmm17/01/2025 11:00 AM EST Ancillary Procedure [facility] NUGENT [address] [place] [address] [place] [phone] [facility] OBGYNStart: 02-08-2025 End: 83-83-5012Eovsbwzn Pyacykf3902/08/2025 12:40 AM EST Clinical Support [facility] Part of [address] [phone] [facility] CARDIOLOGY Part of [facility] HospitalComment on above:[facility] HospitalStart: 01-24-2025 End: 42-81-6911RILVPSDV Lab Routine PCOS (polycystic ovarian syndrome) Expected: 01/24/2025 (Approximate), Expires: 01/24/2026NODC HealthcareComment on above: Expected: 01/24/2025 (Approximate), Expires: 01/24/2026Start: 01-24-2025 End: 52-22-0904EO PelvisUS Pelvis w/ TV Imaging Routine Pelvic pain in female Expected: 01/24/2025, Expires: 07/24/2025[facility] Work Phone: comment on above:Expected: 01/24/2025, Expires: 07/24/2025Start: 01-24-2025 End: 54-65-4740Mgupxkz encounter idpatbgxi21/10/2025 11:20 AM EST Office Visit NOMJustine NUGENT [address] [place] [address] Manuelito Adam DO [address] [facility] Ion Melendez, [facility] NOMJustine Melendez OBGYNStart: 01-12-2025 End: 47-55-0255Jfsyrie encounter skbbxxull39/29/2025 1:00 PM EDT [facility] [id number] Rory Massey PTMTHYan Physical TherapyStart: 31-04-0616Wgnr Screen 15 w/Conf, [facility] HealthStart: 01-04-2025 End: 61-07-7577Senwxgm encounter cqmdzsebo65/21/2025 11:15 AM EDT Office Visit [employer] - [place] [address] [place], [place] [id number] Glenny Campos MD [address] [facility] [place] [address] discuss disability paperworkToled Linux Network Systems Administrator - EmeryComment on above:discuss disability paperworkStart: 29-47-4187TvhxyijrecgmdBerxnw [facility] Work Phone: Comment on above:Note: Please make a referral to: Start: 12-23-2024 End: 15-40-1860Dlgabfm encounter skykwicjn79/09/2025 9:45 AM EDT Office Visit [facility] [address] [place] [address] Wes Arshad [address] [place] [address] Other specified arthritis, unspecified siteOhio State Harding Hospital Physical Medicine & RehabilitationComment on above:Other specified arthritis, unspecified siteStart: 12-09-2024 End: 78-00-5402Amqecuo encounter foomgbarr15/25/2025 10:45 AM EDT Appointment [facility] Physical Therapy [address] [place], [place] [id number] Rory Massey PTMYan Physical TherapyStart: 12-08-2024 End: 00-37-6976Gcpqqoi encounter osmmjadqa53/24/2025 9:45 AM EDT Office Visit [facility] [address] [place] [address] Val Shaver MD [address] [place] [address] Post op- panni/abdo DOS 11/23/24[facility] Surgical SpecialistsComment on above:Post op- panni/abdo DOS 11/23/24Start: 12-01-2024 End: 11-28-1352Guntizp encounter gbcilcvti53/17/2025 9:45 AM EDT Office Visit [facility] [address] [place] [address] Val Shaver MD [address] [place] [address] [place] [address] Post op- panni/abdo DOS 11/23/24[facility] Surgical SpecialistsComment on above:Post op- panni/abdo DOS 11/23/24Start: 11-25-2024 End: 82-63-3041Acdcxts education based on identified needHealth Atrium HealthStart: 14-17-7339IQTI visit, edie ptHealth [facility] Work Phone: Comment on above:Note: Please make a referral to: Physical capacity examStart: 10-70-9227JIW test (Diabetes, CKD 3-4, OR last GFR 15-59)GFR test (Diabetes, CKD 3-4, OR last GFR 15-59)[facility] [employer] Start: 36-40-1428Fvfcismdmf A1c bvhotqcklnzU5G test (Diabetic or Prediabetic)[facility] HospitalRetailMeNot, Inc. [facility] HospitalStart: 36-51-0122Ruzxt panelLipidsBuchanan General HospitalApplyKit Start: 67-78-6903Bdaeu screening for proteinDiabetes: Urine Protein Screening [facility] HealthcareStart: 11-24-2024 End: 58-84-0806Pygshej encounter [facility] Part of [facility] HospitalComment on above:2 year post op sleeveStart: 11-23-2024 End: 23-20-6350Wgiozswnd to same day surgery enyagf2611/23/2024 9:00 AM EDT - 11/23/2024 1:38 PM EDT Surgery [facility] [place] [address] [place] [address] [place] [address] [address] PANNICULECTOMY AND ABDOMINOPLASTY STAZ ORComment on above:PANNICULECTOMY AND ABDOMINOPLASTYStart: 11-23-2024 End: 65-94-7746Tmumjikz excessive skin & subq tissue abdomenPANNICULECTOMY Symptomatic abdominal panniculus Diastasis of rectus abdominis 11/23/2024 9:00 AM [facility] Centertart: 17-57-9719Hkqawfkxtx hospital visit by hqfejdiwd25/09/2025 9:00 AM EDT Hospital Encounter [facility] [place] [address] [place] [address] [place] [address] [facility] [address] [place] [address] [facility] OR Start: 36-53-7583PQNKE-19 Vaccine ( season)COVID-19 Vaccine ( season)Roney [facility] HospitalStart: 06-97-5806Dmsatxhjs vaccination [facility] HealthcareStart: 11-08-2024 End: 62-05-4895Vxkprog encounter procedureSTAZ PRE-ADMIT TESTINGComment on above: ANNEStart: 11-02-2024 End: 20-68-6475Jdhorqpa Ysovoli3411/02/2024 12:30 AM EDT Clinical Support [facility] CARDIOLOGY Part [address] [address] [facility] Part [facility]Memorial HospitalComment on above:[facility] HospitalStart: 81-89-8614Pwch ManagementHealth [facility] Work Phone: Comment on above:Note: Please make a referral to:FostoriaStart: 10-28-2024 End: 76-81-9776Brmcfyn education based on identified needHealth Atrium HealthStart: 26-33-8023Bhysborsq vaccinationRoney [facility] HospitalStart: 01-23-0475Btbhz screening for proteinDiabetes: Urine Protein ScreeningDAVIS HOSPITAL AND MED[facility]ENTER HealthcareStart: 54-44-1010TGZA visit, estab ptMedical Established [facility] Work Phone: Start: 09-01-2024 End: 21-07-8546Tdstlxk encounter skivnmdtq89/18/2025 8:45 AM EDT Office Visit [facility] [address] [place] [address] [place] [address] [facility] [address] [place] [address] Office visit- updated photos and weight checkDOS 11/23/24[facility] Surgical SpecialistsComment on above:Office visit- updated photos and weight check DOS 11/23/24Start: 59-63-4762QBVR visit, edie ptMedical Established [facility] Work Phone: Start: 21-60-8276Gvjo Qual W/Rflx QnHealth Atrium HealthStart: 08-16-2024 End: 63-40-2591Trictmw education based on identified needHealth Atrium HealthStart: 90-88-7145MJT test (Diabetes, CKD 3-4, OR last GFR 15-59)GFR test (Diabetes, CKD 3-4, OR last GFR 15-59)RONEY [facility] CENTERStart: 07-22-2024 End: 73-44-5187Rkprkea education based on identified needHealth Atrium HealthStart: 05-64-7053Duznmpysy vaccinationInfluenza Vaccine (#1)NOMS HealthcareComment on above:Postponed from 11/16/2023 (Patient Refused)Start: 07-14-2024 End: 93-88-8146Uynrtoy encounter becpmyboq53/30/2025 1:20 PM EDT Office Visit [facility] CARDIOLOGY Part [address] [address] Irma Santacruz MD [address] [place] [address] 2 month[facility] Part [facility]+Memorial HospitalComment on above:2 monthStart: 77-51-2682YBPT visit, edie ptMedicKessler Institute for RehabilitationHealth [facility] Work Phone: Start: 07-01-2024 End: 14-75-3601Rthzbvq encounter procedureNOMS CWM FMComment on above:4 week Start: 06-22-2024 End: 47-57-0344Yvgmrgj evaluation of patient and reportSELECT [facility] CARDI[facility] Part of Milford HospitalComment on above:3 month home checkStart: 36-29-6919Dxfpta Comp ExamHealth [facility] Work Phone: Start: 25-86-8909GVM W Auto Differential panel - Blood Health Atrium HealthStart: 27-26-6843Crxzzyurdfcgl metabolic 2000 panel - Serum or PlasmaComp. Metabolic Panel (14)[facility] Start: 47-58-9820Djvzr panelLipid PanelHealth Atrium HealthStart: 06-11-2024 End: 18-44-1691Cbuasuw education based on identified needHealth Atrium HealthStart: 06-03-2024 End: 25-19-2899Ivddvwx encounter qtdoasadn70/20/2025 12:00 PM EDT Office Visit [facility] CARDIOLOGY Part of [address] [address] Tre Brice MD [address] [place] [address] discuss potential pacemakerSELECT MEDICAL SPECIALTY [facility] CARDIOLOGY Part of Milford HospitalComment on above: discuss potential pacemakerStart: 06-02-2024 End: 82-22-0574Tcghqku encounter tgtgmgeau53/19/2025 10:00 AM EDT Office Visit [facility] [address] [place] [address] Alyson Pauilno, BILL [address] [place] [address] NOMS CW FMStart: 05-31-2024 End: 95-96-5245Rwknbou encounter dujjagotu17/17/2025 2:30 PM EDT Office Visit [facility] [address] [place] [address] Alyson Paulino NP [address] [place] [address] N[facility]S CWM FMStart: 55-74-6006Oikdh panelLipidsBON SECOURS [facility]IC[facility] MEDICAL CENTERStart: 05-26-2024 End: 59-26-7763Enkpygz encounter nwrdvvorb51/12/2025 1:30 PM EDT Office Visit [facility] BARIATRIC Part [address] [place] [address] Willie Manley, RN PARALEGAL - SECONDARY HISTORY TEACHER [address] [facility] [address] [place] [address] 1 year post op sleeveMSAMARITAN [facility] BARIATRIC [facility] Mary's HospitalComment on above:1 year post op sleeveStart: 05-24-2024 End: 67-40-6545Sikcimy encounter ayngrovvs57/10/2025 1:40 PM EDT Office Visit [facility] CARDIOLOGY [address] [phone] Irma Santacruz MD [address] [place], [place] [phone] 2 [facility] CARDIOLOGY Saint Mary's HospitalComment on above:2 monthStart: 05-20-2024 End: 36-49-7856Tanzmdd encounter /06/2025 1:20 PM EST Office Visit [facility] [address] [place] [address] Aneudy Venegas NP [address] [place] [address] [facility] CWM FMStart: 05-06-2024 End: 50-11-8767Etxvclg encounter fnmatgraf97/20/2025 2:30 PM EST Office Visit [facility] [address] [place] [address] Alyson Paulino NP [address] [place] [address] ArrivedNOMS CWM FMComment on above:ArrivedStart: 04-20-2024 End: 63-91-4811Flnctsa encounter ajqsfxwwd18/04/2025 2:00 PM EST Office Visit Pa [employer] Systems Administrator - [place] [address] [place], [place] [address] Glenny Campos MD [address] [facility] [address] [place] [address] boston loopToledo Linux Network Systems Administrator - [place]ufftonComment on above:boston loopStart: 04-01-2024 End: 35-08-5249Lotojmi encounter nkgfowwcv99/16/2025 10:30 AM EST Office Visit [facility] [address] [place] [address] Alyson Paulino NP [address] [facility] [place] [place] [address] NOMS CW FMStart: 03-29-2024 End: 73-59-4511Iwtynyd evaluation of patient and fgwmcp2303/29/2024 8:45 AM EST Nurse Only [employer] Systems Administrator - [place] [address] [facility], [address] [place] [address] carelink REMOTE b[place] scientific loop-[place] Linux Network Systems Administrator - [facility] on above:carelink REMOTE b[place] scientific loop-Start: 03-24-2024 End: 42-90-3723Mfsidfz encounter gpnnyqwsx52/08/2025 1:00 PM EST Office Visit [facility] CARDIOLOGY Part of [address] [address] Irma Santacruz MD [address] [place] [address] Establish [facility] CARDIOLOGY Part [facility]+Memorial HospitalComment on above:Establish Care Start: 02-26-2024 End: 44-82-5301Ohmfszj encounter ozntgukkf06/12/2024 2:30 PM EST Office Visit [facility] [address] [place] [address] Alyson Paulino NP [address] [place] [address] ArrivedNOMS CWM FMComment on above:ArrivedStart: 02-26-2024 End: 42-61-4743YWS MULTIPLEX W/REFLEX 11 AB CASCADEANA MULTIPLEX W/REFLEX 11 AB CASCADE Lab Routine Cold intolerance Cold intolerance of hand Pain in both hands Discoloration of skin of hand Expected: 02/26/2024 (Approximate), Expires: 02/25/2025[facility] Work Phone: Comment on above:Expected: 02/26/2024 (Approximate), Expires: 02/25/2025Start: 04-67-4289Ttchrdbuwj A1c measurementDiabetes: Hemoglobin N2UMGRRTexas County Memorial HospitalStart: 02-23-2024 End: 62-49-7753Oacffge evaluation of patient and gpvevi5502/23/2024 8:45 AM EST Nurse Only Pa [employer] Network Systems Administrator - [address], [address] [place] [address] carelink REMOTE [place] scientific loop-[place] Linux Network Systems Administrator - [facility] on above:carelink REMOTE b[place] scientific loop-Start: 12-30-2023 End: 89-02-2894Hrpwdqt encounter vzkoqqjhz78/15/2024 2:00 PM EDT Office Visit [facility] [address] [place] [address] Alyson Paulino, BILL [address] [place] [address] NOMS CWM FMStart: 49-07-3478XBH test (Diabetes, CKD 3-4, OR last GFR 15-59)GFR test (Diabetes, CKD 3-4, OR last GFR 15-59)[facility]PITALStart: 12-03-2023 End: 90-78-6615Jyogrmhlxlwma metabolic 2000 panel - Serum or PlasmaComprehensive metabolic panel Lab Routine Essential hypertension Hypokalemia Expected: 12/03/2023 (Approximate), Expires: 12/02/2024[facility] Work Phone: Comment on above:Expected: 12/03/2023 (Approximate), Expires: 12/02/2024Start: 12-03-2023 End: 21-21-0679Htftytr encounter hbjpyglmc60/18/2024 10:00 AM EDT Office Visit NOMJustine BOYD FM [address] [place] [address] Alyson Paulino, BILL [address] [facility] [place] [address] NOMS OLIVER FMStart: 11-26-2023 End: 36-10-6487Hyuiwrq encounter spvgorekv39/11/2024 1:45 PM EDT Office Visit [facility] BARI[facility]RIC Part of [address] [place] [address] Willie Manley, RN PARALEGAL - SECONDARY HISTORY TEACHER [address] [facility] [address] [place], [place] [phone] 1 year post [facility] Part [facility]Memorial HospitalComment on above:1 year post opStart: 46-04-6842SVR test (Diabetes, CKD 3-4, OR last GFR 15-59)GFR test (Diabetes, CKD 3-4, OR last GFR 15-59)[facility] Start: 17-38-4191RBIDS-19 Vaccine ( season)COVID-19 Vaccine ( season)[facility] HospitalStart: 41-69-0058PEJFW-19 Vaccine ( season)COVID-19 Vaccine ( season)[facility] Start: 61-31-9268Duvpzlmnu vaccinationInfluenza Vaccine (#1)[facility] Start: 58-00-0763Izasxqxti vaccinationFlu vaccine (#1)[facility] Start: 48-71-9497GER test (Diabetes, CKD 3-4, OR last GFR 15-59)GFR test (Diabetes, CKD 3-4, OR last GFR 15-59)[facility]: 09-07-2023 Hemoglobin A1c kbzlsddtkaxQ3I test (Diabetic or Prediabetic)[facility]: 37-84-8570Qdnid panelLipidsBON [facility] Hospitalart: 09-01-2023 End: 20-07-6319Temivlr evaluation of patient and cfpsqg6509/01/2023 9:00 AM EDT Nurse Only Pa Linux Network Systems Administrator - [place] [address] [facility], [address] [place] [address] carelink REMOTE [place] scientific loop-[place] Linux Network Systems Administrator - [place] on above:carelink REMOTE b[place] scientific loop-Start: 08-27-2023 End: 56-77-9413Yfszmpl encounter xjwtvluhx50/12/2024 1:30 PM EDT Office Visit [facility] BARIATRIC Part [address] [place] [address] Willie Manley, RN PARALEGAL - SECONDARY HISTORY TEACHER [address] [facility] [address] [place], [place] [phone] 9 mo post [facility] InstituteComment on above: 9 mo post opStart: 08-19-2023 End: 52-30-1935Tbkzjgy encounter rjaepgazq53/04/2024 2:00 PM EDT Office Visit Pa Linux Network Systems Administrator - [address] [address] Glenny Campos MD [address] [facility] [address] [place] [address] 1m boston loop- call for remote check Pa Linux Network Systems Administrator - [facility]tonComup health system on above:1m boston loop- call for remote checkStart: 34-84-5141CWZ test (Diabetes, CKD 3-4, OR last GFR 15-59)GFR test (Diabetes, CKD 3-4, OR last GFR 15-59)[facility]: 07-73-9786FEP test (Diabetes, CKD 3-4, OR last GFR 15-59)GFR test (Diabetes, CKD 3-4, OR last GFR 15-59)[facility]ITALStart: 03-03-9848Cjcan panel LipidsBON [facility] Hospitalart: 01-03-2023 End: 29-87-4142Mbstezp encounter procedureMercy Min Invasive [facility]ariat[facility] Comment on above:1 month post op- rygbStart: 12-30-2022 End: 95-31-1920Pkedhnq evaluation of patient and rxybvk1112/30/2022 9:00 AM EDT Nurse Only Pa [employer] Network Systems Administrator - [place] [address] [facility] [address] [place], [place] [phone] carelink remote b[place] scientific loop-[place] Linux Network Systems Administrator - [place]edoComment on above:carelink remote b[place] scientific loop-Start: 12-11-2022 End: 58-26-6559Vwqirly encounter procedureMercy Min Invasive Bariatric Surg Comment on above:1 week post op rygbStart: 12-10-2022 End: 01-12-6774Mwnyqhi encounter oswlzildp19/26/2023 11:00 AM EDT Office Visit Pa Linux Network Systems Administrator - [address] [address] Beth, Glenny Ordonez MD [address] [facility] [address] [place] [address] per moc/ NEW PAF NOTED ON B[place] SCIENTIFIC LOOPToledo Linux Network Systems Administrator - TiffinComment on above:per moc/ NEW PAF NOTED ON [place] SCIENTIFIC LOOPStart: 12-09-2022 End: 52-41-9057Kanrqkg encounter procedureSELECT [facility] OUTREACH PUL Part of [place] Hospicetart: 81-92-8883Avshbbwync A1c measurementDiabetes: Hemoglobin H9GRQKU HealthcareStart: 12-02-2022 End: 09-59-7032Lpjoezugm to same day surgery centerSTVZ ORComment on above:XI ROBOTIC LAPAROSCOPIC GASTRIC BYPASS CELINA-EN-Y , EGD, LIVER BIOPSY- GI SCHEDULED Start: 12-02-2022 End: 59-69-3779Iahh gstr rstcv px w/byp celina-en-y limb <150 cmGASTRIC BYPASS CELINA-EN-Y LAPAROSCOPIC ROBOTIC Morbid obesity (HCC) Secondary hypertension Gastroesophageal reflux disease, unspecified whether esophagitis present 12/02/2022 12:30 PM [facility]: 12-02-2022 Subsequent hospital visit by physicianSDEANNE ORStart: 11-27-2022 End: 14-82-4165Rlmkdxd encounter procedureMercy Min Invasive Bariatric Surg Start: 11-25-2022 End: 04-40-9303Rkshvar evaluation of patient and reportToledo Linux Network Systems Administrator - BisioStart: 21-14-6370Qhiakruopz ScreenDepression ScreenBON LUTHERAN HOSPITALStart: 23-87-8331RIVBQ-19 Vaccine ( season)COVID- 19 Vaccine ( season)[facility]art: 10-15-2022 Influenza vaccinationFlu vaccine (#1)[facility]Start: 09-27-2022 End: 23-15-6212Npecmez encounter uetzvdwhs33/14/2023 Office Visit Bariatrics Willie Manley, RN PARALEGAL - SECONDARY HISTORY TEACHER [address] [phone] [facility] SurgStart: 09-25-2022 End: 31-05-9997Rwazhpo evaluation of patient and pannao5109/25/2022 Nurse Only CardiologyToledo Linux Network Systems Administrator - [place]edoStart: 09-05-2022 End: 68-02-1245Xtvodth encounter fqyawfsta90/22/2023 Office Visit Bariatrics Dav [place], [address] [phone] [facility]ariat[facility] SurgStart: 08-26-2022 End: 92-77-7444Gytxjzc evaluation of patient and wbftxa3008/26/2022 Nurse Only CardiologyToledo Linux Network Systems Administrator - LudivinaedoStart: 08-16-2022 End: 74-49-5045Tlj transoral biopsy single/multipleEGD BIOPSY Gastroesophageal reflux disease, unspecified whether esophagitis present Morbid obesity (HCC) 08/16/2022 8:06 AM EDHolzer Health SystemStart: 02-95-9761Vbywotcjhn A1c jminenmevvmG1U test (Diabetic or Prediabetic)[facility]ITALStart: 08-05-2022 End: 70-12-6218Iguagoq encounter lxmyuyvuq18/22/2023 Office Visit Pulmonology Luan Bryan MD [address] [address] [facility] OUTREACH PULM Part of [facility] Start: 05-22-2022 End: 19-81-4410Sihwifj encounter feavoymgj06/08/2023 Office Visit Bariatrics Willie Manley, RN PARALEGAL - SECONDARY HISTORY TEACHER [address] [facility] [address] [place] [address] [facility] BARIATRIC Part [facility] Centertart: 13-83-9512Rcyamwpqle measurementCreatinine monitoringMercy Health St. Elizabeth Boardman HospitalStart: 79-35-1368Nrxstpjxtm A1c tqbqmqehxsxE7Y test (Diabetic or Prediabetic)[facility] HospitalStart: 33-79-9016Daekt panelMercy Health St. Elizabeth [facility] HospitalStart: 06-06-1093Hzuxevtuq monitoringPotassium monitoringMercy Health St. Elizabeth Boardman HospitalStart: 05-04-2022 Thyroid stimulating hormone measurementTSH testingMercy Health St. Elizabeth Boardman HospitalStart: 04-27-2022 Depression ScreenDepression ScreenSuburban Community Hospital & [facility] HealthStart: 81-58-6760Wrjxscmril measurementCreatinine monitoringSuburban Community Hospital & [facility] HealthStart: 55-12-6097Wgdcwoxeb monitoringPotassium monitoringSuburban Community Hospital & [facility] HealthStart: 91-97-4408Yegikzdvbu measurementCreatinine monitoringMer Health Work Phone: start: 17-96-2230Yopnbjosi monitoringPotassium monitoringMer Health Work Phone: start: 92-51-4675Pzcvljuhy vaccinationFlu vaccine (#1) [facility]ITALStart: 06-25-2021 End: 19-88-8229Qydewma encounter bopwzlmpl11/11/2022 Office Visit Bariatrics Willie Manley, RN PARALEGAL - SECONDARY HISTORY TEACHER [address] [facility] [address] [place], [place] [address] [facility] Weight Management CenterStart: 05-21-2021 End: 36-66-2539Anvnnhn encounter mdcniurld31/07/2022 Office Visit Behavioral Health Pooja Tariq [address] [facility] [address] [place], [place] [phone] [facility] WEIGHT MANAGEMENT PSYCHStart: 05-10-2021 COVID-19 Vaccine (3 - Booster for Pfizer series)COVID-19 Vaccine (3 - Booster for Pfizer series)[facility] HospitalStart: 08-62-4590MPFMO-19 Vaccine (3 - Booster for Pfizer series)COVID-19 Vaccine (3 - Booster for Pfizer series)[facility] Start: 04-05-2021 End: 88-11-7403Rtqmwgq encounter bbwigjnfd64/20/2022 Office Visit Bariatrics Willie Manley RN PARALEGAL - SECONDARY HISTORY TEACHER [address] [facility] [address] [place], [place] [address] [facility] Weight Management CenterStart: 03-13-2021 End: 09-49-0447Tasdmuw encounter vojafzslg13/28/2021 Appointment [facility] Sleep CenterStart: 03-07-2021 End: 51-45-5094Tpmiqfb evaluation of patient and utbkqh4203/07/2021 Nurse Only BariatricsMercy Min Invasive Bariatric SurgStart: 02-21-2021 End: 79-25-1145Uiwrgym encounter zvuttuxgo85/08/2021 Office Visit Bariatrics Willie Manley, RN PARALEGAL - SECONDARY HISTORY TEACHER [address] [facility] [address] [place], [place] [address] [facility] BARIATRIC Part of [place] HospitalStart: 02-12-2021 End: 28-25-8428Ggocaru encounter dbuidejtl18/29/2021 Appointment [facility] Center [facility] Sleep CenterStart: 07-81-1982Kfgpinurys measurementCreatinine monitoring [facility] [employer] Work Phone: start: 30-72-4729Taraqvczc monitoringPotassium monitoringSuburban Community [facility] [employer] Work Phone: start: 01-24-2021 End: 61-32-6754Tcoobha encounter /10/2021 Office Visit Bariatrics Willie Manley, RN PARALEGAL - SECONDARY HISTORY TEACHER [address] [facility] [address] [place] [address] [facility] BARIATRIC Part of [place] Hospicetart: 89-97-2910TVSSJ-19 Vaccine (3 - Booster for Pfizer series)COVID- 19 Vaccine (3 - Booster for Pfizer series)[facility]ITALStart: 64-96-8674ITDQW-19 Vaccine (3 - Pfizer series)COVID-19 Vaccine (3 - Pfizer series)[facility]ITALStart: 99-91-9869Guimymiswsaa 0-49 years Vaccine (2 of 2 - PCV)Pneumococcal 0-49 years Vaccine (2 of 2 - PCV)[facility] HospitalStpendleton: 46-00-6323Fnteopigcwzb 0-64 years Vaccine (2 - PCV)Pneumococcal 0- 64 years Vaccine (2 - PCV)[facility]OSPITALStpendleton: 53-73-1575Ldkxoxeptykz 0-64 years Vaccine (2 of 2 - PCV)Pneumococcal 0-64 years Vaccine (2 of 2 - PCV) [facility]OSPITALStpendleton: 87-51-7689SDeM/Tdap/Td vaccine (1 - Tdap) DTaP/Tdap/Td vaccine (1 - Tdap)[facility], KYComment on above:Postponed from 2004 (Patient Refused)Start: 85-73-4362Lwfjfgeuh vaccinationSheltering Arms Hospital, ZoomdataComment on above:Postponed from 11/16/2019 (Patient Refused) Postponed from 11/15/2020 (Patient Refused)Start: 87-08-2560Ptnhyrqti vaccinationFlu vaccine (#1)[employer] Phone: start: 91-91-3828Zwbfexap screenDiabetes screenSuburban Community Hospital & [facility] HealthStart: 06-07-2020 End: 83-99-8214Zhqyco Visit06/07/2020 Office Visit Primary Care Deats, Elmer Neri RN PARALEGAL - SECONDARY HISTORY TEACHER [address] [place] [address] [phone] [facility] Walk-In CareStart: 07-87-8080Ovyooivome measurement Creatinine monitoringMercy Health- [place], [place]Start: 44-52-1366Vlidnfvnyl monitoring Creatinine monitoringMercy Health- [place], KYStart: 92-23-3526Viakufgij monitoring Potassium monitoringMercy Health- [place], KYStart: 02-04-2020 End: 70-14-1225Uzvykl Visit02/04/2020 Office Visit BariatricWillie Brandon, RN PARALEGAL - SECONDARY HISTORY TEACHER [address] [facility] [address] [place] [address] [facility] Weight Management CenterStart: 38-52-8458WPaD/Tdap/Td vaccine (1 - Tdap)DTaP/Tdap/Td vaccine (1 - Tdap)[employer] Phone: comment on above:Postponed from 1996 (Patient Refused)Postponed from 2004 (Patient Refused)Start: 16-02-2865Wedlvivbq Vaccine (1 of 2 - 2-dose childhood series)Varicella Vaccine (1 of 2 - 2-dose childhood series)[employer] Phone: comment on above:Postponed from 1986 (Patient Refused)Start: 11-13-3329Kcymwnvcma monitoringCreatinine monitoringOhiohealth Shelby HospitalFriendfer Work Phone: start: 17-47-6194Uxxnfhfnf monitoringPotassium monitoringOhiohealth Shelby HospitalFriendfer Work Phone: start: 11-24-2019 End: 82-30-1739Zsantk Visit11/24/2019 Office Visit Willie Sparrow, RN PARALEGAL - SECONDARY HISTORY TEACHER [address] [facility] [address] [place] [address] [facility] Hospitaltart: 78-66-3840Krqemtees vaccinationFlu vaccine (#1)[place], KYStart: 11-11-2019 End: 18-72-0747Wgwiyd VisitKeokuk County Health CenterStart: 06-24-2019 End: 31-63-7270Xecvirrjrjb67/09/2020 Appointment [facility] UltrasoundStart: 06-10-2019 End: 02-40-1797Khhcm Only06/10/2019 Nurse Only Primary Care Elmer Castellano RN PARALEGAL - SECONDARY HISTORY TEACHER [address] [place], [place] [phone] [facility] CenterStart: 05-27-2019 End: 13-36-0127Rgmnb Only05/27/2019 Nurse Only Primary Care Elmer Castellano RN PARALEGAL - SECONDARY HISTORY TEACHER [address] [place], [place] [phone] [facility] CenterStart: 05-13-2019 End: 60-36-0097Xxldcx Visit05/13/2019 Office Visit Primary Care Elmer Castellano RN PARALEGAL - SECONDARY HISTORY TEACHER [address] [place] [address] [phone] [facility] CenterStart: 12-02-2018 End: 38-19-0675Dvvzyi Visit12/02/2018 Office Visit Primary Care Elmer Castellano RN PARALEGAL - SECONDARY HISTORY TEACHER [address] [place] [address] [phone] [facility] CenterStart: 60-92-9066Lbhwuxvvy vaccinationFlu vaccine (#1) [facility] KYStart: 12-19-2523Eujafhlidl monitoringCreatinine monitoring [facility] KYStart: 90-35-2063Bmatkeayc monitoringPotassium monitoring [facility] KYStart: 93-35-3259Gzqmaeo stimulating hormone measurementTS testingMercy Health St. Elizabeth Boardman HospitalStart: 57-40-8557Ulrmj screening for proteinMercy Health St. Elizabeth Boardman [facility] Start: 44-34-7403Hmzchjzec for malignant neoplasm of cervixCERVICAL CANCER SCREENING DISCUSSIONLima Memorial Hospitaltart: 56-70-7426QUuR/Tdap/Td vaccine (1 - Tdap)DTaP/Tdap/Td vaccine (1 - Tdap)[facility]art: 24-32-2952Rnaqekdwp B vaccinationHEP B VACCINE (1 of 3 - 19+ 3-dose series)[facility] Hospitaltart: 98-46-8947Xbydhjhmg B vaccine (1 of 3 - 19+ 3-dose series)Hepatitis B vaccine (1 of 3 - 19+ 3-dose series)[facility]art: 40-20-8344Dcmfnblga B vaccine (1 of 3 - Risk 3-dose series)Hepatitis B vaccine (1 of 3 - Risk 3-dose series)[facility] Hospitalart: 31-24-5531Opjpracw retinal examDiabetic retinal exam [facility] HospitalStart: 69-60-6761Wngpmxty screeningDiabetic retinal examBON [facility] Hospitalart: 43-67-9059QBHLP-19 Vaccine (1)COVID-19 Vaccine (1)[facility] Work Phone: start: 25-02-9977ZYV screeningHIV SCREENING DISCUSSION [facility] Hospitaltart: 84-00-8890Qhkzbaoih Vaccine (1 of 2 - 13+ 2-dose series)Varicella Vaccine (1 of 2 - 13+ 2-dose series)[facility] Start: 74-45-5333Dmaxtwzxif ScreenDepression ScreenBon [facility] Start: 05-62-0182Xhunhlwg foot examinationDiabetic foot examMercy Health St. [facility] HospitalStart: 38-36-4201Hoixcekf screeningDiabetes: Retinopathy ScreeningTexas County Memorial HospitalStart: 44-45-4272Ogqhcehvd vaccine (1 of 2 - 2-dose childhood series)Varicella vaccine (1 of 2 - 2-dose childhood series)[facility] Hospitalart: 06-01-9502Qpywhubbm B vaccine (1 of 3 - 3-dose series)Hepatitis B vaccine (1 of 3 - 3-dose series)[facility]art: 14-91-9847Mkimrsetr C screeningHEPATITIS C VIRUS SCREENINGProvidence City Hospital [employer] [facility] Islandtart: 16-53-2114Pcmollafr [Moles/volume] in Serum or PlasmaPOTASSIUMProvidence City Hospital [employer] [facility] End: 75-97-4348bIKS in Blood by Coagulation assayAPTT Lab STAT One Time for 1 Occurrences starting 01/19/2021 until 01/19/2021[facility] Hospital[facility] Phone: comment on above:One Time for 1 Occurrences starting 01/19/2021 until 01/19/2021 End: 21-70-6896Qtcujblg Diagnostic Sleep StudyBaseline Diagnostic Sleep Study Sleep Center Routine Essential hypertension Morbid obesity (HCC) Gas troesophageal reflux disease without esophagitis Fatty liver Chronic back pain, unspecified back location, unspecified back pain laterality Arthritis Uncomplicated asthma, unspecified asthma severity, unspecified whether persistent 1 Occurrences starting 02/12/2021 until 02/12/2021[facility] Phone: comment on above:1 Occurrences starting 02/12/2021 until 1CBC W Auto Differential panel - BloodCBC and differential Lab Routine PCOS (polycystic ovarian syndrome) Ordered: 01/24/2025[facility] Comment on above:Ordered: 01/24/2025 End: 83-21-1780VHFVL-19COVID-19 Lab Routine Once for 1 Occurrences starting 06/15/2020 until 06/15/2020[facility] Phone: comment on above:Once for 1 Occurrences starting 06/15/2020 until 06/15/2020 End: 76-34-6381FXMTX-19COVID-19 Lab Routine Once for 1 Occurrences starting 06/30/2020 until 06/30/2020[facility] Phone: combvkn on above:Once for 1 Occurrences starting 06/30/2020 until 06/30/2020 End: 57-25-2228FOXHG-19, PCRCOVID-19, PCR Lab Routine One Time for 1 Occurrences starting 01/26/2020 until 01/26/2020[facility] [place]Comment on above:One Time for 1 Occurrences starting 01/26/2020 until 01/26/2020COVID-19, PCROhiohealth Shelby HospitalBioGreen Teck [place], [place] Head WO ContrastCT Head WO Contrast Imaging STAT 11/30/2018 9:54 PM EDDBVuRES[facility] [place] End: 22-51-1479[place]baw, UrineCulture, Urine Microbiology STAT One Time for 1 Occurrences starting 02/01/2020 until 02/01/2020[facility] [place] [employer] WorldRESEARCH [facility], [place]Comment on above:One Time for 1 Occurrences starting 02/01/2020 until 02/01/2020Culture, UrineCulture, Urine Microbiology STAT 02/01/2020 8:24 PM [facility], [place] RQFM-necazlfRERO-egxodld Lab Routine PCOS (polycystic ovarian syndrome) Ordered: 01/24/2025[facility] HealthcareComment on above:Ordered: 01/24/2025EKG 12 LeadEKG 12 Lead ECG STAT 11/30/2018 9:46 PM EDDBVuRESE[facility], [place]YEKG 12 LeadEKG 12 Lead ECG Routine 08/06/2023 4:45 AM EDTBON DreamLinesEKG 12 LeadEKG 12 Lead ECG Routine 03/02/2024 12:45 AM ESTBon [employer]Nine Consult[employer].Follicle stimulating hormoneFollicle stimulating hormone Lab Routine PCOS (polycystic ovarian syndrome) Ordered: 01/24/2025[facility] HealthcareComment on above:Ordered: 01/24/2025 hCG, quantitative, pregnancyhCG, quantitative, Lab Routine PCOS (polycystic ovarian syndrome) Ordered: 01/24/2025[facility] HealthcareComment on above:Ordered: 01/24/2025Hemoglobin A1c/Hemoglobin.total in BloodHemoglobin A1c Lab Routine Pelvic pain in female PCOS (polycystic ovarian syndrome) Ordered: 01/24/2025[facility] HealthcareComment on above:Ordered: 01/24/2025 End: 08-82-7722ILVQBHLZ PACU OXYGEN THERAPY PROTOCOLInitiate PACU Oxygen Therapy Protocol Respiratory Care Routine Continuous until discontinued starting 08/16/2022ON [employer] Work Phone: Comment on above:Continuous until discontinued starting 08/16/2022Luteinizing hormoneLuteinizing hormone Lab Routine PCOS (polycystic ovarian syndrome) Ordered: 01/24/2025[facility] HealthcareComment on above:Ordered: 01/24/2025 End: 26-60-3763Alvemryf, BloodBON [employer] Phone: Comment on above:Once for 1 Occurrences starting 11/22/2022 until 11/22/2022Oxygen therapy [Minimum Data Set]Initiate Oxygen Therapy Protocol Respiratory Care Routine As Needed until discontinued starting 08/16/2022 [employer] Phone: Comment on above:As Needed until discontinued starting 08/16/2022 End: 93-57-8869Xyuodyj-INRProtime-INR Lab STAT One Time for 1 Occurrences starting 01/19/2021 until 01/19/2021[facility] HospitalPer[facility] Phone: comitxv on above:One Time for 1 Occurrences starting 01/19/2021 until 01/19/2021 End: 34-36-1245Szddw Study with PAP TitrationSleep Study with PAP Titration Sleep Center Routine CATIE (obstructive sleep apnea) 1 Occurrences starting 05/27/2021 until 05/27/2021[facility] HospitalPer[facility] Phone: comment on above:1 Occurrences starting 05/27/2021 until 05/27/2021urgical PathologySurgical Pathology Lab Routine Gastroesophageal reflux disease, unspecified whether esophagitis present Morbid obesity (HCC) Release Upon Ordering for 1 Occurrences starting 08/16/2022 [employer] Phone: Comment on above:Release Upon Ordering for 1 Occurrences starting 08/16/2022Thyrotropin [Units/volume] in Serum or PlasmaTSH Lab Routine PCOS (polycystic ovarian syndrome) Ordered: 01/24/2025[facility] HealthcareComment on above:Ordered: 01/24/2025Thyroxine (T4) free [Mass/volume] in Serum or PlasmaT4, free Lab Routine PCOS (polycystic ovarian syndrome) Ordered: 01/24/2025[facility] HealthcareComment on above:Ordered: 01/24/2025 End: 22-44-6504MM Hand - left 3 ViewsBon [employer], Inc.Comment on above: Once for 1 Occurrences starting 05/24/2024 until 05/24/2024XR LUMBAR SPINE (2-3 VIEWS)XR LUMBAR SPINE (2-3 VIEWS) Imaging STAT 03/24/2019 8:08 AM [facility] Work Phone: End: 66-07-2586DF Lumbar spine ViewsCarilion [facility] Hospital Work Phone: comment on above:1 Occurrences starting 09/27/2024 until 09/27/2024 End: 16-77-2968BV Spine Single viewCarilion Franklin Memorial Hospital Work Phone: comment on above:1 Occurrences starting 09/27/2024 until 09/27/2024 Immunizations Immunization DateImmunizationNotesCare ZrmidjhuBlwhnavg54-02-6260gtiipzd toxoid, reduced diphtheria toxoid, and acellular pertussis vaccine, adsorbedThmarjorie Zacarias MD Work Phone: [facility] HospitalGnmffn43-49-3997Wcsikmkmj, injectable, Madin Dahiana Canine Kidney, preservative free, quadrivalentShaikh Lizbeth REYEZ Work Phone: [facility] HospitalNhbsbiqjsa43-36-3203pkjwpkpbk virus vaccine, unspecified formulationSerica Nieves MD Work Phone: [facility] HospitalTcwabcvipv79-71-6749Ppplvgnrg, injectable, Madin Wayne Canine Kidney, preservative free, quadrivalentShaikh Lizbeth REYEZ Work Phone: [facility]ITALTBSRNR00-46-1891msnwuzndu, injectable, quadrivalent, preservative freeShaikh Lizbeth REYEZ Work Phone: [facility]08-24-2021COVID-19, PFIZER PURPLE top, DILUTE for use, (age 12 y+), 30mcg/0.3mElva Nieves MD Work Phone: [facility]08-03-2021COVID-19, PFIZER PURPLE top, DILUTE for use, (age 12 y+), 30mcg/0.3mLSerica Nieves MD Work Phone: [facility] HOSPITALGCEXWS71-76-2525zwcqocfaqkye polysaccharide vaccine, 23 valentSerica Nieves MD Work Phone: [facility]OSPITALTNEOAR48-50-0330lpvnxyzxs, injectable, quadrivalent, preservative Jenny Nieves MD Work Phone: [facility]OSPITALUOJDSQ17-66-2356sneqlchqk virus vaccine, unspecified formulationByron Munguia MD Work Phone: [facility] Work Phone: [phone]a, injectable, quadrivalent, preservative Jenny Nieves MD Work Phone: [facility]OSPITALDBOTOX07-48-7589ljazvamye virus vaccine, unspecified formulationShawn [facility], CX97-35-8509 influenza, injectable, quadrivalent, preservative freeByron Munguia MD Work Phone: [facility] Work Phone: [phone]fn Vaccine, unspecified formulation Byron Munguia MD Work Phone: [facility] Work Phone: [phone]ie virus vaccine, unspecified formulationShawOhioHealth [facility]ide [facility] Hospital, RW87-80-0969dxtxevidl, seasonal, injectable, preservative Jenny Nieves MD Work Phone: [facility] HospitalJkianlqxpl87-24-0986grvkoxaoko skin test; purified protein derivative solution, intradermalShawMercy Health Defiance Hospital 34-62-4772audvrtmkp, seasonal, injectable, preservative Jenny Nieves MD Work Phone: [facility] HospitalAezymsikgk34-82-5740Irytvbkmp Vaccine, unspecified formulationShawMercy Health Defiance HospitalGpsmal84-24-3076twsbskfsb virus vaccine, unspecified formulationSerica Nieves MD Work Phone: [facility] Payers DatePayer CategoryPayerPolicy [id number] (Managed Care) [id number] [id number]32.91741-90-4018Gctxedv Health Insurance [id number]80332.15846-83-3389Azupyeb Health [id number] COMPMANAGEMENT (MCO) xxxxxxxxx 2019-Present [phone] [address] [place] [address]kowkdqtvm [id number]IAAURCRASX COMPMANAGEMENT (MCO) xxxxxxxx 2019-Present [phone] [address] [place] [address]tciwqyoo 1.2.840.625566.1.13.239.2.7.3.663675.78646-10-8201Husqorr xxxxxxxxxxxx 1.2.840.062538.1.13.239.2.7.3.430[id number] 2.840.1.561123.3.57[id number] 2.840.1.816638.3.57[id number] 2.16840.1.068208.3.57[id number] 2.840.1.810394.3.57[id number] 2.16840.1.555971.3.5[id number] 2.16840.1.371342.3.57[id number] 2.16.840.1.723524.3.57[id number] 2.840.1.202149.3.57[id number] 2.840.1.590148.3.57[id number] 2.840.1.663152.3.57[id number] 2.840.1.367326.3.57[id number] 2.840.1.120525.3.57[id number] 2.0.1.463816.3.57[id number] 2.840.1.958096.3.57[id number] 2.840.1.228971.3.57[id number] 2.840.1.582297.3.57[id number] 2.840.1.437771.3.57[id number] 2.840.1.547378.3.57[id number] 2.840.1.778122.3.579.2.89962-39-8875Quribif03998124 2.16.840.1.801906.3.579.[id number] 2.16.840.1.123831.3.579.2.66691-84-6722Vhoxiom92158340 2.16.840.1.901487.3.57[id number] 2.0.1.653305.3.57[id number] 2.16.840.1.680953.3.579.2.3[id number] 2.840.1.947952.3.579.2.64818-28-8829Ppmmixw25690573 2.840.1.654316.3.579.2.244782-15-9010Qncveih3211154 2.0.1.708283.3.579.2.[id number] 2.0.1.823930.3.579.2.882447-72-3650Zbpiorf1762585 2.0.1.313738.3.579.2.245430-28-2781Axxqgbc2728034 2..1.727792.3.579.2.653828-62-6960Upyd-esz17349711238-01-4784Azxducv [id number] 1.2.840.415807.1.13.239.2.7.3.251633.315Self-payUnknown1 - [id number] 2.840.1.484180.3.140.1.92168.5.10.6.3 Social History DateTypeDetailFacilityStart: 11-05-2018 End: 05-15-4237Dffobri smoking status NHISNever smokerMercy Health St. [facility] HospitalStpendleton: 11-05-2018 End: 39-93-5059Amnnopf intakeNoS[facility]: 48-47-3670Zte Assigned At BirthNot on fileK[facility]tering Health [facility]: 04-20-2019 End: 82-18-7443Lijkmln intakeCurrent non-drinker of alcohol (finding)[facility] Work Phone: start: 94-18-0272Yqvphje SDOH Ucbryjumz8NnrdrSheltering Arms Hospital, [facility]: 05-13-2019 End: 85-56-1196Megwpom SDOH Food Vcvdp1NorojSheltering Arms Hospital, [facility]: 05-13-2019 History SDOH Transport Dnx8HpgvyBrund[place], [place]Exposure to SARS-CoV-2 (event) Unable to assessK[facility]tering Health [facility]: 01-26-2020 End: 78-58-4159Rcgagmz use and exposureNever usedKettering Health [facility]: 11-14-2021 End: 40-66-0312Ffidbeqp to SARS-CoV-2 (event)Not sureBrundidge, [place] Exposure to SARS-CoV-2 (event)YesPremier Health [facility]: 72-64-0399Myb Assigned At BirthFemaleMeOhioHealth Grady Memorial HospitalStart: 65-11-3219Mnfbyzq SDOH Alcohol Std Znakcu6OIGMARTINSVILLE MEMORIAL HOSPITAL Work Phone: start: 11-23-2021 End: 84-72-3013Nhfnvpy of Social functionDALE GENERAL HOSPITALMediaShare [facility] HEALTHHow often to you have a drink containing alcohol?NeverBON COBRE VALLEY REGIONAL MEDICAL CENTERMediaShare [facility]ENTERStart: 33-09-8370Dag many standard drinks containing alcohol do you have on a typical day?Patient does not drinkBON COBRE VALLEY REGIONAL MEDICAL CENTERMediaShare [facility]ENTERStart: 42-53-4316Mzpcxt identityIdentifies as female gender (finding)[facility]OSPITALMediaShare [facility] CENTERHistory of tobacco usePassive smokerNOMS HealthcareStart: 12-03-2023 End: 08-42-1367Zpygnaqra beverage intakeLifetime non-drinker (finding)[facility] HealthcareWithin the last year, have you been afraid of your partner or ex-partner?NoNOMS HealthcareAre you now , , , , never or living with a partner?MarriedNOMS HealthcareHow hard is it for you to pay for the very basics like food, housing, medical care, and heatingNot very hardNOMS HealthcareDo you feel stress - tense, restless, nervous, or anxious, or unable to sleep at night because yourmind is troubled all the time - these days [OSQ]Only a littleNOMS Healthcare(I/We) worried whether (my/our) food would run out before (I/we) got money to buy more.Never trueN[facility]S Healthcare Start: 27-15-7568Mcvdpzv CommentCaffeine: 1-2 cups/dayNOMS HealthcareStart: 04-26-2012 End: 51-21-4807QjmGzrind (finding)Roney Brigitte [facility] smoking status Unknown if ever smokedHealth [facility] Work Phone: assertionSexually active (finding)[facility] HospitalStart: 11-81-3047Qotakipdg beverage intakeEx-drinker (finding)[facility] SystemAssertionLives with spouse (finding)[facility] NEGATED: Highlighted rowAssertionSexually active (finding)[facility] HospitalNEGATED: Highlighted rowAssertionCurrent drinker of alcohol (finding)[facility] HospitalNEGATED: Highlighted rowAssertionFinding relating to drug misuse behavior (finding)[facility] NEGATED: Highlighted rowAssertionExposure to pollution (event)[facility] HospitalNEGATED: Highlighted rowAssertionHealth Partners [facility] Hospital Medical Equipment Procedure CodeEquipment CodeEquipment Original TextEquipment IdentifierDates Lancets (ONETOUCH DELICA PLUS [id number]) [id number]: 03-47-7603MRVYXPRE ULTRA [id number]: 05-21-2022 Goals DatePatient GoalDesired Activity/StatePersonal health goalComment on above: Patient Self-Management Goal for Health Maintenance Goal: I will follow a healthy diet as discussed by my provider. I will schedule a yearly preventative care visit. I will consider obtaining vaccines recommended by my provider. Barriers: stress and time constraints Plan for overcoming my barriers: Patient will schedule annual appointment with PCP to discuss concerns, health maintenance; Patient will participate in care coordination. Confidence: 7 Anticipated Goal Completion Date: 09/13/2017[facility] health goalComment on above: I will take my medication as directed. I will notify my provider of any problems with medications, like adverse effects or side effects. I will notify my provider/Senior Research Project Manager if I am unable to afford my medications. I will notify my provider for advice before I stop taking any of my medication. Barriers: lack of motivation and lack of support Plan for overcoming my barriers: Patient will participate in care coordination. Confidence: 09/23 Anticipated Goal Completion Date: 06/14/2017 Comment on above:Patient Self-Management Goal for Health Maintenance Goal: I will follow a healthy diet as discussed by my provider. I will schedule a yearly preventative care visit. I will consider obtaining vaccines recommended by my provider. Barriers: stress and time constraints Plan for overcoming my barriers: Patient will schedule annual appointment with PCP to discuss concerns, health maintenance; Patient will participate in care coordination. Confidence: 09/23 Anticipated Goal Completion Date: 09/13/2017 Patient Self-Management Goal for Health Maintenance Goal: I will follow a healthy diet as discussed by my provider. I will schedule a yearly preventative care visit. I will consider obtaining vaccines recommended by my provider. Barriers: stress and time constraints Plan for overcoming my barriers: Patient will schedule annual appointment with PCP to discuss concerns, health maintenance; Patient will participate in care coordination. Confidence: 09/23 Anticipated Goal Completion Date: 09/13/2017Comment on above:I will take my medication as directed. I will notify my provider of any problems with medications, like adverse effects or side effects. I will notify my provider/Senior Research Project Manager if I am unable to afford my medications. I will notify my provider for advice before I stop taking any of my medication. Barriers: lack of motivation and lack of support Plan for overcoming my barriers: Patient will participate in care coordination. Confidence: 09/23 Anticipated Goal Completion Date: 06/14/2017 I will take my medication as directed. I will notify my provider of any problems with medications, like adverse effects or side effects. I will notify my provider/Senior Research Project Manager if I am unable to afford my medications. I will notify my provider for advice before I stop taking any of my medication. Barriers: lack of motivation and lack of support Plan for overcoming my barriers: Patient will participate in care coordination. Confidence: 09/23 Anticipated Goal Completion Date: 06/14/2017 Functional Status PldhAlolcypbmfNuawgzYuqorsvm15-51-1502Ztbqxvambe StatusN/AExecutive Urology of [facility]04-29-2024Patient Health Questionnaire 2 item (PHQ-2) [Reported][facility] Mental Status DateAssessmentResultFacilityCognitive functionOriented to time, place, and person Oriented to person, time and place (finding)[facility] Work Phone: Clinical Notes 12-28-2020 to 01-24-2025 Note Date & ZqsyBebmImnvdvmm68-53-2953 History of Present illness Narrative* Kristel Klein NP - 01/24/2025 11:20 AM EST Reason for Appointment: Patient ID: Soledad Kramer is a 39 y.o. female who presents for Consult Patient presents today for Acute Visit. MEDICATIONS Current Outpatient Medications Medication Instructions gabapentin (Neurontin) 100 MG capsule Start with 1 pill at bedtime for 5 days, then increase to 2 pills at bedtime for 5 days, then increase 3pills hydroCHLOROthiazide (HYDRODIURIL) 25 mg, Oral, Daily losartan (COZAAR) 100 mg, Oral, Daily metFORMIN XR (GLUCOPHAGE-XR) 500 mg, Oral, Daily with evening meal, Do not crush, chew, or split. pantoprazole (PROTONIX) 40 mg, Oral, Daily before breakfast potassium chloride CR (Klor-Con M10) 10 MEQ ER tablet 10 mEq, Oral, Daily ALLERGIES Allergies Allergen Reactions Ciprofloxacin Anaphylaxis anaphylactic anaphylactic anaphylactic anaphylactic anaphylactic anaphylactic Levofloxacin Anaphylaxis anaphylactic anaphylactic anaphylactic Spironolactone GI intolerance Latex Other, Unknown and Rash Other reaction(s): Unknown Blisters also Lisinopril GI intolerance cough Other reaction(s): Unknown cough cough Other Reaction(s): Other (See Comments) Wound Dressing Adhesive Rash and Unknown Other reaction(s): Other: See Comments Paper tape, itching, skin blistering & peeling Paper tape, itching, skin blistering & peeling PROBLEMS Active Ambulatory Problems Diagnosis Date Noted Allergies 02/11/2023 Arthritis 02/11/2023 Asthma (HCC) 02/11/2023 Low blood sugar 08/2014 PCOS (polycystic ovarian syndrome) 02/11/2023 Essential hypertension 02/11/2023 S/P bariatric surgery 02/11/2023 Unspecified atrial fibrillation (HCC) 04/05/2021 Endometriosis 07/28/2017 Fatty liver 01/27/2017 Gastro-esophageal reflux disease without esophagitis 03/06/2017 Hypothyroidism 12/21/2020 Morbid (severe) obesity due to excess calories ([facility] 08/11/2015 CATIE (obstructive sleep apnea) 08/10/2021 S/P laparoscopic sleeve gastrectomy 12/02/2022 S/P total abdominal hysterectomy 07/25/2017 Fibroid uterus 07/16/2017 Chronic ankle pain 08/11/2015 Pilonidal cyst with abscess 05/13/2023 Easy bruisability 05/13/2023 Screening for hyperlipidemia 05/13/2023 B12 deficiency 06/02/2023 Folic acid deficiency 06/02/2023 Vitamin D deficiency 06/02/2023 Chronic pain syndrome 06/02/2023 Post-operative pain 07/14/2023 Chronic bilateral low back pain without sciatica 09/24/2023 Dysuria 10/22/2023 Hypokalemia 12/03/2023 Laceration of left lower extremity 12/31/2023 Family history of Raynaud phenomenon 02/26/2024 Discoloration of skin of hand 02/26/2024 Pain in both hands 02/26/2024 Cold intolerance 02/26/2024 Sinus congestion 05/06/2024 Body mass index (BMI) 35.0-35.9, adult 05/20/2024 Diastasis of rectus abdominis 01/15/2024 Cat bite 05/20/2024 Pain of finger of left hand 05/26/2024 Resolved Ambulatory Problems Diagnosis Date Noted Lower back pain 07/2014 URTI (acute upper respiratory infection) 02/11/2023 Type 2 diabetes mellitus without complication, without long-term current use of insulin (HCC) 02/11/2023 Non-recurrent acute suppurative otitis media of right ear without spontaneous rupture of tympanic membrane 05/06/2024 Scratch of hand 05/26/2024 Past Medical History: Diagnosis Date A-fib (HCC) Acute otitis media, bilateral Anxiety and depression Asymptomatic hypertensive urgency Back pain Chronic foot pain Dyspepsia History of abdominal hernia Hypertension Hypoglycemia Insomnia Low energy Ovarian cyst Rectal vaginal fistula Sleep apnea Type 2 diabetes mellitus (HCC) Visual impairment Yeast infection of the vagina HISTORY PAST MEDICAL HISTORY SOCIAL HISTORY Past Medical History: Diagnosis Date A-fib (HCC) Acute otitis media, bilateral Allergies Anxiety and depression Arthritis Asthma (HCC) Asymptomatic hypertensive urgency Back pain Chronic foot pain Dyspepsia History of abdominal hernia Hypertension Hypoglycemia Insomnia Low blood sugar 08/2014 Low BS-[facility] ER Low energy Lower back pain 07/2014 Ovarian cyst PCOS (polycystic ovarian syndrome) Rectal vaginal fistula Sleep apnea Type 2 diabetes mellitus (HCC) Visual impairment Yeast infection of the vagina Social History Tobacco Use Smoking status: Never Passive exposure: Past Smokeless tobacco: Never Vaping Use Vaping status: Never Used Substance Use Topics Alcohol use: Never Comment: Caffeine: 1-2 cups/day Drug use: Never FAMILY HISTORY Family History Problem Relation Name Age of Onset Arthritis Mother Allergies Mother Depression Mother Migraines Mother Heart disease Mother Hyperthyroidism Mother Other (Degenerative Disc Disease) Mother Arthritis Father Allergies Father Hypertension Father Diabetes Father Heart disease Father Allergies Brother Asthma Brother Obesity Brother Diabetes Maternal Grandmother Arthritis Maternal Grandmother Diabetes Maternal Grandfather Arthritis Maternal Grandfather Arthritis Paternal Grandmother SURGICAL HISTORY Past Surgical History: Procedure Laterality Date ANKLE SURGERY Left broken APPENDECTOMY wound vac for 7 month after appendectomy CHOLECYSTECTOMY DILATION AND CURETTAGE OF UTERUS GASTRIC BYPASS 12/02/2022 Sleeve HYSTERECTOMY OTHER SURGICAL HISTORY alan heart machine REVIEW OF SYSTEMS Review of Systems: Review of Systems Constitutional: Negative. History of PCOS and concerns with hirsutism. HENT: Negative. Eyes: Negative. Respiratory: Negative. Cardiovascular: Negative. Gastrointestinal: Negative. Genitourinary: Positive for vaginal bleeding. Reports intermittent vaginal bleeding despite history of hysterectomy. Musculoskeletal: Negative. Skin: Negative. Neurological: Negative. All other systems reviewed and are negative. Hematological: Negative. Endocrine: Negative. Allergic/Immunologic: Negative. OBJECTIVE Objective: Physical Exam Constitutional: Appearance: Normal appearance. She is well-developed. Cardiovascular: Rate and Rhythm: Normal rate and regular rhythm. Pulmonary: Effort: Pulmonary effort is normal. Breath sounds: Normal breath sounds. Abdominal: General: Bowel sounds are normal. There is no distension. Palpations: Abdomen is soft. Tenderness: There is no abdominal tenderness. There is no guarding or rebound. Musculoskeletal: General: No swelling. Normal range of motion. Right lower leg: No edema. Left lower leg: No edema. Neurological: Mental Status: She is alert and oriented to person, place, and time. Skin: General: Skin is warm and dry. Psychiatric: Mood and Affect: Mood normal. Behavior: Behavior normal. Vitals and nursing note reviewed. Exam conducted with a technical developer present. Vitals: Estimated body mass index is 34.28 kg/m as calculated from the following: Height as of this encounter: 5' 9 . Weight as of this encounter: 232 lb 1.9 oz. BP: 138/76 No LMP recorded. Patient has had a hysterectomy. Assessment/Plan ICD-10-CM 1. Pelvic pain in female R10.20 US Pelvis w/ TV Hemoglobin A1c 2. Encounter for consultation Z71.9 3. PCOS (polycystic ovarian syndrome) E28.2 metFORMIN XR (Glucophage-XR) 500 MG 24 hr tablet hCG, quantitative, TSH T4, free CBC and differential Follicle stimulating hormone Luteinizing hormone Hemoglobin A1c DHEA-sulfate DHEA DHEA Patient reports intermittent vaginal bleeding s/p hysterectomy. Will obtain transvaginal ultrasound. Patient would like to discuss symptoms of PCOS and concern regarding hirsutism. Will obtain baseline PCOS labs and begin Metformin at 500 mg per day. Patient to follow up after ultrasound and reviewlab results. Documented by Kristel Klein NP on behalf of: Manuelito Adam DO documented in this encounterTexas County Memorial [id number] History of Present illness Narrative* Ann-Marie Espinal - 01/03/2025 3:00 PM EDT [facility] Inpatient/Observation/Outpatient Rehabilitation Date: 01/03/2025 Patient Name: Soledad Kramer [] Inpatient Acute/Observation [x] Outpatient : 1985 [] Pt refused/declined therapy at this time due to: [x] Pt cancelled due to: [] No Reason Given [] Sick/ill [x] Other: \Working late [] Evaluation held by RN/Provider/Physical Therapist due to: [] High Heart Rate [] High Blood Pressure [] Orthopedic Consult [] Hgb < 7 [] Other: [] Pt ordered brace per physician request: [] Proper fit will be completed and education for wearing/skin checks [] Pt does not require skilled services due to: Therapist/Wooden Fence Erector will attempt to see this patient, at our earliest opportunity. 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 TAKE 1 OR 2 TABLETS NEEDED EVERY NIGHT AT BEDTIME, 30 days, 2 refills - Loratadine 10 MG Oral Tablet Take 1 tablet daily by mouth, 90 days, 1 refills - Losartan Potassium 100 MG Oral Tablet Take 1 tablet daily by mouth, 90 days, 0 refills - Pantoprazole Sodium 40 MG Oral Tablet Delayed Release 90 days, 0 refills - Pantoprazole Sodium 40 MG Oral Tablet Delayed Release Take 1 tablet daily by mouth, 30 days, 2 refills - Potassium Chloride Sara ER 10 MEQ Oral Tablet Extended Release Take 1 tablet by mouth daily., 30 days, 2 refills - Vitamin B-12 [address] Wood Bariatric, 90 days, 0 refills Past Medical/Surgical History Reported: No Safety Measures. Medical: No Previous hospitalizations or recent ER visits. : Previously 3 time(s) and para having 1 live (s). Diagnoses: Sinus bradycardia. Systemic hypertension. Raynaud's syndrome. Hiatal hernia. Thyroid disorder. Migraine headache. Methicillin resistant staphylococcus aureus infection Surgical: - General surgery Loop recorder 2021 - Appendectomy - Cholecystectomy - Laparoscopic cholecystectomy - Dilation and curettage - Hysterectomy 2017-[facility]- - Foot surgery 6 surgries on left foot Allergies - Adhesive Tape 1/2 x5yd Reaction: Skin Rashes / Eruption of skin - Ciprofloxacin Reaction: Shock - Latex Reaction: Skin Rashes / Eruption of skin - Levofloxacin Reaction: Shock - Lisinopril Reaction: Nausea - Pollen Extract - Spironolactone Reaction: Nausea Family History Paternal: Ischemic heart disease Systemic hypertension Type 2 diabetes mellitus Oncologic disorder Maternal: Ischemic heart disease Systemic hypertension Thyroid disorder Oncologic disorder Fraternal: Asthma Assessment - M51.35 - Other intervertebral disc degeneration, thoracolumbar region Plan StartCited- Other intervertebral disc degeneration, thoracolumbar region Referrals: Neurosurgical Instructions: Please make a referral to: EndCited Care Team - WOOD Burch [facility]09-16-2025 Progress note* Progress note Date Encounter Last Documented by 11/30/2024 Chart Update Last documented on 11/30/2024; 8:40 AM, Arthur MUIR; [facility] Active Problems & Conditions - M13.80 - Arthritis - I48.20 - Atrial Fibrillation - F41.1 - Generalized Anxiety Disorder - K21.9 - Gerd - I10 - Hypertension Systemic - Z90.710 - Postsurgical State 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 TAKE 1 OR 2 TABLETS NEEDED EVERY NIGHT AT BEDTIME, 30 days, 2 refills - Loratadine 10 MG Oral Tablet Take 1 tablet daily by mouth, 90 days, 1 refills - Losartan Potassium 100 MG Oral Tablet Take 1 tablet daily by mouth, 90 days, 0 refills - Pantoprazole Sodium 40 MG Oral Tablet Delayed Release 90 days, 0 refills - Pantoprazole Sodium 40 MG Oral Tablet Delayed Release Take 1 tablet daily by mouth, 30 days, 2 refills - Potassium Chloride Sara ER 10 MEQ Oral Tablet Extended Release Take 1 tablet by mouth daily., 30 days, 2 refills - Vitamin B-12 [address] Wood Bariatric, 90 days, 0 refills Past Medical/Surgical History Reported: No Safety Measures. Medical: No Previous hospitalizations or recent ER visits. : Previously 3 time(s) and para having 1 live (s). Diagnoses: Sinus bradycardia. Systemic hypertension. Raynaud's syndrome. Hiatal hernia. Thyroid disorder. Migraine headache. Methicillin resistant staphylococcus aureus infection Surgical: - General surgery Loop recorder 2021 - Appendectomy - Cholecystectomy - Laparoscopic cholecystectomy - Dilation and curettage - Hysterectomy 2017-[facility]- - Foot surgery 6 surgries on left foot Allergies - Adhesive Tape 1/2 x5yd Reaction: Skin Rashes / Eruption of skin - Ciprofloxacin Reaction: Shock - Latex Reaction: Skin Rashes / Eruption of skin - Levofloxacin Reaction: Shock - Lisinopril Reaction: Nausea - Pollen Extract - Spironolactone Reaction: Nausea Family History Paternal: Ischemic heart disease Systemic hypertension Type 2 diabetes mellitus Oncologic disorder Maternal: Ischemic heart disease Systemic hypertension Thyroid disorder Oncologic disorder Fraternal: Asthma Assessment - G89.29 - Other chronic pain Plan StartCited- Other chronic pain traMADol HCl 50 MG tablet Bridge to Pain management appointment. 2 weeks given Take 1 tablet every 6 hours as needed, 15 days, 0 refills EndCited Care Team - WOOD Burch [facility]09-11-2025 Instructions Includes: Instructions for all patient encounters Education and Decision Aids were provided during visit for: Discussed nutritional needs teach healthy choices including fruits and vegetables Last Documented On 5 3:03PM ; [facility] Patient education about a pr oper diet Last Documented On 5 3:03PM ; [facility] Discussed concerns about exe rcise : promote physical activity Last Documented On 5 3:03PM ; [facility] ~*[facility] offered active and sup portive listening, normalized emotions and feelings, and processed ~current stressors. ~*Discussed proper sleep hygiene skills to implement to improve sleep Last Documented On 5 2:59PM ; [facility] Discussed nutritional needs teach healthy choices including fruits and vegetables Last Documented On 5 10:10AM ; [facility] Patient education about a pr oper diet Last Documented On 5 10:10AM ; [facility] Discussed concerns about exe rcise : promote physical activity Last Documented On 5 10:10AM ; [facility] Discussed nutritional needs teach healthy choices including fruits and vegetables Last Documented On 5 8:48AM ; [facility] Patient education about a pr oper diet Last Documented On 5 8:48AM ; [facility] Discussed concerns about exe rcise : promote physical activity Last Documented On 5 8:48AM ; [facility] Discussed nutritional needs teach healthy choices including fruits and vegetables Last Documented On 5 10:52AM ; [facility] Patient education about a pr oper diet Last Documented On 5 10:52AM ; [facility] Discussed concerns about exe rcise : promote physical activity Last Documented On 5 10:52AM ; [facility] Not requesting contraception Last Documented On 5 10:53AM ; [facility] Discussed nutritional needs teach healthy choices including fruits and vegetables Last Documented On 5 10:19AM ; [facility] Patient education about a pr oper diet Last Documented On 5 10:19AM ; [facility] Discussed concerns about exe rcise : promote physical activity Last Documented On 5 10:19AM ; [facility] Work Phone: 1([phone]) 608-397309-11-2025 Instructions Includes: Instructions for all patient encounters Education and Decision Aids were provided during visit for: Discussed nutritional needs teach healthy choices including fruits and vegetables Last Documented On 5 3:03PM ; [facility] Patient education about a pr oper diet Last Documented On 5 3:03PM ; [facility] Discussed concerns about exe rcise : promote physical activity Last Documented On 5 3:03PM ; [facility] ~*[facility] offered active and sup portive listening, normalized emotions and feelings, and processed ~current stressors. ~*Discussed proper sleep hygiene skills to implement to improve sleep Last Documented On 5 2:59PM ; [facility] Discussed nutritional needs teach healthy choices including fruits and vegetables Last Documented On 5 10:10AM ; [facility] Patient education about a pr oper diet Last Documented On 5 10:10AM ; [facility] Discussed concerns about exe rcise : promote physical activity Last Documented On 5 10:10AM ; [facility] Discussed nutritional needs teach healthy choices including fruits and vegetables Last Documented On 5 8:48AM ; [facility] Patient education about a pr oper diet Last Documented On 5 8:48AM ; [facility] Discussed concerns about exe rcise : promote physical activity Last Documented On 5 8:48AM ; [facility] Discussed nutritional needs teach healthy choices including fruits and vegetables Last Documented On 5 10:52AM ; [facility] Patient education about a pr oper diet Last Documented On 5 10:52AM ; [facility] Discussed concerns about exe rcise : promote physical activity Last Documented On 5 10:52AM ; [facility] Not requesting contraception Last Documented On 5 10:53AM ; [facility] Discussed nutritional needs teach healthy choices including fruits and vegetables Last Documented On 5 10:19AM ; [facility] Patient education about a pr oper diet Last Documented On 5 10:19AM ; [facility] Discussed concerns about exe rcise : promote physical activity Last Documented On 5 10:19AM ; [facility] Work Phone: 1([phone]) 564-646609-11-2025 Instructions Includes: Instructions for all patient encounters Education and Decision Aids were provided during visit for: Discussed nutritional needs teach healthy choices including fruits and vegetables Last Documented On 5 3:03PM ; [facility] Patient education about a pr oper diet Last Documented On 5 3:03PM ; [facility] Discussed concerns about exe rcise : promote physical activity Last Documented On 5 3:03PM ; [facility] ~*[facility] offered active and sup portive listening, normalized emotions and feelings, and processed ~current stressors. ~*Discussed proper sleep hygiene skills to implement to improve sleep Last Documented On 5 2:59PM ; [facility] Discussed nutritional needs teach healthy choices including fruits and vegetables Last Documented On 5 10:10AM ; [facility] Patient education about a pr oper diet Last Documented On 5 10:10AM ; [facility] Discussed concerns about exe rcise : promote physical activity Last Documented On 5 10:10AM ; [facility] Discussed nutritional needs teach healthy choices including fruits and vegetables Last Documented On 5 8:48AM ; [facility] Patient education about a pr oper diet Last Documented On 5 8:48AM ; [facility] Discussed concerns about exe rcise : promote physical activity Last Documented On 5 8:48AM ; [facility] Discussed nutritional needs teach healthy choices including fruits and vegetables Last Documented On 5 10:52AM ; [facility] Patient education about a pr oper diet Last Documented On 5 10:52AM ; [facility] Discussed concerns about exe rcise : promote physical activity Last Documented On 5 10:52AM ; [facility] Not requesting contraception Last Documented On 5 10:53AM ; [facility] Discussed nutritional needs teach healthy choices including fruits and vegetables Last Documented On 5 10:19AM ; [facility] Patient education about a pr oper diet Last Documented On 5 10:19AM ; [facility] Discussed concerns about exe rcise : promote physical activity Last Documented On 5 10:19AM ; [facility] Work Phone: 1([phone]) 802-649509-11-2025 Instructions Includes: Instructions for all patient encounters Education and Decision Aids were provided during visit for: Discussed nutritional needs teach healthy choices including fruits and vegetables Last Documented On 5 3:03PM ; [facility] Patient education about a pr oper diet Last Documented On 5 3:03PM ; [facility] Discussed concerns about exe rcise : promote physical activity Last Documented On 5 3:03PM ; [facility] ~*[facility] offered active and sup portive listening, normalized emotions and feelings, and processed ~current stressors. ~*Discussed proper sleep hygiene skills to implement to improve sleep Last Documented On 5 2:59PM ; [facility] Discussed nutritional needs teach healthy choices including fruits and vegetables Last Documented On 5 10:10AM ; [facility] Patient education about a pr oper diet Last Documented On 5 10:10AM ; [facility] Discussed concerns about exe rcise : promote physical activity Last Documented On 5 10:10AM ; [facility] Discussed nutritional needs teach healthy choices including fruits and vegetables Last Documented On 5 8:48AM ; [facility] Patient education about a pr oper diet Last Documented On 5 8:48AM ; [facility] Discussed concerns about exe rcise : promote physical activity Last Documented On 5 8:48AM ; [facility] Discussed nutritional needs teach healthy choices including fruits and vegetables Last Documented On 5 10:52AM ; [facility] Patient education about a pr oper diet Last Documented On 5 10:52AM ; [facility] Discussed concerns about exe rcise : promote physical activity Last Documented On 5 10:52AM ; [facility] Not requesting contraception Last Documented On 5 10:53AM ; [facility] Discussed nutritional needs teach healthy choices including fruits and vegetables Last Documented On 5 10:19AM ; [facility] Patient education about a pr oper diet Last Documented On 5 10:19AM ; [facility] Discussed concerns about exe rcise : promote physical activity Last Documented On 5 10:19AM ; [facility] Work Phone: 1([phone]) 102-951009-11-2025 Evaluation note Includes: Assessments for all patient encounters Findings Encounter Date [J30.9 - Allergic rhinitis, unspecified] rhinitis Medical Established Patient with Arthur Saleh LEAD INSTRUCTOR/FLIGHT ATTENDANT 11/25/2024 Last Documented On 5 11:36AM ; [facility] [Z68.34 - Body mass index [B SD] 34.0-34.9, adult] assessment of body mass index Medical Established Patient with Arthur Saleh LEAD INSTRUCTOR/FLIGHT ATTENDANT 11/25/2024 Last Documented On 5 11:36AM ; [facility] Atrial fibrillation Medical Established Patient with Arthur Therese LEAD INSTRUCTOR/FLIGHT ATTENDANT 11/25/2024 Last Documented On 5 11:36AM ; [facility] Generalized anxiety disorder Medical Est ablished Patient with Arthur Therese LEAD INSTRUCTOR/FLIGHT ATTENDANT 11/25/2024 Last Documented On 5 11:36AM ; [facility] GERD Medical Established Patient with Arthur Therese LEAD INSTRUCTOR/FLIGHT ATTENDANT 11/25/2024 Last Documented On 5 11:36AM ; [facility] Systemic hypertension Medical Establishe d Patient with Arthur Therese LEAD INSTRUCTOR/FLIGHT ATTENDANT 11/25/2024 Last Documented On 11:36AM ; [facility] Generalized anxiety disorder BH Established Mary Alice ent with Julia Lorenzo ACOUSTIC INTELLIGENCE SPECIALIST 10/28/2024 Last Documented On 9:32AM ; [facility] Visit for: screening for disorder BH Est ablished Patient with Julia Lorenzo ACOUSTIC INTELLIGENCE SPECIALIST 10/28/2024 Last Documented On 5 9:32AM ; [facility] [F41.1 - Generalized anxiety disorder] generalized anxiety disorder Medical Established Patient with Arthurangela Ambrizick LEAD INSTRUCTOR/FLIGHT ATTENDANT 10/28/2024 Last Documented On 1:56PM ; [facility] [K21.9 - Gastro-esophageal r eflux disease without esophagitis] GERD Medical Established Patient with Arthur Therese LEAD INSTRUCTOR/FLIGHT ATTENDANT 10/28/2024 Last Documented On 1:56PM ; [facility] [M13.80 - Other specified ar thritis, unspecified site] arthritis Medical Established Patient with Arthur Therese LEAD INSTRUCTOR/FLIGHT ATTENDANT 10/28/2024 Last Documented On 1:56PM ; [facility] [Z68.32 - Body mass index [B SD] 32.0-32.9, adult] assessment of body mass index Medical Established Patient with Arthur Therese LEAD INSTRUCTOR/FLIGHT ATTENDANT 10/28/2024 Last Documented On 5 1:56PM ; [facility] Primary insomnia Medical Established Patient wit h Arthurangela Ambrizick LEAD INSTRUCTOR/FLIGHT ATTENDANT 10/28/2024 Last Documented On 5 1:56PM ; [facility] Systemic hypertension Medical Establishe d Patient with Arthur Therese LEAD INSTRUCTOR/FLIGHT ATTENDANT 10/28/2024 Last Documented On 5 1:56PM ; [facility] [J30.9 - Allergic rhinitis, unspecified] allergic rhinitis [facility] with Arthur Therese LEAD INSTRUCTOR/FLIGHT ATTENDANT 08/16/2024 Last Documented On 5 10:00AM ; [facility] [N30.00 - Acute cystitis wit hout hematuria] acute cystitis [facility] with Arthur Therese LEAD INSTRUCTOR/FLIGHT ATTENDANT 08/16/2024 Last Documented On 5 10:00AM ; [facility] [R16.1 - Splenomegaly, not e lsewhere classified] splenomegaly [facility] with Arthur Saleh [facility] 08/16/2024 Last Documented On 5 10:00AM ; [facility] [Z68.33 - Body mass index [B SD] 33.0-33.9, adult] assessment of body mass index [facility] with Arthur Saleh [facility] 08/16/2024 Last Documented On 5 10:00AM ; [facility] Atrial fibrillation [facility] with Arthur Saleh [facility] 08/16/2024 Last Documented On 5 10:00AM ; [facility] 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 [facility] with Arthur Saleh [facility] 08/16/2024 Last Documented On 5 10:00AM ; [facility] Systemic hypertension Women's [facility] with Stacie Saleh [facility] 08/16/2024 Last Documented On 5 10:00AM ; [facility] Vaginal candidiasis Chart Update with Arthur slade [facility] 08/03/2024 Last Documented On 5 8:21AM ; [facility] Systemic hypertension Chart Update with Arthur Saleh [facility] 07/30/2024 Last Documented On 5 4:38PM ; [facility] [I48.20 - Chronic atrial fib rillation, unspecified] atrial fibrillation Open Access - Established with Arthur Saleh [facility] 07/22/2024 Last Documented On 5 12:05PM ; [facility] [J02.0 - Streptococcal phary ngitis] streptococcal sore throat Open Access - Established with Arthur Saleh [facility] 07/22/2024 Last Documented On 5 12:05PM ; [facility] [Z68.33 - Body mass index [B SD] 33.0-33.9, adult] assessment of body mass index Open Access - Established with Arthur Saleh [facility] 07/22/2024 Last Documented On 5 12:05PM ; [facility] Systemic hypertension Open Access - Esta blished with Arthur Saleh [facility] 07/22/2024 Last Documented On 12:05PM ; [facility] [I10 - Essential (primary) hypertension] systemic hypertension Medical New Patient with Arthur Saleh LEAD INSTRUCTOR/FLIGHT ATTENDANT 06/11/2024 Last Documented On 3:50PM ; [facility] [I48.91 - Unspecified atrial fibrillation] atrial fibrillation Medical New Patient with Arthur Saleh LEAD INSTRUCTOR/FLIGHT ATTENDANT 06/11/2024 Last Documented On 3:50PM ; [facility] [M13.80 - Other specified ar thritis, unspecified site] arthritis Medical New Patient with Arthur Saleh LEAD INSTRUCTOR/FLIGHT ATTENDANT 06/11/2024 Last Documented On 3:50PM ; [facility] [M51.360 - Other interverteb ral disc degeneration, lumbar region with discogenic back pain only] intervertebral disc degeneration Medical New Patient with Arthur Saleh LEAD INSTRUCTOR/FLIGHT ATTENDANT 06/11/2024 Last Documented On 3:50PM ; [facility] [Z00.01 - Encounter for gene ral adult medical examination with abnormal findings] routine adult history and physical (18 - 64 yrs) Medical New Patient with Arthur Saleh LEAD INSTRUCTOR/FLIGHT ATTENDANT 06/11/2024 Last Documented On 5 3:50PM ; [facility] [Z13.220 - Encounter for scr eening for lipoid disorders] visit for: screening for lipoid disorders Medical New Patient with Arthur Saleh LEAD INSTRUCTOR/FLIGHT ATTENDANT 06/11/2024 Last Documented On 3:50PM ; [facility] [Z13.29 - Encounter for scre ening for other suspected endocrine disorder] visit for: screening for thyroid disorders Medical New Patient with Arthur Saleh LEAD INSTRUCTOR/FLIGHT ATTENDANT 06/11/2024 Last Documented On 3:50PM ; [facility] [Z68.34 - Body mass index [B SD] 34.0-34.9, adult] assessment of body mass index Medical New Patient with Arthur Saleh LEAD INSTRUCTOR/FLIGHT ATTENDANT 06/11/2024 Last Documented On 5 3:50PM ; [facility] Diabetes Risk Test Score was five score 06/11/2024 Medical New Patient with Arthur Saleh LEAD INSTRUCTOR/FLIGHT ATTENDANT 06/11/2024 Last Documented On 5 3:50PM ; [facility] Screening for Hep C Medical New Patient with Rodrigo Saleh LEAD INSTRUCTOR/FLIGHT ATTENDANT 06/11/2024 Last Documented On 5 3:50PM ; [facility] Screening for HIV Medical New Patient with Puja Saleh LEAD INSTRUCTOR/FLIGHT ATTENDANT 06/11/2024 Last Documented On 5 3:50PM ; [facility] Thyroid disorder Medical New Patient with Stacie Saleh LEAD INSTRUCTOR/FLIGHT ATTENDANT 06/11/2024 Last Documented On 5 3:50PM ; [facility] Work Phone: 1(175) 523-892509-11-2025 Progress note* Progress note Date Encounter Last Documented by 11/25/2024 Medical Established Patient Last documented on 11/26/2024; 11:36 AM, Arthur Saleh [facility]; [facility] Active Problems & Conditions - M13.80 - Arthritis - I48.20 - Atrial Fibrillation - F41.1 - Generalized Anxiety Disorder - K21.9 - Gerd - I10 - Hypertension Systemic - Z90.710 - 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 Referred Here No prior encounters. - Data to be reviewed: no clinical lab tests History of Present Illness Soledad Kramer is a 39 year old female. - Allergy list reviewed - Problem list reviewed - Reviewed Medications - Medication list reviewed - Date of last menstruation 2017 Patient presenting for 1 month sleep and mood follow up. Patient reports sleep and mood have improved and they do not request further changes at this time. Patient is requesting diability assessment due to a-fib. Patient was educated that this is not performed here and will be given referral for physical evaluation to work. Patient has no other issues at this time. Patient supervisor [employer] yard is the provider that suggested the patient get evaluated for physical ability Current Medication - Fluconazole 150 MG Oral Tablet 7 days, 0 refills - Folic Acid 1 MG Oral Tablet Take 1 tablet daily by mouth, 90 days, 0 refills - Gabapentin 100 MG Oral Capsule 30 days, 0 refills - hydroCHLOROthiazide 25 MG Oral Tablet TAKE 1 TABLET BY MOUTH ONCE DAILY, 90 days, 0 refills - hydrOXYzine HCl 25 MG Oral Tablet TAKE 1 TABLET BY MOUTH NEEDED throughout THE DAY DIRECTEDFOR ANXIETY. TAKE 1 OR 2 TABLETS NEEDED EVERY NIGHT AT BEDTIME, 30 days, 0 refills - Loratadine 10 MG Oral Tablet Take 1 tablet daily by mouth, 90 days, 1 refills - Losartan Potassium 100 MG Oral Tablet Take 1 tablet daily by mouth, 90 days, 0 refills - Pantoprazole Sodium 40 MG Oral Tablet Delayed Release 90 days, 0 refills - Pantoprazole Sodium 40 MG Oral Tablet Delayed Release Take 1 tablet daily by mouth, 30 days, 2 refills - Potassium Chloride Sara ER 10 MEQ Oral Tablet Extended Release Take 1 tablet by mouth daily., 30 days, 2 refills - traMADol HCl [address] Cooney-Daniel Srinivasan, 30 days, 0 refills - Vitamin B-12 [address] Israel Cooper, 90 days, 0 refills Past Medical/Surgical History Reported: No Safety Measures. Medical: No Previous hospitalizations or recent ER visits. : Previously 3 time(s) and para having 1 live (s). Diagnoses: Sinus bradycardia. Systemic hypertension. Raynaud's syndrome. Hiatal hernia. Thyroid disorder. Migraine headache. Methicillin resistant staphylococcus aureus infection Surgical: - General surgery Loop recorder 2021 - Appendectomy - Cholecystectomy - Laparoscopic cholecystectomy - Dilation and curettage - Hysterectomy 2017-[facility]- - Foot surgery 6 surgries on left foot Social History Environmental Exposure: No secondhand cigarette smoke exposure. Tobacco use: Not a current tobacco OR nicotine OR electronic cigarette user. Alcohol: Not using alcohol. Drug Use: Not using drugs denied by patient. Sexual: Sexually active. Allergies - Adhesive Tape 1/2 x5yd Reaction: Skin Rashes / Eruption of skin - Ciprofloxacin Reaction: Shock - Latex Reaction: Skin Rashes / Eruption of skin - Levofloxacin Reaction: Shock - Lisinopril Reaction: Nausea - Pollen Extract - Spironolactone Reaction: Nausea Family History Paternal: Ischemic heart disease Systemic hypertension Type 2 diabetes mellitus Oncologic disorder Maternal: Ischemic heart disease Systemic hypertension Thyroid disorder Oncologic disorder Fraternal: Asthma Review Of Systems Head: No head symptoms. Neck: No neck symptoms. Eyes: No eye symptoms. Otolaryngeal: No ear symptoms, no nasal symptoms, no nose and sinus finding, no throat symptoms, nooral cavity symptoms, and no jaw symptoms. Cardiovascular: No cardiovascular symptoms. Pulmonary: No pulmonary symptoms and no cough. Gastrointestinal: No gastrointestinal symptoms. Genitourinary: No increase in urinary frequency. Endocrine: No endocrine symptoms. Musculoskeletal: No musculoskeletal symptoms. Neurological: No neurological symptoms. Psychological: No psychological symptoms. Skin: No skin symptoms and no hair symptoms. ROS in HPI. Cardiovascular: Edema not present. Skin: No laceration. Physical Findings - Vitals taken 11/25/2024 02:51 pm BP-Sitting R131/84 mmHg BP Cuff SizeLarge Pulse Rate-Qidieri83 bpm Respiration Rate23 per min Temp-Oral97.9 F Sswweq30 in Cllteb065 lbs 12.8 oz Body Mass Index34.1 kg/m2 Body Surface Area2.2 m2 Oxygen Kaiuedrmhi02 % O2 DeviceNone (Room Air) [id number] % - Vitals taken 11/25/2024 03:06 pm BP-Sitting R125/85 mmHg BP Cuff SizeRegular Vital Signs: - Systolic blood pressure < 130 mmHg. - Diastolic blood pressure 80-89 mmHg. General Appearance: - Awake. - Alert. - Well developed. - Well nourished. - Body odor was normal. - In no acute distress. Nose: General/bilateral: Discharge: - No nasal discharge. Sinus Tenderness: - No sinus tenderness. Oral Cavity: - General condition was good. - Odor of breath was normal. Pharynx: Oropharynx: - Normal. Lungs: - Normal. - Respiration rhythm and depth was normal. - Clear to auscultation. Cardiovascular: Auscultation: - Normal. Heart Rate And Rhythm: - Abnormal. - Heart rhythm regularly irregular. Heart Sounds: - Normal. Heart Borders: - By percussion, heart size and position were normal. Abdomen: Visual Inspection: - Abdomen was normal on visual inspection. Musculoskeletal System: General/bilateral: - Normal movement of all extremities. Neurological: - Oriented to time, place, and person. Psychiatric: - Expression of emotions normal. Skin: - General appearance of skin normal. General body state: - In good general health. Tests Laboratory-based Chemistry: Other Laboratory Tests: Screening for sexually transmitted infections was not performed. Assessment - Z68.34 - Body mass index [BMI] 34.0-34.9, adult - J30.9 - Allergic rhinitis, unspecified - I48.20 - Chronic atrial fibrillation, unspecified - I10 - Essential (primary) hypertension - K21.9 - Gastro-esophageal reflux disease without esophagitis - F41.1 - Generalized anxiety disorder Therapy - Patient refused flu vaccine. Discussed benefits of flu vaccine with Patient. Counseling/Education - Discussed nutritional needs teach healthy choices including fruits and vegetables - Patient education about a proper diet - Discussed concerns about exercise: promote physical activity Plan StartCited- Allergic rhinitis, unspecified Loratadine 10 MG tablet Take 1 tablet daily by mouth, 90 days, 1 refills EndCited StartCited- Chronic atrial fibrillation, unspecified Referrals: Physical Medicine & Rehab Instructions: Please make a referral to: Physical capacity exam EndCited StartCited- Essential (primary) hypertension Losartan Potassium 100 MG tablet Take 1 tablet daily by mouth, 90 days, 0 refills Potassium Chloride Sara ER 10 MEQ tablet Take 1 tablet by mouth daily., 30 days, 2 refills EndCited StartCited- Gastro-esophageal reflux disease without esophagitis Pantoprazole Sodium 40 MG tablet Take 1 tablet daily by mouth, 30 days, 2 refills EndCited StartCited- Generalized anxiety disorder hydrOXYzine HCl 25 MG tablet TAKE 1 TABLET BY MOUTH NEEDED throughout THE DAY DIRECTED FOR ANXIETY. TAKE 1 OR 2 TABLETS NEEDED EVERY NIGHT AT BEDTIME, 30 days, 2 refills EndCited StartCited- Other specified arthritis, unspecified site Folic Acid 1 MG tablet Take 1 tablet daily by mouth, 90 days, 0 refills EndCited Patient to follow up in 3 months. Patient to report to pain management for medication refills. Patient to call pain management for tramadol. Patient meds refilled for all chronic conditions. Patient to continue medications. Patient to report to physical medicine for Functional ability assessment. Care Team - Arthur Therese, LEAD INSTRUCTOR/FLIGHT ATTENDANT Health Reminders - Assess BMI satisfied 11/25/2024. - Assess Tobacco Use satisfied 11/25/2024. - Follow Up Plan BMI Management satisfied 11/25/2024. [facility]08-15-2025 History general Narrative - Reported Includes: Medical History in patient's chart Description Last Updated No Safety Measures 10/29/2024 Last Documented On 9:32AM ; [facility] No Previous hospitalizations or recent E R visits 10/28/2024 Last Documented On 5 1:56PM ; [facility] Raynaud's syndrome 06/11/2024 Last Documented On 5 3:50PM ; [facility] 1 previous live (s) 06/11/2024 Last Documented On 5 3:50PM ; [facility] Previously 3 time(s) 06/11/2024 Last Documented On 5 3:50PM ; [facility] Hiatal hernia 06/11/2024 Last Documented On 5 3:50PM ; [facility] History of systemic hypertension 025 Last Documented On 5 3:50PM ; [facility] History of thyroid disorder 06/11/2024 Last Documented On 5 3:50PM ; [facility] History of migraine headache 06/11/2024 Last Documented On 5 3:50PM ; [facility] Sinus bradycardia 06/11/2024 Last Documented On 5 3:50PM ; [facility] Methicillin resistant staphylococcus aur eus infection 06/11/2024 Last Documented On 5 3:50PM ; [facility] Work Phone: 1(901) 265-144008-15-2025 History general Narrative - Reported Includes: Medical History in patient's chart Description Last Updated No Safety Measures 10/29/2024 Last Documented On 5 9:32AM ; [facility] No Previous hospitalizations or recent E R visits 10/28/2024 Last Documented On 5 1:56PM ; [facility] Raynaud's syndrome 06/11/2024 Last Documented On 5 3:50PM ; [facility] 1 previous live (s) 06/11/2024 Last Documented On 5 3:50PM ; [facility] Previously 3 time(s) 06/11/2024 Last Documented On 5 3:50PM ; [facility] Hiatal hernia 06/11/2024 Last Documented On 5 3:50PM ; [facility] History of systemic hypertension 025 Last Documented On 3:50PM ; [facility] History of thyroid disorder 06/11/2024 Last Documented On 3:50PM ; [facility] History of migraine headache 06/11/2024 Last Documented On 3:50PM ; [facility] Sinus bradycardia 06/11/2024 Last Documented On 3:50PM ; [facility] Methicillin resistant staphylococcus aur eus infection 06/11/2024 Last Documented On 3:50PM ; [facility] Work Phone: [phone]) 578-301008-15-2025 History general Narrative - Reported Includes: Medical History in patient's chart Description Last Updated No Safety Measures 10/29/2024 Last Documented On 9:32AM ; [facility] No Previous hospitalizations or recent E R visits 10/28/2024 Last Documented On 5 1:56PM ; [facility] Raynaud's syndrome 06/11/2024 Last Documented On 5 3:50PM ; [facility] 1 previous live (s) 06/11/2024 Last Documented On 5 3:50PM ; [facility] Previously 3 time(s) 06/11/2024 Last Documented On 5 3:50PM ; [facility] Hiatal hernia 06/11/2024 Last Documented On 5 3:50PM ; [facility] History of systemic hypertension 025 Last Documented On 5 3:50PM ; [facility] History of thyroid disorder 06/11/2024 Last Documented On 5 3:50PM ; [facility] History of migraine headache 06/11/2024 Last Documented On 5 3:50PM ; [facility] Sinus bradycardia 06/11/2024 Last Documented On 3:50PM ; [facility] Methicillin resistant staphylococcus aur eus infection 06/11/2024 Last Documented On 5 3:50PM ; [facility] Work Phone: [phone]) 639-438508-15-2025 History general Narrative - Reported Includes: Medical History in patient's chart Description Last Updated No Safety Measures 10/29/2024 Last Documented On 9:32AM ; [facility] No Previous hospitalizations or recent E R visits 10/28/2024 Last Documented On 1:56PM ; [facility] Raynaud's syndrome 06/11/2024 Last Documented On 3:50PM ; [facility] 1 previous live (s) 06/11/2024 Last Documented On 3:50PM ; [facility] Previously 3 time(s) 06/11/2024 Last Documented On 5 3:50PM ; [facility] Hiatal hernia 06/11/2024 Last Documented On 5 3:50PM ; [facility] History of systemic hypertension 025 Last Documented On 5 3:50PM ; [facility] History of thyroid disorder 06/11/2024 Last Documented On 3:50PM ; [facility] History of migraine headache 06/11/2024 Last Documented On 5 3:50PM ; [facility] Sinus bradycardia 06/11/2024 Last Documented On 5 3:50PM ; [facility] Methicillin resistant staphylococcus aur eus infection 06/11/2024 Last Documented On 5 3:50PM ; [facility] Work Phone: [phone]) 781-145408-14-2025 Evaluation note Includes: Assessments for all patient encounters Findings Encounter Date Generalized anxiety disorder BH Established Mary Alice ent with Julia Lorenzo ACOUSTIC INTELLIGENCE SPECIALIST 10/28/2024 Last Documented On 9:32AM ; [facility] Visit for: screening for disorder BH Est ablished Patient with Julia Lorenzo ACOUSTIC INTELLIGENCE SPECIALIST 10/28/2024 Last Documented On 9:32AM ; [facility] [F41.1 - Generalized anxiety disorder] generalized anxiety disorder Medical Established Patient with Arthur Therese LEAD INSTRUCTOR/FLIGHT ATTENDANT 10/28/2024 Last Documented On 1:56PM ; [facility] [K21.9 - Gastro-esophageal r eflux disease without esophagitis] GERD Medical Established Patient with Arthur Therese LEAD INSTRUCTOR/FLIGHT ATTENDANT 10/28/2024 Last Documented On 1:56PM ; [facility] [M13.80 - Other specified ar thritis, unspecified site] arthritis Medical Established Patient with Arthur Therese LEAD INSTRUCTOR/FLIGHT ATTENDANT 10/28/2024 Last Documented On 1:56PM ; [facility] [Z68.32 - Body mass index [B SD] 32.0-32.9, adult] assessment of body mass index Medical Established Patient with Arthur Therese LEAD INSTRUCTOR/FLIGHT ATTENDANT 10/28/2024 Last Documented On 5 1:56PM ; [facility] Primary insomnia Medical Established Patient wit h Arthur Therese LEAD INSTRUCTOR/FLIGHT ATTENDANT 10/28/2024 Last Documented On 5 1:56PM ; [facility] Systemic hypertension Medical Establishe d Patient with Arthur Therese LEAD INSTRUCTOR/FLIGHT ATTENDANT 10/28/2024 Last Documented On 5 1:56PM ; [facility] [J30.9 - Allergic rhinitis, unspecified] allergic rhinitis [facility] with Arthur Therese LEAD INSTRUCTOR/FLIGHT ATTENDANT 08/16/2024 Last Documented On 5 10:00AM ; [facility] [N30.00 - Acute cystitis wit hout hematuria] acute cystitis [facility] with Arthur Therese LEAD INSTRUCTOR/FLIGHT ATTENDANT 08/16/2024 Last Documented On 5 10:00AM ; [facility] [R16.1 - Splenomegaly, not e lsewhere classified] splenomegaly [facility] with Arthur Therese LEAD INSTRUCTOR/FLIGHT ATTENDANT 08/16/2024 Last Documented On 5 10:00AM ; [facility] [Z68.33 - Body mass index [B SD] 33.0-33.9, adult] assessment of body mass index [facility] with Arthur Therese LEAD INSTRUCTOR/FLIGHT ATTENDANT 08/16/2024 Last Documented On 5 10:00AM ; [facility] Atrial fibrillation [facility] with Arthur Therese LEAD INSTRUCTOR/FLIGHT ATTENDANT 08/16/2024 Last Documented On 5 10:00AM ; [facility] 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 [facility] with Arthur Therese LEAD INSTRUCTOR/FLIGHT ATTENDANT 08/16/2024 Last Documented On 5 10:00AM ; [facility] Systemic hypertension [facility] with Stacie abbasi Therese LEAD INSTRUCTOR/FLIGHT ATTENDANT 08/16/2024 Last Documented On 5 10:00AM ; [facility] Vaginal candidiasis Chart Update with Arthur slade [facility] 08/03/2024 Last Documented On 5 8:21AM ; [facility] Systemic hypertension Chart Update with Arthur Ambrizick LEAD INSTRUCTOR/FLIGHT ATTENDANT 07/30/2024 Last Documented On 5 4:38PM ; [facility] [I48.20 - Chronic atrial fib rillation, unspecified] atrial fibrillation Open Access - Established with Arthur Therese LEAD INSTRUCTOR/FLIGHT ATTENDANT 07/22/2024 Last Documented On 5 12:05PM ; [facility] [J02.0 - Streptococcal phary ngitis] streptococcal sore throat Open Access - Established with Arthur Therese LEAD INSTRUCTOR/FLIGHT ATTENDANT 07/22/2024 Last Documented On 5 12:05PM ; [facility] [Z68.33 - Body mass index [B SD] 33.0-33.9, adult] assessment of body mass index Open Access - Established with Arthur Saleh LEAD INSTRUCTOR/FLIGHT ATTENDANT 07/22/2024 Last Documented On 12:05PM ; [facility] Systemic hypertension Open Access - Esta blished with Arthur Saleh LEAD INSTRUCTOR/FLIGHT ATTENDANT 07/22/2024 Last Documented On 12:05PM ; [facility] [I10 - Essential (primary) hypertension] systemic hypertension Medical New Patient with Arthur Saleh LEAD INSTRUCTOR/FLIGHT ATTENDANT 06/11/2024 Last Documented On 3:50PM ; [facility] [I48.91 - Unspecified atrial fibrillation] atrial fibrillation Medical New Patient with Arthur Saleh LEAD INSTRUCTOR/FLIGHT ATTENDANT 06/11/2024 Last Documented On 3:50PM ; [facility] [M13.80 - Other specified ar thritis, unspecified site] arthritis Medical New Patient with Arthur Salhe LEAD INSTRUCTOR/FLIGHT ATTENDANT 06/11/2024 Last Documented On 3:50PM ; [facility] [M51.360 - Other interverteb ral disc degeneration, lumbar region with discogenic back pain only] intervertebral disc degeneration Medical New Patient with Arthur Saleh LEAD INSTRUCTOR/FLIGHT ATTENDANT 06/11/2024 Last Documented On 3:50PM ; [facility] [Z00.01 - Encounter for gene ral adult medical examination with abnormal findings] routine adult history and physical (18 - 64 yrs) Medical New Patient with Arthur Saleh LEAD INSTRUCTOR/FLIGHT ATTENDANT 06/11/2024 Last Documented On 3:50PM ; [facility] [Z13.220 - Encounter for scr eening for lipoid disorders] visit for: screening for lipoid disorders Medical New Patient with Arthur Saleh LEAD INSTRUCTOR/FLIGHT ATTENDANT 06/11/2024 Last Documented On 3:50PM ; [facility] [Z13.29 - Encounter for scre ening for other suspected endocrine disorder] visit for: screening for thyroid disorders Medical New Patient with Arthur Saleh LEAD INSTRUCTOR/FLIGHT ATTENDANT 06/11/2024 Last Documented On 3:50PM ; [facility] [Z68.34 - Body mass index [B SD] 34.0-34.9, adult] assessment of body mass index Medical New Patient with Arthur Saleh LEAD INSTRUCTOR/FLIGHT ATTENDANT 06/11/2024 Last Documented On 5 3:50PM ; [facility] Diabetes Risk Test Score was five score 06/11/2024 Medical New Patient with Arthur Saleh LEAD INSTRUCTOR/FLIGHT ATTENDANT 06/11/2024 Last Documented On 5 3:50PM ; [facility] Screening for Hep C Medical New Patient with Rodrigo Saleh LEAD INSTRUCTOR/FLIGHT ATTENDANT 06/11/2024 Last Documented On 5 3:50PM ; [facility] Screening for HIV Medical New Patient with Puja Saleh LEAD INSTRUCTOR/FLIGHT ATTENDANT 06/11/2024 Last Documented On 5 3:50PM ; [facility] Thyroid disorder Medical New Patient with Stacie Saleh LEAD INSTRUCTOR/FLIGHT ATTENDANT 06/11/2024 Last Documented On 5 3:50PM ; [facility] Work Phone: 1([phone]) 158-207208-14-2025 Progress note* Progress note Date Encounter Last Documented by 10/28/2024 Medical Established Patient Last documented on 10/28/2024; 1:56 PM, Arthur Saleh [facility]; [facility] Active Problems & Conditions - M13.80 - Arthritis - I48.20 - Atrial Fibrillation - F41.1 - Generalized Anxiety Disorder - K21.9 - Gerd - I10 - Hypertension Systemic - Z90.710 - Postsurgical State 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 Referred Here No prior encounters. - Data to be reviewed: no clinical lab tests History of Present Illness Soledad Kramer is a 39 year old female. - Problem list reviewed - Reviewed Medications - Medication list reviewed Patient is a 39 year old female presenting for follow up. Patient reports that medications work well and score on WALI is low for anxiety. However, the patient relates to difficulty sleeping at night and being unable to fall asleep in less than 4 hours of trying. Patient relates to fatigue during the day because of this. Patient relates that when they go to bed they feel like my mind is racing. Patient relates to no other issues at this time, but does need medications refilled for chronic conditions Current Medication - Fluconazole 150 MG Oral Tablet 7 days, 0 refills - Folic Acid 1 MG Oral Tablet Take 1 tablet daily by mouth, 90 days, 0 refills - Gabapentin 100 MG Oral Capsule 30 days, 0 refills - hydroCHLOROthiazide 25 MG Oral Tablet Take 1 tablet daily by mouth, 90 days, 0 refills - Loratadine 10 MG Oral Tablet Take 1 tablet daily by mouth, 90 days, 1 refills - Losartan Potassium 100 MG Oral Tablet Take 1 tablet daily by mouth, 90 days, 0 refills - Pantoprazole Sodium 40 MG Oral Tablet Delayed Release 90 days, 0 refills - Pantoprazole Sodium 40 MG Oral Tablet Delayed Release Take 1 tablet daily by mouth, 30 days, 2 refills - Potassium Chloride Sara ER 10 MEQ Oral Tablet Extended Release Take 1 tablet by mouth daily., 30 days, 2 refills - traMADol HCl [address] Cooney-Daniel Balderasyde, 30 days, 0 refills - Vitamin B-12 [address] Israel Cooper, 90 days, 0 refills Past Medical/Surgical History Reported: Medical: No Previous hospitalizations or recent ER visits. : Previously 3 time(s) and para having 1 live (s). Diagnoses: Sinus bradycardia. Systemic hypertension. Raynaud's syndrome. Hiatal hernia. Thyroid disorder. Migraine headache. Methicillin resistant staphylococcus aureus infection Surgical: - General surgery Loop recorder 2021 - Appendectomy - Cholecystectomy - Laparoscopic cholecystectomy - Dilation and curettage - Hysterectomy 2017-[facility]- - Foot surgery 6 surgries on left foot Social History Environmental Exposure: No secondhand cigarette smoke exposure. Behavioral: Not a current tobacco/nicotine user. Alcohol: Not using alcohol. Drug Use: Not using drugs denied by patient. Sexual: Sexually active. Allergies - Adhesive Tape 1/2 x5yd Reaction: Skin Rashes / Eruption of skin - Ciprofloxacin Reaction: Shock - Latex Reaction: Skin Rashes / Eruption of skin - Levofloxacin Reaction: Shock - Lisinopril Reaction: Nausea - Pollen Extract - Spironolactone Reaction: Nausea Family History Paternal: Ischemic heart disease Systemic hypertension Type 2 diabetes mellitus Oncologic disorder Maternal: Ischemic heart disease Systemic hypertension Thyroid disorder Oncologic disorder Fraternal: Asthma Review Of Systems Head: No head symptoms. Neck: No neck symptoms. Eyes: No eye symptoms. Otolaryngeal: No ear symptoms, no nasal symptoms, no nose and sinus finding, no throat symptoms, nooral cavity symptoms, and no jaw symptoms. Cardiovascular: No cardiovascular symptoms. Pulmonary: No pulmonary symptoms and no cough. Gastrointestinal: No gastrointestinal symptoms. Genitourinary: No increase in urinary frequency. Endocrine: No endocrine symptoms. Musculoskeletal: No musculoskeletal symptoms. Neurological: No neurological symptoms. Psychological: Anxiety. No depression. Insomnia. Skin: No skin symptoms and no hair symptoms. ROS in HPI. Cardiovascular: Edema not present. Skin: No laceration. Physical Findings - Vitals taken 10/28/2024 10:07 am BP-Sitting L127/88 mmHg BP Cuff SizeRegular Pulse Rate-Vzebsnw91 bpm Respiration Rate17 per min Temp-Oral98.1 F Qpiodg58 in Vmkpcp339 lbs 6.4 oz Body Mass Index32.2 kg/m2 Body Surface Area2.2 m2 Oxygen Sxqykwwhpc82 % O2 DeviceNone (Room Air) LlR917 % - Vitals taken 10/28/2024 10:14 am BP-Sitting L131/89 mmHg BP Cuff SizeLarge Vital Signs: - Systolic blood pressure < 130 mmHg. - Diastolic blood pressure 80-89 mmHg. General Appearance: - Awake. - Alert. - Well developed. - Well nourished. - Body odor was normal. - In no acute distress. Nose: General/bilateral: Discharge: - No nasal discharge. Sinus Tenderness: - No sinus tenderness. Oral Cavity: - General condition was good. - Odor of breath was normal. Pharynx: Oropharynx: - Normal. Lungs: - Normal. - Respiration rhythm and depth was normal. - Clear to auscultation. Cardiovascular: Auscultation: - Normal. Heart Rate And Rhythm: - Normal. Heart Sounds: - Normal. Abdomen: Visual Inspection: - Abdomen was normal on visual inspection. Musculoskeletal System: General/bilateral: - Normal movement of all extremities. Neurological: - Oriented to time, place, and person. Psychiatric: - Mood was anxious. Skin: - General appearance of skin normal. General body state: - In good general health. No Significant Findings: - No significant findings. Tests Laboratory-based Chemistry: Other Laboratory Tests: Screening for sexually transmitted infections was not performed. Assessment - Z68.32 - Body mass index [BMI] 32.0-32.9, adult - I10 - Essential (primary) hypertension - K21.9 - Gastro-esophageal reflux disease without esophagitis - M13.80 - Other specified arthritis, unspecified site - F51.01 - Primary insomnia - F41.1 - Generalized anxiety disorder Therapy - Patient refused flu vaccine. Discussed benefits of flu vaccine with Patient. Counseling/Education - Discussed nutritional needs teach healthy choices including fruits and vegetables - Patient education about a proper diet - Discussed concerns about exercise: promote physical activity Plan StartCited- Essential (primary) hypertension hydroCHLOROthiazide 25 MG tablet Take 1 tablet daily by mouth, 90 days, 0 refills Potassium Chloride Sara ER 10 MEQ tablet Take 1 tablet by mouth daily., 30 days, 2 refills Losartan Potassium 100 MG tablet Take 1 tablet daily by mouth, 90 days, 0 refills EndCited StartCited- Gastro-esophageal reflux disease without esophagitis Pantoprazole Sodium 40 MG tablet Take 1 tablet daily by mouth, 30 days, 2 refills EndCited StartCited- Generalized anxiety disorder hydrOXYzine HCl 25 MG tablet Take 1 tablet as needed throughout the day for anxiety. Take 1-2 tablets as needed and go to bed at night., 30 days, 0 refills EndCited StartCited- Other specified arthritis, unspecified site Folic Acid 1 MG tablet Take 1 tablet daily by mouth, 90 days, 0 refills EndCited Patient to follow up in 1 month. Patient to start hydroxyzine. Patient medication for chronic conditions refilled. Care Team - [facility] - Assess BMI satisfied 10/28/2024. - Assess Tobacco Use satisfied 10/28/2024. - Follow Up Plan BMI Management satisfied 10/28/2024. 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 Subjective [facility] met with patient for reports of difficulty sleeping. Patient has tried medications over the counter with no success. She has tried darkening her room and having a fan and having background noise.She reports only getting a few hours of a sleep a night. Patient reports that when going to bed hermind does not shut off. She feels that she is not able to stop these thoughts. DIscussed adding hydroxozine to assist with sleep and anxiety. History of Present Illness Soledad Kramer is a 39 year old female. - No Irritability - Normal appetite - Anxiety - Sleep disturbances - Energy level is good - No depression Current Medication - Fluconazole 150 MG Oral Tablet 7 days, 0 refills - Folic Acid 1 MG Oral Tablet Take 1 tablet daily by mouth, 90 days, 0 refills - Folic Acid 1 MG Oral Tablet Take 1 tablet daily by mouth, 90 days, 0 refills - Gabapentin 100 MG Oral Capsule 30 days, 0 refills - hydroCHLOROthiazide 25 MG Oral Tablet Take 1 tablet daily by mouth, 90 days, 0 refills - hydroCHLOROthiazide 25 MG Oral Tablet Take 1 tablet daily by mouth, 90 days, 0 refills - hydrOXYzine HCl 25 MG Oral Tablet Take 1 tablet as needed throughout the day for anxiety. Take 1-2 tablets as needed and go to bed at night., 30 days, 0 refills - Loratadine 10 MG Oral Tablet Take 1 tablet daily by mouth, 90 days, 1 refills - Losartan Potassium 100 MG Oral Tablet Take 1 tablet daily by mouth, 90 days, 0 refills - Losartan Potassium 100 MG Oral Tablet Take 1 tablet daily by mouth, 90 days, 0 refills - Pantoprazole Sodium 40 MG Oral Tablet Delayed Release 90 days, 0 refills - Pantoprazole Sodium 40 MG Oral Tablet Delayed Release Take 1 tablet daily by mouth, 30 days, 2 refills - Pantoprazole Sodium 40 MG Oral Tablet Delayed Release Take 1 tablet daily by mouth, 30 days, 2 refills - Potassium Chloride Sara ER 10 MEQ Oral Tablet Extended Release Take 1 tablet by mouth daily., 30 days, 2 refills - Potassium Chloride Sara ER 10 MEQ Oral Tablet Extended Release Take 1 tablet by mouth daily., 30 days, 2 refills - traMADol HCl [address] Cooney-Daniel Hayse, 30 days, 0 refills - Vitamin B-12 [address] Israel Cooper, 90 days, 0 refills Past Medical/Surgical History Reported: No Safety Measures. Social History Environmental Exposure: No secondhand cigarette smoke exposure. Behavioral: Not a current tobacco/nicotine user. Alcohol: Not using alcohol. Drug Use: Not using drugs. Housing And Economic Circumstances: Lives with spouse. Physical Findings General Appearance: - Normal Appearance. Neurological: - Cognitive Functions was Normal. - Oriented to time, place, and person. - No hallucinations. - Judgement was not impaired. Speech: - Is Normal. - No articulation abnormalities. Psychiatric: - Mood is Euthymic. - Attitude Open. Appearance: - Normal. Demonstrated Behavior: - Motor Activity Normal Activity. - Eye Contact Appropriate. Affect: - Congruent with the mood. Thought Processes: - Not impaired. Thought Content: - Revealed no impairment. - Insight was intact. - No delusions. - No suicidal ideation. - No Passive thoughts of . - No suicidal plans. - No suicidal intent. - No homicidal ideations. - No homicidal plans. - No homicidal intent. Past Medical: - No repetitive self injurious behavior. Assessment - Visit for: screening for disorder [Z13.89 - Encounter for screening for other disorder] - Generalized anxiety disorder [F41.1 - Generalized anxiety disorder] Therapy - Brief solution-focused. - Adherent with medications. - Visit 30 Minutes. - Plan - Generalized anxiety disorder hydrOXYzine HCl 25 MG tablet Take 1 tablet as needed throughout the day for anxiety. Take 1-2 tablets as needed and go to bed at night., 30 days, 0 refills and Collaborated with patient and provider: Counseling/Education *BHP offered active and supportive listening, normalized emotions and feelings, and processed current stressors. *Discussed proper sleep hygiene skills to implement to improve sleep. Plan *BHP to follow-up with patient at next visit as scheduled. *Patient to follow up as needed/scheduled. Care Team - [facility] - WALI-2 satisfied 10/28/2024. - PHQ9 / PHQA satisfied 10/28/2024. User Defined 1 WALI-2 score was 0 10/28/2024, WALI-7 score [WALI-7] Feeling nervous, anxious or on edge? + 0 pt : Not at all, [WALI-7] Not being able to stop or control worrying? + 0 pt : Not at all, Patient Health Questionnaire 9-Item total score was one 10/28/2024 If you checked off problems, how difficult is it for you to do your work? + : Not difficult at all, [PHQ-9-1] Little interest or pleasure in doing things? + 0 pt : Not at all, [PHQ-9-2] Feeling down, depressed, or hopeless? + 0 pt : Not at all, [PHQ-9-3] Trouble falling or staying asleep or sleeping too much? + 1 pt : Several days, [PHQ-9-4] Feeling tired or having little energy? + 0 pt : Not at all, [PHQ-9-5] Poor appetite or overeating? + 0 pt : Not at all, [PHQ-9-6] Feeling bad about yourself-or that you are a failure + 0 pt : Not at all, [PHQ-9-7] Trouble concentrating on things such as reading the newspaper + 0 pt : Not at all, [PHQ-9-8] Moving or speaking so slowly that other people have noticed. + 0 pt : Not at all, and [PHQ-9-9] Thoughts that you would be better off or hurting yourself? + 0 pt : Not at all. [facility]08-14-2025 Instructions Includes: Instructions for all patient encounters Education and Decision Aids were provided during visit for: Discussed nutritional needs teach healthy choices including fruits and vegetables Last Documented On 5 10:10AM ; [facility] Patient education about a pr oper diet Last Documented On 5 10:10AM ; [facility] Discussed concerns about exe rcise : promote physical activity Last Documented On 5 10:10AM ; [facility] Discussed nutritional needs teach healthy choices including fruits and vegetables Last Documented On 5 8:48AM ; [facility] Patient education about a pr oper diet Last Documented On 5 8:48AM ; [facility] Discussed concerns about exe rcise : promote physical activity Last Documented On 5 8:48AM ; [facility] Discussed nutritional needs teach healthy choices including fruits and vegetables Last Documented On 5 10:52AM ; [facility] Patient education about a pr oper diet Last Documented On 5 10:52AM ; [facility] Discussed concerns about exe rcise : promote physical activity Last Documented On 5 10:52AM ; [facility] Not requesting contraception Last Documented On 5 10:53AM ; [facility] Discussed nutritional needs teach healthy choices including fruits and vegetables Last Documented On 5 10:19AM ; [facility] Patient education about a pr oper diet Last Documented On 5 10:19AM ; [facility] Discussed concerns about exe rcise : promote physical activity Last Documented On 5 10:19AM ; [facility] Work Phone: [phone] 646-203307-07-2025 Miscellaneous Notes* Nursing Notes - Steffi Jones RN - 09/20/2024 4:35 PM EDT Patient placed in wheelchair and wheeled off the unit. Patient's family member is driving her home.Patient in no distress and no labored breathing noted. * Brief Op Note - Kevin Sagastume DDS - 09/20/2024 7:14 AM EDT POST OPERATIVE/PROCEDURE NOTE Soledad Kramer ([id number]) SURGEON Surgeons and Role: * Kevin Sagastume DDS - Primary TYPEWRITER OPERATOR AUTOMATIC José Miguel ANESTHESIOLOGIST THREAD REELER: (Unknown) SURGICAL STAFF Lithography Contact Worker: Vania Baugh RN Scrub Person: Ave Long PROCEDURE PERFORMED Procedure(s) (LRB): EXTRACTION TOOTH-PICC TEAM HERE AT 1215 (Bilateral) PRIMARY CLOSURE Yes ANESTHESIA (type of) General ESTIMATED BLOOD LOSS 50 ml DRAINS None BLOOD PRODUCTS None FLUIDS No intake or output data in the 24 hours ending 09/20/24 0714 PRE OPERATIVE DIAGNOSIS Dental caries [K02.9] POST OPERATIVE DIAGNOSIS * No Diagnosis Codes entered * FINDINGS No significant abnormalities CONDITION OF PATIENT stable COMPLICATIONS None GRAFTS AND/OR IMPLANTS See OR Nursing Documentation SPECIMENS No specimen sent * No specimens in log * Kevin Sagastume DDS September 20, 2024 7:14 AM [facility]* Nursing Notes - Steffi Jones RN - 09/20/2024 4:35 PM EDT Patient placed in wheelchair and wheeled off the unit. Patient's family member is driving her home.Patient in no distress and no labored breathing noted. [facility]07-07-[facility]25 Hospital Discharge instructions* Discharge Instructions* Steffi Jones RN - 09/20/2024 3:58 PM EDT Kevin Sagastume DDS [address] [place] [id number] Oral Surgery Instructions Day Of Surgery FIRST HOUR Bite down gently but firmly on the gauze packs that have been placed over the surgical areas, making sure they remain in place for at least an hour after surgery. If the extraction site still appearsto be oozing, place enough new gauze to obtain pressure over the surgical site for another 60 minutes. The gauze may be changed as necessary and may be dampened and/or fluffed for more comfortable positioning. DO'S AND DONT'S Do NOT disturb the surgical area today. Do NOT rinse vigorously or probe the area with any objects or your fingers. Do NOT brush your teeth the day of surgery, you may begin gently brushing the next day. Do NOT smoke for at least 72 hours (3 days), since it is very detrimental to healing. NO spitting or rinsing for two days. NO carbonated sodas, acidic acid (orange juice, grapefruit), or drinkingthrough a straw for at least 4 days. You may drink using a cup, glass bowl, can, or bottle. NO STRAWS!! EXERCISE Refrain from strenuous exercise for a minimum of 7 days to include weightlifting, running, hiking, swimming, yoga, pilates, etc., anything that significantly increases the heart rate and blood pressure. REST Rest means minimal activity. Read a book, watch TV, play video games. Avoid unnecessary conversation- the activity of speaking aggravates the muscles near the surgery site. Consider giving your cell phone a rest too! Rest with your head elevated-during the day rest in a recliner or on the couch. Inbed, use an extra pillow to keep your head above your heart. This will help minimize bleeding and swelling. The more active you are and the more you speak or chew, the more swelling you will have. OOZING Intermittent bleeding or oozing is normal. Placing fresh moist gauze over the surgical areas and biting down firmly for 60 minutes may control it. Expect a slight bit of oozing at night. You may wantto place a towel or a disposable towel over your pillow tonight before going to sleep. STEADY BLEEDING Bleeding should never be severe. If it is, it usually means that the packs are being clenched between your teeth rather than exerting pressure on the surgical areas. DON'T spit in the sink to see howmuch bleeding there is. Instead, inspect the gauze. If it is completely saturated with bright red blood, try repositioning with fresh gauze packs. If bleeding persists or becomes heavy you may substitute a tea bag (soaked in hot water, squeezed damp-dry and wrapped in moist gauze) for 20-30 minutes. If bleeding remains uncontrolled, please call our office SWELLING Often there is swelling associated with oral surgery. You can minimize this by using a cold pack orice bag wrapped in a thin towel or t-shirt and applied firmly to face or cheek adjacent to the surgical area. Small bags of frozen peas work very well as cold packs. If you get four bags, they can berotated between the freezer and your face (2 in the freezer and 2 on your face-one for each cheek).Cold packs should be applied for 20 minutes off during the first 48 hours (2 days) after surgery. If you have been prescribed medicine for the control of swelling, be sure to take it as directed. After 72 hours (3 days), it is usually best to switch from ice to moist heat to the same areas. PAIN Unfortunately, most oral surgery is accompanied with some degree of discomfort. You will usually have a prescription for pain medication, and if you take the first pill (ibuprofen) before anesthetic has worn off, you will be able to manage any discomfort better. Effects of pain medicines vary widely among individuals. Most of our patients are prescribed 2 types of oral pain medication. 1) Ibuprofen (Motrin, Advil) and 2) a narcotic such as oxycodone (Percocet) or hydrocodone as needed, preferably at bedtime. It is important to remember that you should not drive a vehicle or drink alcohol while taking a narcotic. Narcotics will make you sleepy and can increase the risk of an upset stomach. All pain medication is better tolerated with food, in this case soft food. Remember that oral pain medication will not make you numb again like the local anesthetic, it will only turn the volume down on the post-operative pain. The most severe discomfort is usually within the first 6-12 hours afterthe anesthetic wears off, after that your need for pain medication should gradually decrease. PAIN MEDICATIONS Ibuprofen (Motrin or Advil) Take 800 mg (four 200 mg tablets) every 8 hours Helps reduce pain and swelling Take continuously the first 3-4 days regardless of pain Cordova (Tylenol and Hydrocodone) Take 1 tablet every 4-5 hours as needed for severe pain Helps reduce pain You may need to take this medication anywhere from 1-4 days depending on the extent of surgery and post-operative pain You can take Ibuprofen and Cordova at the same time immediately after surgery. The schedule on the Cordova is more frequent however if your pain is controlled you can continue to take the medications together. This is very effective and takes advantage of the properties of each medication which act differently to control pain. Use the Ibuprofen medications as your primary pain management. Narcotics may be better tolerated before bedtime as they cause drowsiness. Narcotics should be taken with food as they can irritate an empty stomach. Do not drink alcohol, drive or operate machinery if you are taking a narcotic. Many states recognize narcotic pain medications as an intoxicating substance and can result in a DUI if driving under the influence of narcotic pain medications (whether you have prescription or not). NAUSEA Nausea is not an uncommon event after surgery and it is sometimes caused by stronger pain medicines. Nausea may be reduced by preceding each pill with a small amount of soft food, then taking the pill with at least eight ounces (1 cup) of water. Keep movement to a minimum. Increased activity is usually associated with increased chance of nausea. Try to keep taking clear fluids and minimize the pain medication, but call us if you do not feel better or if repeated vomiting is a problem. DIET EAT SOMETHING SOFT ABOUT AN HOUR AFTER YOU GET HOME WHEN YOU REMOVE YOUR GAUZE (if the bleeding is controlled). Soft food that is usually well tolerated may include: soup, Jell-O, pudding, yogurt, cottage cheese, scrambled eggs, mashed potatoes, noodles, ice cream, shakes. CONTINUE TO EAT SOFT FOODFOR TH FIRST 2-4 DAYS. It is very important to increase fluid intake for a couple of days after surgery, this aids healing and makes you feel subjectively better. Avoid Dehydration. After that, eat any nourishing that can be taken with comfort. Luke warm is OK but avoid extremely hot foods or fluids. Avoid spicy food. Avoid foods like nuts, sunflower seeds, popcorn, rice, peanuts, potato chips, etc. That may get lodged in the socket areas. Over the next several days you can progress to solid foods at your own pace. It is important not to skip meals! If you eat regularly, you will feel better,gain strength, have less discomfort and heal faster. If you are diabetic, maintain your normal eating habits as much as possible and follow instructions from your physician regarding your insulin sche dule. [place] If you feel sharp edges in the surgical area with your tongue it is probably the bony paul which originally supported the teeth. These will usually not be noticeable after the socket heals. Occasionally small slivers of bone may work themselves out during the first week or two after surgery. They are not pieces of tooth and, if necessary, we will remove them. Please call the office if you have questions. INSTRUCTIONS FOR DAY 2 & 3 AFTER SURGERY MOUTH RINSES Keeping your mouth clean after surgery is essential. You may have a prescription for Perldex or Perioguard. If so, see as directed. If not, use one teaspoon of salt dissolved in an 8 ounce glass of warm water and gently rinse with portions of the solution, taking 5 minutes to use the entire glassful. Repeat as often as possible, but at least three times daily for the next 5 days, especially after it heals. Avoid using over the counter mouthwash (Listerine, Scope) for one week. You will be provided a syringe that you will need to irrigate the surgery site. Please do not start using the syringefor at least 4 days after surgery. Irrigate the extraction sites with warm salt water after meals to remove food debris for one week and as needed after that. BRUSHING Begin your normal hygiene routine the day after surgery. Soreness and swelling may not permit vigorous brushing of all areas, but please make an effort to clean your teeth within the bounds of comfort. HEALING PROCESS/ DRY SOCKET Normal healing after tooth extraction should be as follows. The first day of surgery is usually themost uncomfortable and there is some degree of swelling and stiffness. The second day you will usually be far more comfortable and, although still swollen, you can usually begin a more substantial soft diet. From the third day on, GRADUAL, STEADY IMPROVEMENT should glenny the remainder of your post-operative course. If a DRY SOCKET occurs (loss of blood clot from socket, usually on the third to fifth day), there is a noticeable, distinct, persistent throbbing pain in the jaw, often radiating toward the ear and forward along the jaw after surgery. Don't suffer needlessly. Call the office and report symptoms so you can be seen as soon as possible. To avoid dry sockets: 1. No rinsing or spitting the first day 2. No carbonated beverages (Soda, Beer) for 4 days 3. Do not drink through a straw for at least 4 days 4. Do not smoke for at least 4 days 5. Do not use the proved irrigating syringe for the first 4 days ([place] [employer]) 6. No vigorous physical training ( running, weight lifting, pilates, yoga, cardio) for 7 days aftersurgery All of these activities tend to dislodge the clot before it gets a chance to turn into a rubbery plug, which is necessary to help protect the healing socket and prevent food from collecting in the extraction site while it is healing. It is our desire that your recovery be as smooth and as pleasant as possible. Following these instructions will assist you in that. Anesthesia Precautions & Expectations: After anesthesia, rest for [address], drink alcoholic beverages or make any important decisions during this time. General anesthesia may cause a sore throat, jaw discomfort or muscle aches. These symptoms can last for one or two days. documented in this [facility]07-07-2025 Nurse Note* Vania Baugh RN - 09/20/2024 3:02 PM EDT Patient transported to PACU via cart by this nurse and BEKA Silverman. Monitors connected and report given to SATHYA Zuñiga documented in this [facility]07-07-2025 Nurse Surgical operation note* Vania Baugh RN - 09/20/2024 3:02 PM EDT Patient transported to PACU via cart by this nurse and BEKA Silverman. Monitors connected and report given to SATHYA Zuñiga [facility]07-07-2025 Procedure note* Davon Rogers RN - 09/20/2024 12:23 PM EDTAssociated Order(s): GENERAL PROCEDURE Ultrasound IV insertion Procedure note: PICC team contacted for IV access with ultrasound guidance. Procedure explained to patient. Known limb restrictions: no known restriction Patient is alert, cooperative, no distress, appears stated age. Indication for device placement: Difficult IV access PROCEDURE DETAILS: IV Insertion Procedure Veins evaluated with ultrasound and appropriate vein selected. Using standard Aseptic Non Touch Technique (ANTT) IV access was obtained with a 20 gauge, 1.88 in IV catheter placed in the left forearm. Blood return noted, catheter flushed easily with 10mls 0.9 NS. Flushes easily and freely. Site free from swelling, redness, or signs of infiltration. Statlock securement applied with tegaderm dressing. Patient tolerated procedure well without any complications All sharps placed in the sharps container. [facility]07-07-2025 Procedure note* Davon Rogers RN - 09/20/2024 12:23 PM EDTAssociated Order(s): GENERAL PROCEDURE Ultrasound IV insertion Procedure note: PICC team contacted for IV access with ultrasound guidance. Procedure explained to patient. Known limb restrictions: no known restriction Patient is alert, cooperative, no distress, appears stated age. Indication for device placement: Difficult IV access PROCEDURE DETAILS: IV Insertion Procedure Veins evaluated with ultrasound and appropriate vein selected. Using standard Aseptic Non Touch Technique (ANTT) IV access was obtained with a 20 gauge, 1.88 in IV catheter placed in the left forearm. Blood return noted, catheter flushed easily with 10mls 0.9 NS. Flushes easily and freely. Site free from swelling, redness, or signs of infiltration. Statlock securement applied with tegaderm dressing. Patient tolerated procedure well without any complications All sharps placed in the sharps container. [facility] Postoperative evaluation and management note* Brief Op Note - Kevin Sagastume DDS - 09/20/2024 7:14 AM EDT POST OPERATIVE/PROCEDURE NOTE Soledad Kramer ([id number]) SURGEON Surgeons and Role: * Kevin Sagastume DDS - Primary TYPEWRITER OPERATOR AUTOMATIC José Miguel ANESTHESIOLOGIST THREAD REELER: (Unknown) SURGICAL STAFF Lithography Contact Worker: Vania Baugh RN Scrub Person: Ave Shane PROCEDURE PERFORMED Procedure(s) (LRB): EXTRACTION TOOTH-PICC TEAM HERE AT 1215 (Bilateral) PRIMARY CLOSURE Yes ANESTHESIA (type of) General ESTIMATED BLOOD LOSS 50 ml DRAINS None BLOOD PRODUCTS None FLUIDS No intake or output data in the 24 hours ending 09/20/24 0714 PRE OPERATIVE DIAGNOSIS Dental caries [K02.9] POST OPERATIVE DIAGNOSIS * No Diagnosis Codes entered * FINDINGS No significant abnormalities CONDITION OF PATIENT stable COMPLICATIONS None GRAFTS AND/OR IMPLANTS See OR Nursing Documentation SPECIMENS No specimen sent * No specimens in log * Kevin Sagastume DDS September 20, 2024 7:14 AM [facility]06-02-2025 Progress note* Progress note Date Encounter Last Documented by 08/16/2024 Women[facility] Last documented on 08/16/2024; 10:00 AM, Arthur GOELP; [facility] Active Problems & Conditions - I48.20 - Atrial Fibrillation - I10 - Hypertension Systemic - Z90.710 - 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 Requesting allergy medicine. Referred Here No prior encounters. - Data to be reviewed: no clinical lab tests History of Present Illness Soledad Kramer is a 38 year old female. - Allergy list reviewed - Reviewed Medications - Medication list reviewed - test - would not like a test Patient is a 38 year old female presenting for acute cystitis ED follow up from 08/05. Patient reports having urinated blood, abdominal pain, low back pain, and suprapubic tenderness. Patient CT showed inflammation of urinary tract and enlarged spleen. Patient states being placed on keflex and only completing half of the antibiotic before stopping. Patient was positive for E.Coli. Patient educatedon antibiotic resistance and adhearance. Patient relates to most symptoms being gone except for suprapubic tenderness. Patient UA was positive for protein and biliruben. Patient also relates to worsening allergies and congestion. Patient requesting allergy medications. Patient sees cardiolgoy for hypertension medication. Due to patient continuing symptoms and not completing antibiotic, macrobid should be started and completed which was discussed with patient Current Medication - Fluconazole 150 MG Oral Tablet 7 days, 0 refills - Folic Acid 1 MG Oral Tablet Take 1 tablet daily by mouth, 90 days, 0 refills - Gabapentin 100 MG Oral Capsule 30 days, 0 refills - hydroCHLOROthiazide 25 MG Oral Tablet Take 1 tablet daily by mouth, 90 days, 0 refills - Losartan Potassium 100 MG Oral Tablet Take 1 tablet daily by mouth, 90 days, 0 refills - Pantoprazole Sodium 40 MG Oral Tablet Delayed Release Take 1 tablet daily by mouth, 30 days, 2 refills - Pantoprazole Sodium 40 MG Oral Tablet Delayed Release 90 days, 0 refills - Potassium Chloride Sara ER 10 MEQ Oral Tablet Extended Release Take 1 tablet by mouth daily., 30 days, 2 refills - traMADol HCl [address] Cooney-Daniel Balderasyde, 30 days, 0 refills - Vitamin B-12 [address] Israel Cooper, 90 days, 0 refills Past Medical/Surgical History Reported: Medical: Previous hospitalizations or recent ER visits. : Previously 3 time(s) and para having 1 live (s). Diagnoses: Sinus bradycardia. Systemic hypertension. Raynaud's syndrome. Hiatal hernia. Thyroid disorder. Migraine headache. Methicillin resistant staphylococcus aureus infection Surgical: - General surgery Loop recorder 2021 - Appendectomy - Cholecystectomy - Laparoscopic cholecystectomy - Dilation and curettage - Hysterectomy 2018-[facility]- - Foot surgery 6 surgries on left foot Social History Environmental Exposure: No secondhand cigarette smoke exposure. Behavioral: Not a current tobacco/nicotine user. Alcohol: Not using alcohol. Drug Use: Not using drugs denied by patient. Sexual: Sexually active. Allergies - Adhesive Tape 1/2 x5yd Reaction: Skin Rashes / Eruption of skin - Ciprofloxacin Reaction: Shock - Latex Reaction: Skin Rashes / Eruption of skin - Levofloxacin Reaction: Shock - Lisinopril Reaction: Nausea - Pollen Extract - Spironolactone Reaction: Nausea Family History Paternal: Ischemic heart disease Systemic hypertension Type 2 diabetes mellitus Oncologic disorder Maternal: Ischemic heart disease Systemic hypertension Thyroid disorder Oncologic disorder Fraternal: Asthma Review Of Systems Head: Head symptoms. No headache. Sinus pressure. Eyes: No eye symptoms. Otolaryngeal: No ear symptoms. Nasal passage blockage (stuffiness). No nose and sinus finding, no throat symptoms, no oral cavity symptoms, and no jaw symptoms. Cardiovascular: No cardiovascular symptoms and no chest pain or discomfort. Pulmonary: No pulmonary symptoms and no cough. Gastrointestinal: No gastrointestinal symptoms. Genitourinary: Genitourinary symptoms Suprapubic tenderness. No urinary symptoms. Endocrine: No endocrine symptoms. Musculoskeletal: No musculoskeletal symptoms. Neurological: No neurological symptoms, no dizziness, and no vertigo. Psychological: No psychological symptoms, no anxiety, and no depression. Skin: No skin symptoms. ROS in HPI. Cardiovascular: Edema not present. Physical Findings - Vitals taken 08/16/2024 08:45 am BP-Sitting R130/77 mmHg BP Cuff SizeLarge Pulse Rate-Rbovlko18 bpm Respiration Rate20 per min Temp-Oral97.9 F Iqdwwt82 in Wwdtoq314 lbs 9.6 oz Body Mass Index33.6 kg/m2 Body Surface Area2.2 m2 Oxygen Qgxhqtppah25 % O2 DeviceNone (Room Air) TyR588 % Vital Signs: - Systolic blood pressure 130 - 139 mmHg. - Diastolic Blood Pressure < 80 mmHg. General Appearance: - Awake. - Alert. - Well developed. - Well nourished. - Body odor was normal. - In no acute distress. Nose: General/bilateral: Discharge: - No nasal discharge. Sinus Tenderness: - No sinus tenderness. Oral Cavity: - General condition was good. - Odor of breath was normal. Pharynx: Oropharynx: - Normal. Lungs: - Normal. - Respiration rhythm and depth was normal. - Clear to auscultation. Cardiovascular: Auscultation: - Normal. Heart Rate And Rhythm: - Normal. Heart Sounds: - Normal. Abdomen: Visual Inspection: - Abdomen was normal on visual inspection. Urinary System: Bladder: - Bladder Suprapubic tenderness noted. Musculoskeletal System: General/bilateral: - Normal movement of all extremities. Neurological: - Oriented to time, place, and person. Psychiatric: - Expression of emotions normal. Skin: - General appearance of skin normal. General body state: - In good general health. No Significant Findings: - No significant findings. Tests Urinalysis Was Performed: Routine urinalysis without microscopic examination abnormal Protein +30. Glucose Negative, Bilirubin Negative, Urobilinogen 1, Nitrite Negative, Ketones 0 Negative, Leukocyte Estrase Negative, and Blood Negative. Specific [place] 1.030 and pH 6.0. Urine clarity Hazy and color Yellow. Laboratory-based Chemistry: Other Laboratory Tests: Screening for sexually transmitted infections was not performed. Assessment - Z68.33 - Body mass index [BMI] 33.0-33.9, adult - J30.9 - Allergic rhinitis, unspecified - I48.20 - Chronic atrial fibrillation, unspecified - I10 - Essential (primary) hypertension - N30.00 - Acute cystitis without hematuria - R16.1 - Splenomegaly, not elsewhere classified - Z90.710 - Acquired absence of both cervix and uterus Therapy - Patient refused flu vaccine. Discussed benefits of flu vaccine with Patient. Counseling/Education - Discussed nutritional needs teach healthy choices including fruits and vegetables - Patient education about a proper diet - Discussed concerns about exercise: promote physical activity Plan StartCited- Acute cystitis without hematuria Macrobid 100 MG capsule Take 1 tablet by mouth every 12 hours with food., 5 days, 0 refills EndCited StartCited- Allergic rhinitis, unspecified Loratadine 10 MG tablet Take 1 tablet daily by mouth, 90 days, 1 refills EndCited StartCited- Other specified arthritis, unspecified site Folic Acid 1 MG tablet Take 1 tablet daily by mouth, 90 days, 0 refills EndCited StartCited- Splenomegaly, not elsewhere classified Lab: White Qual W/Rflx Qn EndCited UA taken. Patient to follow up in 2 weeks for spenomegaly. Patient lab for mono taken. Patient to take macrobid to completion and educated. Patient to drink plenty of water. Care Team - [facility] Reminders - Assess BMI satisfied 08/16/2024. - Assess Tobacco Use satisfied 08/16/2024. - Follow Up Plan BMI Management satisfied 08/16/2024. [facility]05-20-2025 Progress note* Progress note Date Encounter Last Documented by 08/03/2024 Chart Update Last documented on 08/03/2024; 8:21 AM, Arthur MUIR; [facility] Assessment - B37.31 - Acute candidiasis of vulva and vagina Plan StartCited - Acute candidiasis of vulva and vagina Diflucan 150 MG tablet Take 1 tablet day one, wait 72 hours and take 2nd tablet., 7 days, 0 refills EndCited [facility]05-16-2025 Evaluation note Includes: Assessments for all patient encounters Findings Encounter Date Systemic hypertension Chart Update with Arthur Saleh [facility] 07/30/2024 Last Documented On 4:38PM ; [facility] [I48.20 - Chronic atrial fib rillation, unspecified] atrial fibrillation Open Access - Established with Arthur Saleh [facility] 07/22/2024 Last Documented On 12:05PM ; [facility] [J02.0 - Streptococcal phary ngitis] streptococcal sore throat Open Access - Established with Arthur Saleh [facility] 07/22/2024 Last Documented On 12:05PM ; [facility] [Z68.33 - Body mass index [B SD] 33.0-33.9, adult] assessment of body mass index Open Access - Established with Arthurangela Saleh [facility] 07/22/2024 Last Documented On 12:05PM ; [facility] Systemic hypertension Open Access - Esta blished with Arthur Ambrizick [facility] 07/22/2024 Last Documented On 12:05PM ; [facility] [I10 - Essential (primary) hypertension] systemic hypertension Medical New Patient with Arthur Saleh [facility] 06/11/2024 Last Documented On 3:50PM ; [facility] [I48.91 - Unspecified atrial fibrillation] atrial fibrillation Medical New Patient with Arthur Saleh [facility] 06/11/2024 Last Documented On 5 3:50PM ; [facility] [M13.80 - Other specified ar thritis, unspecified site] arthritis Medical New Patient with Arthur Saleh [facility] 06/11/2024 Last Documented On 5 3:50PM ; [facility] [M51.360 - Other interverteb ral disc degeneration, lumbar region with discogenic back pain only] intervertebral disc degeneration Medical New Patient with Arthur Saleh [facility] 06/11/2024 Last Documented On 5 3:50PM ; [facility] [Z00.01 - Encounter for gene [facility] adult medical examination with abnormal findings] routine adult history and physical (18 - 64 yrs) Medical New Patient with Arthur Saleh LEAD INSTRUCTOR/FLIGHT ATTENDANT 06/11/2024 Last Documented On 5 3:50PM ; [facility] [Z13.220 - Encounter for scr eening for lipoid disorders] visit for: screening for lipoid disorders Medical New Patient with Arthur Saleh LEAD INSTRUCTOR/FLIGHT ATTENDANT 06/11/2024 Last Documented On 5 3:50PM ; [facility] [Z13.29 - Encounter for scre ening for other suspected endocrine disorder] visit for: screening for thyroid disorders Medical New Patient with Arthur Saleh LEAD INSTRUCTOR/FLIGHT ATTENDANT 06/11/2024 Last Documented On 3:50PM ; [facility] [Z68.34 - Body mass index [B SD] 34.0-34.9, adult] assessment of body mass index Medical New Patient with Arthur Saleh LEAD INSTRUCTOR/FLIGHT ATTENDANT 06/11/2024 Last Documented On 5 3:50PM ; [facility] Diabetes Risk Test Score was five score 06/11/2024 Medical New Patient with Arthur Saleh LEAD INSTRUCTOR/FLIGHT ATTENDANT 06/11/2024 Last Documented On 5 3:50PM ; [facility] Screening for Hep C Medical New Patient with Rodrigo Saleh LEAD INSTRUCTOR/FLIGHT ATTENDANT 06/11/2024 Last Documented On 5 3:50PM ; [facility] Screening for HIV Medical New Patient with Puja Saleh LEAD INSTRUCTOR/FLIGHT ATTENDANT 06/11/2024 Last Documented On 5 3:50PM ; [facility] Thyroid disorder Medical New Patient with Stacie Saleh LEAD INSTRUCTOR/FLIGHT ATTENDANT 06/11/2024 Last Documented On 5 3:50PM ; [facility] Work Phone: [phone] 262-871605-16-2025 Progress note* Progress note Date Encounter Last Documented by 07/30/2024 Chart Update Last documented on 07/30/2024; 4:38 PM, Arthur Saleh [facility]; [facility] Assessment - I10 - Essential (primary) hypertension Plan StartCited - Essential (primary) hypertension hydroCHLOROthiazide 25 MG tablet Take 1 tablet daily by mouth, 90 days, 0 refills EndCited [facility]05-08-2025 Progress note* Progress note Date Encounter Last Documented by 07/22/2024 Open Access - Established Last d ocumented on 07/22/2024; 12:05 PM, Arthur MUIR; [facility] Active Problems & Conditions - I48.20 - Atrial Fibrillation - I10 - Hypertension Systemic Chief Complaint The Chief Complaint is: Sore thoat, congestion x 3 days. Referred Here Prior encounters Pain management. History of Present Illness Soledad Kramer is a 38 year old female. - Allergy list reviewed - Reviewed Medications Fluconazole- completed - Date of last menstruation 2017 Patient is a 38 year old female presenting for sore throat, white patches on back of throat, and sinus pain and pressure for the past 3 days. 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 Patient relates to worsening symptoms. Patient has not tried anything for symptoms. Patient relates to severe symptoms, throat is geting difficult to swallow. Patient denies any other issues at this time Current Medication - Fluconazole 150 MG Oral Tablet 4 days, 0 refills - Folic Acid 1 MG Oral Tablet Take 1 tablet daily by mouth, 90 days, 0 refills - Gabapentin 100 MG Oral Capsule Take 1 tablet daily by mouth 3 times daily, 30 days, 0 refills - hydroCHLOROthiazide 25 MG Oral Tablet Take 1 tablet daily by mouth, 90 days, 0 refills - Losartan Potassium 100 MG Oral Tablet Take 1 tablet daily by mouth, 90 days, 0 refills - Pantoprazole Sodium 40 MG Oral Tablet Delayed Release Take 1 tablet daily by mouth, 30 days, 2 refills - Potassium Chloride Sara ER 10 MEQ Oral Tablet Extended Release Take 1 tablet by mouth daily., 30 days, 2 refills - traMADol HCl [address] Cooney-Daniel Mattson, 30 days, 0 refills - Vitamin B-12 [address] Israel Cooper, 90 days, 0 refills Past Medical/Surgical History Reported: Medical: No Previous hospitalizations or recent ER visits. : Previously 3 time(s) and para having 1 live (s). Diagnoses: Sinus bradycardia. Systemic hypertension. Raynaud's syndrome. Hiatal hernia. Thyroid disorder. Migraine headache. Methicillin resistant staphylococcus aureus infection Surgical: - General surgery Loop recorder 2021 - Appendectomy - Cholecystectomy - Laparoscopic cholecystectomy - Dilation and curettage - Hysterectomy 2018-[facility]- - Foot surgery 6 surgries on left foot Social History Environmental Exposure: No secondhand cigarette smoke exposure. Behavioral: Not a current tobacco/nicotine user. Alcohol: Not using alcohol. Drug Use: Not using drugs denied by patient. Allergies - Adhesive Tape 1/2 x5yd Reaction: Skin Rashes / Eruption of skin - Ciprofloxacin Reaction: Shock - Latex Reaction: Skin Rashes / Eruption of skin - Levofloxacin Reaction: Shock - Lisinopril Reaction: Nausea - Pollen Extract - Spironolactone Reaction: Nausea Family History Paternal: Ischemic heart disease Systemic hypertension Type 2 diabetes mellitus Oncologic disorder Maternal: Ischemic heart disease Systemic hypertension Thyroid disorder Oncologic disorder Fraternal: Asthma Review Of Systems Head: Head symptoms. No headache. Sinus pain and sinus pressure. Neck: No neck symptoms and no neck pain. Eyes: No eye symptoms. Otolaryngeal: Ear symptoms Left ear pain, nasal symptoms congestion, nose and sinus finding Congestion and sinus pain, and throat symptoms Sore throat, difficulty swallowing and white patches. No oral cavity symptoms and no jaw symptoms. Cardiovascular: No cardiovascular symptoms, no chest pain or discomfort, and no palpitations. Pulmonary: No pulmonary symptoms. Gastrointestinal: No gastrointestinal symptoms. Endocrine: No endocrine symptoms. Musculoskeletal: No musculoskeletal symptoms. Neurological: No neurological symptoms, no dizziness, and no vertigo. Psychological: No psychological symptoms, no anxiety, and no depression. Skin: No skin symptoms. ROS in HPI. Physical Findings - Vitals taken 07/22/2024 10:45 am BP-Sitting R132/88 mmHg BP Cuff SizeRegular Pulse Rate-Zijvaug39 bpm Temp-Oral98.4 F Qnrpus06 in Qgliwq848 lbs Body Mass Index33.7 kg/m2 Body Surface Area2.2 m2 Oxygen Irxotkmvdd92 % - Vitals taken 07/22/2024 10:52 am BP-Kjmwcnf926/86 mmHg Vital Signs: - Systolic blood pressure 130 - 139 mmHg. - Diastolic blood pressure 80-89 mmHg. General Appearance: - Awake. - Alert. - Well developed. - Well nourished. - Body odor was normal. - In no acute distress. Ears: General/bilateral: Outer Ear: - Normal. Tympanic Membrane: - Examined. - Bulging. - No retraction of tympanic membrane. - Not erythematous. Hearing Exam: - No hearing abnormalities. Right Ear: - Examined. Left Ear: - Examined. Nose: General/bilateral: Discharge: - No nasal discharge. Sinus Tenderness: - Tenderness of sinuses. Oral Cavity: - General condition was good. - Odor of breath was normal. Tongue: - Showed no abnormalities. Pharynx: Oropharynx: - Abnormal White patches on back of throat, appears inflammed, red, and irritated. Light swelling noted. - Had an exudate. Lymph Nodes: - Adenopathy. - Submental lymph nodes were enlarged. - Submandibular lymph nodes were enlarged. Lungs: - Normal. - Respiration rhythm and depth was normal. - Clear to auscultation. Cardiovascular: Auscultation: - Normal. Heart Rate And Rhythm: - Normal. Heart Sounds: - Normal. Abdomen: Visual Inspection: - Abdomen was normal on visual inspection. Musculoskeletal System: General/bilateral: - Normal movement of all extremities. Neurological: - Oriented to time, place, and person. Psychiatric: - Expression of emotions normal. Skin: - General appearance of skin normal. General body state: - In good general health. No Significant Findings: - No significant findings. Tests Laboratory-based Chemistry: Immunology Studies: Streptococcus Group A Screen was positive. Assessment - Z68.33 - Body mass index [BMI] 33.0-33.9, adult - J02.0 - Streptococcal pharyngitis - I48.20 - Chronic atrial fibrillation, unspecified - I10 - Essential (primary) hypertension Counseling/Education - Does not want to stop using current contraception - Discussed nutritional needs teach healthy choices including fruits and vegetables - Patient education about a proper diet - Not requesting contraception - Discussed concerns about exercise: promote physical activity Plan StartCited- Streptococcal pharyngitis Amoxicillin-Pot Clavulanate 875-125 MG tablet Take 1 tablet every 12 hours by mouth until completed., 10 days, 0 refills EndCited Patient to follow up as needed. Patient to take antibiotic to completion. Patient to use cough drops as needed. Patient to drink plenty of water and rest. Care Team - [facility] Reminders - Assess BMI satisfied 07/22/2024. - Assess Tobacco Use satisfied 07/22/2024. - Follow Up Plan BMI Management satisfied 07/22/2024. User Defined 1 Not planning a in the next year. [facility]05-08-2025 Instructions Includes: Instructions for all patient encounters Education and Decision Aids were provided during visit for: Discussed nutritional needs teach healthy choices including fruits and vegetables Last Documented On 5 10:52AM ; [facility] Patient education about a pr oper diet Last Documented On 5 10:52AM ; [facility] Discussed concerns about exe rcise : promote physical activity Last Documented On 5 10:52AM ; [facility] Not requesting contraception Last Documented On 5 10:53AM ; [facility] Discussed nutritional needs teach healthy choices including fruits and vegetables Last Documented On 5 10:19AM ; [facility] Patient education about a pr oper diet Last Documented On 5 10:19AM ; [facility] Discussed concerns about exe rcise : promote physical activity Last Documented On 5 10:19AM ; [facility] Work Phone: 1([phone]) 555-955305-08-2025 Instructions Includes: Instructions for all patient encounters Education and Decision Aids were provided during visit for: Discussed nutritional needs teach healthy choices including fruits and vegetables Last Documented On 5 10:52AM ; [facility] Patient education about a pr oper diet Last Documented On 5 10:52AM ; [facility] Discussed concerns about exe rcise : promote physical activity Last Documented On 5 10:52AM ; [facility] Not requesting contraception Last Documented On 5 10:53AM ; [facility] Discussed nutritional needs teach healthy choices including fruits and vegetables Last Documented On 5 10:19AM ; [facility] Patient education about a pr oper diet Last Documented On 5 10:19AM ; [facility] Discussed concerns about exe rcise : promote physical activity Last Documented On 10:19AM ; [facility] Work Phone: 1(845) 305-620304-02-2025 History of Present illness Narrative* Suzanne Chavez - 06/16/2024 9:30 AM EDT Explained policies and procedures of an echocardiogram/doppler study. documented in this encounterBon [facility] Evaluation note Includes: Assessments for all patient encounters Findings Encounter Date [I10 - Essential (primary) hypertension] systemic hypertension Medical New Patient with Arthur Saleh LEAD INSTRUCTOR/FLIGHT ATTENDANT 06/11/2024 Last Documented On 5 3:50PM ; [facility] [I48.91 - Unspecified atrial fibrillation] atrial fibrillation Medical New Patient with Arthur Saleh LEAD INSTRUCTOR/FLIGHT ATTENDANT 06/11/2024 Last Documented On 5 3:50PM ; [facility] [M13.80 - Other specified ar thritis, unspecified site] arthritis Medical New Patient with Arthur Saleh LEAD INSTRUCTOR/FLIGHT ATTENDANT 06/11/2024 Last Documented On 5 3:50PM ; [facility] [M51.360 - Other interverteb ral disc degeneration, lumbar region with discogenic back pain only] intervertebral disc degeneration Medical New Patient with Arthur Saleh LEAD INSTRUCTOR/FLIGHT ATTENDANT 06/11/2024 Last Documented On 5 3:50PM ; [facility] [Z00.01 - Encounter for gene ral adult medical examination with abnormal findings] routine adult history and physical (18 - 64 yrs) Medical New Patient with Arthur Saleh LEAD INSTRUCTOR/FLIGHT ATTENDANT 06/11/2024 Last Documented On 5 3:50PM ; [facility] [Z13.220 - Encounter for scr eening for lipoid disorders] visit for: screening for lipoid disorders Medical New Patient with Arthur Saleh LEAD INSTRUCTOR/FLIGHT ATTENDANT 06/11/2024 Last Documented On 5 3:50PM ; [facility] [Z13.29 - Encounter for scre ening for other suspected endocrine disorder] visit for: screening for thyroid disorders Medical New Patient with Arthur Saleh LEAD INSTRUCTOR/FLIGHT ATTENDANT 06/11/2024 Last Documented On 3:50PM ; [facility] [Z68.34 - Body mass index [B SD] 34.0-34.9, adult] assessment of body mass index Medical New Patient with Arthur Saleh LEAD INSTRUCTOR/FLIGHT ATTENDANT 06/11/2024 Last Documented On 3:50PM ; [facility] Diabetes Risk Test Score was five score 06/11/2024 Medical New Patient with Arthur Saleh LEAD INSTRUCTOR/FLIGHT ATTENDANT 06/11/2024 Last Documented On 3:50PM ; [facility] Screening for Hep C Medical New Patient with Rodrigo Saleh LEAD INSTRUCTOR/FLIGHT ATTENDANT 06/11/2024 Last Documented On 3:50PM ; [facility] Screening for HIV Medical New Patient with Puja Saleh LEAD INSTRUCTOR/FLIGHT ATTENDANT 06/11/2024 Last Documented On 3:50PM ; [facility] Thyroid disorder Medical New Patient with Stacie Saleh LEAD INSTRUCTOR/FLIGHT ATTENDANT 06/11/2024 Last Documented On 3:50PM ; [facility] Work Phone: 1(457) 497-683903-28-2025 History general Narrative - Reported Includes: Medical History in patient's chart Description Last Updated Raynaud's syndrome 06/11/2024 Last Documented On 3:50PM ; [facility] 1 previous live (s) 06/11/2024 Last Documented On 3:50PM ; [facility] Previously 3 time(s) 06/11/2024 Last Documented On 3:50PM ; [facility] Hiatal hernia 06/11/2024 Last Documented On 3:50PM ; [facility] History of systemic hypertension 025 Last Documented On 3:50PM ; [facility] History of thyroid disorder 06/11/2024 Last Documented On 5 3:50PM ; [facility] History of migraine headache 06/11/2024 Last Documented On 5 3:50PM ; [facility] Sinus bradycardia 06/11/2024 Last Documented On 5 3:50PM ; [facility] Methicillin resistant staphylococcus aur eus infection 06/11/2024 Last Documented On 5 3:50PM ; [facility] No Previous hospitalizations or recent E R visits 06/11/2024 Last Documented On 5 3:50PM ; [facility] Work Phone: [phone]) 918-747903-28-2025 History general Narrative - Reported Includes: Medical History in patient's chart Description Last Updated Raynaud's syndrome 06/11/2024 Last Documented On 3:50PM ; [facility] 1 previous live (s) 06/11/2024 Last Documented On 5 3:50PM ; [facility] Previously 3 time(s) 06/11/2024 Last Documented On 3:50PM ; [facility] Hiatal hernia 06/11/2024 Last Documented On 5 3:50PM ; [facility] History of systemic hypertension 025 Last Documented On 5 3:50PM ; [facility] History of thyroid disorder 06/11/2024 Last Documented On 5 3:50PM ; [facility] History of migraine headache 06/11/2024 Last Documented On 5 3:50PM ; [facility] Sinus bradycardia 06/11/2024 Last Documented On 5 3:50PM ; [facility] Methicillin resistant staphylococcus aur eus infection 06/11/2024 Last Documented On 5 3:50PM ; [facility] No Previous hospitalizations or recent E R visits 06/11/2024 Last Documented On 3:50PM ; [facility] Work Phone: [phone] 694-521203-28-2025 History general Narrative - Reported Includes: Medical History in patient's chart Description Last Updated Raynaud's syndrome 06/11/2024 Last Documented On 3:50PM ; [facility] 1 previous live (s) 06/11/2024 Last Documented On 5 3:50PM ; [facility] Previously 3 time(s) 06/11/2024 Last Documented On 3:50PM ; [facility] Hiatal hernia 06/11/2024 Last Documented On 3:50PM ; [facility] History of systemic hypertension 025 Last Documented On 3:50PM ; [facility] History of thyroid disorder 06/11/2024 Last Documented On 3:50PM ; [facility] History of migraine headache 06/11/2024 Last Documented On 3:50PM ; [facility] Sinus bradycardia 06/11/2024 Last Documented On 3:50PM ; [facility] Methicillin resistant staphylococcus aur eus infection 06/11/2024 Last Documented On 3:50PM ; [facility] No Previous hospitalizations or recent E R visits 06/11/2024 Last Documented On 3:50PM ; [facility] Work Phone: 1([phone]) 495-389703-28-2025 History general Narrative - Reported Includes: Medical History in patient's chart Description Last Updated Raynaud's syndrome 06/11/2024 Last Documented On 5 3:50PM ; [facility] 1 previous live (s) 06/11/2024 Last Documented On 3:50PM ; [facility] Previously 3 time(s) 06/11/2024 Last Documented On 5 3:50PM ; [facility] Hiatal hernia 06/11/2024 Last Documented On 3:50PM ; [facility] History of systemic hypertension 025 Last Documented On 5 3:50PM ; [facility] History of thyroid disorder 06/11/2024 Last Documented On 5 3:50PM ; [facility] History of migraine headache 06/11/2024 Last Documented On 5 3:50PM ; [facility] Sinus bradycardia 06/11/2024 Last Documented On 5 3:50PM ; [facility] Methicillin resistant staphylococcus aur eus infection 06/11/2024 Last Documented On 5 3:50PM ; [facility] No Previous hospitalizations or recent E R visits 06/11/2024 Last Documented On 5 3:50PM ; [facility] Work Phone: [phone]) 974-893103-28-2025 Progress note* Progress note Date Encounter Last Documented by 06/11/2024 Medical New Patient Last [place] on 06/11/2024; 3:50 PM, Arthur MUIR; [facility] Chief Complaint The Chief Complaint is: Pt here to establish care. Pt is currently on Diflucan for yeast infection. Referred Here No prior encounters. - Data to be reviewed: no clinical lab tests History of Present Illness Soledad Kramer is a 38 year old female. - Reviewed Medications. - test - would not like a test. Patient is a 38 year old female presenting for establishing care. Patient reports being apart of [facility]. Patient reports they were being seen for multiple conditions such as a-fib, gastric sleeve, degenerative disc, thyroid disease, and chronic pain. Patient relates to seeing cardilogy, GI, and pain management and is established but needs some refills of medications today. Patient reports being on tramadol for the past two years and was referred to neurosurgery who suggested spinal fusion surgerywhich the patient refused. Patient states they would like tramadol again, and relates to still having a month supply at home. Patient educated on pain care at [facility] and has a pain management appointment she is going to keep. Patient relates to not needing a PAP and reports to a OBGYN for this. Patient does not have any acute complaints. Patient does relate to poor sleep due to pain in their back. Patient states severe pain that nothing but tramodol helps. When on tramodol pain is 2/10. Patient also states they take gabapentin and agreed to a contract and witnessed urine screening. No other issues noted at this time. Current Medication - Fluconazole 150 MG Oral Tablet 4 days, 0 refills - Folic Acid [address] Israel Cooper, 90 days, 0 refills - Gabapentin [address] Ginette Mattson, 30 days, 0 refills - hydroCHLOROthiazide [address] Ginette Mattson, 90 days, 0 refills - Losartan Potassium [address] Ginette Mattson, 30 days, 0 refills - Pantoprazole Sodium 40 MG Oral Tablet Delayed Release Dr Ginette Rangel P, 30 days, 0 refills - Potassium Chloride Sara ER 10 MEQ Oral Tablet Extended Release Kenneth Moncada, 30 days, 0refills - traMADol HCl [address] Ginette Mattson, 30 days, 0 refills - Vitamin B-12 [address] Israel Cooper, 90 days, 0 refills Past Medical/Surgical History Reported: Medical: No Previous hospitalizations or recent ER visits. : Previously 3 time(s) and para having 1 live (s). Diagnoses: Sinus bradycardia. Systemic hypertension. Raynaud's syndrome. Hiatal hernia. Thyroid disorder. Migraine headache. Methicillin resistant staphylococcus aureus infection Surgical: - General surgery Loop recorder 2021 - Appendectomy - Cholecystectomy - Laparoscopic cholecystectomy - Dilation and curettage - Hysterectomy 2018-[facility]- - Foot surgery 6 surgries on left foot Social History Environmental Exposure: No secondhand cigarette smoke exposure. Behavioral: Not a current tobacco user. Tobacco use: Not using electronic cigarettes/vaping. Alcohol: Not using alcohol. Drug Use: Not using drugs denied by patient. Sexual: Not sexually active. Allergies - Adhesive Tape 1/2 x5yd Reaction: Skin Rashes / Eruption of skin - Ciprofloxacin Reaction: Shock - Latex Reaction: Skin Rashes / Eruption of skin - Levofloxacin Reaction: Shock - Lisinopril Reaction: Nausea - Pollen Extract - Spironolactone Reaction: Nausea Family History Paternal: Ischemic heart disease Systemic hypertension Type 2 diabetes mellitus Oncologic disorder Maternal: Ischemic heart disease Systemic hypertension Thyroid disorder Oncologic disorder Fraternal: Asthma Review Of Systems Head: No head symptoms, no headache, and no skull pain. Neck: No neck symptoms, no neck pain, and no neck muscle tightness. Eyes: No eye symptoms. Otolaryngeal: No ear symptoms, no nasal symptoms, no nose and sinus finding, no throat symptoms, nooral cavity symptoms, and no jaw symptoms. Cardiovascular: No cardiovascular symptoms, no chest pain or discomfort, and no palpitations. Pulmonary: No pulmonary symptoms and no cough. Gastrointestinal: No gastrointestinal symptoms. Genitourinary: No increase in urinary frequency. Endocrine: No endocrine symptoms. Musculoskeletal: Musculoskeletal symptoms Chronic back pain in lumbar spine, difficulty bending andtwisting and unable to lay on stomach without pain and Limited ROM present. Neurological: No neurological symptoms, no dizziness, and no vertigo. Psychological: No psychological symptoms, no anxiety, and no depression. Skin: No skin symptoms and no hair symptoms. ROS in HPI. Cardiovascular: Edema not present. Skin: No laceration. Physical Findings - Vitals taken 06/11/2024 10:13 am BP-Sitting L114/78 mmHg BP Cuff SizeRegular Pulse Rate-Dsbyjmj40 bpm Respiration Rate18 per min Temp-Oral97.9 F Xgsovs65 in Bbormh242 lbs Body Mass Index34.1 kg/m2 Body Surface Area2.2 m2 Oxygen Ckmtkvnkkl253 % - Vitals taken 06/11/2024 10:33 am BP-Sitting L119/81 mmHg BP Cuff SizeRegular Vital Signs: - Systolic blood pressure < 130 mmHg. - Diastolic Blood Pressure < 80 mmHg. General Appearance: - Awake. - Alert. - Well developed. - Well nourished. - Body odor was normal. - In no acute distress. Ears: General/bilateral: Outer Ear: - Normal. Tympanic Membrane: - Examined. - Not bulging. - No retraction of tympanic membrane. - Not erythematous. Hearing Exam: - No hearing abnormalities. Left Ear: - Examined. Nose: General/bilateral: Discharge: - No nasal discharge. Sinus Tenderness: - No sinus tenderness. Oral Cavity: - General condition was good. - Odor of breath was normal. Pharynx: Oropharynx: - Normal. Lungs: - Normal. - Respiration rhythm and depth was normal. - Clear to auscultation. Cardiovascular: Auscultation: - Normal. Heart Rate And Rhythm: - Normal. Heart Sounds: - Normal. Abdomen: Visual Inspection: - Abdomen was normal on visual inspection. Musculoskeletal System: General/bilateral: - Abnormal movement of all extremities Pain with bending and twisting and leg movements. Lumbar / Lumbosacral Spine: General/bilateral: - Lumbar/lumbosacral spine exhibited abnormalities. Neurological: - Oriented to time, place, and person. Psychiatric: - Expression of emotions normal. Skin: - General appearance of skin normal. General body state: - In good general health. No Significant Findings: - No significant findings. Tests Urinalysis Was Performed: Urine color. Blood Analysis: Hemoglobin Studies: ValueDate Blood hemoglobin A1c 4.8%06/11/2024 Hemoglobin A1c level < 7.0%. Laboratory-based Chemistry: Immunology Studies: HIV test was negative. Drug Screen: Value Urine Temperature 94 UDS Staff Members Present 2 Urine drug screen by multiple class procedure. THC Not Present, PCP Not Present, OXY Not Present, [id number] Not Present, MTD Not Present, MET Not Present, MDMA Not Present, KINGSLEY Not Present, BZO Not Present, BUP Not Present, BAR Not Present, AMP Not Present, and FYL Not Present. Other Laboratory Tests: Screening for sexually transmitted infections was not performed. Microbiology: Microbiology Antibody Identification: In House Screen Hep C was negative 06/11/2024. Assessment - Z11.4 - Encounter for screening for human immunodeficiency virus [HIV] - Z11.59 - Encounter for screening for other viral diseases - Z13.29 - Encounter for screening for other suspected endocrine disorder - Z13.220 - Encounter for screening for lipoid disorders - Z68.34 - Body mass index [BMI] 34.0-34.9, adult - Z13.1 - Encounter for screening for diabetes mellitus - Z00.01 - Encounter for general adult medical examination with abnormal findings - I48.91 - Unspecified atrial fibrillation - I10 - Essential (primary) hypertension - E07.9 - Disorder of thyroid, unspecified - M13.80 - Other specified arthritis, unspecified site - M51.360 - Other intervertebral disc degeneration, lumbar region with discogenic back pain only Therapy - Patient refused flu vaccine. Discussed benefits of flu vaccine with Patient. - Developmental/Behavioral Screening & Testing - PHQ9. - SBIRT Full Screen Neg. - Sleeve resection of stomach. Counseling/Education - Patient has declined preventive screening today Informed discussion completed with the patient including costs, risks and possible outcomes Ernesto Meehan - Patient has declined Cervical cancer screening - Discussed nutritional needs teach healthy choices including fruits and vegetables - Patient education about a proper diet - Discussed concerns about exercise: promote physical activity Plan StartCited- Encounter for general adult medical exam w abnormal findings Lab: CBC With Differential/Platelet Lab: Lipid Panel Lab: Comp. Metabolic Panel (14) Lab: TSH Rfx on Abnormal to Free T4 EndCited StartCited- Essential (primary) hypertension hydroCHLOROthiazide 25 MG tablet Take 1 tablet daily by mouth, 90 days, 0 refills Losartan Potassium 100 MG tablet Take 1 tablet daily by mouth, 90 days, 0 refills EndCited StartCited- Gastro-esophageal reflux disease without esophagitis Pantoprazole Sodium 40 MG tablet Take 1 tablet daily by mouth, 30 days, 2 refills EndCited StartCited- Other specified arthritis, unspecified site Folic Acid 1 MG tablet Take 1 tablet daily by mouth, 90 days, 0 refills Gabapentin 100 MG capsule Take 1 tablet daily by mouth 3 times daily, 30 days, 0 refills EndCited StartCited- Unspecified atrial fibrillation Potassium Chloride Sara ER 10 MEQ tablet Take 1 tablet by mouth daily., 30 days, 2 refills EndCited Patient medications refilled. Patient not prescribed tramadol. Patient signed habit forming contract. Patient to have wellness labs performed. Patient to follow up in 1 month for pain. PAP to be collected by provider. Patient to follow up with GI, cardiology, neurosurgery, as orderd. Health Reminders - Adult Well Visit 18 years and older satisfied 06/11/2024. - Assess BMI satisfied 06/11/2024. - Assess Tobacco Use satisfied 06/11/2024. - Diabetes Risk Screening Needed satisfied 06/11/2024. - Follow Up Plan BMI Management satisfied 06/11/2024. - WALI-2 satisfied 06/11/2024. - HIV Screen satisfied 06/11/2024. - PHQ9 / PHQA satisfied 06/11/2024. - SBIRT satisfied 06/11/2024. User Defined 1 Has not worked without getting the payment you thought you would, has not felt pressured to do something against will to keep job, have not felt threatened in a relationship, has not been put down, humilitated, or someone has tried to control them, has not been hit, kicked, punched, or sexually forced to do something, or hurt, not afraid of someone you have a relationship with, and not afraid of someone you have a relationship with No. Domestic Violence/ Human Trafficking Screening was completed. Has lack of transportation kept patient from medical appointments or from getting medications: No and lack of transportation has kept patient from beneficial non-medical activities: No. Not planning a in the next year. She has not had 4 or more drinks in a day within the past year. Do you feel stress - tense, restless, nervous, or anxious, or unable to sleep at night because your mind is troubled all the time - these days? Not at all, Yes (1 point) [Pre-DM]: Yes, mother, father, sister or brother has DM, Yes (1 point) [Pre-DM]: Yes, patient has been diagnosed with high blood pressure, No (0 points) [Pre-DM]: Patient has not been diagnosed with gestational diabetes or given to a baby weighing 9 pounds ormore, and Yes (0 point) [Pre-DM]: Yes, physically active. No misuse of prescription only drugs and not illicit. Does patient feel physically and emotionally safe where he/she lives: Yes. Is patient is worried about losing housing: No. What is the highest grade or level of school you have completed or the highest degree you have received? High school diploma or GED. In the past year, patient or family members in household were unable to get needed food: No. In thepast year, patient or family members in household were unable to get needed clothing: No, unable toget needed child care cook: No, unable to get other needs No, unable to get needed phone: No, unable to get needed utilities: No, and unable to get needed Medicine or Health Care: No. How often does patient see or talk to people that that he/she cares about and feels close to: 5 or more times a week andWoman (0 Points) [Pre-DM]. WALI-2 score was 0 06/11/2024, WALI-7 score [WALI-7] Feeling nervous, anxious or on edge? + 0 pt : Not at all, [WALI-7] Not being able to stop or control worrying? + 0 pt : Not at all, Patient Health Questionnaire 9-Item total score was 0 06/11/2024 If you checked off problems, how difficult is it for you to do your work? + : Not difficult at all, [PHQ-9-1] Little interest or pleasure in doing things? + 0 pt : Not at all, [PHQ-9-2] Feeling down, depressed, or hopeless? + 0 pt : Not at all, [PHQ-9-3] Trouble falling or staying asleep or sleeping too much? + 0 pt : Not at all, [PHQ-9-4] Feeling tiredor having little energy? + 0 pt : Not at all, [PHQ-9-5] Poor appetite or overeating? + 0 pt : Not at all, [PHQ-9-6] Feeling bad about yourself-or that you are a failure + 0 pt : Not at all, [PHQ-9-7]Trouble concentrating on things such as reading the newspaper + 0 pt : Not at all, [PHQ-9-8] Movingor speaking so slowly that other people have noticed. + 0 pt : Not at all, [PHQ-9-9] Thoughts that you would be better off or hurting yourself? + 0 pt : Not at all, and Less than 40 years (0 points) [Pre-DM]. [facility]03-28-2025 Instructions Includes: Instructions for all patient encounters Education and Decision Aids were provided during visit for: Discussed nutritional needs teach healthy choices including fruits and vegetables Last Documented On 5 10:19AM ; [facility] Patient education about a pr oper diet Last Documented On 5 10:19AM ; [facility] Discussed concerns about exe rcise : promote physical activity Last Documented On 5 10:19AM ; [facility] Work Phone: [phone]) 941-680703-28-2025 Instructions Includes: Instructions for all patient encounters Education and Decision Aids were provided during visit for: Discussed nutritional needs teach healthy choices including fruits and vegetables Last Documented On 5 10:19AM ; [facility] Patient education about a pr oper diet Last Documented On 5 10:19AM ; [facility] Discussed concerns about exe rcise : promote physical activity Last Documented On 5 10:19AM ; [facility] Work Phone: [phone] 103-794703-12-2025 History of Present illness Narrative* Aneudy Venegas NP - 05/26/2024 12:55 PM EDTAssociated Problem(s): Chronic pain syndrome Chronic pain lumbar DDD (never had surgery) L4-L5 Also has had several left leg surgeries in the past 7 Current taking broken leg, shattered tib/fib/growth palate and ankle: dr bird tramadol prn pain. Other pain meds in past percocet , never tried lyrica or gabapentin Last week's appt we started gabapentin , and she is to titrate up from 100mg daily to 300mg daily See documentation about her not following her pain agreement, we will not continue after her next fill and we will refer to pain mgmt OARRS reviewed * Aneudy Venegas NP - 05/26/2024 12:54 PM EDTAssociated Problem(s): Pain of finger of left hand Has been taking her augmentin, not doing epsom salt soaks, sxs seem to be worsening instead of improving, recommend going back to ER possible IV atbs As it applies to pain: has been non compliant with pain scripts and pain agreement, cannot take NSAIDS d/t bariatric surgery. Will not provide her with any pain meds today * Aneudy Venegas NP - 05/26/2024 12:51 PM EDTAssociated Problem(s): Morbid (severe) obesity due to excess calories ([facility] Discussed with patient their BMI (actual, verses recommended). We have also discussed lifestyle modifications: attempts to perform physical activity as chronic conditions allow, also to monitor dietary intake: increasing protein/fruits/veggies and lowering carb intake (unless contraindicated). Limit sodas, juices, and sugary drinks. Pt has had bariatric surgery in fall of 2022, weight was over 500lbs Great job keep up the great work * Aneudy Venegas NP - 05/26/2024 11:45 AM EDT Images from the original note were not included. Soledad Kramer is a 38 y.o. female presents with chief complaint of Follow- up (Hospital f/up cat scratch) HPI: Here Er fu for cat scratch to left hand/finger worsening Was seen here on 05/20/24 for same, sent home with instructions to take augmentin 875mg BID as well as epsom salt soaks. Called into office on 05/24/24 d/t worsening in pain and mild swelling to site. She was also asking for early fill on her tramadol as well. She was instructed to proceed to the Er for evaluation. She was seen in [facility] ER, had xray and no change in therapy. Presents today asER fu. No fever, +intermittent chills, worsening swelling to left 4th digit. No drainage, reports is taking her augmentin, has not trial epsom salt soaks. She does have some NT to the left 4th digit,pain level is 9/10, she is tearful. SUBJECTIVE: MEDICATIONS: Current Outpatient Medications Medication Instructions amoxicillin-clavulanate (Augmentin) 875-125 MG tablet 875 mg, Oral, 2 times daily, Take with food cyanocobalamin (VITAMIN B-12) 500 mcg, Oral, Daily folic acid (FOLVITE) 1,000 mcg, Oral, Daily gabapentin (Neurontin) 100 MG capsule Start with 1 pill at bedtime for 5 days, then increase to 2 pills at bedtime for 5 days, then increase 3pills hydroCHLOROthiazide (HYDRODIURIL) 25 mg, Oral, Daily losartan (COZAAR) 100 mg, Oral, Daily pantoprazole (PROTONIX) 40 mg, Oral, Daily before breakfast potassium chloride CR (Klor-Con M10) 10 MEQ ER tablet 10 mEq, Oral, Daily traMADol (ULTRAM) 100 mg, Oral, Every 12 hours PRN ALLERGIES: Allergies Allergen Reactions Ciprofloxacin Anaphylaxis anaphylactic anaphylactic anaphylactic anaphylactic anaphylactic anaphylactic Levofloxacin Anaphylaxis anaphylactic anaphylactic anaphylactic Spironolactone GI intolerance Latex Other, Unknown and Rash Other reaction(s): Unknown Blisters also Lisinopril GI intolerance cough Other reaction(s): Unknown cough cough Other Reaction(s): Other (See Comments) Wound Dressing Adhesive Rash and Unknown Other reaction(s): Other: See Comments Paper tape, itching, skin blistering & peeling Paper tape, itching, skin blistering & peeling REVIEW OF SYMPTOMS: Review of Systems Constitutional: Negative for appetite change, chills and fever. HENT: Negative for congestion, ear pain and sore throat. Eyes: Negative for pain, discharge, redness and visual disturbance. Respiratory: Negative for cough, shortness of breath and wheezing. Cardiovascular: Negative for chest pain, palpitations and leg swelling. Gastrointestinal: Negative for abdominal pain, blood in stool, constipation, diarrhea, nausea and vomiting. Genitourinary: Negative for difficulty urinating, dysuria and frequency. Musculoskeletal: Positive for joint swelling. Negative for arthralgias, back pain and myalgias. Skin: Negative for rash and wound. Neurological: Negative for dizziness, tremors, seizures, syncope and headaches. Psychiatric/Behavioral: Negative for behavioral problems, self-injury and suicidal ideas. The patient is not nervous/anxious. Hematological: Does not bruise/bleed easily. Endocrine: Negative for polydipsia, polyphagia and polyuria. Allergic/Immunologic: Negative for environmental allergies and food allergies. PAST MEDICAL HISTORY Past Medical History: Diagnosis Date A-fib ([facility]) Acute otitis media, bilateral Allergies Anxiety and depression ([facility]/HCC) Arthritis Asthma ([facility]/HCC) Asymptomatic hypertensive urgency ([facility]) Back pain Chronic foot pain Dyspepsia History of abdominal hernia Hypertension ([facility]/HCC) Hypoglycemia Insomnia Low blood sugar 08/2014 Low [facility] [facility] Low energy Lower back pain 07/2014 Ovarian cyst PCOS (polycystic ovarian syndrome) Rectal vaginal fistula Sleep apnea Type 2 diabetes mellitus (CMS/HCC) Visual impairment Yeast infection of the vagina Past Surgical History: Procedure Laterality Date ANKLE SURGERY Left broken APPENDECTOMY wound vac for 7 month after appendectomy CHOLECYSTECTOMY DILATION AND CURETTAGE OF UTERUS GASTRIC BYPASS 12/02/2022 Sleeve HYSTERECTOMY OTHER SURGICAL HISTORY alan heart machine family history includes Allergies in her brother, father, and mother; Arthritis in her father, maternal grandfather, maternal grandmother, mother, and paternal grandmother; Asthma in her brother; Degenerative Disc Disease in her mother; Depression in her mother; Diabetes in her father, maternal grandfather, and maternal grandmother; Heart disease in her father and mother; Hypertension in her father; Hyperthyroidism in her mother; Migraines in her mother; Obesity in her brother. OBJECTIVE: Visit Vitals BP 150/86 Pulse 64 Temp 97.8 F Resp 22 Ht 5' 9 Wt 232 lb SpO2 99% BMI 34.26 kg/m OB Status Hysterectomy Smoking Status Never BSA 2.26 m Physical Exam Vitals and nursing note reviewed. Constitutional: Appearance: Normal appearance. She is obese. HENT: Head: Normocephalic and atraumatic. Right Ear: External ear normal. Left Ear: External ear normal. Nose: Nose normal. Mouth/Throat: Mouth: Mucous membranes are moist. Eyes: Extraocular Movements: Extraocular movements intact. Conjunctiva/sclera: Conjunctivae normal. Cardiovascular: Rate and Rhythm: Normal rate and regular rhythm. Pulses: Normal pulses. Heart sounds: Normal heart sounds. Pulmonary: Effort: Pulmonary effort is normal. Breath sounds: Normal breath sounds. No wheezing. Abdominal: General: Bowel sounds are normal. There is no distension. Palpations: Abdomen is soft. There is no mass. Tenderness: There is no abdominal tenderness. Musculoskeletal: General: Swelling (left 4th digit, mild erythema, difficulty with bending finger secondary to swelling) present. Normal range of motion. Cervical back: Normal range of motion and neck supple. Skin: General: Skin is warm and dry. Capillary Refill: Capillary refill takes 2 to 3 seconds. Findings: No rash. Neurological: General: No focal deficit present. Mental Status: She is alert and oriented to person, place, and time. Psychiatric: Mood and Affect: Mood normal. Behavior: Behavior normal. Thought Content: Thought content normal. Judgment: Judgment normal. ASSESSMENT AND PLAN: No follow-ups on file. Problem List Items Addressed This Visit Morbid (severe) obesity due to excess calories (CMS/HCC) - Primary Discussed with patient their BMI (actual, verses recommended). We have also discussed lifestyle modifications: attempts to perform physical activity as chronic conditions allow, also to monitor dietary intake: increasing protein/fruits/veggies and lowering carb intake (unless contraindicated). Limit sodas, juices, and sugary drinks. Pt has had bariatric surgery in fall of 2022, weight was over 500lbs Great job keep up the great work Chronic pain syndrome Chronic pain lumbar DDD (never had surgery) L4-L5 Also has had several left leg surgeries in the past 7 Current taking broken leg, shattered tib/fib/growth palate and ankle: dr bird tramadol prn pain. Other pain meds in past percocet , never tried lyrica or gabapentin Last week's appt we started gabapentin , and she is to titrate up from 100mg daily to 300mg daily See documentation about her not following her pain agreement, we will not continue after her next fill and we will refer to pain mgmt OARRS reviewed Relevant Orders Ambulatory referral to Pain Medicine Pain of finger of left hand Has been taking her augmentin, not doing epsom salt soaks, sxs seem to be worsening instead of improving, recommend going back to ER possible IV atbs As it applies to pain: has been non compliant with pain scripts and pain agreement, cannot take NSAIDS d/t bariatric surgery. Will not provide her with any pain meds today documented in this [facility]03-12-2025 Instructions* Patient Instructions* Aneudy Venegas NP - 05/26/2024 11:45 AM EDT Send to local ER, may go to [facility], possible need for IV atbs No pain meds to be given Will refer to pain mgmt for chronic pain documented in this [facility]03-10-2025 Hospital Discharge instructions* Discharge Instructions* Orlando Zacarias MD - 05/24/2024 7:34 PM EDT Continue with biotics. Please follow-up with your primary care doctor within the next 2 to 3 days for follow-up visit Please return to the ER for any worsening symptoms or concerns. * Attachments The following attachments cannot be sent through Care Everywhere. * Care for a Skin Wound: Video (Somali) documented in this encounterBon [facility] Telephone encounter Note* Telephone Encounter - Aneudy Venegas NP - 05/24/2024 4:33 PM EDT I did speak to Santiago Wagner Pharmacist at 16:35, they did not get script on 05/20/24, it was sent to [facility], I did contact [facility], told them to cancel all tramadol scripts from me I did resend to at 16:40pm, NO refills [place] [facility] [id number] Miscellaneous Notes* Telephone Encounter - Aneudy Venegas NP - 05/24/2024 4:33 PM EDT I did speak to Santiago Wagner Pharmacist at 16:35, they did not get script on 05/20/24, it was sent to [facility], I did contact [facility], told them to cancel all tramadol scripts from me I did resend to at 16:40pm, NO refills [place] documented in this encounterTexas [facility] [id number] Hospital Discharge instructions* Discharge Instructions* Orlando Zacarias MD - 05/15/2024 12:34 AM EST Take your medication as indicated and prescribed. If you are given an antibiotic then, make sure you get the prescription filled and take the antibiotics until finished. Drink plenty of water while taking the antibiotics. Avoid drinking alcohol or drinks that have caffeine in it while taking antibiotics. For pain use acetaminophen (Tylenol) or ibuprofen (Motrin / Advil), unless prescribed medications that have acetaminophen or ibuprofen (or similar medications) in it. You can take over the counter acetaminophen tablets (1 - 2 tablets of the 500-mg strength every 6 hours) or ibuprofen tablets (2 tablets every 4 hours). PLEASE RETURN TO THE EMERGENCY DEPARTMENT IMMEDIATELY for worsening symptoms, white drainage from the wound, redness or streaking, or if you develop any concerning symptoms such as: high fever not relieved by acetaminophen (Tylenol) and/or ibuprofen (Motrin / Advil), chills, shortness of breath, chest pain, feeling of your heart fluttering or racing, persistent nausea and/or vomiting, vomiting upblood, blood in your stool, loss of consciousness, numbness, weakness or tingling in the arms or legs or change in color of the extremities, changes in mental status, persistent headache, blurry vision, loss of bladder / bowel control, unable to follow up with your physician, or other any other care or concern. * Attachments The following attachments cannot be sent through Care Everywhere. * Cellulitis (Somali) * Learning About Cellulitis: Video (Somali) documented in this encounterBon [facility] History of Present illness Narrative* Alyson Paulino NP - 05/06/2024 2:49 PM EST Associated Problem(s): Non-recurrent acute suppurative otitis media of right ear without spontaneous rupture of tympanic membrane Left ear pain, Swollen lymph node, sinus drainage, headache ongoing X1 weeks Has not tried any OTC treatments. COVID/FLU negative in office today. Denies: Fever Cough Shortness of breath Chest Pain Right ear suspicious for otitis media. Will tx with Augmentin X10 days. Flonase for sinus congestion. Tylenol for fevers/pain. Return to office if symptoms do not improve or worsen. * Alyson Paulino NP - 05/06/2024 2:30 PM EST Images from the original note were not included. Subjective Patient ID: Soledad King is a 38 y.o. female who presents for URI. HPI Left ear pain, Swollen lymph node, sinus drainage, headache ongoing X1 weeks Has not tried any OTC treatments. COVID/FLU negative in office today. Denies: Fever Cough Shortness of breath Chest Pain Right ear suspicious for otitis media. Will tx with Augmentin X10 days. Flonase for sinus congestion. Tylenol for fevers/pain. Return to office if symptoms do not improve or worsen. Review of Systems Constitutional: Negative for activity change, appetite change, chills, diaphoresis, fatigue, fever and unexpected weight change. HENT: Positive for congestion, ear pain and sinus pressure. Negative for rhinorrhea, sinus pain, sneezing, sore throat, trouble swallowing and voice change. Eyes: Negative for visual disturbance. Respiratory: Negative for cough, chest tightness, shortness of breath and wheezing. Cardiovascular: Negative for chest pain, palpitations and leg swelling. Gastrointestinal: Negative for abdominal distention, abdominal pain, blood in stool, constipation, diarrhea and vomiting. Genitourinary: Negative for decreased urine volume, dysuria, flank pain, frequency, hematuria and urgency. Musculoskeletal: Negative for arthralgias, gait problem, joint swelling and myalgias. Skin: Negative for rash. Neurological: Positive for headaches. Negative for dizziness, tremors, syncope, weakness and light-headedness. Psychiatric/Behavioral: Negative for decreased concentration and suicidal ideas. The patient is notnervous/anxious. Hematological: Does not bruise/bleed easily. Endocrine: Negative for cold intolerance, heat intolerance, polydipsia, polyphagia and polyuria. Objective Physical Exam Vitals reviewed. Constitutional: Appearance: Normal appearance. HENT: Right Ear: A middle ear effusion is present. Tympanic membrane is erythematous. Left Ear: Tympanic membrane normal. Nose: Nose normal. Mouth/Throat: Mouth: Mucous membranes are moist. Pharynx: Oropharynx is clear. Eyes: Pupils: Pupils are equal, round, and reactive to light. Cardiovascular: Rate and Rhythm: Normal rate and regular rhythm. Pulses: Normal pulses. Heart sounds: Normal heart sounds. Pulmonary: Effort: Pulmonary effort is normal. Breath sounds: Normal breath sounds. Abdominal: General: Abdomen is flat. Bowel sounds are normal. Palpations: Abdomen is soft. Musculoskeletal: General: Normal range of motion. Skin: General: Skin is warm and dry. Capillary Refill: Capillary refill takes less than 2 seconds. Neurological: Mental Status: She is alert and oriented to person, place, and time. Assessment/Plan Problem List Items Addressed This Visit Non-recurrent acute suppurative otitis media of right ear without spontaneous rupture of tympanic membrane - Primary Left ear pain, Swollen lymph node, sinus drainage, headache ongoing X1 weeks Has not tried any OTC treatments. COVID/FLU negative in office today. Denies: Fever Cough Shortness of breath Chest Pain Right ear suspicious for otitis media. Will tx with Augmentin X10 days. Flonase for sinus congestion. Tylenol for fevers/pain. Return to office if symptoms do not improve or worsen. Relevant Medications amoxicillin-clavulanate (Augmentin) 875-125 MG tablet Sinus congestion Relevant Medications fluticasone (Flonase) 50 MCG/ACT nasal spray documented in this encounterTexas County Memorial [id number] Instructions* Patient Instructions* Alyson Paulino NP - 05/06/2024 2:30 PM EST Continue to rest, drink plenty of fluids, and eat a well-balance diet. Resume normal activity. AVOID anything strenuous until you are feeling better. Treatment: Augmentin twice daily for 10 days for ear infection. Nasal saline spray 2-3 times/day Zyrtec allergy medication once daily. Flonase nasal spray 1-2 squirts in each nostril at night. Tylenol for fever and body aches. Vitamins: Vitamin C 1,000mg per day. Vitamin D3 2,000 international unit(s) per day. Zinc 25mg per day. WORSENING SYMPTOMS, CHEST PAIN, OR SHORTNESS OF BREATH, GO TO THE NEAREST EMERGENCY DEPARTMENT. documented in this encounterTexas County Memorial [id number] Telephone encounter Note* Telephone Encounter - Mckayla Orourke MA - 04/27/2024 2:40 PM EST MONY:02/26/2024 NOV: [facility] [id number] Miscellaneous Notes* Telephone Encounter - Mckayla Orourke MA - 04/27/2024 2:40 PM EST MONY:02/26/2024 NOV: documented in this [facility]01-10-2025 Hospital Discharge instructions* Discharge Instructions* Coty Mchugh DPM - 03/26/2024 10:55 AM EST Follow up with your PCP Rest and ice the injured area as much as possible. Use flexeril and your previously prescribed toradol for pain. Please return to the ER if symptoms worsen or new symptoms develop * Attachments The following attachments cannot be sent through Care Everywhere. * RICE: General Info (Somali) * Contusion (Somali) [facility] in [facility]Car[facility] NotePROCEDURE: XR SHOULDER RIGHT (MIN 2 VIEWS), XR HUMERUS RIGHT (MIN 2 VIEWS) CLINICAL INFORMATION: 38-year-old female who fell. Right-sided shoulder pain. COMPARISON: No prior study. TECHNIQUE: 3 views of the right shoulder and 4 views of the right humerus were obtained. FINDINGS: There is no acute fracture or dislocation. The joint spaces are preserved. There is anatomical alignment at the glenohumeral joint and the elbow. Visualized portions of the right hemithorax demonstrate clear lung with no pneumothorax. There is no soft tissue abnormality. [id number] NotePROCEDURE: XR SHOULDER RIGHT (MIN 2 VIEWS), XR HUMERUS RIGHT (MIN 2 VIEWS) CLINICAL INFORMATION: 38-year-old female who fell. Right-sided shoulder pain. COMPARISON: No prior study. TECHNIQUE: 3 views of the right shoulder and 4 views of the right humerus were obtained. FINDINGS: There is no acute fracture or dislocation. The joint spaces are preserved. There is anatomical alignment at the glenohumeral joint and the elbow. Visualized portions of the right hemithorax demonstrate clear lung with no pneumothorax. There is no soft tissue abnormality. [id number] NotePROCEDURE: XR SHOULDER RIGHT (MIN 2 VIEWS), XR HUMERUS RIGHT (MIN 2 VIEWS) CLINICAL INFORMATION: 38-year-old female who fell. Right-sided shoulder pain. COMPARISON: No prior study. TECHNIQUE: 3 views of the right shoulder and 4 views of the right humerus were obtained. FINDINGS: There is no acute fracture or dislocation. The joint spaces are preserved. There is anatomical alignment at the glenohumeral joint and the elbow. Visualized portions of the right hemithorax demonstrate clear lung with no pneumothorax. There is no soft tissue abnormality. IMPRESSION: No acute fracture or dislocation. This report has been created using voice recognition software. It may contain minor errors which are inherent in voice recognition technology. Electronically signed by Dr Zachary Clinton Interpreted by: Zachary Clinton MD Signed by: Zachary Clinton MD 03/26/24 Final resultSaint [facility]ise [facility]01-10-2025 NotePROCEDURE: XR SHOULDER RIGHT (MIN 2 VIEWS), XR HUMERUS RIGHT (MIN 2 VIEWS) CLINICAL INFORMATION: 38-year-old female who fell. Right-sided shoulder pain. COMPARISON: No prior study. TECHNIQUE: 3 views of the right shoulder and 4 views of the right humerus were obtained. FINDINGS: There is no acute fracture or dislocation. The joint spaces are preserved. There is anatomical alignment at the glenohumeral joint and the elbow. Visualized portions of the right hemithorax demonstrate clear lung with no pneumothorax. There is no soft tissue abnormality. IMPRESSION: No acute fracture or dislocation. This report has been created using voice recognition software. It may contain minor errors which are inherent in voice recognition technology. Electronically signed by Dr Zachary Clinton Interpreted by: Zachary Clinton MD Signed by: Zachary Clinton MD 03/26/24 [facility]SMethod[facility]01-[facility]25 Telephone encounter Note* Telephone Encounter - WENDIE CARROLL - 03/24/2024 2:12 PM EST Patient called for refill of tramadol, and asked if you could send in refills to get her through until new provider takes over. clm [facility] [id number] Miscellaneous Notes* Telephone Encounter - WENDIE CARROLL - 03/24/2024 2:12 PM EST Patient called for refill of tramadol, and asked if you could send in refills to get her through until new provider takes over. clm documented in this encounterTexas County Memorial [id number] Hospital Discharge instructions* Discharge Instructions* Livier Brandon DO - 03/02/2024 2:17 AM EST Make sure that you are taking the nausea medication as needed so that you can drink adequate amountof water every day as well as try to eat something light in order to take your medications follow-up with your doctor in the next 2 to 3 days. Make sure to follow-up with your supervisor [employer] in the next few days. They also recommend having themaddress your blood pressure medications since you have had a significant weight loss over the past 1 year. * Attachments The following attachments cannot be sent through Care Everywhere. * Nausea and Vomiting (Somali) [facility] History of Present illness Narrative* Alyson Paulino NP - 02/26/2024 2:50 PM EST Associated Problem(s): Cold intolerance Presents today with intolerance to cold in hands Discoloration to hands/toes Painful when cold. Mom has Raynaud's pt is also concerned she has it. Would like GERMAN testing. Denies wounds or injuries Is already taking losartan. GERMAN with Reflex ordered. Advised pt on protecting hands/feet in cold. Pt verbalized understanding. * Alyson Paulino NP - 02/26/2024 2:30 PM EST Images from the original note were not included. Subjective Patient ID: Soledad King is a 38 y.o. female who presents for Hand Pain. Hand Pain Pertinent negatives include no chest pain or numbness. Presents today with intolerance to cold in hands Discoloration to hands/toes Painful when cold. Mom has Raynaud's pt is also concerned she has it. Would like GERMAN testing. Denies wounds or injuries Is already taking losartan. GERMAN with Reflex ordered. Advised pt on protecting hands/feet in cold. Pt verbalized understanding. Review of Systems Constitutional: Negative for activity change, appetite change, chills, fatigue, fever, night sweatsand unexpected weight change. HENT: Negative for congestion, ear pain, rhinorrhea, sinus pressure, sinus pain, sore throat, trouble swallowing and voice change. Eyes: Negative for discharge and visual disturbance. Respiratory: Negative for chest tightness, shortness of breath and wheezing. Cardiovascular: Negative for chest pain, palpitations and leg swelling. Gastrointestinal: Negative for abdominal distention, abdominal pain, blood in stool, constipation, diarrhea, nausea and vomiting. Genitourinary: Negative for difficulty urinating, dysuria, flank pain, hematuria and pelvic pain. Musculoskeletal: Negative for arthralgias, joint swelling and neck pain. Skin: Negative for rash and wound. Neurological: Negative for dizziness, tremors, syncope, weakness, light- headedness, numbness and headaches. Psychiatric/Behavioral: Negative for sleep disturbance and suicidal ideas. The patient is not nervous/anxious. Hematological: Does not bruise/bleed easily. Endocrine: Positive for cold intolerance. Negative for heat intolerance, polydipsia, polyphagia andpolyuria. Objective Physical Exam Vitals reviewed. Constitutional: Appearance: Normal appearance. HENT: Right Ear: Tympanic membrane normal. Left Ear: Tympanic membrane normal. Nose: Nose normal. Mouth/Throat: Mouth: Mucous membranes are moist. Pharynx: Oropharynx is clear. Eyes: Pupils: Pupils are equal, round, and reactive to light. Cardiovascular: Rate and Rhythm: Normal rate and regular rhythm. Pulses: Normal pulses. Heart sounds: Normal heart sounds. Pulmonary: Effort: Pulmonary effort is normal. Breath sounds: Normal breath sounds. Abdominal: General: Abdomen is flat. Bowel sounds are normal. Palpations: Abdomen is soft. Skin: Capillary Refill: Capillary refill takes less than 2 seconds. Neurological: Mental Status: She is alert and oriented to person, place, and time. Assessment/Plan Problem List Items Addressed This Visit Family history of Raynaud phenomenon Discoloration of skin of hand Pain in both hands Cold intolerance - Primary Presents today with intolerance to cold in hands Discoloration to hands/toes Painful when cold. Mom has Raynaud's pt is also concerned she has it. Would like GERMAN testing. Denies wounds or injuries Is already taking losartan. GERMAN with Reflex ordered. Advised pt on protecting hands/feet in cold. Pt verbalized understanding. documented in this [facility]12-12-2024 Instructions* Patient Instructions* Alyson Paulino NP - 02/26/2024 2:30 PM EST Protect fingers/toes! Cover with gloves. Use approved warm packs as needed. documented in this [facility]11-05-2024 Hospital Discharge instructions* Discharge Instructions* Livier Brandon DO - 01/20/2024 10:45 PM EST Tylenol or ibuprofen for pain as needed. Ice to the area 20 minutes at a time multiple times a day to help with the pain. Follow-up with your doctor if symptoms persist within 1 week. * Attachments The following attachments cannot be sent through Care Everywhere. * Wrist Sprain (Somali) [facility] this [facility] Telephone encounter Note* Telephone Encounter - Taty Blanco - 01/05/2024 10:10 AM EDT Patient stopped in saying [facility] would not refill the Tramadol because insurance will not approve the 100mg, they need it to say the 50mg 180 tablets. [id number] Miscellaneous Notes* Telephone Encounter - Taty Blanco - 01/05/2024 10:10 AM EDT Patient stopped in saying [facility] would not refill the Tramadol because insurance will not approve the 100mg, they need it to say the 50mg 180 tablets. documented in this encounterTexas [facility] [id number] History of Present illness Narrative* Alyson Paulino NP - 12/31/2023 9:24 AM EDTAssociated Problem(s): Laceration of left lower extremity Left posterior leg laceration. Fell down stairs and landed on gripping strips. Area is erythematous and appears to be poorly healing. No drainage observed. Prescribed Cephalexin. Advised pt of wound care instructions and concerning symptoms to monitor forand report. Pt verbalized understanding. * Alyson Paulino NP - 12/30/2023 2:00 PM EDT Images from the original note were not included. Subjective Patient ID: Soledad King is a 38 y.o. female who presents for No chief complaint on file.. HPI Left posterior leg laceration. Fell down stairs and landed on gripping strips. Area in red and inflamed now. is concerned area is infected. Will prescribe ATB regimen. Review of Systems Constitutional: Negative for activity change, appetite change, chills, diaphoresis, fatigue, fever and unexpected weight change. HENT: Negative for congestion, ear pain, rhinorrhea, sinus pressure, sinus pain, sneezing, sore throat, trouble swallowing and voice change. Eyes: Negative for visual disturbance. Respiratory: Negative for cough, chest tightness, shortness of breath and wheezing. Cardiovascular: Negative for chest pain, palpitations and leg swelling. Gastrointestinal: Negative for abdominal distention, abdominal pain, blood in stool, constipation, diarrhea and vomiting. Genitourinary: Negative for decreased urine volume, dysuria, flank pain, frequency, hematuria and urgency. Musculoskeletal: Negative for arthralgias, gait problem, joint swelling and myalgias. Skin: Positive for wound. Negative for rash. Neurological: Negative for dizziness, tremors, syncope, weakness, light- headedness and headaches. Psychiatric/Behavioral: Negative for decreased concentration and suicidal ideas. The patient is notnervous/anxious. Hematological: Does not bruise/bleed easily. Endocrine: Negative for cold intolerance, heat intolerance, polydipsia, polyphagia and polyuria. Objective Physical Exam Vitals reviewed. Constitutional: Appearance: Normal appearance. HENT: Head: Normocephalic and atraumatic. Right Ear: Tympanic membrane normal. Left Ear: Tympanic membrane normal. Nose: Nose normal. Mouth/Throat: Mouth: Mucous membranes are moist. Pharynx: Oropharynx is clear. Eyes: Pupils: Pupils are equal, round, and reactive to light. Cardiovascular: Rate and Rhythm: Normal rate and regular rhythm. Pulses: Normal pulses. Heart sounds: Normal heart sounds. Pulmonary: Effort: Pulmonary effort is normal. Breath sounds: Normal breath sounds. Abdominal: General: Abdomen is flat. Bowel sounds are normal. Palpations: Abdomen is soft. Musculoskeletal: General: Normal range of motion. Cervical back: Normal range of motion. Skin: General: Skin is warm and dry. Capillary Refill: Capillary refill takes less than 2 seconds. Findings: Abrasion present. Neurological: General: No focal deficit present. Mental Status: She is alert and oriented to person, place, and time. Psychiatric: Mood and Affect: Mood normal. Behavior: Behavior normal. Assessment/Plan Problem List Items Addressed This Visit Laceration of left lower extremity - Primary Left posterior leg laceration. Fell down stairs and landed on gripping strips. Area is erythematous and appears to be poorly healing. No drainage observed. Prescribed Cephalexin. Advised pt of wound care instructions and concerning symptoms to monitor forand report. Pt verbalized understanding. Relevant Medications cephalexin (Keflex) 500 MG capsule documented in this [facility]10-15-2024 Instructions* Patient Instructions* Alyson Paulino NP - 12/30/2023 2:00 PM EDT Keep wound clean and dry. Cleanse with mild soap and water twice daily. Apple Triple ATB ointment twice daily. Start and Finish Antibiotics as directed. Rash, redness, swelling, fever, GO TO ER!!! documented in this encounterTexas [facility] [id number] NoteUrology Office/Clinic Note Chief Complaint Dr. Adam referral HPI Staff Soledad is a 38 yo male new pt referred by Dr. Manuelito Adam due to painful urination and flank pain. states she thinks her bladder dropped. Was seen in [facility] ER on 10/11/23 due to LLQ pain, some urinary urgency/frequency. CT showed 5cm L adnexal cystic structure and recommended f/u US in 6-10 wks, otherwise nl system. UA showed trace bacteria/mucus but neg leuk/nit. Was not sent for cx and not given abx. Per ER note pt has hx of similar pain complaints. Pt has not tried any bladder meds per external pharmacy. Dysuria: occasionally Incomplete bladder emptying: Pt. states not really feels empty, PVR 36mL Hematuria: no Frequency: no Urgency: very rarely. says typically she does not get any urge to void, just does when she thinks of it. Nocturia: no Stream: weak stream Post void dripping: no Wearing pads/ Depends: no Urge incontinence: rarely Stress incontinence: occasionally Incontinence without Sensory Awareness: no Abdominal pain: Pt. states occasional side pain Flank pain: Pt. states she will occasionally have Flank pain going to the front. Review of Systems PHQ Score Initial Depression Screen Score: 0 SCORE no fever, chills, malaise, myalgia. no rash/lesions. no chest pain, palpitations, or SOB. no abdominal pain, nausea, vomiting. no unilateral calf swelling, redness, pain Physical Exam Vitals & Measurements HT: 69 in HT: 176 cm WT: 113 kg WT: 248.6 lb BMI: 36.48 General: nontoxic, NAD Mouth: moist mucosa Lungs: normal respiratory effort Cardio: regular rate, good distal perfusion Abdomen: nondistended, no suprapubic distention or tenderness, no CVA tenderness Neurologic: Grossly normal Skin: No rashes or suspicious lesions Assessment/Plan COOPERER from Dr Jair kenyon extensive abdominal surgery hx (gastric sleeve, hyst/oophorect, multiple laparoscopy w report of adhesions). UA completed in office today shows no microhematuria or signs of infection. BBSQ 2 very good control 1. Difficulty urinating (R39.198: Other difficulties with micturition) Pt rarely gets the urge to void. Can hold urine 9+ hrs without sensation to void. Occasionally will get strong urge and typically will have UUI at this point. Reports small, slow stream. Sometimes hesitancy. No intermittency or straining. Also reports dyspareunia. Severe. -start timed voiding -avoid bladder irritants -proceed w urodynamics and cysto/possible UD Will schedule Cysto with UD. The procedure risks, benefits, details, and treatment alternatives have been discussed with the patient. These include bleeding, infection, recurrent scar in over 50%, need for repeat dilation or other procedures, no symptom relief with dilation, among others. Full informed consent has been obtained. Will order Local anesthesia. Ordered: E&M of New Patient Moderate 45-59 Min 96595 2. LLQ abdominal pain (R10.32: Left lower quadrant pain) chronic x at least 6 mos. intermittent. severe at times. radiates to low back. CT 10/14 showed 5cm L adnexal cyst and providers told her pain was from this. pt not convinced that is true. says Dr Adam told her it might be her bladder/kidneys. no hydro noted bilat on CT. last episode was about 3 weeks ago. Has been to ER multiple times for this. Does have constipation, at times goes up to 5d without BM. Discussed bowel- bladder connection. -bowel regimen Ordered: E&M of New Patient Moderate 45-59 Min 31076 3. Feeling of incomplete bladder emptying (R39.14: Feeling of incomplete bladder emptying) PVR 36ml Ordered: E&M of New Patient Moderate 45-59 Min 65015 Follow-up With When Contact Information [facility] [address] [place] [address] Business (1) Additional Instructions: our securities attorney will be contacting you for follow-up Patient Education Dysuria Problem List/Past Medical History Ongoing Acute otitis media, bilateral Afib Allergies Anxiety and depression Arthritis Asthma Asymptomatic hypertensive urgency Atrial fibrillation B12 deficiency Back pain Chronic ankle pain Chronic bilateral low back pain without sciatica Chronic foot pain Chronic pain syndrome Difficulty urinating Dyspepsia Easy bruisability Endometriosis Essential hypertension Fatty liver Feeling of incomplete bladder emptying Fibroid uterus Folic acid deficiency GERD without esophagitis History of abdominal hernia HTN (hypertension) Hypertension Hypoglycemia Hypothyroidism Insomnia LLQ abdominal pain Low blood sugar Low energy Lower back pain Morbid (severe) obesity due to excess calories CATIE (obstructive sleep apnea) Ovarian cyst PCOS (polycystic ovarian syndrome) Pilonidal cyst with abscess Post-operative pain Rectal vaginal fistula S/P bariatric surgery S/P laparoscopic sleeve gastrectomy S/P tota (more content not included)...[facility] CenterComment on above:Result Comment: Electronically Signed By: Jeanne Rivas\.br\Date and Time Signed: 12/18/23 10:[id number] NotePatient Education Urology Dysuria Dysuria is pain or discomfort during urination. The pain or discomfort may be felt in the part of the body that drains urine from the bladder (urethra) or in the surrounding tissue of the genitals. The pain may also be felt in the groin area, lower abdomen, or lower back. You may have to urinate frequently or have the sudden feeling that you have to urinate (urgency). Dysuria can affect anyone, but it is more common in females. Dysuria can be caused by many different things, including: ? Urinary tract infection. ? Kidney stones or bladder stones. ? Certain STIs (sexually transmitted infections), such as chlamydia. ? Dehydration. ? Inflammation of the tissues of the vagina. ? Use of certain medicines. ? Use of certain soaps or scented products that cause irritation. Follow these instructions at home: Medicines ? Take [id number] and prescription medicines only as told by your health care provider. ? If you were prescribed an antibiotic medicine, take it as told by your health care provider. Do not stop taking the antibiotic even if you start to feel better. Eating and drinking ? Drink enough fluid to keep your urine pale yellow. ? Avoid caffeinated beverages, tea, and alcohol. These beverages can irritate the bladder and make dysuria worse. In males, alcohol may irritate the prostate. General instructions ? Watch your condition for any changes. ? Urinate often. Avoid holding urine for long periods of time. ? If you are female, you should wipe from front to back after urinating or having a bowel movement.Use each piece of toilet paper only once. ? Empty your bladder after sex. ? Keep all follow-up visits. This is important. ? If you had any tests done to find the cause of dysuria, it is up to you to get your test results.Ask your health care provider, or the department that is doing the test, when your results will be ready. Contact a health care provider if: ? You have a fever. ? You develop pain in your back or sides. ? You have nausea or vomiting. ? You have blood in your urine. ? You are not urinating as often as you usually do. Get help right away if: ? Your pain is severe and not relieved with medicines. ? You cannot eat or drink without vomiting. ? You are confused. ? You have a rapid heartbeat while resting. ? You have shaking or chills. ? You feel extremely weak. Summary ? Dysuria is pain or discomfort while urinating. Many different conditions can lead to dysuria. ? If you have dysuria, you may have to urinate frequently or have the sudden feeling that you have to urinate (urgency). ? Watch your condition for any changes. Keep all follow-up visits. ? Make sure that you urinate often and drink enough fluid to keep your urine pale yellow. This information is not intended to replace advice given to you by your health care provider. Make sure you discuss any questions you have with your health care provider. Document Revised: 10/13/2020 Document Reviewed: 10/13/2020 Elsevier Patient Education ? 2023 [employer] 12-03-2023 History of Present illness Narrative* Alyson Paulino NP - 12/03/2023 10:40 AM EDTAssociated Problem(s): Dysuria prolapsed bladder; Is seeing [facility]- Cystogram scheduled; * Alyson Paulino NP - 12/03/2023 10:37 AM EDTAssociated Problem(s): Gastroesophageal reflux disease without esophagitis On Pantoprazole Feels symptoms are well controlled. Continue current regimen * Alyson Paulino NP - 12/03/2023 10:36 AM EDTAssociated Problem(s): Essential hypertension Currently taking Losartan 100mg Hydrochlorothiazide every other day per cardiology; Checks BP at home ; Averages are Denies orthostatic changes, dizziness, cough, shortness of breath, swelling in extremities. Continue current regimen. Given BP log, advised pt to record BP and bring log back with them to next visit. * Alyson Paulino NP - 12/03/2023 10:00 AM EDT Images from the original note were not included. Subjective Patient ID: Soledad King is a 38 y.o. female who presents for Follow-up (Labs done in [place]). 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 Had a tooth break yesterday- believes it is due to calcium deficiency; Bariatrics initiated Vit D3,Calcium, potassium, folic acid, B-12 HTN: Currently taking Losartan 100mg Hydrochlorothiazide every other day per cardiology; Checks BP at home ; Averages are Denies orthostatic changes, dizziness, cough, shortness of breath, swelling in extremities. Continue current regimen. Given BP log, advised pt to record BP and bring log back with them to next visit. Review of Systems Constitutional: Negative for activity change, appetite change, chills, diaphoresis, fatigue, fever and unexpected weight change. HENT: Positive for dental problem. Negative for congestion, ear pain, rhinorrhea, sinus pressure, sinus pain, sneezing, sore throat, trouble swallowing and voice change. Eyes: Negative for visual disturbance. Respiratory: Negative for cough, chest tightness, shortness of breath and wheezing. Cardiovascular: Negative for chest pain, palpitations and leg swelling. Gastrointestinal: Negative for abdominal distention, abdominal pain, blood in stool, constipation, diarrhea and vomiting. Genitourinary: Negative for decreased urine volume, dysuria, flank pain, frequency, hematuria and urgency. Musculoskeletal: Negative for arthralgias, gait problem, joint swelling and myalgias. Skin: Negative for rash. Neurological: Negative for dizziness, tremors, syncope, weakness, light- headedness and headaches. Psychiatric/Behavioral: Negative for decreased concentration and suicidal ideas. The patient is notnervous/anxious. Hematological: Does not bruise/bleed easily. Endocrine: Negative for cold intolerance, heat intolerance, polydipsia, polyphagia and polyuria. Objective Physical Exam Vitals reviewed. Constitutional: Appearance: Normal appearance. HENT: Head: Normocephalic and atraumatic. Right Ear: Tympanic membrane normal. Left Ear: Tympanic membrane normal. Nose: Nose normal. Mouth/Throat: Mouth: Mucous membranes are moist. Pharynx: Oropharynx is clear. Comments: Cracked front L tooth Eyes: Pupils: Pupils are equal, round, and reactive to light. Cardiovascular: Rate and Rhythm: Normal rate and regular rhythm. Pulses: Normal pulses. Heart sounds: Normal heart sounds. Pulmonary: Effort: Pulmonary effort is normal. Breath sounds: Normal breath sounds. Abdominal: General: Abdomen is flat. Bowel sounds are normal. Palpations: Abdomen is soft. Musculoskeletal: General: Normal range of motion. Cervical back: Normal range of motion. Skin: General: Skin is warm and dry. Capillary Refill: Capillary refill takes less than 2 seconds. Neurological: General: No focal deficit present. Mental Status: She is alert and oriented to person, place, and time. Psychiatric: Mood and Affect: Mood normal. Behavior: Behavior normal. Assessment/Plan Problem List Items Addressed This Visit Essential hypertension - Primary (Chronic) Currently taking Losartan 100mg Hydrochlorothiazide every other day per cardiology; Checks BP at home ; Averages are Denies orthostatic changes, dizziness, cough, shortness of breath, swelling in extremities. Continue current regimen. Given BP log, advised pt to record BP and bring log back with them to next visit. Relevant Orders Comprehensive metabolic panel Gastroesophageal reflux disease without esophagitis On Pantoprazole Feels symptoms are well controlled. Continue current regimen Chronic bilateral low back pain without sciatica Relevant Medications traMADol (Ultram) 50 MG tablet Hypokalemia Relevant Orders Comprehensive metabolic panel Other Visit Diagnoses Cracked tooth Relevant Medications amoxicillin-clavulanate (Augmentin) 875-125 MG tablet documented in this [facility]09-18-2024 Instructions* Patient Instructions* Alyson Paulino NP - 12/03/2023 10:00 AM EDT FOLLOW UP WITH DENTIST MARKO!!! Call if you need anything! documented in this [facility]05-22-2024 Hospital Discharge instructions* Discharge Instructions* Mitchell Sellers DO - 08/06/2023 6:38 AM EDT You were evaluated in the emergency department for headache and fatigue. Your lab work did not reveal any acute abnormalities. CT of your head did not reveal any acute abnormalities. You were given medication emergency department for headache and he stated that he felt better. Please follow-up withyour primary care physician. Please return to the emergency department for any worsening symptoms, questions or concerns. * Attachments The following attachments cannot be sent through Care Everywhere. * Migraine Headache (Somali) [facility] Discharge instructions* Discharge Instructions* Chantal Tovar RN - 12/09/2022 9:04 AM EDT Outpatient Discharge Instructions for IV Therapy [address] [address] You are advised to carry out the following instructions: Diet: As prescribed by your physician. Activity: As prescribed by your physician. Saline Lock: Notify your Physician if your previous IV site becomes,red,sore,swollen,painful, have drainage,or you develop a fever. Other: If you develop hives,rash,itching or trouble breathing, go to the nearest Emergency Room. These could be signs of a allergic reaction to the medication. Keep the IV site covered with a bandage. Keep it clean and dry until healed. Follow up appointment: ANY PROBLEMS OR CONCERNS NOTIFY YOUR PHYSICIAN OR GO TO THE NEAREST EMERGENCY ROOM. [facility] History of Present illness Narrative* YI Thomas CNP - 11/20/2022 3:00 PM EDT Anesthesia Focused Assessment Hx of anesthesia complications: prolonged emergence Family hx of anesthesia complications: maternal grandmother with prolonged emergence Tested positive for Covid-19 in last 8 weeks: no STOP-BANG Sleep Apnea Questionnaire SNORE loudly (heard through closed doors)? Yes TIRED, fatigued, sleepy during daytime? No OBSERVED stopping breathing during sleep? Yes High blood PRESSURE or being treated? Yes BMI over 35? Yes AGE over 50? No NECK circumference over 16 ? No GENDER (male)? No Total 4 High risk 5-8 Intermediate risk 3-4 Low risk 0-2 CATIE Yes If yes, machine? No DM1 No DM2 Yes, on meds Coronary Artery Disease No HTN Yes, on meds Defib/AICD/Pacemaker No Renal Failure No If yes, on dialysis Active smoker? No Drinks alcohol? No Illicit drugs? No Dentition? benign Past Medical History: Diagnosis Date Asthma sports related Chronic back pain COVID-19 03/2020 respiratory issues Diabetes mellitus (HCC) Dr. Shaikh Nieves PCP GERD (gastroesophageal reflux disease) Hiatal hernia Hypertension Implantable loop recorder present Dr. Taryn Murray Cardiology last visit 09/2022 MRSA infection Obesity Osteoarthritis Palpitations Paroxysmal A-fib (HCC) Sleep apnea no longer uses cpap Patient was evaluated in PAT & anesthesia guidelines were applied. NPO guidelines, medication instructions and scheduled arrival time were reviewed with patient. Advised patient or guardian to please notify surgeon's office if patient or child becomes ill priorto surgery. Anesthesia contacted: no Medical or cardiac clearance ordered: no, cardiac clearance on file but is , will obtain updated clearance. Pulmonary clearance on file. Medical clearance pending, will obtain copy. In regard to patient's elevated blood pressure today, patient states it is always this high and also admits to forgetting to take her antihypertensive medication this morning. Program Support Assistant stressed to patient that she should take her medications as prescribed. Patient verbalized understanding. Will notify PCP regarding this, as well as trulicity needing to be stopped one week prior to surgery. YI Thomas CNP 11/20/22 8:57 AM [facility] Dis[facility]* Discharge Instructions* YI Thomas CNP - 11/15/2022 1:16 PM EDT Pre-operative Instructions Please arrive at the surgery center by 10:30 AM on 12/02/2022 (or as directed by your surgeon's office). See Directons to Surgery Center below. FASTING NOTHING TO EAT OR DRINK AFTER MIDNIGHT the night prior to surgery (This includes gum, candy, mints,chewing tobacco, etc). EXCEPT GATORADE PER SURGEON (Follow bowel prep instructions if instructed by your surgeon.) MEDICATIONS What to STOP: ANY BLOOD THINNING MEDICATION(S) as directed by your surgeon or prescribing physician. FAILURE TO STOP CERTAIN MEDICATIONS MAY INTERFERE WITH YOUR SCHEDULED SURGERY. According to the medication list you provided today, PLEASE STOP: 2. What to CONTINUE leading up to your surgery: Please take all your other daily medications except the medications listed above that you were instructed to hold. 3. What to TAKE MORNING OF SURGERY with SMALL SIP OF WATER: carvedilol (Coreg), losartan-hydrochlorothiazide (Hyzaar), metoprolol (Toprol), levothyroxine (Synthroid), pantoprazole (Protonix), if needed: percocet IF APPLICABLE: -If you have been given a blood band, you must bring it with you the day of surgery, unclasped. -Use routine inhalers and bring inhalers the day of surgery. -Bring C-Pap/Bi-pap with you morning of surgery if planning on staying in the hospital overnight. -Do not take diabetic medications on the day of surgery. -Any weekly antidiabetic injections (trulicity) must be stopped one week prior to surgery and plan discussed with prescribing provider. OTHER IMPORTANT REMINDERS 1) You may be required to provide a urine sample upon your arrival to the pre-op area, so please take this into consideration. 2) If NOT planning on staying in the hospital overnight : A.You will need an adult family member /friend to drive you home after your procedure. Taxi cabs orany form of public transportation ALONE is not acceptable. -Your putaway driver must be 18 years of age or older and able to sign off on your discharge instructions. -It is preferable that the friend or family member stay at the hospital throughout your procedure. B. Someone must remain with you once you have arrived home for the first 24 hours after your surgery if you receive anesthesia or medication. If you do not have someone to stay with you, your procedure may be cancelled. 4) Do not wear any jewelry or body piercings day of surgery. 5) In case of illness - If you have cold or flu like symptoms (high fever, runny nose, sore throat,cough, etc.) rash, nausea, vomiting, loose stools, and/or recent contact with someone who has a contagious disease (Covid-19, chicken pox, measles, etc.) PLEASE notify your surgeon as soon as possible. 11/15/22 3:56 PM Signature (Provider) Signature (Patient) Day of Surgery/Procedure As a patient at [facility] you can expect quality medical and nursing care that is centered on your individual needs. Our goal is to make your surgical experience as comfortableas possible . Directions to the Surgery Center [facility] is located at [address] [place] [address]. Please pull into the Emergency/Surgery Center parking lot or there is additional parking across [facility]. You will enter the facility under through the glass doors and proceed to registration check-in which is right inside the door. Thereafter you will be directed to the Surgery Center ON THE FIRST FLOOR. Patient Instructions Please shower the night before and the morning of surgery with an antibacterial soap. Please use the cleaning solution (bottle) given to you the night before your surgery after your shower. Unless otherwise told by your physician, please do not shave legs or any part of your body below your neck the night before or day of your surgery. You may shave your face or neck. Please wear loose, comfortable clothing. If you are potentially going to have a cast or brace bringclothing that will fit over them. Bring a list of all medications you take, along with the dose of the medications and how often you take it. If more convenient bring the pharmacy bottles in a zip lock bag. [place] your teeth but do not swallow water. Bring your eyeglasses and case with you. No contacts are to be worn the day of surgery. You also may bring your hearing aids. Do not bring any valuables, such as jewelry, blas or credit cards. If you are staying overnight with us, please bring a SMALL bag of personal items. We cannot accommodate large items, like suitcases. If your child is having surgery please make arrangements for any other children to be cared for at home on the day of surgery. Other children are not permitted in recovery room and we want you to be able to spend time with the patient. If other arrangements are not available then we suggest that you have a second adult to stay in the waiting room. If you are having any type of anesthesia you are to have nothing to eat or drink after midnight thenight before your surgery. This includes gum, mints, water or smoking or chewing tobacco. The only exception to this is a small sip of water to take with any morning dose of heart, blood pressure, orseizure medications. Bring your inhaler if you are currently using one. Bring your blood band if one has been given to you. Please do not close the clasp. If you are on C-PAP or Bi-PAP at home and plan on staying in the hospital overnight for your surgery please bring the machine with you. Do not wear any jewelry or body piercings day of surgery. Also, NO lotion, perfume or deodorant to be used the day of surgery. If you have any other questions regarding your procedure/surgery please call your surgeon's office. If you have a last minute question(s) the DAY OF your surgery, you may call [phone] documented in [facility] Discharge instructions* Discharge Instructions* Dav Wood, DO - 08/16/2022 8:19 AM EDT POST-ENDOSCOPY INSTRUCTIONS 1. ACTIVITY No driving, operating machinery, or making important decisions for 24 hours. Resume normal activity after 24 hours. You may return to work after 24 hours. 2. DIET EGD: Resume your usual diet unless specified below. Diet Modification: Regular 3. MEDICATIONS (Do not consume alcohol, tranquilizers, or sleeping medications for 24 hours unless advised by your physician) Resume your usual medications 4. PHYSICIAN FOLLOW-UP Please continue with your previously scheduled appointments See your primary care physician as planned. 6. NORMAL CHANGES YOU MAY EXPERIENCE AFTER ENDOSCOPY: EGD: Sore throat, some abdominal pain and cramping. 7. CALL YOUR PHYSICIAN IF YOU EXPERIENCE ANY OF THE FOLLOWING A. Passing blood rectally or vomiting blood (color may be red or black) B. Severe abdominal pain or tenderness (that is not relieved by passing air) C. Fever, chills, or excessive sweating D. Persistent nausea or vomiting E. Redness or swelling at the IV site If you have additional questions, PLEASE call your doctor or the [facility] at documented in this [facility] [employer] Phone: [phone]) 416-362509-10-2022 Hospital Discharge instructions* Discharge Instructions* Andrei Roman MD - 11/24/2021 7:39 PM EDT If symptoms do not improve after 48 hours to 72 hours after antibiotics have been initiated or you have fever or worsening symptoms please return to emergency department. * Attachments The following attachments cannot be sent through Care Everywhere. * Cellulitis ([place]i) [facility] Phone: [phone]) 640-136412-27-2021 Hospital Discharge instructions* Instructions* Leigha Michael DO - 03/12/2021 Return to er for worsening resp distress and difficulty breathing. * Attachments The following attachments cannot be sent through Care Everywhere. * Coronavirus Disease (COVID-19): General Info ([place]i) [facility] this [facility] Phone: [phone]) 799-574510-14-2021 Hospital Discharge instructions* Instructions* Sandra Oneal MD - 12/28/2020 Zofran as needed for nausea or vomiting. Bentyl for abdominal cramping. Increase fluid intake. Follow-up with primary care provider within 1 week for reevaluation. Bactrim as directed until complete.Keep cellulitis clean with soap and water and apply a small amount of antibiotic ointment 2-3 timesa day. Seek medical attention for any worsening symptoms or any acute concerns. * Attachments The following attachments cannot be sent through Care Everywhere. * Abdominal Pain ([place]i) documented in this [facility] Phone: evaluation + Plan note No data available for this section [facility] evaluation note* Diagnosis Generalized abdominal pain- Primary Abdominal pain, generalized Nausea and vomiting, intractability of vomiting not specified, unspecified vomiting type Cellulitis, unspecified cellulitis site Occipital lymphadenopathy Enlargement of lymph nodes documented in this encounter [employer] Phone: [email or web address] note* Diagnosis Cyst of right ovary- Primary Other and unspecified ovarian cyst documented in this encounter [employer] Phone: [email or web address] note* Diagnosis Essential hypertension Unspecified essential hypertension Morbid obesity (HCC) Morbid obesity Gastroesophageal reflux disease without esophagitis Esophageal reflux Fatty liver Other chronic nonalcoholic liver disease Chronic back pain, unspecified back location, unspecified back pain laterality Arthritis Arthropathy, unspecified, site unspecified Uncomplicated asthma, unspecified asthma severity, unspecified whether persistent documented in this encounter [employer] Phone: [email or web address] note* Diagnosis COVID-19- Primary documented in this encounter [employer] Phone: [email or web address] note* Diagnosis CATIE (obstructive sleep apnea) Obstructive sleep apnea (adult) (pediatric) documented in this encounter [employer] Phone: [email or web address] note* Diagnosis Fall (on) (from) other stairs and steps, initial encounter- Primary Acute midline low back pain without sciatica Rib pain Chest pain, unspecified documented in this encounter [employer] Phone: [email or web address] note* Diagnosis Orbital cellulitis on left- Primary Orbital cellulitis Acute bacterial conjunctivitis of left eye documented in this encounter [employer] Phone: evaluation note* Diagnosis Cellulitis of breast- Primary Inflammatory disease of breast documented in this encounter [employer] Phone: [email or web address] note* Diagnosis Obstructive sleep apnea Obstructive sleep apnea (adult) (pediatric) documented in this encounter [employer] Phone: evaluation note* Diagnosis Obstructive sleep apnea Obstructive sleep apnea (adult) (pediatric) documented in this encounter [employer] Phone: evaluation note* Diagnosis Gastroesophageal reflux disease, unspecified whether esophagitis present Morbid obesity (HCC) Morbid obesity documented in this encounter [employer] Phone: evaluation note* Diagnosis Essential hypertension Unspecified essential hypertension CATIE (obstructive sleep apnea) Obstructive sleep apnea (adult) (pediatric) Morbid obesity (HCC) Morbid obesity New onset type 2 diabetes mellitus (HCC) Gastroesophageal reflux disease without esophagitis Esophageal reflux Fatty liver Other chronic nonalcoholic liver disease Arthritis Arthropathy, unspecified, site unspecified Uncomplicated asthma, unspecified asthma severity, unspecified whether persistent Hypothyroidism, unspecified type Atrial fibrillation, unspecified type (HCC) documented in this encounter [facility] [employer] HEAL[facility] note* Diagnosis Migraine without status migrainosus, not intractable, unspecified migraine type- Primary [facility]* Diagnosis Pilonidal cyst with abscess- Primary CATIE (obstructive sleep apnea) Obstructive sleep apnea (adult) (pediatric) Essential hypertension Unspecified essential hypertension Paroxysmal atrial fibrillation (CMS/HCC) Atrial fibrillation Type 2 diabetes mellitus without complication, without long-term current use of insulin (CMS/HCC) 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) Screening for hyperlipidemia Screening for lipoid disorders Easy bruisability Other symptoms involving skin and integumentary tissues S/P bariatric surgery Gastroesophageal reflux disease without esophagitis Esophageal reflux Morbid (severe) obesity due to excess calories (E66.01) Type 2 diabetes mellitus without complication, without long-term current use of insulin (CMS/HCC)- Primary 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) Paroxysmal atrial fibrillation ([facility]/HCC) Atrial fibrillation Essential hypertension Unspecified essential hypertension B12 deficiency Folic acid deficiency Other B-complex deficiencies Vitamin D deficiency Chronic pain syndrome Essential hypertension- Primary Unspecified essential hypertension Post-operative pain Other acute postoperative pain Essential hypertension- Primary Unspecified essential hypertension Paroxysmal atrial fibrillation (CMS/HCC) Atrial fibrillation Chronic bilateral low back pain without sciatica Dysuria- Primary B12 deficiency S/P bariatric surgery Essential hypertension- Primary Unspecified essential hypertension Gastroesophageal reflux disease without esophagitis Esophageal reflux Hypokalemia Hypopotassemia Chronic bilateral low back pain without sciatica Cracked tooth Chronic low back pain, unspecified back pain laterality, unspecified whether sciatica present- Primary [facility] Diagnosis Pilonidal cyst with abscess- Primary CATIE (obstructive sleep apnea) Obstructive sleep apnea (adult) (pediatric) Essential hypertension Unspecified essential hypertension Paroxysmal atrial fibrillation (CMS/HCC) Atrial fibrillation Type 2 diabetes mellitus without complication, without long-term current use of insulin (CMS/HCC) 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) Screening for hyperlipidemia Screening for lipoid disorders Easy bruisability Other symptoms involving skin and integumentary tissues S/P bariatric surgery Gastroesophageal reflux disease without esophagitis Esophageal reflux Morbid (severe) obesity due to excess calories (E66.01) Type 2 diabetes mellitus without complication, without long-term current use of insulin (CMS/HCC)- Primary 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) Paroxysmal atrial fibrillation (CMS/HCC) Atrial fibrillation Essential hypertension Unspecified essential hypertension B12 deficiency Folic acid deficiency Other B-complex deficiencies Vitamin D deficiency Chronic pain syndrome Essential hypertension- Primary Unspecified essential hypertension Post-operative pain Other acute postoperative pain Essential hypertension- Primary Unspecified essential hypertension Paroxysmal atrial fibrillation (CMS/HCC) Atrial fibrillation Chronic bilateral low back pain without sciatica Dysuria- Primary B12 deficiency S/P bariatric surgery Essential hypertension- Primary Unspecified essential hypertension Gastroesophageal reflux disease without esophagitis Esophageal reflux Hypokalemia Hypopotassemia Chronic bilateral low back pain without sciatica Cracked tooth Laceration of left lower extremity, initial encounter- Primary [facility]* Diagnosis Pilonidal cyst with abscess- Primary CATIE (obstructive sleep apnea) Obstructive sleep apnea (adult) (pediatric) Essential hypertension Unspecified essential hypertension Paroxysmal atrial fibrillation (CMS/HCC) Atrial fibrillation Type 2 diabetes mellitus without complication, without long-term current use of insulin (CMS/HCC) 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) Screening for hyperlipidemia Screening for lipoid disorders Easy bruisability Other symptoms involving skin and integumentary tissues S/P bariatric surgery Gastroesophageal reflux disease without esophagitis Esophageal reflux Morbid (severe) obesity due to excess calories (E66.01) Type 2 diabetes mellitus without complication, without long-term current use of insulin (CMS/HCC)- Primary 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) Paroxysmal atrial fibrillation (CMS/HCC) Atrial fibrillation Essential hypertension Unspecified essential hypertension B12 deficiency Folic acid deficiency Other B-complex deficiencies Vitamin D deficiency Chronic pain syndrome Essential hypertension- Primary Unspecified essential hypertension Post-operative pain Other acute postoperative pain Essential hypertension- Primary Unspecified essential hypertension Paroxysmal atrial fibrillation (CMS/HCC) Atrial fibrillation Chronic bilateral low back pain without sciatica Dysuria- Primary B12 deficiency S/P bariatric surgery Essential hypertension- Primary Unspecified essential hypertension Gastroesophageal reflux disease without esophagitis Esophageal reflux Hypokalemia Hypopotassemia Chronic bilateral low back pain without sciatica Cracked tooth Laceration of left lower extremity, initial encounter- Primary Essential hypertension Unspecified essential hypertension documented in this encounter [facility] Healthcare[facility] note* Diagnosis Pilonidal cyst with abscess- Primary CATIE (obstructive sleep apnea) Obstructive sleep apnea (adult) (pediatric) Essential hypertension Unspecified essential hypertension Paroxysmal atrial fibrillation (CMS/HCC) Atrial fibrillation Type 2 diabetes mellitus without complication, without long-term current use of insulin (CMS/HCC) 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) Screening for hyperlipidemia Screening for lipoid disorders Easy bruisability Other symptoms involving skin and integumentary tissues S/P bariatric surgery Gastroesophageal reflux disease without esophagitis Esophageal reflux Morbid (severe) obesity due to excess calories (E66.01) Type 2 diabetes mellitus without complication, without long-term current use of insulin (CMS/HCC)- Primary 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) Paroxysmal atrial fibrillation (CMS/HCC) Atrial fibrillation Essential hypertension Unspecified essential hypertension B12 deficiency Folic acid deficiency Other B-complex deficiencies Vitamin D deficiency Chronic pain syndrome Essential hypertension- Primary Unspecified essential hypertension Post-operative pain Other acute postoperative pain Essential hypertension- Primary Unspecified essential hypertension Paroxysmal atrial fibrillation (CMS/HCC) Atrial fibrillation Chronic bilateral low back pain without sciatica Dysuria- Primary B12 deficiency S/P bariatric surgery Essential hypertension- Primary Unspecified essential hypertension Gastroesophageal reflux disease without esophagitis Esophageal reflux Hypokalemia Hypopotassemia Chronic bilateral low back pain without sciatica Cracked tooth Laceration of left lower extremity, initial encounter- Primary Hypokalemia- Primary Hypopotassemia documented in this encounter [facility] HealthcareEvaluation note* Diagnosis Symptomatic abdominal panniculus Localized adiposity Diastasis of rectus abdominis Left wrist sprain, initial encounter- Primary Symptomatic abdominal panniculus Localized adiposity Diastasis of rectus abdominis documented in this encounter [facility]* Diagnosis Pilonidal cyst with abscess- Primary CATIE (obstructive sleep apnea) Obstructive sleep apnea (adult) (pediatric) Essential hypertension Unspecified essential hypertension Paroxysmal atrial fibrillation (CMS/HCC) Atrial fibrillation Type 2 diabetes mellitus without complication, without long-term current use of insulin (CMS/HCC) 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) Screening for hyperlipidemia Screening for lipoid disorders Easy bruisability Other symptoms involving skin and integumentary tissues S/P bariatric surgery Gastroesophageal reflux disease without esophagitis Esophageal reflux Morbid (severe) obesity due to excess calories (E66.01) Type 2 diabetes mellitus without complication, without long-term current use of insulin (CMS/HCC)- Primary 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) Paroxysmal atrial fibrillation (CMS/HCC) Atrial fibrillation Essential hypertension Unspecified essential hypertension B12 deficiency Folic acid deficiency Other B-complex deficiencies Vitamin D deficiency Chronic pain syndrome Essential hypertension- Primary Unspecified essential hypertension Post-operative pain Other acute postoperative pain Essential hypertension- Primary Unspecified essential hypertension Paroxysmal atrial fibrillation (CMS/HCC) Atrial fibrillation Chronic bilateral low back pain without sciatica Dysuria- Primary B12 deficiency S/P bariatric surgery Essential hypertension- Primary Unspecified essential hypertension Gastroesophageal reflux disease without esophagitis Esophageal reflux Hypokalemia Hypopotassemia Chronic bilateral low back pain without sciatica Cracked tooth Laceration of left lower extremity, initial encounter- Primary Essential hypertension Unspecified essential hypertension documented in this encounter [facility]* Diagnosis Pilonidal cyst with abscess- Primary CATIE (obstructive sleep apnea) Obstructive sleep apnea (adult) (pediatric) Essential hypertension Unspecified essential hypertension Paroxysmal atrial fibrillation (CMS/HCC) Atrial fibrillation Type 2 diabetes mellitus without complication, without long-term current use of insulin (CMS/HCC) 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) Screening for hyperlipidemia Screening for lipoid disorders Easy bruisability Other symptoms involving skin and integumentary tissues S/P bariatric surgery Gastroesophageal reflux disease without esophagitis Esophageal reflux Morbid (severe) obesity due to excess calories (E66.01) Type 2 diabetes mellitus without complication, without long-term current use of insulin (CMS/HCC)- Primary 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) Paroxysmal atrial fibrillation (CMS/HCC) Atrial fibrillation Essential hypertension Unspecified essential hypertension B12 deficiency Folic acid deficiency Other B-complex deficiencies Vitamin D deficiency Chronic pain syndrome Essential hypertension- Primary Unspecified essential hypertension Post-operative pain Other acute postoperative pain Essential hypertension- Primary Unspecified essential hypertension Paroxysmal atrial fibrillation (CMS/HCC) Atrial fibrillation Chronic bilateral low back pain without sciatica Dysuria- Primary B12 deficiency S/P bariatric surgery Essential hypertension- Primary Unspecified essential hypertension Gastroesophageal reflux disease without esophagitis Esophageal reflux Hypokalemia Hypopotassemia Chronic bilateral low back pain without sciatica Cracked tooth Laceration of left lower extremity, initial encounter- Primary Chronic low back pain, unspecified back pain laterality, unspecified whether sciatica present documented in this encounter [facility] HealthcareEvaluation note* Diagnosis Essential hypertension- Primary Unspecified essential hypertension Gastroesophageal reflux disease without esophagitis Esophageal reflux Hypokalemia Hypopotassemia Chronic bilateral low back pain without sciatica Cracked tooth documented in this encounter [facility] HealthcareEvaluation note* Diagnosis Pilonidal cyst with abscess- Primary CATIE (obstructive sleep apnea) Obstructive sleep apnea (adult) (pediatric) Essential hypertension Unspecified essential hypertension Paroxysmal atrial fibrillation (CMS/HCC) Atrial fibrillation Type 2 diabetes mellitus without complication, without long-term current use of insulin (CMS/HCC) 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 ([facility]/HCC) Screening for hyperlipidemia Screening for lipoid disorders Easy bruisability Other symptoms involving skin and integumentary tissues S/P bariatric surgery Gastroesophageal reflux disease without esophagitis Esophageal reflux Morbid (severe) obesity due to excess calories (E66.01) Type 2 diabetes mellitus without complication, without long-term current use of insulin (CMS/HCC)- Primary 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) Paroxysmal atrial fibrillation (CMS/HCC) Atrial fibrillation Essential hypertension Unspecified essential hypertension B12 deficiency Folic acid deficiency Other B-complex deficiencies Vitamin D deficiency Chronic pain syndrome Essential hypertension- Primary Unspecified essential hypertension Post-operative pain Other acute postoperative pain Essential hypertension- Primary Unspecified essential hypertension Paroxysmal atrial fibrillation (CMS/HCC) Atrial fibrillation Chronic bilateral low back pain without sciatica Dysuria- Primary B12 deficiency S/P bariatric surgery Essential hypertension- Primary Unspecified essential hypertension Gastroesophageal reflux disease without esophagitis Esophageal reflux Hypokalemia Hypopotassemia Chronic bilateral low back pain without sciatica Cracked tooth Laceration of left lower extremity, initial encounter- Primary Cold intolerance- Primary Other general symptoms Cold intolerance of hand Pain in both hands Discoloration of skin of hand Family history of Raynaud phenomenon B12 deficiency S/P bariatric surgery Essential hypertension Unspecified essential hypertension Gastroesophageal reflux disease without esophagitis Esophageal reflux Hypokalemia Hypopotassemia Chronic low back pain, unspecified back pain laterality, unspecified whether sciatica present documented in this encounter [facility] HealthcareEvaluation note* Diagnosis Essential hypertension Unspecified essential hypertension documented in this encounter [facility] HealthcareEvaluation note* Diagnosis Essential hypertension Unspecified essential hypertension documented in this encounter [facility] HealthcareEvaluation note* Diagnosis Pilonidal cyst with abscess- Primary CATIE (obstructive sleep apnea) Obstructive sleep apnea (adult) (pediatric) Essential hypertension Unspecified essential hypertension Paroxysmal atrial fibrillation (CMS/HCC) Atrial fibrillation Type 2 diabetes mellitus without complication, without long-term current use of insulin (CMS/HCC) 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) Screening for hyperlipidemia Screening for lipoid disorders Easy bruisability Other symptoms involving skin and integumentary tissues S/P bariatric surgery Gastroesophageal reflux disease without esophagitis Esophageal reflux Morbid (severe) obesity due to excess calories (E66.01) Type 2 diabetes mellitus without complication, without long-term current use of insulin (CMS/HCC)- Primary 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) Paroxysmal atrial fibrillation (CMS/HCC) Atrial fibrillation Essential hypertension Unspecified essential hypertension B12 deficiency Folic acid deficiency Other B-complex deficiencies Vitamin D deficiency Chronic pain syndrome Essential hypertension- Primary Unspecified essential hypertension Post-operative pain Other acute postoperative pain Essential hypertension- Primary Unspecified essential hypertension Paroxysmal atrial fibrillation (CMS/HCC) Atrial fibrillation Chronic bilateral low back pain without sciatica Dysuria- Primary B12 deficiency S/P bariatric surgery Essential hypertension- Primary Unspecified essential hypertension Gastroesophageal reflux disease without esophagitis Esophageal reflux Hypokalemia Hypopotassemia Chronic bilateral low back pain without sciatica Cracked tooth Laceration of left lower extremity, initial encounter- Primary Cold intolerance- Primary Other general symptoms Cold intolerance of hand Pain in both hands Discoloration of skin of hand Family history of Raynaud phenomenon B12 deficiency S/P bariatric surgery Essential hypertension Unspecified essential hypertension Gastroesophageal reflux disease without esophagitis Esophageal reflux Hypokalemia Hypopotassemia Chronic low back pain, unspecified back pain laterality, unspecified whether sciatica present Chronic low back pain, unspecified back pain laterality, unspecified whether sciatica present documented in this encounter [facility] HealthcareEvaluation note* Diagnosis Symptomatic abdominal panniculus Localized adiposity Diastasis of rectus abdominis Contusion of multiple sites of right shoulder and upper arm, initial encounter- Primary Symptomatic abdominal panniculus Localized adiposity Diastasis of rectus abdominis documented in this encounter [facility] HealthEvaluation note* Diagnosis Pilonidal cyst with abscess- Primary CATIE (obstructive sleep apnea) Obstructive sleep apnea (adult) (pediatric) Essential hypertension Unspecified essential hypertension Paroxysmal atrial fibrillation (CMS/HCC) Atrial fibrillation Type 2 diabetes mellitus without complication, without long-term current use of insulin (CMS/HCC) 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) Screening for hyperlipidemia Screening for lipoid disorders Easy bruisability Other symptoms involving skin and integumentary tissues S/P bariatric surgery Gastroesophageal reflux disease without esophagitis Esophageal reflux Morbid (severe) obesity due to excess calories (E66.01) Type 2 diabetes mellitus without complication, without long-term current use of insulin (CMS/HCC)- Primary 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) Paroxysmal atrial fibrillation (CMS/HCC) Atrial fibrillation Essential hypertension Unspecified essential hypertension B12 deficiency Folic acid deficiency Other B-complex deficiencies Vitamin D deficiency Chronic pain syndrome Essential hypertension- Primary Unspecified essential hypertension Post-operative pain Other acute postoperative pain Essential hypertension- Primary Unspecified essential hypertension Paroxysmal atrial fibrillation (CMS/HCC) Atrial fibrillation Chronic bilateral low back pain without sciatica Dysuria- Primary B12 deficiency S/P bariatric surgery Essential hypertension- Primary Unspecified essential hypertension Gastroesophageal reflux disease without esophagitis Esophageal reflux Hypokalemia Hypopotassemia Chronic bilateral low back pain without sciatica Cracked tooth Laceration of left lower extremity, initial encounter- Primary Cold intolerance- Primary Other general symptoms Cold intolerance of hand Pain in both hands Discoloration of skin of hand Family history of Raynaud phenomenon B12 deficiency S/P bariatric surgery Essential hypertension Unspecified essential hypertension Gastroesophageal reflux disease without esophagitis Esophageal reflux Hypokalemia Hypopotassemia Chronic low back pain, unspecified back pain laterality, unspecified whether sciatica present Chronic low back pain, unspecified back pain laterality, unspecified whether sciatica present documented in this encounter [facility] HealthcareEvaluation note* Diagnosis Pilonidal cyst with abscess- Primary CATIE (obstructive sleep apnea) Obstructive sleep apnea (adult) (pediatric) Essential hypertension Unspecified essential hypertension Paroxysmal atrial fibrillation (CMS/HCC) Atrial fibrillation Type 2 diabetes mellitus without complication, without long-term current use of insulin (CMS/HCC) 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) Screening for hyperlipidemia Screening for lipoid disorders Easy bruisability Other symptoms involving skin and integumentary tissues S/P bariatric surgery Gastroesophageal reflux disease without esophagitis Esophageal reflux Morbid (severe) obesity due to excess calories (E66.01) Type 2 diabetes mellitus without complication, without long-term current use of insulin (CMS/HCC)- Primary 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) Paroxysmal atrial fibrillation (CMS/HCC) Atrial fibrillation Essential hypertension Unspecified essential hypertension B12 deficiency Folic acid deficiency Other B-complex deficiencies Vitamin D deficiency Chronic pain syndrome Essential hypertension- Primary Unspecified essential hypertension Post-operative pain Other acute postoperative pain Essential hypertension- Primary Unspecified essential hypertension Paroxysmal atrial fibrillation (CMS/HCC) Atrial fibrillation Chronic bilateral low back pain without sciatica Dysuria- Primary B12 deficiency S/P bariatric surgery Essential hypertension- Primary Unspecified essential hypertension Gastroesophageal reflux disease without esophagitis Esophageal reflux Hypokalemia Hypopotassemia Chronic bilateral low back pain without sciatica Cracked tooth Laceration of left lower extremity, initial encounter- Primary Cold intolerance- Primary Other general symptoms Cold intolerance of hand Pain in both hands Discoloration of skin of hand Family history of Raynaud phenomenon B12 deficiency S/P bariatric surgery Essential hypertension Unspecified essential hypertension Gastroesophageal reflux disease without esophagitis Esophageal reflux Hypokalemia Hypopotassemia Chronic low back pain, unspecified back pain laterality, unspecified whether sciatica present Non-recurrent acute suppurative otitis media of right ear without spontaneous rupture of tympanic membrane- Primary Sinus congestion Other diseases of nasal cavity and sinuses documented in this encounter [facility] HealthcareEvaluation note* Diagnosis Symptomatic abdominal panniculus Localized adiposity Diastasis of rectus abdominis Cellulitis of right upper extremity- Primary Cellulitis and abscess of upper arm and forearm Symptomatic abdominal panniculus Localized adiposity Diastasis of rectus abdominis documented in this encounter [facility] HealthEvaluation note* Diagnosis Pilonidal cyst with abscess- Primary CATIE (obstructive sleep apnea) Obstructive sleep apnea (adult) (pediatric) Essential hypertension Unspecified essential hypertension Paroxysmal atrial fibrillation (CMS/HCC) Atrial fibrillation Type 2 diabetes mellitus without complication, without long-term current use of insulin (CMS/HCC) 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) Screening for hyperlipidemia Screening for lipoid disorders Easy bruisability Other symptoms involving skin and integumentary tissues S/P bariatric surgery Gastroesophageal reflux disease without esophagitis Esophageal reflux Morbid (severe) obesity due to excess calories (E66.01) Type 2 diabetes mellitus without complication, without long-term current use of insulin (CMS/HCC)- Primary 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) Paroxysmal atrial fibrillation (CMS/HCC) Atrial fibrillation Essential hypertension Unspecified essential hypertension B12 deficiency Folic acid deficiency Other B-complex deficiencies Vitamin D deficiency Chronic pain syndrome Essential hypertension- Primary Unspecified essential hypertension Post-operative pain Other acute postoperative pain Essential hypertension- Primary Unspecified essential hypertension Paroxysmal atrial fibrillation (CMS/HCC) Atrial fibrillation Chronic bilateral low back pain without sciatica Dysuria- Primary B12 deficiency S/P bariatric surgery Essential hypertension- Primary Unspecified essential hypertension Gastroesophageal reflux disease without esophagitis Esophageal reflux Hypokalemia Hypopotassemia Chronic bilateral low back pain without sciatica Cracked tooth Laceration of left lower extremity, initial encounter- Primary Cold intolerance- Primary Other general symptoms Cold intolerance of hand Pain in both hands Discoloration of skin of hand Family history of Raynaud phenomenon B12 deficiency S/P bariatric surgery Essential hypertension Unspecified essential hypertension Gastroesophageal reflux disease without esophagitis Esophageal reflux Hypokalemia Hypopotassemia Chronic low back pain, unspecified back pain laterality, unspecified whether sciatica present Essential hypertension- Primary Unspecified essential hypertension Morbid (severe) obesity due to excess calories (CMS/HCC) Gastro-esophageal reflux disease without esophagitis Body mass index (BMI) 35.0-35.9, adult Unspecified atrial fibrillation (CMS/HCC) S/P bariatric surgery Hypothyroidism, unspecified type (CMS/HCC) Chronic pain syndrome Hypokalemia Hypopotassemia Cat bite, initial encounter Chronic low back pain, unspecified back pain laterality, unspecified whether sciatica present Chronic pain syndrome Chronic low back pain, unspecified back pain laterality, unspecified whether sciatica present documented in this encounter [facility] HealthcareEvaluation note* Diagnosis Symptomatic abdominal panniculus Localized adiposity Diastasis of rectus abdominis Cat scratch of left hand, initial encounter- Primary Symptomatic abdominal panniculus Localized adiposity Diastasis of rectus abdominis documented in this encounter [facility] HealthEvaluation note* Diagnosis Pilonidal cyst with abscess- Primary CATIE (obstructive sleep apnea) Obstructive sleep apnea (adult) (pediatric) Essential hypertension Unspecified essential hypertension Paroxysmal atrial fibrillation (CMS/HCC) Atrial fibrillation Type 2 diabetes mellitus without complication, without long-term current use of insulin (CMS/HCC) 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) Screening for hyperlipidemia Screening for lipoid disorders Easy bruisability Other symptoms involving skin and integumentary tissues S/P bariatric surgery Gastroesophageal reflux disease without esophagitis Esophageal reflux Morbid (severe) obesity due to excess calories (E66.01) Type 2 diabetes mellitus without complication, without long-term current use of insulin (CMS/HCC)- Primary 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) Paroxysmal atrial fibrillation (CMS/HCC) Atrial fibrillation Essential hypertension Unspecified essential hypertension B12 deficiency Folic acid deficiency Other B-complex deficiencies Vitamin D deficiency Chronic pain syndrome Essential hypertension- Primary Unspecified essential hypertension Post-operative pain Other acute postoperative pain Essential hypertension- Primary Unspecified essential hypertension Paroxysmal atrial fibrillation (CMS/HCC) Atrial fibrillation Chronic bilateral low back pain without sciatica Dysuria- Primary B12 deficiency S/P bariatric surgery Essential hypertension- Primary Unspecified essential hypertension Gastroesophageal reflux disease without esophagitis Esophageal reflux Hypokalemia Hypopotassemia Chronic bilateral low back pain without sciatica Cracked tooth Laceration of left lower extremity, initial encounter- Primary Cold intolerance- Primary Other general symptoms Cold intolerance of hand Pain in both hands Discoloration of skin of hand Family history of Raynaud phenomenon B12 deficiency S/P bariatric surgery Essential hypertension Unspecified essential hypertension Gastroesophageal reflux disease without esophagitis Esophageal reflux Hypokalemia Hypopotassemia Chronic low back pain, unspecified back pain laterality, unspecified whether sciatica present Essential hypertension- Primary Unspecified essential hypertension Morbid (severe) obesity due to excess calories (CMS/HCC) Gastro-esophageal reflux disease without esophagitis Body mass index (BMI) 35.0-35.9, adult Unspecified atrial fibrillation (CMS/HCC) S/P bariatric surgery Hypothyroidism, unspecified type (CMS/HCC) Chronic pain syndrome Hypokalemia Hypopotassemia Cat bite, initial encounter Chronic low back pain, unspecified back pain laterality, unspecified whether sciatica present Pain of finger of left hand- Primary Morbid (severe) obesity due to excess calories (CMS/HCC) Chronic pain syndrome documented in this encounter [facility] HealthcareEvaluation note* Diagnosis Symptomatic abdominal panniculus Localized adiposity Diastasis of rectus abdominis Cat bite of left hand, initial encounter- Primary Arthritis Arthropathy, unspecified, site unspecified Symptomatic abdominal panniculus Localized adiposity Diastasis of rectus abdominis documented in this encounter [facility] HealthEvaluation note Includes: Assessments for all patient encounters Findings Encounter Date [I10 - Essential (primary) hypertension] systemic hypertension Medical New Patient with Arthur Saleh LEAD INSTRUCTOR/FLIGHT ATTENDANT 06/11/2024 Last Documented On 5 12:38PM ; [facility] [I48.91 - Unspecified atrial fibrillation] atrial fibrillation Medical New Patient with Arthur Saleh LEAD INSTRUCTOR/FLIGHT ATTENDANT 06/11/2024 Last Documented On 12:38PM ; [facility] [M13.80 - Other specified ar thritis, unspecified site] arthritis Medical New Patient with Arthur Saleh LEAD INSTRUCTOR/FLIGHT ATTENDANT 06/11/2024 Last Documented On 12:38PM ; [facility] [M51.360 - Other interverteb ral disc degeneration, lumbar region with discogenic back pain only] intervertebral disc degeneration Medical New Patient with Arthur Saleh LEAD INSTRUCTOR/FLIGHT ATTENDANT 06/11/2024 Last Documented On 12:38PM ; [facility] [Z00.01 - Encounter for gene ral adult medical examination with abnormal findings] routine adult history and physical (18 - 64 yrs) Medical New Patient with Arthur Saleh LEAD INSTRUCTOR/FLIGHT ATTENDANT 06/11/2024 Last Documented On 5 12:38PM ; [facility] [Z13.220 - Encounter for scr eening for lipoid disorders] visit for: screening for lipoid disorders Medical New Patient with Arthur Saleh LEAD INSTRUCTOR/FLIGHT ATTENDANT 06/11/2024 Last Documented On 5 12:38PM ; [facility] [Z13.29 - Encounter for scre ening for other suspected endocrine disorder] visit for: screening for thyroid disorders Medical New Patient with Arthur Saleh LEAD INSTRUCTOR/FLIGHT ATTENDANT 06/11/2024 Last Documented On 5 12:38PM ; [facility] [Z68.34 - Body mass index [B SD] 34.0-34.9, adult] assessment of body mass index Medical New Patient with Arthur Saleh LEAD INSTRUCTOR/FLIGHT ATTENDANT 06/11/2024 Last Documented On 5 12:38PM ; [facility] Diabetes Risk Test Score was five score 06/11/2024 Medical New Patient with Arthur Saleh LEAD INSTRUCTOR/FLIGHT ATTENDANT 06/11/2024 Last Documented On 5 12:38PM ; [facility] Screening for Hep C Medical New Patient with Rodrigo Saleh LEAD INSTRUCTOR/FLIGHT ATTENDANT 06/11/2024 Last Documented On 5 12:38PM ; [facility] Screening for HIV Medical New Patient with Puja Saleh LEAD INSTRUCTOR/FLIGHT ATTENDANT 06/11/2024 Last Documented On 5 12:38PM ; [facility] Thyroid disorder Medical New Patient with Stacie Saleh LEAD INSTRUCTOR/FLIGHT ATTENDANT 06/11/2024 Last Documented On 5 12:38PM ; [facility] Work Phone: Evaluation note* Diagnosis Symptomatic abdominal panniculus Localized adiposity Diastasis of rectus abdominis SSS (sick sinus syndrome) (HCC) Sinoatrial node dysfunction Symptomatic abdominal panniculus Localized adiposity Diastasis of rectus abdominis documented in this encounter [facility] HealthEvaluation note Includes: Assessments for all patient encounters Findings Encounter Date [I48.20 - Chronic atrial fib rillation, unspecified] atrial fibrillation Open Access - Established with Arthur Therese [facility] 07/22/2024 Last Documented On 12:05PM ; [facility] [J02.0 - Streptococcal phary ngitis] streptococcal sore throat Open Access - Established with Arthur Therese LEAD INSTRUCTOR/FLIGHT ATTENDANT 07/22/2024 Last Documented On 5 12:05PM ; [facility] [Z68.33 - Body mass index [B SD] 33.0-33.9, adult] assessment of body mass index Open Access - Established with Arthur Therese LEAD INSTRUCTOR/FLIGHT ATTENDANT 07/22/2024 Last Documented On 5 12:05PM ; [facility] Systemic hypertension Open Access - Esta blished with Arthur Saleh LEAD INSTRUCTOR/FLIGHT ATTENDANT 07/22/2024 Last Documented On 5 12:05PM ; [facility] [I10 - Essential (primary) hypertension] systemic hypertension Medical New Patient with Arthur Saleh LEAD INSTRUCTOR/FLIGHT ATTENDANT 06/11/2024 Last Documented On 3:50PM ; [facility] [I48.91 - Unspecified atrial fibrillation] atrial fibrillation Medical New Patient with Arthur Saleh LEAD INSTRUCTOR/FLIGHT ATTENDANT 06/11/2024 Last Documented On 3:50PM ; [facility] [M13.80 - Other specified ar thritis, unspecified site] arthritis Medical New Patient with Arthur Saleh LEAD INSTRUCTOR/FLIGHT ATTENDANT 06/11/2024 Last Documented On 3:50PM ; [facility] [M51.360 - Other interverteb ral disc degeneration, lumbar region with discogenic back pain only] intervertebral disc degeneration Medical New Patient with Arthur Saleh LEAD INSTRUCTOR/FLIGHT ATTENDANT 06/11/2024 Last Documented On 3:50PM ; [facility] [Z00.01 - Encounter for gene ral adult medical examination with abnormal findings] routine adult history and physical (18 - 64 yrs) Medical New Patient with Arthur Saleh LEAD INSTRUCTOR/FLIGHT ATTENDANT 06/11/2024 Last Documented On 3:50PM ; [facility] [Z13.220 - Encounter for scr eening for lipoid disorders] visit for: screening for lipoid disorders Medical New Patient with Arthur Saleh LEAD INSTRUCTOR/FLIGHT ATTENDANT 06/11/2024 Last Documented On 3:50PM ; [facility] [Z13.29 - Encounter for scre ening for other suspected endocrine disorder] visit for: screening for thyroid disorders Medical New Patient with Arthur Saleh LEAD INSTRUCTOR/FLIGHT ATTENDANT 06/11/2024 Last Documented On 3:50PM ; [facility] [Z68.34 - Body mass index [B SD] 34.0-34.9, adult] assessment of body mass index Medical New Patient with Arthur Saleh LEAD INSTRUCTOR/FLIGHT ATTENDANT 06/11/2024 Last Documented On 3:50PM ; [facility] Diabetes Risk Test Score was five score 06/11/2024 Medical New Patient with Arthur Saleh LEAD INSTRUCTOR/FLIGHT ATTENDANT 06/11/2024 Last Documented On 3:50PM ; [facility] Screening for Hep C Medical New Patient with Rodrigo Taylorderick LEAD INSTRUCTOR/FLIGHT ATTENDANT 06/11/2024 Last Documented On 5 3:50PM ; [facility] Screening for HIV Medical New Patient with Puja Saleh LEAD INSTRUCTOR/FLIGHT ATTENDANT 06/11/2024 Last Documented On 5 3:50PM ; [facility] Thyroid disorder Medical New Patient with Stacie Saleh LEAD INSTRUCTOR/FLIGHT ATTENDANT 06/11/2024 Last Documented On 5 3:50PM ; [facility] Work Phone: Evaluation note Includes: Assessments for all patient encounters Findings Encounter Date Vaginal candidiasis Chart Update with Arthur slade [facility] 08/03/2024 Last Documented On 8:21AM ; [facility] Systemic hypertension Chart Update with Arthur Therese [facility] 07/30/2024 Last Documented On 5 4:38PM ; [facility] [I48.20 - Chronic atrial fib rillation, unspecified] atrial fibrillation Open Access - Established with Arthur Therese [facility] 07/22/2024 Last Documented On 5 12:05PM ; [facility] [J02.0 - Streptococcal phary ngitis] streptococcal sore throat Open Access - Established with Arthur Therese [facility] 07/22/2024 Last Documented On 5 12:05PM ; [facility] [Z68.33 - Body mass index [B SD] 33.0-33.9, adult] assessment of body mass index Open Access - Established with Arthur Therese [facility] 07/22/2024 Last Documented On 5 12:05PM ; [facility] Systemic hypertension Open Access - Esta blished with Arthur Therese [facility] 07/22/2024 Last Documented On 5 12:05PM ; [facility] [I10 - Essential (primary) hypertension] systemic hypertension Medical New Patient with Arthur Therese LEAD INSTRUCTOR/FLIGHT ATTENDANT 06/11/2024 Last Documented On 5 3:50PM ; [facility] [I48.91 - Unspecified atrial fibrillation] atrial fibrillation Medical New Patient with Arthur Saleh LEAD INSTRUCTOR/FLIGHT ATTENDANT 06/11/2024 Last Documented On 3:50PM ; [facility] [M13.80 - Other specified ar thritis, unspecified site] arthritis Medical New Patient with Arthur Saleh LEAD INSTRUCTOR/FLIGHT ATTENDANT 06/11/2024 Last Documented On 3:50PM ; [facility] [M51.360 - Other interverteb ral disc degeneration, lumbar region with discogenic back pain only] intervertebral disc degeneration Medical New Patient with Arthur Saleh LEAD INSTRUCTOR/FLIGHT ATTENDANT 06/11/2024 Last Documented On 3:50PM ; [facility] [Z00.01 - Encounter for gene [facility] adult medical examination with abnormal findings] routine adult history and physical (18 - 64 yrs) Medical New Patient with Arthur Saleh LEAD INSTRUCTOR/FLIGHT ATTENDANT 06/11/2024 Last Documented On 3:50PM ; [facility] [Z13.220 - Encounter for scr eening for lipoid disorders] visit for: screening for lipoid disorders Medical New Patient with Arthur Saleh LEAD INSTRUCTOR/FLIGHT ATTENDANT 06/11/2024 Last Documented On 3:50PM ; [facility] [Z13.29 - Encounter for scre ening for other suspected endocrine disorder] visit for: screening for thyroid disorders Medical New Patient with Arthur Saleh LEAD INSTRUCTOR/FLIGHT ATTENDANT 06/11/2024 Last Documented On 3:50PM ; [facility] [Z68.34 - Body mass index [B SD] 34.0-34.9, adult] assessment of body mass index Medical New Patient with Arthur Saleh LEAD INSTRUCTOR/FLIGHT ATTENDANT 06/11/2024 Last Documented On 3:50PM ; [facility] Diabetes Risk Test Score was five score 06/11/2024 Medical New Patient with Arthur Saleh LEAD INSTRUCTOR/FLIGHT ATTENDANT 06/11/2024 Last Documented On 3:50PM ; [facility] Screening for Hep C Medical New Patient with Rodrigo Saleh LEAD INSTRUCTOR/FLIGHT ATTENDANT 06/11/2024 Last Documented On 3:50PM ; [facility] Screening for HIV Medical New Patient with Puja Saleh LEAD INSTRUCTOR/FLIGHT ATTENDANT 06/11/2024 Last Documented On 5 3:50PM ; [facility] Thyroid disorder Medical New Patient with Stacie Saleh LEAD INSTRUCTOR/FLIGHT ATTENDANT 06/11/2024 Last Documented On 5 3:50PM ; [facility] Work Phone: Evaluation note Includes: Assessments for all patient encounters Findings Encounter Date [J30.9 - Allergic rhinitis, unspecified] allergic rhinitis [facility] with Arthur Saleh [facility] 08/16/2024 Last Documented On 5 10:00AM ; [facility] [N30.00 - Acute cystitis wit hout hematuria] acute cystitis [facility] with Arthur Saleh [facility] 08/16/2024 Last Documented On 5 10:00AM ; [facility] [R16.1 - Splenomegaly, not e lsewhere classified] splenomegaly [facility] with Arthur Saleh [facility] 08/16/2024 Last Documented On 5 10:00AM ; [facility] [Z68.33 - Body mass index [B SD] 33.0-33.9, adult] assessment of body mass index [facility] with Arthur Saleh [facility] 08/16/2024 Last Documented On 5 10:00AM ; [facility] Atrial fibrillation [facility] with Arthur Saleh [facility] 08/16/2024 Last Documented On 5 10:00AM ; [facility] 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 [facility] with Arthur Saleh [facility] 08/16/2024 Last Documented On 5 10:00AM ; [facility] Systemic hypertension [facility] with Stacie Saleh [facility] 08/16/2024 Last Documented On 5 10:00AM ; [facility] Vaginal candidiasis Chart Update with Arthurpage slade [facility] 08/03/2024 Last Documented On 5 8:21AM ; [facility] Systemic hypertension Chart Update with Arthur Saleh LEAD INSTRUCTOR/FLIGHT ATTENDANT 07/30/2024 Last Documented On 5 4:38PM ; [facility] [I48.20 - Chronic atrial fib rillation, unspecified] atrial fibrillation Open Access - Established with Arthurangela Saleh LEAD INSTRUCTOR/FLIGHT ATTENDANT 07/22/2024 Last Documented On 12:05PM ; [facility] [J02.0 - Streptococcal phary ngitis] streptococcal sore throat Open Access - Established with Arthurangela Ambrizick LEAD INSTRUCTOR/FLIGHT ATTENDANT 07/22/2024 Last Documented On 5 12:05PM ; [facility] [Z68.33 - Body mass index [B SD] 33.0-33.9, adult] assessment of body mass index Open Access - Established with Arthurangela Ambrizick LEAD INSTRUCTOR/FLIGHT ATTENDANT 07/22/2024 Last Documented On 5 12:05PM ; [facility] Systemic hypertension Open Access - Esta blished with Arthurangela Ambrizick [facility] 07/22/2024 Last Documented On 12:05PM ; [facility] [I10 - Essential (primary) hypertension] systemic hypertension Medical New Patient with Arthur Saleh LEAD INSTRUCTOR/FLIGHT ATTENDANT 06/11/2024 Last Documented On 5 3:50PM ; [facility] [I48.91 - Unspecified atrial fibrillation] atrial fibrillation Medical New Patient with Arthurangela Saleh LEAD INSTRUCTOR/FLIGHT ATTENDANT 06/11/2024 Last Documented On 5 3:50PM ; [facility] [M13.80 - Other specified ar thritis, unspecified site] arthritis Medical New Patient with Arthurangela Ambrizick LEAD INSTRUCTOR/FLIGHT ATTENDANT 06/11/2024 Last Documented On 5 3:50PM ; [facility] [M51.360 - Other interverteb ral disc degeneration, lumbar region with discogenic back pain only] intervertebral disc degeneration Medical New Patient with Arthurangela Ambirzick LEAD INSTRUCTOR/FLIGHT ATTENDANT 06/11/2024 Last Documented On 5 3:50PM ; [facility] [Z00.01 - Encounter for gene [facility] adult medical examination with abnormal findings] routine adult history and physical (18 - 64 yrs) Medical New Patient with Arthur Saleh LEAD INSTRUCTOR/FLIGHT ATTENDANT 06/11/2024 Last Documented On 5 3:50PM ; [facility] [Z13.220 - Encounter for scr eening for lipoid disorders] visit for: screening for lipoid disorders Medical New Patient with Arthur Saleh LEAD INSTRUCTOR/FLIGHT ATTENDANT 06/11/2024 Last Documented On 5 3:50PM ; [facility] [Z13.29 - Encounter for scre ening for other suspected endocrine disorder] visit for: screening for thyroid disorders Medical New Patient with Arthur Saleh LEAD INSTRUCTOR/FLIGHT ATTENDANT 06/11/2024 Last Documented On 3:50PM ; [facility] [Z68.34 - Body mass index [B SD] 34.0-34.9, adult] assessment of body mass index Medical New Patient with Arthur Saleh LEAD INSTRUCTOR/FLIGHT ATTENDANT 06/11/2024 Last Documented On 5 3:50PM ; [facility] Diabetes Risk Test Score was five score 06/11/2024 Medical New Patient with Arthur Saleh LEAD INSTRUCTOR/FLIGHT ATTENDANT 06/11/2024 Last Documented On 3:50PM ; [facility] Screening for Hep C Medical New Patient with Rodrigo Saleh LEAD INSTRUCTOR/FLIGHT ATTENDANT 06/11/2024 Last Documented On 5 3:50PM ; [facility] Screening for HIV Medical New Patient with Puja Saleh LEAD INSTRUCTOR/FLIGHT ATTENDANT 06/11/2024 Last Documented On 5 3:50PM ; [facility] Thyroid disorder Medical New Patient with Stacie Saleh LEAD INSTRUCTOR/FLIGHT ATTENDANT 06/11/2024 Last Documented On 5 3:50PM ; [facility] Work Phone: Evaluation note* Diagnosis Symptomatic abdominal panniculus Localized adiposity Diastasis of rectus abdominis Nausea and vomiting, unspecified vomiting type- Primary Symptomatic abdominal panniculus Localized adiposity Diastasis of rectus abdominis documented [facility] Symptomatic abdominal panniculus Localized adiposity Diastasis of rectus abdominis Dizziness- Primary Dizziness and giddiness Nausea Nausea alone Transient bradycardia Other specified cardiac dysrhythmias Symptomatic abdominal panniculus Localized adiposity Diastasis of rectus abdominis [facility] Dental caries- Primary Unspecified dental caries [facility] Diagnosis Symptomatic abdominal panniculus Localized adiposity Diastasis of rectus abdominis Lumbar spondylosis Lumbosacral spondylosis without myelopathy Symptomatic abdominal panniculus Localized adiposity Diastasis of rectus abdominis documented in [facility] Diagnosis Symptomatic abdominal panniculus Localized adiposity Diastasis of rectus abdominis Lumbar spondylosis Lumbosacral spondylosis without myelopathy Scoliosis concern Special screening for other specified conditions Symptomatic abdominal panniculus Localized adiposity Diastasis of rectus abdominis [facility] Includes: Assessments for all patient encounters Findings Encounter Date [F41.1 - Generalized anxiety disorder] generalized anxiety disorder Medical Established Patient with Arthur Saleh LEAD INSTRUCTOR/FLIGHT ATTENDANT 10/28/2024 Last Documented On 1:56PM ; [facility] [K21.9 - Gastro-esophageal r eflux disease without esophagitis] GERD Medical Established Patient with Arthur Saleh LEAD INSTRUCTOR/FLIGHT ATTENDANT 10/28/2024 Last Documented On 1:56PM ; [facility] [M13.80 - Other specified ar thritis, unspecified site] arthritis Medical Established Patient with Arthur Saleh LEAD INSTRUCTOR/FLIGHT ATTENDANT 10/28/2024 Last Documented On 1:56PM ; [facility] [Z68.32 - Body mass index [B SD] 32.0-32.9, adult] assessment of body mass index Medical Established Patient with Arthur Saleh LEAD INSTRUCTOR/FLIGHT ATTENDANT 10/28/2024 Last Documented On 1:56PM ; [facility] Primary insomnia Medical Established Patient wit h Arthur Saleh LEAD INSTRUCTOR/FLIGHT ATTENDANT 10/28/2024 Last Documented On 1:56PM ; [facility] Systemic hypertension Medical Establishe d Patient with Arthur Saleh LEAD INSTRUCTOR/FLIGHT ATTENDANT 10/28/2024 Last Documented On 1:56PM ; [facility] [J30.9 - Allergic rhinitis, unspecified] allergic rhinitis [facility] with Arthur Saleh LEAD INSTRUCTOR/FLIGHT ATTENDANT 08/16/2024 Last Documented On 5 10:00AM ; [facility] [N30.00 - Acute cystitis wit hout hematuria] acute cystitis [facility] with Arthur Ambrizick LEAD INSTRUCTOR/FLIGHT ATTENDANT 08/16/2024 Last Documented On 5 10:00AM ; [facility] [R16.1 - Splenomegaly, not e lsewhere classified] splenomegaly [facility] with Arthur Taylorderick LEAD INSTRUCTOR/FLIGHT ATTENDANT 08/16/2024 Last Documented On 5 10:00AM ; [facility] [Z68.33 - Body mass index [B SD] 33.0-33.9, adult] assessment of body mass index [facility] with Arthur Ambrizick LEAD INSTRUCTOR/FLIGHT ATTENDANT 08/16/2024 Last Documented On 5 10:00AM ; [facility] Atrial fibrillation [facility] with Arthur Therese LEAD INSTRUCTOR/FLIGHT ATTENDANT 08/16/2024 Last Documented On 5 10:00AM ; [facility] 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 [facility] with Arthur Therese [facility] 08/16/2024 Last Documented On 5 10:00AM ; [facility] Systemic hypertension [facility] with Stacie abbasi Therese [facility] 08/16/2024 Last Documented On 5 10:00AM ; [facility] Vaginal candidiasis Chart Update with Arthur slade [facility] 08/03/2024 Last Documented On 5 8:21AM ; [facility] Systemic hypertension Chart Update with Arthur Therese [facility] 07/30/2024 Last Documented On 5 4:38PM ; [facility] [I48.20 - Chronic atrial fib rillation, unspecified] atrial fibrillation Open Access - Established with Arthur Therese LEAD INSTRUCTOR/FLIGHT ATTENDANT 07/22/2024 Last Documented On 5 12:05PM ; [facility] [J02.0 - Streptococcal phary ngitis] streptococcal sore throat Open Access - Established with Arthur Saleh LEAD INSTRUCTOR/FLIGHT ATTENDANT 07/22/2024 Last Documented On 12:05PM ; [facility] [Z68.33 - Body mass index [B SD] 33.0-33.9, adult] assessment of body mass index Open Access - Established with Arthur Saleh LEAD INSTRUCTOR/FLIGHT ATTENDANT 07/22/2024 Last Documented On 12:05PM ; [facility] Systemic hypertension Open Access - Esta blished with Arthur Saleh LEAD INSTRUCTOR/FLIGHT ATTENDANT 07/22/2024 Last Documented On 12:05PM ; [facility] [I10 - Essential (primary) hypertension] systemic hypertension Medical New Patient with Arthur Saleh LEAD INSTRUCTOR/FLIGHT ATTENDANT 06/11/2024 Last Documented On 3:50PM ; [facility] [I48.91 - Unspecified atrial fibrillation] atrial fibrillation Medical New Patient with Arthur Saleh LEAD INSTRUCTOR/FLIGHT ATTENDANT 06/11/2024 Last Documented On 3:50PM ; [facility] [M13.80 - Other specified ar thritis, unspecified site] arthritis Medical New Patient with Arthur Saleh LEAD INSTRUCTOR/FLIGHT ATTENDANT 06/11/2024 Last Documented On 3:50PM ; [facility] [M51.360 - Other interverteb ral disc degeneration, lumbar region with discogenic back pain only] intervertebral disc degeneration Medical New Patient with Arthur Saleh LEAD INSTRUCTOR/FLIGHT ATTENDANT 06/11/2024 Last Documented On 5 3:50PM ; [facility] [Z00.01 - Encounter for gene [facility] adult medical examination with abnormal findings] routine adult history and physical (18 - 64 yrs) Medical New Patient with Arthur Saleh LEAD INSTRUCTOR/FLIGHT ATTENDANT 06/11/2024 Last Documented On 5 3:50PM ; [facility] [Z13.220 - Encounter for scr eening for lipoid disorders] visit for: screening for lipoid disorders Medical New Patient with Arthur Saleh LEAD INSTRUCTOR/FLIGHT ATTENDANT 06/11/2024 Last Documented On 3:50PM ; [facility] [Z13.29 - Encounter for scre ening for other suspected endocrine disorder] visit for: screening for thyroid disorders Medical New Patient with Arthur Saleh LEAD INSTRUCTOR/FLIGHT ATTENDANT 06/11/2024 Last Documented On 5 3:50PM ; [facility] [Z68.34 - Body mass index [B SD] 34.0-34.9, adult] assessment of body mass index Medical New Patient with Arthur Saleh LEAD INSTRUCTOR/FLIGHT ATTENDANT 06/11/2024 Last Documented On 5 3:50PM ; [facility] Diabetes Risk Test Score was five score 06/11/2024 Medical New Patient with Arthur Saleh LEAD INSTRUCTOR/FLIGHT ATTENDANT 06/11/2024 Last Documented On 5 3:50PM ; [facility] Screening for Hep C Medical New Patient with Rodrigo Saleh LEAD INSTRUCTOR/FLIGHT ATTENDANT 06/11/2024 Last Documented On 5 3:50PM ; [facility] Screening for HIV Medical New Patient with Puja Saleh LEAD INSTRUCTOR/FLIGHT ATTENDANT 06/11/2024 Last Documented On 5 3:50PM ; [facility] Thyroid disorder Medical New Patient with Stacie Saleh LEAD INSTRUCTOR/FLIGHT ATTENDANT 06/11/2024 Last Documented On 5 3:50PM ; [facility] Work Phone: Evaluation note Includes: Assessments for all patient encounters Findings Encounter Date [G89.29 - Other chronic pain ] chronic pain Chart Update with Arthur Saleh LEAD INSTRUCTOR/FLIGHT ATTENDANT 11/30/2024 Last Documented On 5 8:40AM ; [facility] [J30.9 - Allergic rhinitis, unspecified] rhinitis Medical Established Patient with Arthur Ambrizick LEAD INSTRUCTOR/FLIGHT ATTENDANT 11/25/2024 Last Documented On 5 11:36AM ; [facility] [Z68.34 - Body mass index [B SD] 34.0-34.9, adult] assessment of body mass index Medical Established Patient with Arthur Ambrizick LEAD INSTRUCTOR/FLIGHT ATTENDANT 11/25/2024 Last Documented On 5 11:36AM ; [facility] Atrial fibrillation Medical Established Patient with Arthur Ambrizick LEAD INSTRUCTOR/FLIGHT ATTENDANT 11/25/2024 Last Documented On 5 11:36AM ; [facility] Generalized anxiety disorder Medical Est ablished Patient with Arthur Therese LEAD INSTRUCTOR/FLIGHT ATTENDANT 11/25/2024 Last Documented On 5 11:36AM ; [facility] GERD Medical Established Patient with Arthur Therese LEAD INSTRUCTOR/FLIGHT ATTENDANT 11/25/2024 Last Documented On 5 11:36AM ; [facility] Systemic hypertension Medical Establishe d Patient with Arthur Therese LEAD INSTRUCTOR/FLIGHT ATTENDANT 11/25/2024 Last Documented On 5 11:36AM ; [facility] Generalized anxiety disorder BH Established Mary Alice ent with Julia Lorenzo ACOUSTIC INTELLIGENCE SPECIALIST 10/28/2024 Last Documented On 5 9:32AM ; [facility] Visit for: screening for disorder BH Est ablished Patient with Julianeda Lorenzo ACOUSTIC INTELLIGENCE SPECIALIST 10/28/2024 Last Documented On 5 9:32AM ; [facility] [F41.1 - Generalized anxiety disorder] generalized anxiety disorder Medical Established Patient with Arthur Therese LEAD INSTRUCTOR/FLIGHT ATTENDANT 10/28/2024 Last Documented On 5 1:56PM ; [facility] [K21.9 - Gastro-esophageal r eflux disease without esophagitis] GERD Medical Established Patient with Arthur Therese LEAD INSTRUCTOR/FLIGHT ATTENDANT 10/28/2024 Last Documented On 5 1:56PM ; [facility] [M13.80 - Other specified ar thritis, unspecified site] arthritis Medical Established Patient with Arthur Therese LEAD INSTRUCTOR/FLIGHT ATTENDANT 10/28/2024 Last Documented On 5 1:56PM ; [facility] [Z68.32 - Body mass index [B SD] 32.0-32.9, adult] assessment of body mass index Medical Established Patient with Arthur Therese LEAD INSTRUCTOR/FLIGHT ATTENDANT 10/28/2024 Last Documented On 5 1:56PM ; [facility] Primary insomnia Medical Established Patient wit h Arthur Therese LEAD INSTRUCTOR/FLIGHT ATTENDANT 10/28/2024 Last Documented On 5 1:56PM ; [facility] Systemic hypertension Medical Establishe d Patient with Arthur Therese LEAD INSTRUCTOR/FLIGHT ATTENDANT 10/28/2024 Last Documented On 5 1:56PM ; [facility] [J30.9 - Allergic rhinitis, unspecified] allergic rhinitis [facility] with Arthur Therese [facility] 08/16/2024 Last Documented On 5 10:00AM ; [facility] [N30.00 - Acute cystitis wit hout hematuria] acute cystitis [facility] with Arthur Therese [facility] 08/16/2024 Last Documented On 5 10:00AM ; [facility] [R16.1 - Splenomegaly, not e lsewhere classified] splenomegaly [facility] with Arthur Therese [facility] 08/16/2024 Last Documented On 5 10:00AM ; [facility] [Z68.33 - Body mass index [B SD] 33.0-33.9, adult] assessment of body mass index [facility] with Arthur Therese [facility] 08/16/2024 Last Documented On 5 10:00AM ; [facility] Atrial fibrillation [facility] with Arthur Saleh [facility] 08/16/2024 Last Documented On 5 10:00AM ; [facility] 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 [facility] with Arthur Saleh [facility] 08/16/2024 Last Documented On 5 10:00AM ; [facility] Systemic hypertension [facility] with Stacie Saleh [facility] 08/16/2024 Last Documented On 5 10:00AM ; [facility] Vaginal candidiasis Chart Update with Arthur slade [facility] 08/03/2024 Last Documented On 5 8:21AM ; [facility] Systemic hypertension Chart Update with Arthur Saleh [facility] 07/30/2024 Last Documented On 5 4:38PM ; [facility] [I48.20 - Chronic atrial fib rillation, unspecified] atrial fibrillation Open Access - Established with Arthur Saleh [facility] 07/22/2024 Last Documented On 12:05PM ; [facility] [J02.0 - Streptococcal phary ngitis] streptococcal sore throat Open Access - Established with Arthur Saleh [facility] 07/22/2024 Last Documented On 12:05PM ; [facility] [Z68.33 - Body mass index [B SD] 33.0-33.9, adult] assessment of body mass index Open Access - Established with Arthur Saleh [facility] 07/22/2024 Last Documented On 12:05PM ; [facility] Systemic hypertension Open Access - Esta blished with Arthur Saleh [facility] 07/22/2024 Last Documented On 12:05PM ; [facility] [I10 - Essential (primary) hypertension] systemic hypertension Medical New Patient with Arthur Saleh LEAD INSTRUCTOR/FLIGHT ATTENDANT 06/11/2024 Last Documented On 3:50PM ; [facility] [I48.91 - Unspecified atrial fibrillation] atrial fibrillation Medical New Patient with Arthur Saleh LEAD INSTRUCTOR/FLIGHT ATTENDANT 06/11/2024 Last Documented On 3:50PM ; [facility] [M13.80 - Other specified ar thritis, unspecified site] arthritis Medical New Patient with Arthur Saleh LEAD INSTRUCTOR/FLIGHT ATTENDANT 06/11/2024 Last Documented On 5 3:50PM ; [facility] [M51.360 - Other interverteb ral disc degeneration, lumbar region with discogenic back pain only] intervertebral disc degeneration Medical New Patient with Arthur Saleh LEAD INSTRUCTOR/FLIGHT ATTENDANT 06/11/2024 Last Documented On 5 3:50PM ; [facility] [Z00.01 - Encounter for gene ral adult medical examination with abnormal findings] routine adult history and physical (18 - 64 yrs) Medical New Patient with Arthur Saleh LEAD INSTRUCTOR/FLIGHT ATTENDANT 06/11/2024 Last Documented On 5 3:50PM ; [facility] [Z13.220 - Encounter for scr eening for lipoid disorders] visit for: screening for lipoid disorders Medical New Patient with Arthur Saleh LEAD INSTRUCTOR/FLIGHT ATTENDANT 06/11/2024 Last Documented On 5 3:50PM ; [facility] [Z13.29 - Encounter for scre ening for other suspected endocrine disorder] visit for: screening for thyroid disorders Medical New Patient with Arthur Saleh LEAD INSTRUCTOR/FLIGHT ATTENDANT 06/11/2024 Last Documented On 5 3:50PM ; [facility] [Z68.34 - Body mass index [B SD] 34.0-34.9, adult] assessment of body mass index Medical New Patient with Arthur Saleh LEAD INSTRUCTOR/FLIGHT ATTENDANT 06/11/2024 Last Documented On 5 3:50PM ; [facility] Diabetes Risk Test Score was five score 06/11/2024 Medical New Patient with Arthur Saleh LEAD INSTRUCTOR/FLIGHT ATTENDANT 06/11/2024 Last Documented On 5 3:50PM ; [facility] Screening for Hep C Medical New Patient with Rodrigo Saleh LEAD INSTRUCTOR/FLIGHT ATTENDANT 06/11/2024 Last Documented On 5 3:50PM ; [facility] Screening for HIV Medical New Patient with Puja Saleh LEAD INSTRUCTOR/FLIGHT ATTENDANT 06/11/2024 Last Documented On 5 3:50PM ; [facility] Thyroid disorder Medical New Patient with Stacie Saleh LEAD INSTRUCTOR/FLIGHT ATTENDANT 06/11/2024 Last Documented On 5 3:50PM ; [facility] Work Phone: Evaluation note Includes: Assessments for all patient encounters Findings Encounter Date Intervertebral disc degeneration Chart Update [facility] Arthur Saleh LEAD INSTRUCTOR/FLIGHT ATTENDANT 12/29/2024 Last Documented On 5 12:12PM ; [facility] [G89.29 - Other chronic pain ] chronic pain Chart Update with Arthur Saleh LEAD INSTRUCTOR/FLIGHT ATTENDANT 11/30/2024 Last Documented On 5 8:40AM ; [facility] [J30.9 - Allergic rhinitis, unspecified] rhinitis Medical Established Patient with Arthur Saleh LEAD INSTRUCTOR/FLIGHT ATTENDANT 11/25/2024 Last Documented On 5 11:36AM ; [facility] [Z68.34 - Body mass index [B SD] 34.0-34.9, adult] assessment of body mass index Medical Established Patient with Arthur Therese LEAD INSTRUCTOR/FLIGHT ATTENDANT 11/25/2024 Last Documented On 5 11:36AM ; [facility] Atrial fibrillation Medical Established Patient with Arthur Therese LEAD INSTRUCTOR/FLIGHT ATTENDANT 11/25/2024 Last Documented On 5 11:36AM ; [facility] Generalized anxiety disorder Medical Est ablished Patient with Arthur Therese LEAD INSTRUCTOR/FLIGHT ATTENDANT 11/25/2024 Last Documented On 5 11:36AM ; [facility] GERD Medical Established Patient with Arthur Therese LEAD INSTRUCTOR/FLIGHT ATTENDANT 11/25/2024 Last Documented On 5 11:36AM ; [facility] Systemic hypertension Medical Establishe d Patient with Arthur Therese LEAD INSTRUCTOR/FLIGHT ATTENDANT 11/25/2024 Last Documented On 5 11:36AM ; [facility] Generalized anxiety disorder BH Established Mary Alice ent with Julianeda Lorenzo ACOUSTIC INTELLIGENCE SPECIALIST 10/28/2024 Last Documented On 5 9:32AM ; [facility] Visit for: screening for disorder BH Est ablished Patient with Julia Lorenzo ACOUSTIC INTELLIGENCE SPECIALIST 10/28/2024 Last Documented On 5 9:32AM ; [facility] [F41.1 - Generalized anxiety disorder] generalized anxiety disorder Medical Established Patient with Arthur Therese LEAD INSTRUCTOR/FLIGHT ATTENDANT 10/28/2024 Last Documented On 5 1:56PM ; [facility] [K21.9 - Gastro-esophageal r eflux disease without esophagitis] GERD Medical Established Patient with Arthur Therese LEAD INSTRUCTOR/FLIGHT ATTENDANT 10/28/2024 Last Documented On 5 1:56PM ; [facility] [M13.80 - Other specified ar thritis, unspecified site] arthritis Medical Established Patient with Arthur Therese LEAD INSTRUCTOR/FLIGHT ATTENDANT 10/28/2024 Last Documented On 5 1:56PM ; [facility] [Z68.32 - Body mass index [B SD] 32.0-32.9, adult] assessment of body mass index Medical Established Patient with Arthur Therese LEAD INSTRUCTOR/FLIGHT ATTENDANT 10/28/2024 Last Documented On 5 1:56PM ; [facility] Primary insomnia Medical Established Patient wit h Arthur Therese LEAD INSTRUCTOR/FLIGHT ATTENDANT 10/28/2024 Last Documented On 5 1:56PM ; [facility] Systemic hypertension Medical Establishe d Patient with Arthur Ambrizick LEAD INSTRUCTOR/FLIGHT ATTENDANT 10/28/2024 Last Documented On 5 1:56PM ; [facility] [J30.9 - Allergic rhinitis, unspecified] allergic rhinitis [facility] with Arthur Ambrizick LEAD INSTRUCTOR/FLIGHT ATTENDANT 08/16/2024 Last Documented On 5 10:00AM ; [facility] [N30.00 - Acute cystitis wit hout hematuria] acute cystitis [facility] with Arthur Ambrizick [facility] 08/16/2024 Last Documented On 5 10:00AM ; [facility] [R16.1 - Splenomegaly, not e lsewhere classified] splenomegaly [facility] with Arthur Ambrizick [facility] 08/16/2024 Last Documented On 5 10:00AM ; [facility] [Z68.33 - Body mass index [B SD] 33.0-33.9, adult] assessment of body mass index [facility] with Arthur Ambrizick [facility] 08/16/2024 Last Documented On 5 10:00AM ; [facility] Atrial fibrillation [facility] with Arthur Saleh [facility] 08/16/2024 Last Documented On 5 10:00AM ; [facility] 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 [facility] with Arthur Saleh LEAD INSTRUCTOR/FLIGHT ATTENDANT 08/16/2024 Last Documented On 5 10:00AM ; [facility] Systemic hypertension [facility] with Stacie Saleh [facility] 08/16/2024 Last Documented On 5 10:00AM ; [facility] Vaginal candidiasis Chart Update with Arthur slade [facility] 08/03/2024 Last Documented On 5 8:21AM ; [facility] Systemic hypertension Chart Update with Arthur Saleh [facility] 07/30/2024 Last Documented On 5 4:38PM ; [facility] [I48.20 - Chronic atrial fib rillation, unspecified] atrial fibrillation Open Access - Established with Arthur Saleh [facility] 07/22/2024 Last Documented On 5 12:05PM ; [facility] [J02.0 - Streptococcal phary ngitis] streptococcal sore throat Open Access - Established with Arthurangela Saleh [facility] 07/22/2024 Last Documented On 5 12:05PM ; [facility] [Z68.33 - Body mass index [B SD] 33.0-33.9, adult] assessment of body mass index Open Access - Established with Arthur Saleh [facility] 07/22/2024 Last Documented On 5 12:05PM ; [facility] Systemic hypertension Open Access - Esta blished with Arthur Saleh [facility] 07/22/2024 Last Documented On 5 12:05PM ; [facility] [I10 - Essential (primary) hypertension] systemic hypertension Medical New Patient with Arthur Saleh LEAD INSTRUCTOR/FLIGHT ATTENDANT 06/11/2024 Last Documented On 5 3:50PM ; [facility] [I48.91 - Unspecified atrial fibrillation] atrial fibrillation Medical New Patient with Arthur Saleh [facility] 06/11/2024 Last Documented On 5 3:50PM ; [facility] [M13.80 - Other specified ar thritis, unspecified site] arthritis Medical New Patient with Arthur Saleh LEAD INSTRUCTOR/FLIGHT ATTENDANT 06/11/2024 Last Documented On 5 3:50PM ; [facility] [M51.360 - Other interverteb ral disc degeneration, lumbar region with discogenic back pain only] intervertebral disc degeneration Medical New Patient with Arthur Saleh LEAD INSTRUCTOR/FLIGHT ATTENDANT 06/11/2024 Last Documented On 5 3:50PM ; [facility] [Z00.01 - Encounter for gene ral adult medical examination with abnormal findings] routine adult history and physical (18 - 64 yrs) Medical New Patient with Arthur Saleh LEAD INSTRUCTOR/FLIGHT ATTENDANT 06/11/2024 Last Documented On 5 3:50PM ; [facility] [Z13.220 - Encounter for scr eening for lipoid disorders] visit for: screening for lipoid disorders Medical New Patient with Arthur Saleh LEAD INSTRUCTOR/FLIGHT ATTENDANT 06/11/2024 Last Documented On 5 3:50PM ; [facility] [Z13.29 - Encounter for scre ening for other suspected endocrine disorder] visit for: screening for thyroid disorders Medical New Patient with Arthur Saleh LEAD INSTRUCTOR/FLIGHT ATTENDANT 06/11/2024 Last Documented On 5 3:50PM ; [facility] [Z68.34 - Body mass index [B SD] 34.0-34.9, adult] assessment of body mass index Medical New Patient with Arthur Saleh LEAD INSTRUCTOR/FLIGHT ATTENDANT 06/11/2024 Last Documented On 5 3:50PM ; [facility] Diabetes Risk Test Score was five score 06/11/2024 Medical New Patient with Arthur Saleh LEAD INSTRUCTOR/FLIGHT ATTENDANT 06/11/2024 Last Documented On 5 3:50PM ; [facility] Screening for Hep C Medical New Patient with Rodrigo Saleh [facility] 06/11/2024 Last Documented On 5 3:50PM ; [facility] Screening for HIV Medical New Patient with Puja Saleh LEAD INSTRUCTOR/FLIGHT ATTENDANT 06/11/2024 Last Documented On 5 3:50PM ; [facility] Thyroid disorder Medical New Patient with Stacie Saleh [facility] 06/11/2024 Last Documented On 5 3:50PM ; [facility] Work Phone: Evaluation note Includes: Assessments for all patient encounters Findings Encounter Date Lumbar spondylosis Nurse Visit with Arthur bueno [facility] 12/30/2024 Last Documented On 5 9:48AM ; [facility] Intervertebral disc degeneration Chart Update [facility] Arthur Saleh [facility] 12/29/2024 Last Documented On 5 12:12PM ; [facility] [G89.29 - Other chronic pain ] chronic pain Chart Update with Arthur Therese LEAD INSTRUCTOR/FLIGHT ATTENDANT 11/30/2024 Last Documented On 5 8:40AM ; [facility] [J30.9 - Allergic rhinitis, unspecified] rhinitis Medical Established Patient with Arthur Therese LEAD INSTRUCTOR/FLIGHT ATTENDANT 11/25/2024 Last Documented On 5 11:36AM ; [facility] [Z68.34 - Body mass index [B SD] 34.0-34.9, adult] assessment of body mass index Medical Established Patient with Arthur Therese LEAD INSTRUCTOR/FLIGHT ATTENDANT 11/25/2024 Last Documented On 5 11:36AM ; [facility] Atrial fibrillation Medical Established Patient with Arthur Therese LEAD INSTRUCTOR/FLIGHT ATTENDANT 11/25/2024 Last Documented On 5 11:36AM ; [facility] Generalized anxiety disorder Medical Est ablished Patient with Arthur Therese LEAD INSTRUCTOR/FLIGHT ATTENDANT 11/25/2024 Last Documented On 5 11:36AM ; [facility] GERD Medical Established Patient with Arthur Therese LEAD INSTRUCTOR/FLIGHT ATTENDANT 11/25/2024 Last Documented On 5 11:36AM ; [facility] Systemic hypertension Medical Establishe d Patient with Arthur Therese LEAD INSTRUCTOR/FLIGHT ATTENDANT 11/25/2024 Last Documented On 5 11:36AM ; [facility] Generalized anxiety disorder BH Established Mary Alice ent with Julia Lorenzo ACOUSTIC INTELLIGENCE SPECIALIST 10/28/2024 Last Documented On 5 9:32AM ; [facility] Visit for: screening for disorder BH Est ablished Patient with Julia Lorenzo ACOUSTIC INTELLIGENCE SPECIALIST 10/28/2024 Last Documented On 5 9:32AM ; [facility] [F41.1 - Generalized anxiety disorder] generalized anxiety disorder Medical Established Patient with Arthur Therese LEAD INSTRUCTOR/FLIGHT ATTENDANT 10/28/2024 Last Documented On 5 1:56PM ; [facility] [K21.9 - Gastro-esophageal r eflux disease without esophagitis] GERD Medical Established Patient with Arthur Therese LEAD INSTRUCTOR/FLIGHT ATTENDANT 10/28/2024 Last Documented On 5 1:56PM ; [facility] [M13.80 - Other specified ar thritis, unspecified site] arthritis Medical Established Patient with Arthur Therese LEAD INSTRUCTOR/FLIGHT ATTENDANT 10/28/2024 Last Documented On 1:56PM ; [facility] [Z68.32 - Body mass index [B SD] 32.0-32.9, adult] assessment of body mass index Medical Established Patient with Arthur Therese LEAD INSTRUCTOR/FLIGHT ATTENDANT 10/28/2024 Last Documented On 1:56PM ; [facility] Primary insomnia Medical Established Patient wit h Arthur Therese LEAD INSTRUCTOR/FLIGHT ATTENDANT 10/28/2024 Last Documented On 1:56PM ; [facility] Systemic hypertension Medical Establishe d Patient with Arthur Therese LEAD INSTRUCTOR/FLIGHT ATTENDANT 10/28/2024 Last Documented On 1:56PM ; [facility] [J30.9 - Allergic rhinitis, unspecified] allergic rhinitis [facility] with Arthur Therese [facility] 08/16/2024 Last Documented On 10:00AM ; [facility] [N30.00 - Acute cystitis wit hout hematuria] acute cystitis [facility] with Arthur Therese [facility] 08/16/2024 Last Documented On 5 10:00AM ; [facility] [R16.1 - Splenomegaly, not e lsewhere classified] splenomegaly [facility] with Arthur Therese [facility] 08/16/2024 Last Documented On 5 10:00AM ; [facility] [Z68.33 - Body mass index [B SD] 33.0-33.9, adult] assessment of body mass index [facility] with Arthur Therese LEAD INSTRUCTOR/FLIGHT ATTENDANT 08/16/2024 Last Documented On 5 10:00AM ; [facility] Atrial fibrillation [facility] with Arthur Therese LEAD INSTRUCTOR/FLIGHT ATTENDANT 08/16/2024 Last Documented On 5 10:00AM ; [facility] 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 [facility] with Arthur Therese [facility] 08/16/2024 Last Documented On 5 10:00AM ; [facility] Systemic hypertension [facility] with Stacie abbasi Therese LEAD INSTRUCTOR/FLIGHT ATTENDANT 08/16/2024 Last Documented On 5 10:00AM ; [facility] Vaginal candidiasis Chart Update with Arthurangela christyfredy LEAD INSTRUCTOR/FLIGHT ATTENDANT 08/03/2024 Last Documented On 5 8:21AM ; [facility] Systemic hypertension Chart Update with Arthur Saleh LEAD INSTRUCTOR/FLIGHT ATTENDANT 07/30/2024 Last Documented On 5 4:38PM ; [facility] [I48.20 - Chronic atrial fib rillation, unspecified] atrial fibrillation Open Access - Established with Arthur Saleh [facility] 07/22/2024 Last Documented On 5 12:05PM ; [facility] [J02.0 - Streptococcal phary ngitis] streptococcal sore throat Open Access - Established with Arthur Saleh [facility] 07/22/2024 Last Documented On 12:05PM ; [facility] [Z68.33 - Body mass index [B SD] 33.0-33.9, adult] assessment of body mass index Open Access - Established with Arthur Saleh [facility] 07/22/2024 Last Documented On 5 12:05PM ; [facility] Systemic hypertension Open Access - Esta blished with Arthur Saleh LEAD INSTRUCTOR/FLIGHT ATTENDANT 07/22/2024 Last Documented On 12:05PM ; [facility] [I10 - Essential (primary) hypertension] systemic hypertension Medical New Patient with Arthur Therese LEAD INSTRUCTOR/FLIGHT ATTENDANT 06/11/2024 Last Documented On 5 3:50PM ; [facility] [I48.91 - Unspecified atrial fibrillation] atrial fibrillation Medical New Patient with Arthur Therese LEAD INSTRUCTOR/FLIGHT ATTENDANT 06/11/2024 Last Documented On 5 3:50PM ; [facility] [M13.80 - Other specified ar thritis, unspecified site] arthritis Medical New Patient with Arthur Therese LEAD INSTRUCTOR/FLIGHT ATTENDANT 06/11/2024 Last Documented On 3:50PM ; [facility] [M51.360 - Other interverteb ral disc degeneration, lumbar region with discogenic back pain only] intervertebral disc degeneration Medical New Patient with Arthur Saleh LEAD INSTRUCTOR/FLIGHT ATTENDANT 06/11/2024 Last Documented On 3:50PM ; [facility] [Z00.01 - Encounter for gene ral adult medical examination with abnormal findings] routine adult history and physical (18 - 64 yrs) Medical New Patient with Arthur Saleh LEAD INSTRUCTOR/FLIGHT ATTENDANT 06/11/2024 Last Documented On 3:50PM ; [facility] [Z13.220 - Encounter for scr eening for lipoid disorders] visit for: screening for lipoid disorders Medical New Patient with Arthur Saleh LEAD INSTRUCTOR/FLIGHT ATTENDANT 06/11/2024 Last Documented On 3:50PM ; [facility] [Z13.29 - Encounter for scre ening for other suspected endocrine disorder] visit for: screening for thyroid disorders Medical New Patient with Arthur Saleh LEAD INSTRUCTOR/FLIGHT ATTENDANT 06/11/2024 Last Documented On 3:50PM ; [facility] [Z68.34 - Body mass index [B SD] 34.0-34.9, adult] assessment of body mass index Medical New Patient with Arthur aSleh LEAD INSTRUCTOR/FLIGHT ATTENDANT 06/11/2024 Last Documented On 3:50PM ; [facility] Diabetes Risk Test Score was five score 06/11/2024 Medical New Patient with Arthur Saleh LEAD INSTRUCTOR/FLIGHT ATTENDANT 06/11/2024 Last Documented On 3:50PM ; [facility] Screening for Hep C Medical New Patient with Rodrigo Saleh LEAD INSTRUCTOR/FLIGHT ATTENDANT 06/11/2024 Last Documented On 3:50PM ; [facility] Screening for HIV Medical New Patient with Puja Saleh LEAD INSTRUCTOR/FLIGHT ATTENDANT 06/11/2024 Last Documented On 3:50PM ; [facility] Thyroid disorder Medical New Patient with Stacie Saleh LEAD INSTRUCTOR/FLIGHT ATTENDANT 06/11/2024 Last Documented On 3:50PM ; [facility] Work Phone: Evaluation note* Diagnosis Pilonidal cyst with abscess- Primary CATIE (obstructive sleep apnea) Obstructive sleep apnea (adult) (pediatric) Essential hypertension Unspecified essential hypertension Paroxysmal atrial fibrillation (HCC) Atrial fibrillation Type 2 diabetes mellitus without complication, without long-term current use of insulin (HCC) 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 Screening for hyperlipidemia Screening for lipoid disorders Easy bruisability Other symptoms involving skin and integumentary tissues S/P bariatric surgery Gastroesophageal reflux disease without esophagitis Esophageal reflux Morbid (severe) obesity due to excess calories (E66.01) Type 2 diabetes mellitus without complication, without long-term current use of insulin (HCC)- Primary 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 Paroxysmal atrial fibrillation (HCC) Atrial fibrillation Essential hypertension Unspecified essential hypertension B12 deficiency Folic acid deficiency Other B-complex deficiencies Vitamin D deficiency Chronic pain syndrome Essential hypertension- Primary Unspecified essential hypertension Post-operative pain Other acute postoperative pain Essential hypertension- Primary Unspecified essential hypertension Paroxysmal atrial fibrillation (HCC) Atrial fibrillation Chronic bilateral low back pain without sciatica Dysuria- Primary B12 deficiency S/P bariatric surgery Essential hypertension- Primary Unspecified essential hypertension Gastroesophageal reflux disease without esophagitis Esophageal reflux Hypokalemia Hypopotassemia Chronic bilateral low back pain without sciatica Cracked tooth Laceration of left lower extremity, initial encounter- Primary Cold intolerance- Primary Other general symptoms Cold intolerance of hand Pain in both hands Discoloration of skin of hand Family history of Raynaud phenomenon B12 deficiency S/P bariatric surgery Essential hypertension Unspecified essential hypertension Gastroesophageal reflux disease without esophagitis Esophageal reflux Hypokalemia Hypopotassemia Chronic low back pain, unspecified back pain laterality, unspecified whether sciatica present Essential hypertension- Primary Unspecified essential hypertension Morbid (severe) obesity due to excess calories (CMS-HCC) Gastro-esophageal reflux disease without esophagitis Body mass index (BMI) 35.0-35.9, adult Unspecified atrial fibrillation (HCC) S/P bariatric surgery Hypothyroidism, unspecified type Chronic pain syndrome Hypokalemia Hypopotassemia Cat bite, initial encounter Chronic low back pain, unspecified back pain laterality, unspecified whether sciatica present Pain of finger of left hand- Primary Morbid (severe) obesity due to excess calories (CMS-HCC) Chronic pain syndrome Pelvic pain in female- Primary Unspecified symptom associated with female genital organs Encounter for consultation PCOS (polycystic ovarian syndrome) Polycystic ovaries documented in this encounter [facility] - Reported Includes: Medical History in patient's chart Description Last Updated 1 previous live (s) 06/11/2024 Last Documented On 5 12:38PM ; [facility] Previously 3 time(s) 06/11/2024 Last Documented On 5 12:38PM ; [facility] Hiatal hernia 06/11/2024 Last Documented On 5 12:38PM ; [facility] History of systemic hypertension 025 Last Documented On 5 12:38PM ; [facility] History of thyroid disorder 06/11/2024 Last Documented On 5 12:38PM ; [facility] History of migraine headache 06/11/2024 Last Documented On 5 12:38PM ; [facility] Sinus bradycardia 06/11/2024 Last Documented On 5 12:38PM ; [facility] Methicillin resistant staphylococcus aur eus infection 06/11/2024 Last Documented On 5 12:38PM ; [facility] No Previous hospitalizations or recent E R visits 06/11/2024 Last Documented On 5 12:38PM ; [facility] Work Phone: History general Narrative - Reported Includes: Medical History in patient's chart Description Last Updated Previous hospitalizations or recent ER v isits 08/16/2024 Last Documented On 5 10:00AM ; [facility] Raynaud's syndrome 06/11/2024 Last Documented On 5 3:50PM ; [facility] 1 previous live (s) 06/11/2024 Last Documented On 5 3:50PM ; [facility] Previously 3 time(s) 06/11/2024 Last Documented On 5 3:50PM ; [facility] Hiatal hernia 06/11/2024 Last Documented On 5 3:50PM ; [facility] History of systemic hypertension 025 Last Documented On 5 3:50PM ; [facility] History of thyroid disorder 06/11/2024 Last Documented On 5 3:50PM ; [facility] History of migraine headache 06/11/2024 Last Documented On 5 3:50PM ; [facility] Sinus bradycardia 06/11/2024 Last Documented On 5 3:50PM ; [facility] Methicillin resistant staphylococcus aur eus infection 06/11/2024 Last Documented On 5 3:50PM ; [facility] Work Phone: History general Narrative - Reported Includes: Medical History in patient's chart Description Last Updated No Previous hospitalizations or recent E R visits 10/28/2024 Last Documented On 1:56PM ; [facility] Raynaud's syndrome 06/11/2024 Last Documented On 5 3:50PM ; [facility] 1 previous live (s) 06/11/2024 Last Documented On 5 3:50PM ; [facility] Previously 3 time(s) 06/11/2024 Last Documented On 5 3:50PM ; [facility] Hiatal hernia 06/11/2024 Last Documented On 5 3:50PM ; [facility] History of systemic hypertension 025 Last Documented On 5 3:50PM ; [facility] History of thyroid disorder 06/11/2024 Last Documented On 5 3:50PM ; [facility] History of migraine headache 06/11/2024 Last Documented On 5 3:50PM ; [facility] Sinus bradycardia 06/11/2024 Last Documented On 5 3:50PM ; [facility] Methicillin resistant staphylococcus aur eus infection 06/11/2024 Last Documented On 5 3:50PM ; [facility] Work Phone: History general Narrative - Reported Includes: Medical History in patient's chart Description Last Updated No Safety Measures 10/29/2024 Last Documented On 5 9:32AM ; [facility] No Previous hospitalizations or recent E R visits 10/28/2024 Last Documented On 5 1:56PM ; [facility] Raynaud's syndrome 06/11/2024 Last Documented On 5 3:50PM ; [facility] 1 previous live (s) 06/11/2024 Last Documented On 5 3:50PM ; [facility] Previously 3 time(s) 06/11/2024 Last Documented On 5 3:50PM ; [facility] Hiatal hernia 06/11/2024 Last Documented On 5 3:50PM ; [facility] History of systemic hypertension 025 Last Documented On 5 3:50PM ; [facility] History of thyroid disorder 06/11/2024 Last Documented On 5 3:50PM ; [facility] History of migraine headache 06/11/2024 Last Documented On 5 3:50PM ; [facility] Sinus bradycardia 06/11/2024 Last Documented On 5 3:50PM ; [facility] Methicillin resistant staphylococcus aur eus infection 06/11/2024 Last Documented On 5 3:50PM ; [facility] Work Phone: History of Present illness Narrative History of Present Illness not supported for this document type No [facility] of [facility] Work Phone: Hospital Discharge instructions* Instructions* Sharon Frazier DO - 01/19/2021 Continue your home pain medications. Follow-up with your carpenter form in the morning. [facility] new, worsening or worrisome symptoms. documented in this [facility] Work Phone: Hospital Discharge instructions* Attachments The following attachments cannot be sent through Care Everywhere. * Back Pain ([place]i) [facility]: Hospital Discharge instructions* Attachments The following attachments cannot be sent through Care Everywhere. * Conjunctivitis ([place]omali) * Cellulitis ([place]) [facility] Work [facility]: Hospital Discharge instructions No data available for this section [facility] Hospital Discharge instructions* Attachments The following attachments cannot be sent through Care Everywhere. * Bites: Animal ([place]) documented in [facility]Bon [facility] [employer] [facility]* Attachments The following attachments cannot be sent through Care Everywhere. * Nausea and Vomiting ([place]) documented in this encounterBon [facility] Includes: Instructions for all patient encounters Education and Decision Aids were provided during visit for: Discussed nutritional needs teach healthy choices including fruits and vegetables Last Documented On 5 10:52AM ; [facility] Patient education about a pr oper diet Last Documented On 5 10:52AM ; [facility] Discussed concerns about exe rcise : promote physical activity Last Documented On 5 10:52AM ; [facility] Not requesting contraception Last Documented On 5 10:53AM ; [facility] Discussed nutritional needs teach healthy choices including fruits and vegetables Last Documented On 5 10:19AM ; [facility] Patient education about a pr oper diet Last Documented On 5 10:19AM ; [facility] Discussed concerns about exe rcise : promote physical activity Last Documented On 5 10:19AM ; [facility] Work Phone: Instructions Includes: Instructions for all patient encounters Education and Decision Aids were provided during visit for: Discussed nutritional needs teach healthy choices including fruits and vegetables Last Documented On 5 8:48AM ; [facility] Patient education about a pr oper diet Last Documented On 5 8:48AM ; [facility] Discussed concerns about exe rcise : promote physical activity Last Documented On 5 8:48AM ; [facility] Discussed nutritional needs teach healthy choices including fruits and vegetables Last Documented On 5 10:52AM ; [facility] Patient education about a pr oper diet Last Documented On 5 10:52AM ; [facility] Discussed concerns about exe rcise : promote physical activity Last Documented On 5 10:52AM ; [facility] Not requesting contraception Last Documented On 5 10:53AM ; [facility] Discussed nutritional needs teach healthy choices including fruits and vegetables Last Documented On 5 10:19AM ; [facility] Patient education about a pr oper diet Last Documented On 5 10:19AM ; [facility] Discussed concerns about exe rcise : promote physical activity Last Documented On 5 10:19AM ; [facility] Work Phone: Instructions Includes: Instructions for all patient encounters Education and Decision Aids were provided during visit for: ~*[facility] offered active and sup portive listening, normalized emotions and feelings, and processed ~current stressors. ~*Discussed proper sleep hygiene skills to implement to improve sleep Last Documented On 5 2:59PM ; [facility] Discussed nutritional needs teach healthy choices including fruits and vegetables Last Documented On 5 10:10AM ; [facility] Patient education about a pr oper diet Last Documented On 5 10:10AM ; [facility] Discussed concerns about exe rcise : promote physical activity Last Documented On 5 10:10AM ; [facility] Discussed nutritional needs teach healthy choices including fruits and vegetables Last Documented On 5 8:48AM ; [facility] Patient education about a pr oper diet Last Documented On 5 8:48AM ; [facility] Discussed concerns about exe rcise : promote physical activity Last Documented On 5 8:48AM ; [facility] Discussed nutritional needs teach healthy choices including fruits and vegetables Last Documented On 5 10:52AM ; [facility] Patient education about a pr oper diet Last Documented On 5 10:52AM ; [facility] Discussed concerns about exe rcise : promote physical activity Last Documented On 5 10:52AM ; [facility] Not requesting contraception Last Documented On 5 10:53AM ; [facility] Discussed nutritional needs teach healthy choices including fruits and vegetables Last Documented On 5 10:19AM ; [facility] Patient education about a pr oper diet Last Documented On 5 10:19AM ; [facility] Discussed concerns about exe rcise : promote physical activity Last Documented On 5 10:19AM ; [facility] Work Phone: Patient problem outcome Narrative Includes: Evaluations & Outcomes for active Goals No Outcomes [facility]edL[facility] Work Phone: Progress note No data available for this section [facility] progress note* Progress note Date Encounter Last Documented by 06/11/2024 Medical New Patient Last [place] on 06/11/2024; 12:38 PM, Arthur MUIR; [facility] Chief Complaint The Chief Complaint is: Pt here to establish care. Pt is currently on Diflucan for yeast infection. Referred Here No prior encounters. - Data to be reviewed: no clinical lab tests History of Present Illness Soledad Kramer is a 38 year old female. - Reviewed Medications. - test - would not like a test. Patient is a 38 year old female presenting for establishing care. Patient reports being apart of [facility]. Patient reports they were being seen for multiple conditions such as a-fib, gastric sleeve, degenerative disc, thyroid disease, and chronic pain. Patient relates to seeing cardilogy, GI, and pain management and is established but needs some refills of medications today. Patient reports being on tramadol for the past two years and was referred to neurosurgery who suggested spinal fusion surgerywhich the patient refused. Patient states they would like tramadol again, and relates to still having a month supply at home. Patient educated [facility] and has a pain management appointment she is going to keep. Patient relates to not needing a PAP and reports to a OBGYN for this. Patient does not have any acute complaints. Patient does relate to poor sleep due to pain in their back. Patient states severe pain that nothing but tramodol helps. When on tramodol pain is 2/10. Patient also states they take gabapentin and agreed to a contract and witnessed urine screening. No other issues noted at this time. Current Medication - Fluconazole 150 MG Oral Tablet 4 days, 0 refills - Folic Acid [address] Israel Cooper, 90 days, 0 refills - Gabapentin [address] Ginette Mattson, 30 days, 0 refills - hydroCHLOROthiazide [address] Ginette Mattson, 90 days, 0 refills - Losartan Potassium [address] Ginette Mattson, 30 days, 0 refills - Pantoprazole Sodium 40 MG Oral Tablet Delayed Release Dr Ginette Rangel P, 30 days, 0 refills - Potassium Chloride Sara ER 10 MEQ Oral Tablet Extended Release Dr Wood, Kenneth, 30 days, 0refills - traMADol HCl [address] Ginette Mattson, 30 days, 0 refills - Vitamin B-12 [address] Israel Cooper, 90 days, 0 refills Past Medical/Surgical History Reported: Medical: No Previous hospitalizations or recent ER visits. : Previously 3 time(s) and para having 1 live (s). Diagnoses: Sinus bradycardia. Systemic hypertension. Hiatal hernia. Thyroid disorder. Migraine headache. Methicillin resistant staphylococcus aureus infection Surgical: - General surgery Loop recorder 2021 - Appendectomy - Cholecystectomy - Laparoscopic cholecystectomy - Dilation and curettage - Hysterectomy 2018-[facility]- - Foot surgery 6 surgries on left foot Social History Environmental Exposure: No secondhand cigarette smoke exposure. Behavioral: Not a current tobacco user. Tobacco use: Not using electronic cigarettes/vaping. Alcohol: Not using alcohol. Drug Use: Not using drugs denied by patient. Sexual: Not sexually active. Allergies - Adhesive Tape 1/2 x5yd Reaction: Skin Rashes / Eruption of skin - Ciprofloxacin Reaction: Shock - Latex Reaction: Skin Rashes / Eruption of skin - Levofloxacin Reaction: Shock - Lisinopril Reaction: Nausea - Pollen Extract - Spironolactone Reaction: Nausea Family History Paternal: Ischemic heart disease Systemic hypertension Type 2 diabetes mellitus Oncologic disorder Maternal: Ischemic heart disease Systemic hypertension Thyroid disorder Oncologic disorder Fraternal: Asthma Review Of Systems Head: No head symptoms, no headache, and no skull pain. Neck: No neck symptoms, no neck pain, and no neck muscle tightness. Eyes: No eye symptoms. Otolaryngeal: No ear symptoms, no nasal symptoms, no nose and sinus finding, no throat symptoms, nooral cavity symptoms, and no jaw symptoms. Cardiovascular: No cardiovascular symptoms, no chest pain or discomfort, and no palpitations. Pulmonary: No pulmonary symptoms and no cough. Gastrointestinal: No gastrointestinal symptoms. Genitourinary: No increase in urinary frequency. Endocrine: No endocrine symptoms. Musculoskeletal: Musculoskeletal symptoms Chronic back pain in lumbar spine, difficulty bending andtwisting and unable to lay on stomach without pain and Limited ROM present. Neurological: No neurological symptoms, no dizziness, and no vertigo. Psychological: No psychological symptoms, no anxiety, and no depression. Skin: No skin symptoms and no hair symptoms. ROS in HPI. Cardiovascular: Edema not present. Skin: No laceration. Physical Findings - Vitals taken 06/11/2024 10:13 am BP-Sitting L114/78 mmHg BP Cuff SizeRegular Pulse Rate-Hacinta48 bpm Respiration Rate18 per min Temp-Oral97.9 F Lmqkup43 in Aoujtj303 lbs Body Mass Index34.1 kg/m2 Body Surface Area2.2 m2 Oxygen Hxuwgrwaot923 % - Vitals taken 06/11/2024 10:33 am BP-Sitting L119/81 mmHg BP Cuff SizeRegular Vital Signs: - Systolic blood pressure < 130 mmHg. - Diastolic Blood Pressure < 80 mmHg. General Appearance: - Awake. - Alert. - Well developed. - Well nourished. - Body odor was normal. - In no acute distress. Ears: General/bilateral: Outer Ear: - Normal. Tympanic Membrane: - Examined. - Not bulging. - No retraction of tympanic membrane. - Not erythematous. Hearing Exam: - No hearing abnormalities. Left Ear: - Examined. Nose: General/bilateral: Discharge: - No nasal discharge. Sinus Tenderness: - No sinus tenderness. Oral Cavity: - General condition was good. - Odor of breath was normal. Pharynx: Oropharynx: - Normal. Lungs: - Normal. - Respiration rhythm and depth was normal. - Clear to auscultation. Cardiovascular: Auscultation: - Normal. Heart Rate And Rhythm: - Normal. Heart Sounds: - Normal. Abdomen: Visual Inspection: - Abdomen was normal on visual inspection. Musculoskeletal System: General/bilateral: - Abnormal movement of all extremities Pain with bending and twisting and leg movements. Lumbar / Lumbosacral Spine: General/bilateral: - Lumbar/lumbosacral spine exhibited abnormalities. Neurological: - Oriented to time, place, and person. Psychiatric: - Expression of emotions normal. Skin: - General appearance of skin normal. General body state: - In good general health. No Significant Findings: - No significant findings. Tests Urinalysis Was Performed: Urine color. Blood Analysis: Hemoglobin Studies: ValueDate Blood hemoglobin A1c 4.8%06/11/2024 Hemoglobin A1c level < 7.0%. Laboratory-based Chemistry: Immunology Studies: HIV test was negative. Drug Screen: Value Urine Temperature 94 UDS Staff Members Present 2 Urine drug screen by multiple class procedure. THC Not Present, PCP Not Present, OXY Not Present, [id number] Not Present, MTD Not Present, MET Not Present, MDMA Not Present, KINGSLEY Not Present, BZO Not Present, BUP Not Present, BAR Not Present, AMP Not Present, and FYL Not Present. Other Laboratory Tests: Screening for sexually transmitted infections was not performed. Microbiology: Microbiology Antibody Identification: In House Screen Hep C was negative 06/11/2024. Assessment - Z11.4 - Encounter for screening for human immunodeficiency virus [HIV] - Z11.59 - Encounter for screening for other viral diseases - Z13.29 - Encounter for screening for other suspected endocrine disorder - Z13.220 - Encounter for screening for lipoid disorders - Z68.34 - Body mass index [BMI] 34.0-34.9, adult - Z13.1 - Encounter for screening for diabetes mellitus - Z00.01 - Encounter for general adult medical examination with abnormal findings - I48.91 - Unspecified atrial fibrillation - I10 - Essential (primary) hypertension - E07.9 - Disorder of thyroid, unspecified - M13.80 - Other specified arthritis, unspecified site - M51.360 - Other intervertebral disc degeneration, lumbar region with discogenic back pain only Therapy - Patient refused flu vaccine. Discussed benefits of flu vaccine with Patient. - Developmental/Behavioral Screening & Testing - PHQ9. - SBIRT Full Screen Neg. - Sleeve resection of stomach. Counseling/Education - Patient has declined preventive screening today Informed discussion completed with the patient including costs, risks and possible outcomes Ernesto Meehan - Patient has declined Cervical cancer screening - Discussed nutritional needs teach healthy choices including fruits and vegetables - Patient education about a proper diet - Discussed concerns about exercise: promote physical activity Plan StartCited- Encounter for general adult medical exam w abnormal findings Lab: CBC With Differential/Platelet Lab: Lipid Panel Lab: Comp. Metabolic Panel (14) Lab: TSH Rfx on Abnormal to Free T4 EndCited StartCited- Essential (primary) hypertension hydroCHLOROthiazide 25 MG tablet Take 1 tablet daily by mouth, 90 days, 0 refills Losartan Potassium 100 MG tablet Take 1 tablet daily by mouth, 90 days, 0 refills EndCited StartCited- Gastro-esophageal reflux disease without esophagitis Pantoprazole Sodium 40 MG tablet Take 1 tablet daily by mouth, 30 days, 2 refills EndCited StartCited- Other specified arthritis, unspecified site Folic Acid 1 MG tablet Take 1 tablet daily by mouth, 90 days, 0 refills Gabapentin 100 MG capsule Take 1 tablet daily by mouth 3 times daily, 30 days, 0 refills EndCited StartCited- Unspecified atrial fibrillation Potassium Chloride Sara ER 10 MEQ tablet Take 1 tablet by mouth daily., 30 days, 2 refills EndCited Patient medications refilled. Patient not prescribed tramadol. Patient signed habit forming contract. Patient to have wellness labs performed. Patient to follow up in 1 month for pain. PAP to be collected by provider. Patient to follow up with GI, cardiology, neurosurgery, as orderd. Health Reminders - Adult Well Visit 18 years and older satisfied 06/11/2024. - Assess BMI satisfied 06/11/2024. - Assess Tobacco Use satisfied 06/11/2024. - Diabetes Risk Screening Needed satisfied 06/11/2024. - Follow Up Plan BMI Management satisfied 06/11/2024. - WALI-2 satisfied 06/11/2024. - HIV Screen satisfied 06/11/2024. - PHQ9 / PHQA satisfied 06/11/2024. - SBIRT satisfied 06/11/2024. User Defined 1 Has not worked without getting the payment you thought you would, has not felt pressured to do something against will to keep job, have not felt threatened in a relationship, has not been put down, humilitated, or someone has tried to control them, has not been hit, kicked, punched, or sexually forced to do something, or hurt, not afraid of someone you have a relationship with, and not afraid of someone you have a relationship with No. Domestic Violence/ Human Trafficking Screening was completed. Has lack of transportation kept patient from medical appointments or from getting medications: No and lack of transportation has kept patient from beneficial non-medical activities: No. Not planning a in the next year. She has not had 4 or more drinks in a day within the past year. Do you feel stress - tense, restless, nervous, or anxious, or unable to sleep at night because your mind is troubled all the time - these days? Not at all, Yes (1 point) [Pre-DM]: Yes, mother, father, sister or brother has DM, Yes (1 point) [Pre-DM]: Yes, patient has been diagnosed with high blood pressure, No (0 points) [Pre-DM]: Patient has not been diagnosed with gestational diabetes or given to a baby weighing 9 pounds ormore, and Yes (0 point) [Pre-DM]: Yes, physically active. No misuse of prescription only drugs and not illicit. Does patient feel physically and emotionally safe where he/she lives: Yes. Is patient is worried about losing housing: No. What is the highest grade or level of school you have completed or the highest degree you have received? High school diploma or GED. In the past year, patient or family members in household were unable to get needed food: No. In thepast year, patient or family members in household were unable to get needed clothing: No, unable toget needed child care cook: No, unable to get other needs No, unable to get needed phone: No, unable to get needed utilities: No, and unable to get needed Medicine or Health Care: No. How often does patient see or talk to people that that he/she cares about and feels close to: 5 or more times a week andWoman (0 Points) [Pre-DM]. WALI-2 score was 0 06/11/2024, WALI-7 score [WALI-7] Feeling nervous, anxious or on edge? + 0 pt : Not at all, [WALI-7] Not being able to stop or control worrying? + 0 pt : Not at all, Patient Health Questionnaire 9-Item total score was 0 06/11/2024 If you checked off problems, how difficult is it for you to do your work? + : Not difficult at all, [PHQ-9-1] Little interest or pleasure in doing things? + 0 pt : Not at all, [PHQ-9-2] Feeling down, depressed, or hopeless? + 0 pt : Not at all, [PHQ-9-3] Trouble falling or staying asleep or sleeping too much? + 0 pt : Not at all, [PHQ-9-4] Feeling tiredor having little energy? + 0 pt : Not at all, [PHQ-9-5] Poor appetite or overeating? + 0 pt : Not at all, [PHQ-9-6] Feeling bad about yourself-or that you are a failure + 0 pt : Not at all, [PHQ-9-7]Trouble concentrating on things such as reading the newspaper + 0 pt : Not at all, [PHQ-9-8] Movingor speaking so slowly that other people have noticed. + 0 pt : Not at all, [PHQ-9-9] Thoughts that you would be better off or hurting yourself? + 0 pt : Not at all, and Less than 40 years (0 points) [Pre-DM]. 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 - Allergy list reviewed. Current Medication - Fluconazole 150 MG Oral Tablet 7 days, 0 refills - Folic Acid 1 MG Oral Tablet Take 1 tablet daily by mouth, 90 days, 0 refills - Gabapentin 100 MG Oral Capsule 30 days, 0 refills - hydroCHLOROthiazide 25 MG Oral Tablet TAKE 1 TABLET BY MOUTH ONCE DAILY, 90 days, 0 refills - hydrOXYzine HCl 25 MG Oral Tablet TAKE 1 TABLET BY MOUTH NEEDED throughout THE DAY DIRECTEDFOR ANXIETY. TAKE 1 OR 2 TABLETS NEEDED EVERY NIGHT AT BEDTIME, 30 days, 2 refills - Loratadine 10 MG Oral Tablet Take 1 tablet daily by mouth, 90 days, 1 refills - Losartan Potassium 100 MG Oral Tablet Take 1 tablet daily by mouth, 90 days, 0 refills - Pantoprazole Sodium 40 MG Oral Tablet Delayed Release 90 days, 0 refills - Pantoprazole Sodium 40 MG Oral Tablet Delayed Release Take 1 tablet daily by mouth, 30 days, 2 refills - Potassium Chloride Sara ER 10 MEQ Oral Tablet Extended Release Take 1 tablet by mouth daily., 30 days, 2 refills - Vitamin B-12 [address] Wood Bariatric, 90 days, 0 refills Past Medical/Surgical History Reported: No Safety Measures. Medical: No Previous hospitalizations or recent ER visits. : Previously 3 time(s) and para having 1 live (s). Diagnoses: Sinus bradycardia. Systemic hypertension. Raynaud's syndrome. Hiatal hernia. Thyroid disorder. Migraine headache. Methicillin resistant staphylococcus aureus infection Surgical: - General surgery Loop recorder 2021 - Appendectomy - Cholecystectomy - Laparoscopic cholecystectomy - Dilation and curettage - Hysterectomy 2018-[facility]- - Foot surgery 6 surgries on left foot Allergies - Adhesive Tape 1/2 x5yd Reaction: Skin Rashes / Eruption of skin - Ciprofloxacin Reaction: Shock - Latex Reaction: Skin Rashes / Eruption of skin - Levofloxacin Reaction: Shock - Lisinopril Reaction: Nausea - Pollen Extract - Spironolactone Reaction: Nausea Family History Paternal: Ischemic heart disease Systemic hypertension Type 2 diabetes mellitus Oncologic disorder Maternal: Ischemic heart disease Systemic hypertension Thyroid disorder Oncologic disorder Fraternal: Asthma Physical Findings - Vitals taken 12/30/2024 09:08 am BP-Sitting L144/89 mmHg BP Cuff SizeLarge Pulse Rate-Xeihgaw59 bpm Respiration Rate18 per min Temp-Oral98.2 F Xlhrif34 in Ytslrz908 lbs 9.6 oz Body Mass Index34.2 kg/m2 Body Surface Area2.2 m2 Oxygen Lsquxncory39 % O2 DeviceNone (Room Air) [id number] % - Vitals taken 12/30/2024 09:23 am BP-Sitting L136/87 mmHg BP Cuff SizeLarge Tests Urinalysis Was Performed: Urine color. Laboratory-based Chemistry: Drug Screen: Urine Temperature was 94 and UDS Staff Members Present was two. THC Not Present, PCP Not Present, OXY Not Present, and MGI088 Not Present. MTD Present. MET Not Present, MDMA Not Present, and KINGSLEY Not Present. BZO Present. BUP Not Present, BAR Not Present, AMP Not Present, and FYL Not Present. Urine drug screen by multiple class procedure. Assessment - M47.897 - Other spondylosis, lumbosacral region Plan StartCited- Other spondylosis, lumbosacral region Lab: Drug Screen 15 w/Conf, UR EndCited Care Team - [facility] Reminders - Assess BMI satisfied 12/30/2024. [facility])No Reason for Referral [facility]ed[facility] Work Phone: [facility] Narrative* Imaging (Routine) - Closed SpecialtyDiagnoses / ProceduresReferred By ContactReferred To Contact Cardiology Diagnoses SSS (sick sinus syndrome) (HCC) Procedures Echo (TTE) complete (PRN contrast/bubble/strain/3D) IL ECHO TTHRC R-T 2D W/WOM-MODE COMPL SPEC&COLR D IL TTE W OR WO FOL WCON,DOPPLER Tre Brice MD [address] [place] [address] Phone: tel: fax: Referral IDStatusReasonStart DateExpiration DateVisits RequestedVisits [id number]/20/20253/ [facility] for visit Narrative* Auth/CertSpecialtyDiagnoses / ProceduresReferred By ContactReferred To Contact Diagnoses Dental caries Dental caries [K02.9] Procedures IL UNLISTED PROCEDURE DENTOALVEOLAR STRUCTURES EXTRACTION TOOTH Kevin Sagastume, DDS [address] [place] [address] Phone: tel: fax: [address] [address] Referral IDStatusReasonStart DateExpiration DateVisits RequestedVisits [id number] [facility] for visit Narrative* Eval and Treat (Routine) - AuthorizedSpecialtyDiagnoses / ProceduresReferred By ContactReferred To ContactPhysical Therapy Diagnoses Chronic atrial fibrillation, unspecified (HCC) Arthur Saleh, RN PARALEGAL - COOPERER [address] [id number] Phone: tel: fax: [facility] Physical Therapy [address] [place] [address] Phone: tel: Referral IDStatusReasonStart DateExpiration DateVisits RequestedVisits [id number]/15/20259/ [facility] for visit Narrative* Physical Therapy (Routine) - AuthorizedSpecialtyDiagnoses / ProceduresReferred By ContactReferred To ContactPhysical Therapy Diagnoses Myofascial pain syndrome Chronic bilateral low back pain without sciatica Wes Arshad DO [address] [place] [address] Phone: tel: fax: [facility] Physical Therapy [address] [place] [address] Phone: tel: Referral IDStatusReasonStart DateExpiration DateVisits RequestedVisits [id number] Specialty Services Required R[facility] Narrative - Reported Review of Systems not supported for this document type No Review of Systems [facility] Work Phone: Summary Purpose Family History Description Last Updated Fraternal history of asthma 06/11/2024 Last Documented On 12:38PM ; [facility] Maternal history of family history of is chemic heart disease 06/11/2024 Maternal history of oncologic disorder 0 06/11/2024 Maternal history of systemic hypertensio n 06/11/2024 Maternal history of thyroid disorder Paternal history of family history of is chemic heart disease 06/11/2024 Paternal history of oncologic disorder 0 06/11/2024 Paternal history of systemic hypertensio n 06/11/2024 Paternal history of type 2 diabetes erick itus 06/11/2024 Description Last Updated Fraternal history of asthma 06/11/2024 Last Documented On 3:50PM ; [facility] Maternal history of family history of is chemic heart disease 06/11/2024 Maternal history of oncologic disorder 0 06/11/2024 Maternal history of systemic hypertensio n 06/11/2024 Maternal history of thyroid disorder Paternal history of family history of is chemic heart disease 06/11/2024 Paternal history of oncologic disorder 0 06/11/2024 Paternal history of systemic hypertensio n 06/11/2024 Paternal history of type 2 diabetes erick itus 06/11/2024 Description Last Updated Fraternal history of asthma 06/11/2024 Last Documented On 3:50PM ; [facility] Maternal history of family history of is chemic heart disease 06/11/2024 Maternal history of oncologic disorder 0 06/11/2024 Maternal history of systemic hypertensio n 06/11/2024 Maternal history of thyroid disorder Paternal history of family history of is chemic heart disease 06/11/2024 Paternal history of oncologic disorder 0 06/11/2024 Paternal history of systemic hypertensio n 06/11/2024 Paternal history of type 2 diabetes erick itus 06/11/2024 Description Last Updated Fraternal history of asthma 06/11/2024 Last Documented On 3:50PM ; [facility] Maternal history of family history of is chemic heart disease 06/11/2024 Maternal history of oncologic disorder 0 06/11/2024 Maternal history of systemic hypertensio n 06/11/2024 Maternal history of thyroid disorder Paternal history of family history of is chemic heart disease 06/11/2024 Paternal history of oncologic disorder 0 06/11/2024 Paternal history of systemic hypertensio n 06/11/2024 Paternal history of type 2 diabetes erick itus 06/11/2024 Description Last Updated Fraternal history of asthma 06/11/2024 Last Documented On 5 3:50PM ; [facility] Maternal history of family history of is chemic heart disease 06/11/2024 Maternal history of oncologic disorder 0 06/11/2024 Maternal history of systemic hypertensio n 06/11/2024 Maternal history of thyroid disorder Paternal history of family history of is chemic heart disease 06/11/2024 Paternal history of oncologic disorder 0 06/11/2024 Paternal history of systemic hypertensio n 06/11/2024 Paternal history of type 2 diabetes erick itus 06/11/2024 Description Last Updated Fraternal history of asthma 06/11/2024 Last Documented On 5 3:50PM ; [facility] Maternal history of family history of is chemic heart disease 06/11/2024 Maternal history of oncologic disorder 0 06/11/2024 Maternal history of systemic hypertensio n 06/11/2024 Maternal history of thyroid disorder Paternal history of family history of is chemic heart disease 06/11/2024 Paternal history of oncologic disorder 0 06/11/2024 Paternal history of systemic hypertensio n 06/11/2024 Paternal history of type 2 diabetes erick itus 06/11/2024 Description Last Updated Fraternal history of asthma 06/11/2024 Last Documented On 5 3:50PM ; [facility] Maternal history of family history of is chemic heart disease 06/11/2024 Maternal history of oncologic disorder 0 06/11/2024 Maternal history of systemic hypertensio n 06/11/2024 Maternal history of thyroid disorder Paternal history of family history of is chemic heart disease 06/11/2024 Paternal history of oncologic disorder 0 06/11/2024 Paternal history of systemic hypertensio n 06/11/2024 Paternal history of type 2 diabetes erick itus 06/11/2024 Description Last Updated Fraternal history of asthma 06/11/2024 Last Documented On 3:50PM ; [facility] Maternal history of family history of is chemic heart disease 06/11/2024 Maternal history of oncologic disorder 0 06/11/2024 Maternal history of systemic hypertensio n 06/11/2024 Maternal history of thyroid disorder Paternal history of family history of is chemic heart disease 06/11/2024 Paternal history of oncologic disorder 0 06/11/2024 Paternal history of systemic hypertensio n 06/11/2024 Paternal history of type 2 diabetes erick itus 06/11/2024 Description Last Updated Fraternal history of asthma 06/11/2024 Last Documented On 5 3:50PM ; [facility] Maternal history of family history of is chemic heart disease 06/11/2024 Maternal history of oncologic disorder 0 06/11/2024 Maternal history of systemic hypertensio n 06/11/2024 Maternal history of thyroid disorder Paternal history of family history of is chemic heart disease 06/11/2024 Paternal history of oncologic disorder 0 06/11/2024 Paternal history of systemic hypertensio n 06/11/2024 Paternal history of type 2 diabetes erick itus 06/11/2024 Description Last Updated Fraternal history of asthma 06/11/2024 Last Documented On 3:50PM ; [facility] Maternal history of family history of is chemic heart disease 06/11/2024 Maternal history of oncologic disorder 0 06/11/2024 Maternal history of systemic hypertensio n 06/11/2024 Maternal history of thyroid disorder Paternal history of family history of is chemic heart disease 06/11/2024 Paternal history of oncologic disorder 0 06/11/2024 Paternal history of systemic hypertensio n 06/11/2024 Paternal history of type 2 diabetes erick itus 06/11/2024 Description Last Updated Fraternal history of asthma 06/11/2024 Last Documented On 5 3:50PM ; [facility] Maternal history of family history of is chemic heart disease 06/11/2024 Maternal history of oncologic disorder 0 06/11/2024 Maternal history of systemic hypertensio n 06/11/2024 Maternal history of thyroid disorder Paternal history of family history of is chemic heart disease 06/11/2024 Paternal history of oncologic disorder 0 06/11/2024 Paternal history of systemic hypertensio n 06/11/2024 Paternal history of type 2 diabetes erick itus 06/11/2024 Description Last Updated Fraternal history of asthma 06/11/2024 Last Documented On 5 3:50PM ; [facility] Maternal history of family history of is chemic heart disease 06/11/2024 Maternal history of oncologic disorder 0 06/11/2024 Maternal history of systemic hypertensio n 06/11/2024 Maternal history of thyroid disorder Paternal history of family history of is chemic heart disease 06/11/2024 Paternal history of oncologic disorder 0 06/11/2024 Paternal history of systemic hypertensio n 06/11/2024 Paternal history of type 2 diabetes erick itus 06/11/2024 Advance Directives TypeDate RecordedPatient RepresentativeExplanationAdvance Directives and Living WillPower of AttorneyTypeDate RecordedPatient RepresentativeExplanationAdvance Directives and Living WillPower of AttorneyTypeDate RecordedPatient RepresentativeExplanationACP-Advance DirectiveACP-Power of AttorneyTypeDate RecordedPatient RepresentativeExplanationACP-Advance DirectiveACP-Power of AttorneyCode StatusDate ActivatedDate InactivatedCommentsFull Code01/08/2022 7:54 AM01/09/2022 2:44 AMCode StatusDate ActivatedDate InactivatedCommentsFull Code01/08/2022 7:54 AM01/09/2022 2:44 AMCode StatusDate ActivatedDate InactivatedCommentsFull Code01/08/2022 7:54 AM01/09/2022 2:44 AMCode StatusDate ActivatedDate InactivatedCommentsFull Code01/08/2022 7:54 AM01/09/2022 2:44 AM Code StatusDate ActivatedDate InactivatedCommentsFull Code12/02/2022 6:47 PM 12/04/2022 2:22 PMCode StatusDate ActivatedDate InactivatedCommentsFull Code 12/02/2022 2:32 PM12/02/2022 6:47 PMFull Code01/08/2022 7:54 AM01/09/2022 2:44 AM Date ActivatedDate InactivatedComments12/02/2022 6:47 PM12/04/2022 2:22 PMDate ActivatedDate InactivatedComments12/02/2022 2:32 PM12/02/2022 6:47 PMDate ActivatedDate MrfteozugjeFzmlquum38/25/2022 7:54 AM01/09/2022 2:44 AMDate ActivatedDate InactivatedComments12/02/2022 6:47 PM12/04/2022 2:22 PMDate ActivatedDate InactivatedComments12/02/2022 2:32 PM12/02/2022 6:47 PMDate ActivatedDate IxdebnpdfdtGwtvgoyu82/25/2022 7:54 AM01/09/2022 2:44 AM Discharge Instructions * Instructions* Eloina Garcia PA-C - 11/05/2018 Call to. arrange follow-up with primary care provider for further imaging of renal cyst seen on CT.Call orthopedic provider to arrange further follow-up of continued lower back pain. * Attachments The following attachments cannot be sent through Care Everywhere. * Back: Strain (Somali) documented in this encounter* Attachments The following attachments cannot be sent through Care Everywhere. * Back Pain (Somali) * Sciatica (Somali) documented in this encounter* Attachments The following attachments cannot be sent through Care Everywhere. * Cellulitis (Somali) documented in this encounter* Instructions* Eloina Garcia PA-C - 05/20/2019 You need to go today to arrange follow-up with occupational health. * Attachments The following attachments cannot be sent through Care Everywhere. * Back: Strain (S[place]i) documented in this encounter* Instructions* Oleg Regan MD - 05/21/2019 Please take all medications as prescribed. Please follow up with your primary care physician by calling today, or as soon as possible, for thefirst available appointment. If you do not have a primary care physician, please contact a physician or clinic listed below today to establish care. Please return to the emergency department IMMEDIATELY if you develop uncontrolled fevers, uncontrolled vomiting, change in symptoms, worsening of symptoms, or ANY other concerns. * Attachments The following attachments cannot be sent through Care Everywhere. * Strain or Sprain (Somali) documented in this encounter* Attachments The following attachments cannot be sent through Care Everywhere. * Effusion: Joint: General Info (Somali) documented in this encounter* Instructions* Oleg Regan MD - 01/27/2020 Please take all medications as prescribed. Please follow up with your primary care physician by calling today, or as soon as possible, for thefirst available appointment. If you do not have a primary care physician, please contact a physician or clinic listed below today to establish care. Please return to the emergency department IMMEDIATELY if you develop uncontrolled fevers, uncontrolled vomiting, change in symptoms, worsening of symptoms, or ANY other concerns. * Attachments The following attachments cannot be sent through Care Everywhere. * Viral Infections ([place]omali) documented in this encounter* Attachments The following attachments cannot be sent through Care Everywhere. * Contusion: Facial (Somali) documented in this encounter* Attachments The following attachments cannot be sent through Care Everywhere. * Piercing: Infection (Somali) documented in this encounter* Instructions* Eloina Garcia PA-C - 11/30/2018 Call your doctor tomorrow to arrange follow-up within the next 24 to 48 hours. You need your blood pressure rechecked tomorrow. * Attachments The following attachments cannot be sent through Care Everywhere. * Hypertension: General Info (Somali) * Allergic Reaction ([place]i) documented in this encounter Assessments Diagnosis Strain of lumbar region, initial encounter- Primary Renal cyst Unspecified congenital cystic kidney disease Diagnosis Sciatica of right side- Primary Sciatica Sacroiliac joint pain Disorders of sacrum Diagnosis Cellulitis of left lower extremity- Primary Cellulitis and abscess of leg, except foot Diagnosis Strain of lumbar region, initial encounter- Primary Diagnosis Strain of lumbar region, initial encounter- Primary Diagnosis Low back pain, unspecified back pain laterality, unspecified chronicity, unspecified whether sciatica present Diagnosis Elevated fasting blood sugar Impaired fasting glucose Morbid obesity (HCC) Morbid obesity Diagnosis Elevated liver enzymes Nonspecific elevation of levels of transaminase or lactic acid dehydrogenase (LDH) Diagnosis Accidental fall, initial encounter Effusion of right knee Effusion of lower leg joint Forearm sprain, right, initial encounter Diagnosis Viral syndrome Unspecified viral infection, in conditions classified elsewhere and of unspecified site Diagnosis Nausea and vomiting, intractability of vomiting not specified, unspecified vomiting type Viral syndrome Unspecified viral infection, in conditions classified elsewhere and of unspecified site Diagnosis Facial contusion, initial encounter Diagnosis Infected pierced face- Primary Posttraumatic wound infection not elsewhere classified Diagnosis Allergic reaction, initial encounter- Primary Nonintractable headache, unspecified chronicity pattern, unspecified headache type Hypertension, unspecified type Reason for Referral StatusReasonSpecialtyDiagnoses / ProceduresReferred By ContactReferr To [facility] ReviewRadiology Diagnoses Low back pain, unspecified back pain laterality, unspecified chronicity, unspecified whether sciatica present Procedures MRI LUMBAR SPINE WO CONTRAST Dara Marcelino, YI Levy CNP [address] [place] [address] SpecialtyDiagnoses / ProceduresReferred By ContactRefsaddleback memorial [facility] To [facility] Diagnoses Essential hypertension Morbid obesity (HCC) Gastroesophageal reflux disease without esophagitis Fatty liver Chronic back pain, unspecified back location, unspecified back pain laterality Arthritis Uncomplicated asthma, unspecified asthma severity, unspecified whether persistent Procedures Baseline Diagnostic Sleep Study Willie Manley APRN - SECONDARY HISTORY TEACHER [address] [address] [facility] [address] [place] [address] Referral IDStatusReasonStart DateExpiration DateVisits RequestedVisits [id number]/25/202110/[id number] / Procedures Referred By ContactReferred To [facility] Diagnoses CATIE (obstructive sleep apnea) Procedures Sleep Study with PAP Titration IL POLYSOM 6/>YRS SLEEP W/CPAP 4/> ADDL LAILA ATTND Willie Manley APRN - SECONDARY HISTORY TEACHER [address] [facility] [address] [place] [phone] [facility] [address] [place] [address] Referral IDStatNahedSttaylor DateExpiration DateVisits RequestedVisits [id number]/15/202112/[id number] / Procedures Referred By ContactReferred To Contact Diagnoses Obstructive sleep apnea Procedures Full PFT Study With Bronchodilator Willie Manley, RN PARALEGAL - SECONDARY HISTORY TEACHER [address] [facility] [address] [place] [address] Referral IDStatusReasonStart DateExpiration DateVisits RequestedVisits [id number]/23/20232/ Physical Exam Physical Exam not supported for this document type No Physical Exam Recorded Physical Exam not supported for this document type No Physical Exam Recorded Physical Exam not supported for this document type No Physical Exam Recorded Physical Exam not supported for this document type No Physical Exam Recorded Physical Exam not supported for this document type No Physical Exam Recorded Physical Exam not supported for this document type No Physical Exam Recorded Physical Exam not supported for this document type No Physical Exam Recorded Physical Exam not supported for this document type No Physical Exam Recorded Physical Exam not supported for this document type No Physical Exam Recorded Physical Exam not supported for this document type No Physical Exam Recorded Physical Exam not supported for this document type No Physical Exam Recorded Physical Exam not supported for this document type No Physical Exam Recorded Additional Source Comments INFORMATION SOURCE (unrecogn ized section and content) DATE CREATED AUTHOR 09/03/2017 [facility] DATE CREATED AUTHOR AUTHOR'S ORGANIZ ATION 05/11/2022 [facility] DATE CREATED AUTHOR AUTHOR'S ORGANIZ ATION 12/26/2023 [facility] DATE CREATED AUTHOR AUTHOR'S ORGANIZ ATION 03/31/2024 [facility] DATE CREATED AUTHOR AUTHOR'S ORGANIZ ATION 05/30/2024 [facility] DATE CREATED AUTHOR AUTHOR'S ORGANIZ ATION 09/23/2024 [facility] DATE CREATED AUTHOR AUTHOR'S ORGANIZ ATION 12/25/2024 [facility] DATE CREATED AUTHOR AUTHOR'S ORGANIZ ATION 01/04/2025 [facility] DATE CREATED AUTHOR AUTHOR'S ORGANIZ ATION 01/18/2025 [facility] DATE CREATED AUTHOR AUTHOR'S ORGANIZ ATION 01/25/2025 [facility] EPIC Reason for Visit (unrecogniz ed section and content) ReasonCommentsBack Painpt states she was 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 Pt reports no other injuriesReasonCommentsBack PainLumbar, onset yesterday after injury. Pt states it is worse todayStatusReasonSpecialty Diagnoses / ProceduresReferred By ContactReferred To ContactClosedRadiology Diagnoses Strain of muscle, fascia and tendon of lower back, initial encounter Sprain of ligaments of lumbar spine, initial encounter Procedures MRI-SPINE LUMBAR WO CONTRAST Dara Marcelino, RN PARALEGAL - SECONDARY HISTORY TEACHER [address] [place] [address] [place] [address] ReasonCommentsArm Painright forearm pain fell last nightKnee Painright knee ReasonCommentsCoughSNEEZING, BEEN GOING ON TWO DAYSReasonCommentsFatigueonset sun, worse todayEmesisonset sun, worse todayGeneralized Body Achesonset sun, worsing todayDiarrheaonset sun, worsing todayReasonCommentsFacial Injuryfell yesterday am hitting face on door, complaining of nasal painReasonCommentsWound InfectionPatient states she got her nose ring caught on her shirt and pulled on it 3 days ago, states is nowred and tenderReasonCommentsAllergic Reactionto food ReasonCommentsAbdominal Painabd cramping with emesis x 4 daysHeadacheHA x 3 days, concerned with swollen lymph nodesReasonCommentsAbdominal Painleft SpecialtyDiagnoses / ProceduresReferred By ContactReferred To [facility] Diagnoses Essential hypertension Morbid obesity (HCC) Gastroesophageal reflux disease without esophagitis Fatty liver Chronic back pain, unspecified back location, unspecified back pain laterality Arthritis Uncomplicated asthma, unspecified asthma severity, unspecified whether persistent Procedures Baseline Diagnostic Sleep Study Willie Manley APRN - CNP [address] [phone] [facility] [address] [address] Referral IDStatusReasonStart DateExpiration DateVisits RequestedVisits [id number]/25/202110/[id number]sgmvexsm 4 daysNasal CongestionHeadacheSpecialtyDiagnoses / ProceduresReferred By Contact Referred To [facility] Diagnoses CATIE (obstructive sleep apnea) Procedures Sleep Study with PAP Titration IL POLYSOM 6/>YRS SLEEP W/CPAP 4/> ADDL LAILA ATTND Willie Manley APRN - SECONDARY HISTORY TEACHER [address] [address] [place] [address] Referral IDStatusReasonStart DateExpiration DateVisits RequestedVisits [id number]/15/202112/[id number]/o rt rib and mid and lower back pain, fell down 5 stairs at work this amHand Painleft hand index finger painReasonCommentsEye Problemleft eye burning and itching ReasonCommentsWound CheckHeadacheStarted yesterdaySpecialtyDiagnoses / ProceduresReferred By ContactReferred To Contact Diagnoses Obstructive sleep apnea Procedures Full PFT Study With Bronchodilator Willie Manley APRN - CNP [address] [facility] [address] [place] [address] Referral IDStatusReasonStart DateExpiration DateVisits RequestedVisits [id number]/23/20232/[id number] / Procedures Referred By ContactReferred To Contact Diagnoses Gastroesophageal reflux disease, unspecified whether esophagitis present Morbid obesity (HCC) Gastroesophageal reflux disease, unspecified whether esophagitis present [K21.9] Morbid obesity (HCC) [E66.01] Procedures IL EGD TRANSORAL BIOPSY SINGLE/MULTIPLE EGD BIOPSY Dav WoodDO [address] [place] [address] [facility] [address] [place] [address] Referral IDStatusReasonStart DateExpiration DateVisits RequestedVisits [id number] states she went back to work today and has been fatigued since doing a lot of errands for work. States she took a nap and now has a headache.ReasonCommentsMed RefillReasonOnset DateCommentsMed Sezspt8401/05/2024easonCommentsWrist InjuryPatient arrived to ER with reports of left wrist pain. Patient states she has had bariatric surgeryin the past and since then she has had mineral deficiencies causing weak bones. Patient states she was at a restaurant about 1 hours ago and leaned her hand to her face and heard her wrist snap with increased pain.ReasonCommentsFollow-upLabs done [facility] PainReasonOnset DateCommentsMed Pabpds174Reason Onset DateCommentsMed Xxvdjh1804/27/2024ReasonCommentsURIReasonCommentsRashPatient arrived to ER with rash, redness, swelling to right wrist/forearm that started approximately 8am yesterday when she woke up. 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 Scratched by her cat 3 days ago. Swelling, redness, pain noted this morning.ReasonCommentsFollow-upHospital f/up cat scratchReasonCommentsHand PainPt was scratched by cat a couple days ago, was put on antibiotics with no improvement, pt was seen by pcp today and was told to come to the ER due to pain/swelling to left handReasonCommentsVomitingPatient with complaint of vomiting and diarrhea since yesterday repeatedly. Reports sick contacts with walking pneumonia. Reports abdominal pain and muscle cramps in legs. Patient reports fevers at home and has been taking tylenol, last dose was at 1900.ReasonCommentsDizzinessPt. Reports feeling dizzy today at work. Pt. States hx of afib & pt. 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 22 g / sulfamethoxazole-trimethoprim (BACTRIM DS) 800-160 MG per tablet Take 1 tablet by mouth 2 times daily for 10 days 20 tablet / ondansetron (ZOFRAN ODT) 4 MG disintegrating tablet Take 1 tablet by mouth every 8 hours as needed for Nausea or Vomiting 20 tablet dicyclomine (BENTYL) 10 MG capsule Take 1 capsule by mouth 4 times daily (before meals and nightly) 20 capsule rescriptionSigDispensedRefillsStart DateEnd Date amoxicillin-clavulanate (AUGMENTIN) 875-125 MG per tablet Take 1 tablet by mouth 2 times daily for 10 days 20 tablet /rescriptionSigDispensedRefillsStart DateEnd Date cyclobenzaprine (FLEXERIL) 5 MG tablet Take 1 tablet by mouth 2 times daily as needed for Muscle spasms 10 tablet /PrescriptionSigDispensedRefillsStart DateEnd Date doxycycline hyclate (VIBRA-TABS) 100 MG tablet Take 1 tablet by mouth 2 times daily for 10 days 20 tablet /01/2025PrescriptionSigDispense QuantityRefillsLast FilledStart Date End Date oxyCODONE-acetaminophen (PERCOCET) 5-325 MG per tablet Indications:ArthritisTake 1 tablet by mouth every 6 hours as needed for Pain for up to 5 days. Max Daily Amount: 4 tablets 20 tablet doxycycline hyclate (VIBRA-TABS) 100 MG tablet Take 1 tablet by mouth 2 times daily for 10 days 20 tablet /PrescriptionSigDispensedRefillsStart DateEnd Date ondansetron (ZOFRAN-ODT) 4 MG disintegrating tablet Take 1 tablet by mouth 3 times daily as needed for Nausea or Vomiting 21 tablet 02/28/2024 Scheduled Active and Recently Administ ered Medications (unrecognized section and content) Medication Order// 0.9 % sodium chloride bolus (COMPLETED) 1,000 mL (5.34 mL/kg), IntraVENous, at 1,000 mL/hr, Administer over 1 Hours, ONCE, On Fadumo 12/28/20 at 2215, For 1 dose * 2226 (New Bag - Provider: Gabbie Steven, SATHYA) * 0002 (Stopped - Provider: Gabbie Steven, SATHYA) ketorolac (TORADOL) injection 30 mg (COMPLETED) 30 mg, IntraVENous, ONCE, On Fadumo 12/28/20 at 2215, For 1 dose, Do not administer for more than 5 days. * 2226 (Given - Provider: Gabbie Steven, SATHYA) ondansetron (ZOFRAN) injection 4 mg (COMPLETED) 4 mg, IntraVENous, ONCE, On Fadumo 12/28/20 at 2215, For 1 dose * 2226 (Given - Provider: Gabbie Steven, SATHYA) sulfamethoxazole-trimethoprim (BACTRIM DS;SEPTRA DS) 800-160 MG per tablet 1 tablet (COMPLETED) 1 tablet, Oral, ONCE, On Fri12/29/20 at 0000, For 1 dose * 0004 (Given - Provider: Gabbie Steven RN) Medication Order//20200317/07/2020 0.9 % sodium chloride bolus (COMPLETED) 1,000 mL (5.34 mL/kg), IntraVENous, at 1,000 mL/hr, Administer over 1 Hours, ONCE, On Fadumo 01/18/21 at 2245, For 1 dose * 2254 (New Bag - Provider: Isamar Gibbs RN) * 0211 (Stopped - Provider: Gabbie Steven, SATHYA) HYDROmorphone (DILAUDID) injection 1 mg (COMPLETED) 1 mg, IntraVENous, ONCE, On Fri01/19/21 at 0045, For 1 dose, If oral and IV narcotics ordered, use oral first and only use IV if oral is ineffective or cannot take oral. Do Not give oral and IV within 1 hour of each other unless specifically ordered. * 0058 (Given - Provider: Gabbie Steven, SATHYA) morphine injection 4 mg (COMPLETED) 4 mg, IntraVENous, ONCE, On Fadumo 01/18/21 at 2245, For 1 dose, If oral and IV narcotics ordered, use oral first and only use IV if oral is ineffective or cannot take oral. Do Not give oral and IV within 1 hour of each other unless specifically ordered. * 2256 (Given - Provider: Isamar Gibbs RN) morphine injection 8 mg (COMPLETED) 8 mg, IntraVENous, ONCE, On Fadumo 01/18/21 at 2345, For 1 dose, If oral and IV narcotics ordered, use oral first and only use IV if oral is ineffective or cannot take oral. Do Not give oral and IV within 1 hour of each other unless specifically ordered. * 2340 (Given - Provider: Isamar Gibbs, SATHYA) ondansetron (ZOFRAN) injection 4 mg (COMPLETED) 4 mg, IntraVENous, ONCE, On Fadumo 01/18/21 at 2245, For 1 dose * 2256 (Given - Provider: Isamar Gibbs, SATHYA) Medication Order//07/2020 iopamidol (ISOVUE-370) 76 % injection 75 mL (COMPLETED) 75 mL, IntraVENous, IMG ONCE PRN, Other, Starting on Fadumo 01/18/21 at 2305, For 1 dose * 2307 (Given - Provider: Evelyn Ware) Medication Order//12/2021 amoxicillin-clavulanate (AUGMENTIN) 875-125 MG per tablet 1 tablet (COMPLETED) 1 tablet, Oral, ONCE, 1 dose, On Fri11/24/21 at 1945, Antimicrobial Indications: Skin and Soft Tissue Infection * 1950 (Given - Provider: Jm Hinton RN) ketorolac (TORADOL) injection 30 mg (COMPLETED) Ketorolac is contraindicated in patients with advanced renal impairment and in patients at risk of renal failure due to volume depletion. For 65 years of age and older OR weight less than 50 kg, use 15 mg IV every 6 hours; MAX dose: 60 mg/day. Dose greater than 30 mg must be administered via intramuscular route. Do not administer for more than 5 days., 30 mg, IntraMUSCular, ONCE, 1 dose, On 11/24/21 at 1945 * 1950 (Given - Provider: Jm Hinton RN) Medication Order//04/2022 sodium chloride flush 0.9 % injection 5-40 mL 5-40 mL, IntraVENous, EVERY 12 HOURS SCHEDULED (2 times per day), First dose on Fri08/16/22 at 0900,Until Discontinued, For Line Patency: Peripheral IV = 5 mL; Midline or Central Line = 10 mL/lumen. If following IV push medication, administer flush at same rate as the IV push. Flush volume is determined by type of infusion therapy being given. For non-viscous solutions use: Peripheral IV = 5 mL Midline or Central Line = 10 mL/lumen For viscous solutions (i.e. blood components, parenteral nutrition, contrast media, or after obtaining blood sample) use: Peripheral IV = 10 mL Midline or Central Line = 20 mL/lumen, Pre-op (day of surgery) * 0900 (Due) * 2100 (Due) sodium chloride flush 0.9 % injection 5-40 mL 5-40 mL, IntraVENous, EVERY 12 HOURS SCHEDULED (2 times per day), First dose on Fri08/16/22 at 0900,Until Discontinued, For Line Patency: Peripheral IV = 5 mL; Midline or Central Line = 10 mL/lumen. If following IV push medication, administer flush at same rate as the IV push. Flush volume is determined by type of infusion therapy being given. For non-viscous solutions use: Peripheral IV = 5 mL Midline or Central Line = 10 mL/lumen For viscous solutions (i.e. blood components, parenteral nutrition, contrast media, or after obtaining blood sample) use: Peripheral IV = 10 mL Midline or Central Line = 20 mL/lumen, PACU only * 0900 (Due) * 2100 (Due) Medication Order//04/2022 lactated ringers IV soln infusion IntraVENous, at 125 mL/hr, CONTINUOUS, Starting on Fri08/16/22 at 0730, Pre-op (day of surgery) * 0730 (Due) Medication Order//04/2022 0.9 % sodium chloride infusion IntraVENous, at 5-250 mL/hr, PRN, if patient receiving piggyback infusions and maintenance fluids are not ordered OR KVO fluids to protect IV site / prevent frequent line interruptions/ long duration, Starting on Fri08/16/22 at 0714, For piggyback infusion, administer at same rate as piggyback for atotal of 25 mL. Enter 25 mL into dose field and piggyback rate into rate field of order. If piggyback is infusing at a rate less than 100 mL/hr, enter 25 mL into dose field and 100 mL/hr into rate field of order. For KVO fluids, enter rate of 20 mL/hr or less into rate field of order., Pre-op (day of surgery) * 0714 (New Bag - Provider: Richa Ojeda RN) * 0805 (NoRateChange - Provider: YI Haywood CRNA) * 0817 (Rate/Dose Change - Provider: YI Haywood CRNA) 0.9 % sodium chloride infusion 25 mL, IntraVENous, at 100 mL/hr, PRN, If patient receiving piggyback infusions without ordered maintenance IV fluids or with frequent/long duration piggyback infusions, Starting on Fri08/16/22 at 0807, Administer at the same rate as the piggyback being infused., PACU only diphenhydrAMINE (BENADRYL) injection 12.5 mg 12.5 mg, IntraVENous, ONCE PRN, 1 dose, Starting on Fri08/16/22 at 0807, Until 08/17/22 at 0807, Itching, PACU only droperidol (INAPSINE) injection 0.625 mg (COMPLETED) 0.625 mg, IntraVENous, ONCE PRN, 1 dose, Starting on Fri08/16/22 at 0807, Until 08/17/22 at 0807, Nausea, Initial antiemetic therapy., PACU only * 0828 (Given - Provider: Krysten Guerrero RN) hydrALAZINE (APRESOLINE) injection 10 mg (COMPLETED) 10 mg, IntraVENous, EVERY 15 MIN PRN, 2 doses, Starting on Fri08/16/22 at 0807, Until Fri08/16/22 at 0826, High Blood Pressure, for SBP greater than 180 mmHg for 2 consecutive measurements taken from different sites, Inform provider if SBP is still greater than 180 mmHg 10 minutes after second antihypertensive dose is administered., PACU only * 0822 (Given - Provider: Krysten Guerrero RN) * 0826 (Given - Provider: Krysten Guerrero RN) HYDROmorphone (DILAUDID) injection 0.25 mg 0.25 mg, IntraVENous, EVERY 5 MIN PRN, 4 doses, Starting on Fri08/16/22 at 0807, Until Discontinued,Pain Moderate (4-6), Phase I - Initial therapy for moderate pain., PACU only HYDROmorphone (DILAUDID) injection 0.5 mg 0.5 mg, IntraVENous, EVERY 5 MIN PRN, 4 doses, Starting on Fri08/16/22 at 0807, Until Discontinued, Pain Severe (7-10), Phase I - Initial therapy for severe pain., PACU only lidocaine 1 % injection 1 mL 1 mL, IntraDERmal, ONCE PRN, 1 dose, Starting on Fri08/16/22 at 0714, Until 08/17/22 at 0714, IV start, Pre-op (day of surgery) meperidine (DEMEROL) injection 12.5 mg 12.5 mg, IntraVENous, EVERY 5 MIN PRN, 4 doses, Starting on Fri08/16/22 at 0807, Until Discontinued,Shivering, , May give every 5 minutes to max of 50mg., PACU only metoclopramide (REGLAN) injection 10 mg 10 mg, IntraVENous, ONCE PRN, 1 dose, Starting on Fri08/16/22 at 0807, Until 08/17/22 at 0807, Nausea, Secondary antiemetic therapy., PACU only sodium chloride flush 0.9 % injection 5-40 mL 5-40 mL, IntraVENous, PRN, Starting on Fri08/16/22 at 0714, Until Discontinued, Line Care, After every IV line use, For Line Patency: Peripheral IV = 5 mL; Midline or Central Line = 10 mL/lumen. If following IV push medication, administer flush at same rate as the IV push. Flush volume is determinedby type of infusion therapy being given. For non-viscous solutions use: Peripheral IV = 5 mL Midline or Central Line = 10 mL/lumen For viscous solutions (i.e. blood components, parenteral nutrition, contrast media, or after obtaining blood sample) use: Peripheral IV = 10 mL Midline or Central Line = 20 mL/lumen, Pre-op (day of surgery) sodium chloride flush 0.9 % injection 5-40 mL 5-40 mL, IntraVENous, PRN, Starting on Fri08/16/22 at 0807, Until Discontinued, Line Care, After every IV line use, For Line Patency: Peripheral IV = 5 mL; Midline or Central Line = 10 mL/lumen. If following IV push medication, administer flush at same rate as the IV push. Flush volume is determinedby type of infusion therapy being given. For non-viscous solutions use: Peripheral IV = 5 mL Midline or Central Line = 10 mL/lumen For viscous solutions (i.e. blood components, parenteral nutrition, contrast media, or after obtaining blood sample) use: Peripheral IV = 10 mL Midline or Central Line = 20 mL/lumen, PACU only Medication Order///04/2022 ondansetron (ZOFRAN) 4 MG/2ML injection 1 dose, Starting on Fri08/16/22 at 0824, Until Fri08/16/22 at 2028, Krysten Guerrero: cabinet override, Krysten Guerrero: cabinet override * 0829 (Canceled Entry - Provider: Krysten Guerrero RN) Medication Order/// dexAMETHasone (DECADRON) injection 6 mg (COMPLETED) 6 mg, IntraVENous, ONCE, On Fri08/06/23 at 0615, For 1 dose * 0611 (Given - Provider: Aneudy Winston RN) diphenhydrAMINE (BENADRYL) injection 25 mg (COMPLETED) 25 mg, IntraVENous, ONCE, 1 dose, On Fri08/06/23 at 0445, IV Push at rate not to exceed 25 mg/min. * 0525 (Given - Provider: Aneudy Winston RN) ketorolac (TORADOL) injection 30 mg (COMPLETED) 30 mg, IntraVENous, ONCE, 1 dose, On Fri08/06/23 at 0615, Do not administer for more than 5 days. * 0612 (Given - Provider: Aneudy Winston RN) metoclopramide (REGLAN) injection 10 mg (COMPLETED) 10 mg, IntraVENous, ONCE, 1 dose, On Fri08/06/23 at 0445, IV Push: Max 10 mg over 1-2 minutes. * 0525 (Given - Provider: Aneudy Winston RN) sodium chloride 0.9 % bolus 1,000 mL (COMPLETED) 1,000 mL, IntraVENous, at 983.6 mL/hr, Administer over 61 Minutes, ONCE, On Fri08/06/23 at 0445, For 1 dose * 0524 (New Bag - Provider: Aneudy Winston RN) * 0612 (Stopped - Provider: Aneudy Winston RN) Medication Order05/13/069027///03/2024 doxycycline hyclate (VIBRAMYCIN) capsule 100 mg (COMPLETED) 100 mg, Oral, ONCE, 1 dose, On Fri05/15/24 at 0045, Antimicrobial Indications: Skin and Soft Tissue Infection, This medication can interact with tube feedings (TF)- obtain MD order to manage. Recommend holding TF for 1 h before and 2 h after dose. Take 1 h before or 2 h after dairy, calcium, iron, magnesium, aluminum or zinc. * 0055 (Given - Provider: Jessica Alexandre RN) Medication Order//12/2024 acetaminophen (TYLENOL) tablet 650 mg (COMPLETED) 650 mg, Oral, ONCE, 1 dose, On Fri05/24/24 at 1900, Maximum dose of acetaminophen is 4000 mg from all sources in 24 hours. * 1853 (Given - Provider: Delmy Lazo RN) amoxicillin-clavulanate (AUGMENTIN) 875-125 MG per tablet 1 tablet (COMPLETED) 1 tablet, Oral, ONCE, 1 dose, On Fri05/24/24 at 1945, Antimicrobial Indications: Skin and Soft Tissue Infection * 1937 (Given - Provider: Delmy Lazo, SATHYA) Medication Order//02/2025 doxycycline hyclate (VIBRAMYCIN) capsule 100 mg (COMPLETED) 100 mg, Oral, ONCE, 1 dose, On Fri05/26/24 at 1999, Antimicrobial Indications: Surgical Prophylaxis, This medication can interact with tube feedings (TF)- obtain MD order to manage. Recommend holdingTF for 1 h before and 2 h after dose. Take 1 h before or 2 h after dairy, calcium, iron, magnesium,aluminum or zinc. * 1954 (Given - Provider: Leigha Gonzalez, SATHYA) oxyCODONE-acetaminophen (PERCOCET) 5-325 MG per tablet 2 tablet (COMPLETED) 2 tablet, Oral, ONCE, 1 dose, On Fri05/26/24 at 1999, Maximum dose of acetaminophen is 4000 mg fromall sources in 24 hours. * 1954 (Given - Provider: Leigha Gonzalez, SATHYA) Medication Order// ondansetron (ZOFRAN) injection 4 mg (COMPLETED) 4 mg, IntraVENous, ONCE, 1 dose, On Fri02/28/24 at 2200 * 2205 (Given - Provider: Evelin Reno, SATHYA) sodium chloride 0.9 % bolus 1,000 mL (COMPLETED) 1,000 mL (9.79 mL/kg), IntraVENous, at 495.9 mL/hr, Administer over 121 Minutes, ONCE, On Fri02/28/24 at 2200, For 1 dose * 2207 (New Bag - Provider: Evelin Reno RN) * 230 (Stopped - Provider: Evelin Reno RN) Medication Order//[id number]/ acetaminophen (TYLENOL) tablet 650 mg (COMPLETED) 650 mg, Oral, ONCE, 1 dose, On Fri03/02/24 at 0200, Maximum dose of acetaminophen is 4000 mg from all sources in 24 hours. * 0148 (Given - Provider: Cici Jiménez, SATHYA) ondansetron (ZOFRAN) injection 4 mg (COMPLETED) 4 mg, IntraVENous, ONCE, 1 dose, On Fri03/02/24 at 0100 * 0106 (Given - Provider: Cicicory Jiménez RN) potassium chloride (KLOR-CON M) extended release tablet 40 mEq (COMPLETED) 40 mEq, Oral, ONCE, 1 dose, On Fri03/02/24 at 0145, Do not crush or break. Do not crush, chew, or suck on tablet. Tablet may also be broken in half and each half swallowed separately. * 0141 (Given - Provider: Cici Jiménez, SATHYA) sodium chloride 0.9 % bolus 500 mL (COMPLETED) 500 mL (4.9 mL/kg), IntraVENous, at 967.7 mL/hr, Administer over 31 Minutes, ONCE, On Fri03/02/24 at 0100, For 1 dose, For adult patients weighing > 55 kg (120 lbs.) and less than <50 years ofage initiate 0.9NS at 500 mL/ hr. All bolus orders are to be given over 10 to 15 minutes * 0105 (New Bag - Provider: Cici Jiménez RN) * 0142 (Stopped - Provider: Cici Jiménez RN) Medication Order/ acetaminophen (OFIRMEV) IVPB 1,000 mg (COMPLETED) 1,000 mg, Intravenous, at 400 mL/hr, Administer over 15 Minutes, ONCE, 1 dose, On Fri09/20/24 at 1515, Recovery * 1515 ($$New Bag$$ - Provider: Steffi Jones, SATHYA) * 1530 (Stopped - Provider: Steffi Jones, SATHYA) clindamycin (CLEOCIN) 900 mg in normal saline 50 ml premix IVPB (COMPLETED) 900 mg, Intravenous, Administer over 30 Minutes, ONCE, 1 dose, On Fri09/20/24 at 1145, Pre-op/Pre-Proc * 1410 ($$New Bag$$ - Provider: Andra Stanton CRNA) * 1522 (Stopped - Provider: Steffi Jones, SATHYA) Medication Order/ Sodium chloride 0.9% IV solution Intravenous, at 110 mL/hr, CONTINUOUS, Starting on Fri09/20/24 at 1145, Until Fri09/20/24 at 1843, Pre-op/Pre-Proc * 1221 ($$New Bag$$ - Provider: Trell Arteaga RN) * 1559 (Stopped - Provider: Steffi Jones RN) Medication Order chlorhexidine (PERIDEX) 0.12 % oral solution (CANCELED) NEEDED, Starting on Fri09/20/24 at 1413, Until Fri09/20/24 at 1503, Intra-op/Intra-Proc * 1413 (Given - Provider: Kevin Sagastume DDS) HYDROmorphone (DILAUDID) injection 0.2 mg(Linked Group 1) 0.2 mg, Intravenous, EVERY 15 MINUTES NEEDED, 3 doses, Starting on Fri09/20/24 at 1506, Until Fri09/20/24 at 1843, Moderate Pain, Recovery * 1515 (See Alternative - Provider: Steffi Jones RN) * 1530 (See Alternative - Provider: Steffi Jones RN) HYDROmorphone (DILAUDID) injection 0.5 mg(Linked Group 1) 0.5 mg, Intravenous, EVERY 15 MINUTES NEEDED, 3 doses, Starting on Fri09/20/24 at 1506, Until Fri09/20/24 at 1843, Severe Pain, Recovery * 1515 (Given - Provider: Steffi Jones RN) * 1530 (Given - Provider: Steffi Jones RN) lidocaine-epinephrine 1 %-1:[id number] injection SOLN (CANCELED) NEEDED, Starting on Fri09/20/24 at 1415, Until Fri09/20/24 at 1503, Intra-op/Intra-Proc * 1415 (Given - Provider: Kevin Sagastume DDS - Comment: injected into oral cavity prior to incision) Ondansetron 4mg/2ml (ZOFRAN) injection 4 mg (COMPLETED) 4 mg, Intravenous, ONCE NEEDED, 1 dose, Starting on Fri09/20/24 at 1506, Until Fri09/20/24 at 1515, Nausea / Vomiting, Recovery * 1515 (Given - Provider: Steffi Jones RN) Promethazine (PHENERGAN) 6.25 mg in Sodium chloride 0.9%, with overfill 60.25 mL (total volume) IVPB 6.25 mg, Intravenous, at 180.8 mL/hr, Administer over 20 Minutes, EVERY 1 HOUR NEEDED, 2 doses, Starting on Fri09/20/24 at 1506, Until Fri09/20/24 at 1843, Other, Nausea and vomiting, Extravasation Risk, Recovery Sodium chloride 0.9 % irrigation (CANCELED) NEEDED, Starting on Fri09/20/24 at 1419, Until Fri09/20/24 at 1503, Intra-op/Intra-Proc * 1419 (Given - Provider: Kevin Sagastume DDS) Order Group 1: HYDROmorphone (DILAUDID) injection 0.2 mgJump to med 0.2 mg, Intravenous, EVERY 15 MINUTES NEEDED, 3 doses, Starting on Fri09/20/24 at 1506, Until Fri09/20/24 at 1843, Moderate Pain, Recovery Or HYDROmorphone (DILAUDID) injection 0.5 mgJump to med 0.5 mg, Intravenous, EVERY 15 MINUTES NEEDED, 3 doses, Starting on Fri09/20/24 at 1506, Until Fri09/20/24 at 1843, Severe Pain, Recovery Care Teams (unrecognized sec tion and content) Team MemberRelationshipSpecialtyStart DateEnd Date Shaikh Nieves MD [address] [place] [address] [facility]06/30/20Te MemberRelationshipSpecialtyStart DateEnd Date Shaikh Nieves MD [address] [place] [address] [facility]06/30/20Te MemberRelationshipSpecialtyStart DateEnd Date Shaikh Nieves MD [address] [place] [address] [facility]06/30/20Te MemberRelationshipSpecialtyStart DateEnd Date Shaikh Nieves MD [address] [place] [address] PCP - General4/21Team MemberRelationshipSpecialtyStart DateEnd Date Shaikh Nieves MD [address] [place] [address] PCP - General4Team MemberRelationshipSpecialtyStart DateEnd Date Shaikh Nieves MD [address] [place] [address] PCP - General4Team MemberRelationshipSpecialtyStart DateEnd Date Shaikh Nieves MD [address] [place] [address] PCP - General4Team MemberRelationshipSpecialtyStart DateEnd Date Shaikh Nieves MD [address] [place] [address] PCP - General4Team MemberRelationshipSpecialtyStart DateEnd Date Shaikh Nieves MD [address] [place] [address] PCP - General4Team MemberRelationshipSpecialtyStart DateEnd Date Shaikh Nieves MD [address] [place] [address] PCP - General4Team MemberRelationshipSpecialtyStart DateEnd Date Shaikh Nieves MD [address] [place] [address] PCP - General4/16/21Team MemberRelationshipSpecialtyStart DateEnd Date Shaikh Nieves MD [address] [place] [address] PCP - General06/30/20Team MemberRelationshipSpecialtyStart DateEnd Date Tyree Lamar MD [address] [place] [address] PCP - Generalmily Medicine12/03/23 Alyson Paulino NP [address] [place] [address] Nurse Practitionermily Medicine12/03/23Team MemberRelationshipSpecialtyStart DateEnd Date Tyree Lamar MD [address] [place] [address] PCP - Generalmily Medicine12/03/23 Alyson Paulino, BILL [address] [place] [address] Nurse Practitionermily Medicine12/03/23Team MemberRelationshipSpecialtyStart DateEnd Date Tyree Lamar MD [address] [place] [address] PCP - Generalmily Medicine12/03/23 Alyson Paulino NP [address] [place] [address] Nurse Practitionermily Medicine12/03/23Team MemberRelationshipSpecialtyStart DateEnd Date Tyree Lamar MD [address] [place] [address] PCP - GeneralFamily Medicine12/03/23 Alyson Paulino NP [address] [place] [address] [facility]12/03/23Team MemberRelationshipSpecialtyStart DateEnd Date Tyree Lamar MD [address] [place] [address] PCP - Generalmily Medicine12/03/23 Alyson Paulino NP [address] [place] [address] [facility]12/03/23Team MemberRelationshipSpecialtyStart DateEnd Date Alyson Paulino APRN - COOPERER [address] [place] [address] PCP - [facility] Mmrdagmbekyu33/5/24Team MemberRelationshipSpecialtyStart Date End Date Tyree Lamar MD [address] [place] [address] PCP - GeneralFamily Medicine12/03/23 Alyson Paulino NP [address] [place] [address] Nurse Practitionermily Medicine12/03/23Team MemberRelationshipSpecialtyStart DateEnd Date Tyree Lamar MD [address] [place] [address] PCP - GeneralFamily Medicine12/03/23 Alyson Paulino, BILL [address] [place] [address] [facility]12/03/23Team MemberRelationshipSpecialtyStart DateEnd Date Tyree Lamar MD [address] [place] [address] PCP - GeneralFamily Medicine12/03/23 Alyson Paulino, BILL [address] [place], [place] [address] Nurse PractitionerUnitypoint [facility]-Allen Hospitally Medicine12/03/23Team MemberRelationshipSpecialtyStart DateEnd Date Tyree Lamar MD [address] [place] [address] PCP - GeneralFamily Medicine12/03/23 Alyson Paulino, COOPERER [address] [place] [address] Nurse PractitionerUnity[facility] Hospitally Medicine12/03/23Team MemberRelationshipSpecialtyStart DateEnd Date Tyree Lamar MD [address] [place] [address] PCP - GeneralFamily Medicine12/03/23 Alyson Paulino NP [address] [place] [address] Nurse Pract[facility]erP[facility]12/03/23Team MemberRelationshipSpecialtyStart DateEnd Date Shaikh Nieves MD [address] [place] [address] PCP - GeneralInternal Medicine04/14/23Team MemberRelationshipSpecialtyStart Date End Date Shaikh Nieves MD [address] [place] [address] PCP - GeneralInternal Medicine04/14/23Team MemberRelationshipSpecialtyStart Date End Date Shaikh Nieves MD [address] [place] [address] [facility]14/23Team MemberRelationshipSpecialtyStart Date End Date Tyree Lamar MD [address] [place] [address] PCP - GeneralP[facility]12/03/23 Alyson Paulino NP [address] [place] [address] Nurse PractitionerPied[facility]12/03/23Team MemberRelationshipSpecialtyStart DateEnd Date Alyson Paulino APRN - COOPERER [address] [place] [address] PCP - [facility] Pmieexmgbdhi01/5/24Team MemberRelationshipSpecialtyStart Date End Date Tyree Lamar MD [address] [place] [address] PCP - GeneralUnity[facility] Hospitally Medicine12/03/23 Alyson Paulino NP [address] [place] [address] Nurse PractitionerP[facility]12/03/23Team MemberRelationshipSpecialtyStart DateEnd Date Tyree Lamar MD [address] [place] [address] PCP - GeneralP[facility]12/03/23 Alyson Paulino NP [address] [place] [address] Nurse PractitionerP[facility]12/03/23Team MemberRelationshipSpecialtyStart DateEnd Date Tyree Lamar MD [address] [place] [address] [facility] - [facility]12/03/23 Alyson Paulino NP [address] [place] [address] Nurse PractitionerPied[facility]12/03/23Team MemberRelationshipSpecialtyStart DateEnd Date Alyson Paulino APRN - COOPERER [address] [place] [address] PCP - GeneralNurse Sctfvjqacgqw83/5/24Team MemberRelationshipSpecialtyStart Date End Date Tyree Lamar MD [address] [place] [address] PCP - Generalmily Medicine12/03/23 Alyson Paulino NP [address] [place] [address] [facility] Medicine12/03/23Team MemberRelationshipSpecialtyStart DateEnd Date Tyree Lamar MD [address] [place] [address] PCP - [facility]Cor[facility] Medicine12/03/23 Alyson Paulino NP [address] [place] [address] Nurse [facility]12/03/23Team MemberRelationshipSpecialtyStart DateEnd Date Alyson Paulino APRN - COOPERER [address] [place] [address] PCP - GeneralNurse Oovrqzxutrgn78/5/24Team MemberRelationshipSpecialtyStart Date End Date Tyree Lamar MD [address] [place] [address] PCP - GeneralFamily Medicine12/03/23 Alyson Paulino NP [address] [place] [address] Nurse Practitionermily Medicine12/03/23Team MemberRelationshipSpecialtyStart DateEnd Date EliseoAneudy moon, RN [employer] - COOPERER [address] [place] [address] PCP - GeneralNurse Practitioner05/26/24Team MemberRelationshipSpecialtyStart Date End Date Aneudy Venegas, RN [employer] - COOPERER [address] [place] [address] PCP - GeneralNurse Practitioner05/26/24Team MemberRelationshipSpecialtyStart Date End Date Tyree Lamar MD [address] [place] [address] PCP - Generalmily Medicine12/03/23 Alyson Paulino NP [address] [place] [address] Nurse PractitionerUnity[facility]ally Medicine12/03/23Team MemberRelationshipSpecialtyStart DateEnd Date Alyson Paulino APRN - COOPERER [address] [place] [address] PCP - GeneralNurse Xwfnuzwtljnn27/5/24Team MemberRelationshipSpecialtyStart Date End Date Alyson Paulino APRN - COOPERER [address] [place] [address] PCP - GeneralNurse Hdgprnnsykuy72/5/24Team MemberRelationshipSpecialtyStart Date End Date Sarai Paulinotany RN [employer] - COOPERER [address] [facility] [place] [address] PCP - GeneralNurse Djivagvrubja53/5/24Team MemberRelationshipSpecialtyStart Date End Date [facility] [address] [place] [facility] [address] PCP - GeneralFamily Medicine09/13/24Team MemberRelationshipSpecialtyStart DateEnd Date Arthur Saleh, RN [employer] - COOPERER [address] [place] [address] PCP - GeneralNurse Practitioner09/09/24Team MemberRelationshipSpecialtyStart Date End Date Arthur Saleh RN [employer] - COOPERER [address] [place] [address] PCP - GeneralNurse Practitioner09/09/24Team MemberRelationshipSpecialtyStart Date End Date Arthur Saleh RN [employer] - COOPERER [address] [place] [address] PCP - GeneralNurse Practitioner09/09/24Team MemberRelationshipSpecialtyStart Date End Date Arthur Saleh RN [employer] - COOPERER [address] [place] [address] PCP - GeneralNurse Practitioner09/09/24Team MemberRelationshipSpecialtyStart Date End Date Arthur Saleh RN [employer]GAL - COOPERER [address] [place] [address] PCP - GeneralNurse Practitioner09/09/24Team MemberRelationshipSpecialtyStart Date End Date Shaikh Nieves MD PCP - GeneralInternal Medicine Tyree Lamar MD PCP - GeneralFamily Medicine12/03/23 Alyson Paulino NP Nurse PractitionerUnity[facility] Hospitally Medicine12/03/23Team MemberRelationshipSpecialtyStart DateEnd Date Arthur Saleh APRN - COOPERER [address] [place] [address] PCP - GeneralNurse Practitioner09/09/24Team MemberRelationshipSpecialtyStart Date End Date Tyere Lamar MD PCP - GeneralFamily Medicine12/03/23 Alyson Paulino NP Nurse PractitionerUnitypoint [facility] Hospitally Medicine12/03/23Te MemberRelationshipSpecialtyStart DateEnd Date Tyree Lamar MD PCP - GeneralFamily Medicine12/03/23 Alyson Paulino NP Nurse PractitionerUnitypoint [facility] Hospitally Medicine12/03/23 FOR RECORDS PERTAINING TO PATIENTS WHO ARE OR HAVE BEEN ENROLLED IN A CHEMICAL DEPENDENCY/SUBSTANCEABUSE PROGRAM, SOME INFORMATION MAY BE OMITTED. This clinical summary was aggregated from multiple sources. Caution should be exercised in using it in the provision of clinical care. This summary normalizes information from multiple sources, and as a consequence, information in this document may materially change the coding, format and clinical context of patient data. In addition, data may be omitted in some cases. CLINICAL DECISIONS SHOULD BE BASED ON THE PRIMARY CLINICAL RECORDS. [facility] [employer] [facility] provides no warranty or guarantee of the accuracy or completeness of information in this document.
[2025-02-23 04:07] LABS: AFP, Serum, Tumor Marker 3.8 ng/mL (0.0-6.4); CEA <0.6 ng/mL (0.0-4.7)
== END 2025-02-21 16:27 | disposition home or self-care (01) ==
LOC: LAB 16:28
PROVIDERS: PCP Nurse Practitioner; Visit Provider Nurse Practitioner Family
DX: N83.299 Other ovarian cyst, unspecified side (principal)
CPT/HCPCS: 36415; 82105; 82378; 83615; 83625; 84702; 86304